=== PATIENT | male | born 1980 | race Caucasian/White ===

== ENCOUNTER 2017-09-16 14:23 | Inpatient (IN) | payer BC ==
[2017-09-16] MEDS ORDERED: LORazepam 1 MG TAB PO STA (15:41)
--- NOTE | 2017-09-16 15:49 | ED ---
General Adult HPI - General Chief complaint: Abdominal Pain Stated complaint: Back pain Time Seen by Provider: 09/16/17 15:17 Source: patient, RN notes reviewed Mode of arrival: ambulatory Limitations: no limitations - History of Present Illness Initial comments: 37-year-old male presents to the emergency department for a chief complaint of right flank pain 3 days. Patient describes the pain as a sharp pain both in his right flank and mid back. Patient states it does feel somewhat better when he lays down and rests and it is worse with movement. He states the pain has been intermittent over the past 3 days. Denies any blood in urine or stool. Patient denies any trauma or hurting his back. Patient does have a history of scoliosis but states this pain does not seem similar to him. Patient denies any spinal tenderness. Patient states he has not been to a doctor in 7 years and has not been on blood pressure medicines. Patient's blood pressure is 220s over 120s today in the emergency department. Patient denies any headache or changes in vision. Patient denies any chest pain or shortness of breath. - Related Data Allergies Allergy/AdvReac Type Severity Reaction Status Date / Time No Known Allergies Allergy Verified 09/16/17 15:20 Review of Systems ROS Statement: Those systems with pertinent positive or pertinent negative responses have been documented in the HPI. ROS Other: All systems not noted in ROS Statement are negative. Past Medical History Past Medical History: Hypertension Additional Past Medical History / Comment(s): scoliosis History of Any Multi-Drug Resistant Organisms: None Reported Past Surgical History: No Surgical Hx Reported Past Psychological History: No Psychological Hx Reported Smoking Status: Former smoker Past Alcohol Use History: Daily Past Drug Use History: None Reported General Exam Limitations: no limitations General appearance: alert, in no apparent distress Head exam: Present: atraumatic, normocephalic, normal inspection Respiratory exam: Present: normal lung sounds bilaterally. Absent: respiratory distress, wheezes, rales, rhonchi, stridor Cardiovascular Exam: Present: regular rate, normal rhythm, normal heart sounds. Absent: systolic murmur, diastolic murmur, rubs, gallop, clicks GI/Abdominal exam: Present: soft, tenderness (Tenderness to the right upper and lower quadrants.), normal bowel sounds. Absent: distended, guarding, rebound, rigid Extremities exam: Present: normal inspection, full ROM, normal capillary refill. Absent: tenderness, pedal edema, joint swelling, calf tenderness Back exam: Present: full ROM, CVA tenderness (R). Absent: muscle spasm, paraspinal tenderness, vertebral tenderness, rash noted Neurological exam: Present: alert, oriented X3, CN II-XII intact Psychiatric exam: Present: normal affect, normal mood Course Vital Signs 09/16/17 09/16/17 15:17 16:00 Temperature 97.5 F L Pulse Rate 75 Respiratory 18 Rate Blood Pressure 227/130 204/123 O2 Sat by Pulse 99 Oximetry Medical Decision Making - Medical Decision Making 37-year-old male presents to the emergency department for a chief complaint of right flank pain. Patient states this pain has been intermittent for the past 3 days. He also describes a pain in his mid back. He states it is shooting towards his right side. All vitals within normal limits except blood pressure. Temp 97.5 pulse 75 respirations 18 blood pressure 227/130. Patient was given a milligram of Ativan. He states his uncle will be driving him home. Patient denied pain medication at this time because although he was in pain earlier today he now feels much better. UA, CBC, CMP, lactic, and lipase were ordered. No acute abnormalities noted on CBC. However chemistry shows a creatinine of 3.1 and a BUN of 39. Urine shows a protein of 3+. CT abdomen and pelvis was ordered noncontrast which showed splenomegaly. No other abnormalities noted. Patient's blood pressure remained elevated. He was given 20 mg of lisinopril and 5 of Norvasc. Patient will be admitted under Dr. Bowser and Dr. Ladd will be consulted. - Lab Data Result diagrams: 09/16/17 15:40 09/16/17 15:40 Lab Results 09/16/17 09/16/17 09/16/17 Range/Units 15:40 15:40 15:40 WBC 5.1 (3.8-10.6) k/uL RBC 4.31 (4.30-5.90) m/uL Hgb 12.7 L (13.0-17.5) gm/dL Hct 39.3 (39.0-53.0) % MCV 91.3 (80.0-100.0) fL MCH 29.5 (25.0-35.0) pg MCHC 32.3 (31.0-37.0) g/dL RDW 13.7 (11.5-15.5) % Plt Count 163 (150-450) k/uL Neutrophils % 77 % Lymphocytes % 11 % Monocytes % 6 % Eosinophils % 4 % Basophils % 0 % Neutrophils # 4.0 (1.3-7.7) k/uL Lymphocytes # 0.6 L (1.0-4.8) k/uL Monocytes # 0.3 (0-1.0) k/uL Eosinophils # 0.2 (0-0.7) k/uL Basophils # 0.0 (0-0.2) k/uL Sodium 145 (137-145) mmol/L Potassium 4.1 (3.5-5.1) mmol/L Chloride 110 H (98-107) mmol/L Carbon Dioxide 24 (22-30) mmol/L Anion Gap 11 mmol/L BUN 39 H (9-20) mg/dL Creatinine 3.10 H (0.66-1.25) mg/dL Est GFR (CKD-EPI)AfAm 28 (>60 ml/min/1.73 sqM) Est GFR (CKD-EPI)NonAf 24 (>60 ml/min/1.73 sqM) Glucose 123 H (74-99) mg/dL Plasma Lactic Acid Hola 1.3 (0.7-2.0) mmol/L Calcium 9.2 (8.4-10.2) mg/dL Total Bilirubin 0.6 (0.2-1.3) mg/dL AST 30 (17-59) U/L ALT 37 (21-72) U/L Alkaline Phosphatase 72 (38-126) U/L Total Protein 6.3 (6.3-8.2) g/dL Albumin 3.3 L (3.5-5.0) g/dL Lipase 277 (23-300) U/L Urine Color Urine Appearance (Clear) Urine pH (5.0-8.0) Ur Specific Cameron (1.001-1.035) Urine Protein (Negative) Urine Glucose (UA) (Negative) Urine Ketones (Negative) Urine Blood (Negative) Urine Nitrite (Negative) Urine Bilirubin (Negative) Urine Urobilinogen (<2.0) mg/dL Ur Leukocyte Esterase (Negative) Urine RBC (0-5) /hpf Urine WBC (0-5) /hpf Hyaline Casts (0-2) /lpf Urine Mucus (None) /hpf 09/16/17 Range/Units 16:15 WBC (3.8-10.6) k/uL RBC (4.30-5.90) m/uL Hgb (13.0-17.5) gm/dL Hct (39.0-53.0) % MCV (80.0-100.0) fL MCH (25.0-35.0) pg MCHC (31.0-37.0) g/dL RDW (11.5-15.5) % Plt Count (150-450) k/uL Neutrophils % % Lymphocytes % % Monocytes % % Eosinophils % % Basophils % % Neutrophils # (1.3-7.7) k/uL Lymphocytes # (1.0-4.8) k/uL Monocytes # (0-1.0) k/uL Eosinophils # (0-0.7) k/uL Basophils # (0-0.2) k/uL Sodium (137-145) mmol/L Potassium (3.5-5.1) mmol/L Chloride (98-107) mmol/L Carbon Dioxide (22-30) mmol/L Anion Gap mmol/L BUN (9-20) mg/dL Creatinine (0.66-1.25) mg/dL Est GFR (CKD-EPI)AfAm (>60 ml/min/1.73 sqM) Est GFR (CKD-EPI)NonAf (>60 ml/min/1.73 sqM) Glucose (74-99) mg/dL Plasma Lactic Acid Hola (0.7-2.0) mmol/L Calcium (8.4-10.2) mg/dL Total Bilirubin (0.2-1.3) mg/dL AST (17-59) U/L ALT (21-72) U/L Alkaline Phosphatase (38-126) U/L Total Protein (6.3-8.2) g/dL Albumin (3.5-5.0) g/dL Lipase (23-300) U/L Urine Color Light Yellow Urine Appearance Clear (Clear) Urine pH 6.5 (5.0-8.0) Ur Specific Cameron 1.011 (1.001-1.035) Urine Protein 3+ H (Negative) Urine Glucose (UA) Negative (Negative) Urine Ketones Negative (Negative) Urine Blood Small H (Negative) Urine Nitrite Negative (Negative) Urine Bilirubin Negative (Negative) Urine Urobilinogen <2.0 (<2.0) mg/dL Ur Leukocyte Esterase Negative (Negative) Urine RBC 4 (0-5) /hpf Urine WBC 3 (0-5) /hpf Hyaline Casts 1 (0-2) /lpf Urine Mucus Rare H (None) /hpf Disposition Clinical Impression: Hypertension, Renal failure Disposition: ADMITTED IP TO THIS HOSP Condition: Good Referrals: None,Stated [Primary Care Provider] - 1-2 days
[2017-09-16 15:56] LABS: Basophils % (A) 0 %; Eosinophils # (A) 0.2 k/uL (0-0.7); Eosinophils % (A) 4 %; HCT 39.3 % (39.0-53.0); HGB 12.7 gm/dL (13.0-17.5); Lymphocytes # (A) 0.6 k/uL (1.0-4.8); Lymphocytes % (A) 11 %; MCH 29.5 pg (25.0-35.0); MCHC 32.3 g/dL (31.0-37.0); MCV 91.3 fL (80.0-100.0); Mean Platelet Volume 6.8; Monocytes # (A) 0.3 k/uL (0-1.0); Monocytes % (A) 6 %; Neutrophils % (A) 77 %; Platelet Count 163 k/uL (150-450); RBC 4.31 m/uL (4.30-5.90); RDW 13.7 % (11.5-15.5); WBC 5.1 k/uL (3.8-10.6)
[2017-09-16 16:05] LABS: Potassium 4.1 mmol/L (3.5-5.1)
[2017-09-16 16:06] LABS: Albumin 3.3 g/dL (3.5-5.0); Calcium 9.2 mg/dL (8.4-10.2); Total Bilirubin 0.6 mg/dL (0.2-1.3); Total Protein 6.3 g/dL (6.3-8.2)
--- NOTE | 2017-09-16 16:10 | CT ---
EXAMINATION TYPE: CT abdomen pelvis wo con DATE OF EXAM: 09/16/2017 COMPARISON: NONE HISTORY: Right side flank pain CT DLP: 1081 mGycm Examination of the solid and hollow viscera is limited given the lack of contrast. FINDINGS: LUNG BASES: No evidence for nodule. No evidence for infiltrate. LIVER/GB: The gallbladder is unremarkable. No space-occupying hepatic lesion. PANCREAS: No pancreatic mass identified. No inflammatory process seen. SPLEEN: Splenomegaly with craniocaudal dimension of 15.7 cm. No intrasplenic lesions seen. ADRENALS: No adrenal nodules identified. No evidence for thickening. KIDNEYS: No evidence for renal mass. No nephrolithiasis. No hydronephrosis. BOWEL: Appendix has a normal appearance. No evidence of bowel obstruction. No inflammatory process. Lymph nodes: No evidence for adenopathy greater than 1 cm. Abdominal aorta: Atheromatous changes seen. No evidence for aneurysm. Genital organs: No significant abnormality. Other: No significant abnormality. IMPRESSION: 1. Splenomegaly with craniocaudal dimension of 15.7 cm. 2. Gastric distention may reflect recently ingested meal/fluid.
[2017-09-16 16:26] LABS: Appearance,Urine Clear (Clear); Bilirubin,Urine Negative (Negative); Blood,Urine Small (Negative); Color,Urine Light Yellow; Glucose,Urine (UA) Negative (Negative); Hyaline Casts,Urine 1 /lpf (0-2); Ketones,Urine Negative (Negative); Leukocyte Esterase,Urine Negative (Negative); Mucus,Urine Rare /hpf; Nitrite,Urine Negative (Negative); PH, Urine 6.5 (5.0-8.0); Protein,Urine 3+ (Negative); RBC,Urine 4 /hpf (0-5); Specific Gravity,Urine 1.011 (1.001-1.035); Urobilinogen,Urine <2.0 mg/dL (<2.0); WBC,Urine 3 /hpf (0-5)
[2017-09-16] MEDS ORDERED: LABETALOL 5 MG/ML VIAL MDV IVP STA ×2 (17:24→19:22)
[2017-09-16] MEDS ORDERED: amLODIPine 5 MG TAB PO STA ×2 (17:25→20:03)
[2017-09-16] MEDS ORDERED: SODIUM CHLORIDE 0.9% 1,000 ML IV STA (17:40)
[2017-09-16] MEDS ORDERED: ACETAMINOPHEN TAB 325 MG TAB PO PRN (17:47)
[2017-09-16] MEDS ORDERED: NALOXONE 0.4 MG/ML 1 ML VIAL IV PRN (17:47)
[2017-09-16] MEDS ORDERED: LABETALOL 200 MG TAB PO STA (19:21)
[2017-09-16] MEDS: SODIUM CHLORIDE 0.9% 1,000 ML IV SCH (20:39)
[2017-09-16] MEDS: LABETALOL 5 MG/ML VIAL MDV IVP SCH ×2 (20:42→21:28)
[2017-09-16 23:19] VITALS: BMI 31.5
[2017-09-17] MEDS ORDERED: HYDROcodone/APAP 5-325MG 1 EACH TAB PO PRN (01:30)
[2017-09-17] MEDS ORDERED: LORazepam 2 MG/ML INJ IV PRN ×3 (01:31)
[2017-09-17] MEDS: SODIUM CHLORIDE 0.9% 1,000 ML IV SCH ×3 (05:00→20:20)
[2017-09-17] MEDS: LABETALOL 5 MG/ML VIAL MDV IVP SCH (05:15)
--- NOTE | 2017-09-17 09:12 | P.NPCON ---
History of Present Illness - Reason for Consult acute renal failure - History of Present Illness Reason for consultation: Acute kidney injury History of present illness: Patient is a 37-year-old male seen in renal consultation for acute kidney injury. Unclear as to what his baseline renal function is. Creatinine was 3.1 on admission. Patient presented to the hospital with right-sided flank pain going on for about 3 days. Patient denies any hematuria or dysuria. Denies any vomiting or diarrhea. Oral intake has been relatively fair. He does admit to taking ibuprofen and Aleve for the last 2-3 days for pain control. He does have history of hypertension but hasn't been taking any medications. He has not seen a physician for several years. His blood pressure was extremely elevated in the systolic 200s on admission for which she did receive labetalol as well as amlodipine. Blood pressure is better controlled today. CT of the abdomen and pelvis revealed no evidence of hydronephrosis. Urinalysis revealed 3+ proteinuria with 4 rbc's. Denies chest pain or shortness of breath. No history of diabetes. Denies any edema. Patient does state that his mother received a kidney transplant but is unsure of the etiology of her kidney failure. Vital signs are stable. General: The patient appeared well nourished and normally developed. HEENT: Head exam is unremarkable. Neck is without jugular venous distension. LUNGS: Lungs are clear to auscultation and percussion. Breath sounds decreased. HEART: Rate and Rhythm are regular. First and second heart sounds normal. No murmurs, rubs or gallops. ABDOMEN: Abdominal exam reveals normal bowel sounds. Non-tender and non- distended. No evidence of peritonitis. EXTREMITITES: No clubbing, cyanosis, or edema. Past Medical History Past Medical History: Hypertension Additional Past Medical History / Comment(s): scoliosis History of Any Multi-Drug Resistant Organisms: None Reported Past Surgical History: Tonsillectomy Past Anesthesia/Blood Transfusion Reactions: No Reported Reaction Past Psychological History: No Psychological Hx Reported Smoking Status: Never smoker Past Alcohol Use History: Daily Additional Past Alcohol Use History / Comment(s): pt states he drinks 12 beers daily Past Drug Use History: None Reported - Past Family History Mother Additional Family Medical History / Comment(s): liver and kidney transplant Father Additional Family Medical History / Comment(s): pt states father of heart attack in his 50's Medications and Allergies Home Medications Medication Instructions Recorded Confirmed Type No Known Home Medications [No 09/16/17 09/16/17 History Known Home Medications] Allergies Allergy/AdvReac Type Severity Reaction Status Date / Time cranberry Allergy Unknown Verified 09/16/17 19:04 pollen extracts Allergy Dyspnea Verified 09/16/17 19:04 Physical Exam Vitals: Vital Signs Temp Pulse Pulse Resp BP BP Pulse Ox 09/17/17 03:55 97.4 F L 58 L 18 147/96 98 09/17/17 03:54 58 L 09/17/17 01:29 146/86 09/17/17 00:00 97.6 F 61 16 174/103 98 09/16/17 22:45 98.3 F 61 18 175/111 98 09/16/17 22:08 60 181/108 96 09/16/17 21:53 60 182/110 96 09/16/17 21:44 61 18 181/112 98 09/16/17 21:29 202/123 09/16/17 21:13 200/117 09/16/17 20:36 194/111 09/16/17 19:50 200/115 09/16/17 19:19 219/134 09/16/17 18:45 209/138 09/16/17 18:40 97.6 F 61 16 175/110 98 09/16/17 18:08 67 18 224/140 98 09/16/17 16:00 204/123 09/16/17 15:17 97.5 F L 75 18 227/130 99 Intake and Output 09/16/17 09/17/17 09/17/17 22:59 06:59 14:59 Intake Total 240 Output Total 1325 Balance 240 -1325 Intake: Oral 240 Output: Urine 1325 Other: Voiding Method Urinal # Voids 1 Weight 96.8 kg 96.8 kg Results - Lab Results Most recent lab results Calcium 9.2 mg/dL (8.4-10.2) 09/16/17 15:40 09/16/17 15:40 09/16/17 15:40 Assessment and Plan Plan: Assessment: #1. Nonoliguric acute kidney injury secondary to ATN secondary to NSAIDs and hemodynamic instability. Creatinine 3.1 on admission. Labs from today are pending at this time. No evidence of hydronephrosis noted on CAT scan. #2. Proteinuria. Consideration for GN. Proteinuria can be nonspecific in the setting of acute kidney injury. #3. Benign hypertension. Better controlled now. Plan: Continue normal saline at 120 mL an hour.. Repeat urinalysis. Quantify proteinuria. Pending above workup, may need to proceed with serologic workup. Avoid nephrotoxic agents and hypotensive episodes. Encouraged oral intake. Add amlodipine 5 mg once daily. Add hydralazine 10 mg every 4 hours if needed for systolic blood pressure greater than 160. Thank you for the consultation. I will continue to follow the patient with you during his hospital stay.
[2017-09-17 09:53] LABS: Appearance,Urine Clear (Clear); Bilirubin,Urine Negative (Negative); Blood,Urine Negative (Negative); Color,Urine Light Yellow; Glucose,Urine (UA) Negative (Negative); Ketones,Urine Negative (Negative); Leukocyte Esterase,Urine Negative (Negative); Nitrite,Urine Negative (Negative); PH, Urine 6.5 (5.0-8.0); Protein,Urine 2+ (Negative); RBC,Urine <1 /hpf (0-5); Specific Gravity,Urine 1.007 (1.001-1.035); Urobilinogen,Urine <2.0 mg/dL (<2.0); WBC,Urine <1 /hpf (0-5)
[2017-09-17 10:12] LABS: Calcium 9.1 mg/dL (8.4-10.2); Potassium 4.6 mmol/L (3.5-5.1)
[2017-09-17] MEDS: THIAMINE 100 MG TAB PO SCH ×2 (12:38→22:11)
[2017-09-17] MEDS: MULTIVITAMINS, THERA 1 EACH TAB PO SCH (12:38)
[2017-09-17] MEDS: amLODIPine 5 MG TAB PO SCH (12:38)
--- NOTE | 2017-09-17 14:19 | US ---
EXAMINATION TYPE: US kidneys/renal and bladder DATE OF EXAM: 09/17/2017 COMPARISON: CT 09/16/2017 CLINICAL HISTORY: bobby. Pt states flank pain and recent abnormal renal function EXAM MEASUREMENTS: Right Kidney: 9.7 x 4.3 x 4.8 cm Left Kidney: 9.9 x 4.4 x 5.1 cm Right Kidney: Echogenic, loss of corticomedullary differentiation Left Kidney: Echogenic, loss of corticomedullary differentiation Bladder: Not fully distended, pt voided just prior to exam Bilateral Jets seen: No Incidental enlarged spleen There is no evidence for hydronephrosis at this point in time. No nephrolithiasis is seen. No fran s are identified. The urinary bladder is anechoic. Bilateral ureteral jets are seen. IMPRESSION: Splenomegaly. Findings compatible with medical renal disease.
--- NOTE | 2017-09-17 17:18 | P.HPIM ---
History of Present Illness 37-year-old male seen in renal consultation for acute kidney injury. Unclear as to what his baseline renal function is. Creatinine was 3.1 on admission. Patient presented to the hospital with right-sided flank pain going on for about 3 days. Patient denies any hematuria or dysuria. Denies any vomiting or diarrhea. Oral intake has been relatively fair. He does admit to taking ibuprofen and Aleve for the last 2-3 days for pain control. He does have history of hypertension but hasn't been taking any medications. He has not seen a physician for several years. His blood pressure was extremely elevated in the systolic 200s on admission for which she did receive labetalol as well as amlodipine. Blood pressure is better controlled today. CT of the abdomen and pelvis revealed no evidence of hydronephrosis. Urinalysis revealed 3+ proteinuria with 4 rbc's. Denies chest pain or shortness of breath. No history of diabetes. Denies any edema. Patient does state that his mother received a kidney transplant but is unsure of the etiology of her kidney failure , his back pain now completely resolved Review of Systems REVIEW OF SYSTEMS: CONSTITUTIONAL: No fever, no malaise, no fatigue. HEENT: No recent visual problems or hearing problems. Denied any sore throat. CARDIOVASCULAR: No chest pain, orthopnea, PND, no palpitations, no syncope. PULMONARY: No shortness of breath, no cough, no hemoptysis. GASTROINTESTINAL: No diarrhea, no nausea, no vomiting, no abdominal pain. Normoactive bowel sounds. NEUROLOGICAL: No headaches, no weakness, no numbness. HEMATOLOGICAL: Denies any bleeding or petechiae. GENITOURINARY: Denies any burning micturition, frequency, or urgency. MUSCULOSKELETAL/RHEUMATOLOGICAL: Back pain as mentioned above ENDOCRINE: Denies any polyuria or polydipsia. The rest of the 14-point review of systems is negative. Past Medical History Past Medical History: Hypertension Additional Past Medical History / Comment(s): scoliosis History of Any Multi-Drug Resistant Organisms: None Reported Past Surgical History: Tonsillectomy Past Anesthesia/Blood Transfusion Reactions: No Reported Reaction Past Psychological History: No Psychological Hx Reported Smoking Status: Never smoker Past Alcohol Use History: Daily Additional Past Alcohol Use History / Comment(s): pt states he drinks 12 beers daily Past Drug Use History: None Reported - Past Family History Mother Additional Family Medical History / Comment(s): liver and kidney transplant Father Additional Family Medical History / Comment(s): pt states father of heart attack in his 50's Medications and Allergies Home Medications Medication Instructions Recorded Confirmed Type No Known Home Medications [No 09/16/17 09/16/17 History Known Home Medications] Allergies Allergy/AdvReac Type Severity Reaction Status Date / Time cranberry Allergy Unknown Verified 09/16/17 19:04 pollen extracts Allergy Dyspnea Verified 09/16/17 19:04 Physical Exam Vitals: Vital Signs Temp Pulse Pulse Resp BP BP Pulse Ox 09/17/17 16:00 97.5 F L 65 18 179/118 99 09/17/17 12:00 97.2 F L 58 L 18 178/111 99 09/17/17 08:00 97.5 F L 58 L 18 162/100 99 09/17/17 03:55 97.4 F L 58 L 18 147/96 98 09/17/17 03:54 58 L 09/17/17 01:29 146/86 09/17/17 00:00 97.6 F 61 16 174/103 98 09/16/17 22:45 98.3 F 61 18 175/111 98 09/16/17 22:08 60 181/108 96 09/16/17 21:53 60 182/110 96 09/16/17 21:44 61 18 181/112 98 09/16/17 21:29 202/123 09/16/17 21:13 200/117 09/16/17 20:36 194/111 09/16/17 19:50 200/115 09/16/17 19:19 219/134 09/16/17 18:45 209/138 09/16/17 18:40 97.6 F 61 16 175/110 98 09/16/17 18:08 67 18 224/140 98 Intake and Output 09/17/17 09/17/17 09/17/17 06:59 14:59 22:59 Output Total 1325 1200 Balance -1325 -1200 Output: Urine 1325 1200 Other: Voiding Method Urinal # Voids 1 3 Weight 96.8 kg PHYSICAL EXAMINATION: GENERAL: The patient is alert and oriented x3, not in any acute distress. Well developed, well nourished. HEENT: Pupils are round and equally reacting to light. EOMI. No scleral icterus. No conjunctival pallor. Normocephalic, atraumatic. No pharyngeal erythema. No thyromegaly. CARDIOVASCULAR: S1 and S2 present. No murmurs, rubs, or gallops. PULMONARY: Chest is clear to auscultation, no wheezing or crackles. ABDOMEN: Soft, nontender, nondistended, normoactive bowel sounds. No palpable organomegaly. MUSCULOSKELETAL: No joint swelling or deformity. EXTREMITIES: No cyanosis, clubbing, or pedal edema. NEUROLOGICAL: Gross neurological examination did not reveal any focal deficits. SKIN: No rashes. Results CBC & Chem 7: 09/16/17 15:40 09/17/17 09:14 Labs: Abnormal Lab Results - Last 24 Hours (Table) 09/17/17 09/17/17 09/17/17 Range/Units 09:00 09:00 09:14 Chloride 111 H (98-107) mmol/L BUN 37 H (9-20) mg/dL Creatinine 2.92 H (0.66-1.25) mg/dL Glucose 187 H (74-99) mg/dL Urine Protein 2+ H (Negative) U Random Total Protein 268 H (<12) mg/dL Thrombosis Risk Factor Assmnt - Choose All That Apply Any of the Below Risk Factors Present?: Yes Each Factor Represents 1 point: Medical pt on bed rest Other Risk Factors: No Other congenital or acquired thrombophilia - If yes, enter type in comment: No Thrombosis Risk Factor Assessment Total Risk Factor Score: 1 Thrombosis Risk Factor Assessment Level: Low Risk Assessment and Plan Plan: -Back pain appears to be chronic low back pain will need physical therapy as an outpatient. -Acute renal failure: Probably related to nonoliguric acute tubular necrosis from nonsteroidal anti-inflammatories patient's creatinine improved with IV fluids IV fluids are being continued patient did have proteinuria. -Hypertension: Blood pressure is better controlled now low salt diet continue with amlodipine and hydralazine.
[2017-09-17] MEDS: hydrALAZINE HCL 20 MG/ML 1 ML VIAL IVP PRN ×2 (17:48→22:11)
[2017-09-17] MEDS ORDERED: LABETALOL 5 MG/ML VIAL MDV IVP PRN (18:50)
[2017-09-17 22:23] VITALS: RESP 16
[2017-09-18] MEDS: SODIUM CHLORIDE 0.9% 1,000 ML IV SCH (02:00)
[2017-09-18 07:09] LABS: Calcium 8.9 mg/dL (8.4-10.2); Potassium 4.4 mmol/L (3.5-5.1)
[2017-09-18] MEDS: amLODIPine 5 MG TAB PO SCH (08:04)
[2017-09-18 08:10] VITALS: BP 159/109; PULSE 72; TEMP 98.3
[2017-09-18] MEDS ORDERED: hydrALAZINE HCL 25 MG TAB PO SCH (09:45)
--- NOTE | 2017-09-18 09:53 | P.PN ---
Subjective Patient is seen in follow-up for acute kidney injury. Renal function has not really improved much and creatinine is 2.89 today. Unclear as to what his baseline renal function is. He is noted to have nephrotic range proteinuria. He has no history of diabetes. Admits to good urine output. Denies any chest pain or shortness of breath. Oral intake is good. He is eager to go home as he needs to be at work tomorrow. Vital signs are stable. General: The patient appeared well nourished and normally developed. HEENT: Head exam is unremarkable. Neck is without jugular venous distension. LUNGS: Lungs are clear to auscultation and percussion. Breath sounds decreased. HEART: Rate and Rhythm are regular. First and second heart sounds normal. No murmurs, rubs or gallops. ABDOMEN: Abdominal exam reveals normal bowel sounds. Non-tender and non- distended. No evidence of peritonitis. EXTREMITITES: No clubbing, cyanosis, or edema. Objective - Vital Signs Vital signs: Vital Signs Temp 98.3 F 09/18/17 08:00 Pulse 72 09/18/17 08:00 Resp 16 09/18/17 04:00 BP 159/109 09/18/17 08:00 Pulse Ox 99 09/18/17 08:00 Intake & Output 09/17/17 09/18/17 09/18/17 18:59 06:59 18:59 Output Total 1200 2450 Balance -1200 -2450 Weight 92.6 kg Output: Urine 1200 2450 Other: Voiding Method Urinal # Voids 3 - Labs CBC & Chem 7: 09/16/17 15:40 09/18/17 06:13 Labs: Abnormal Lab Results - Last 24 Hours (Table) 09/17/17 09/17/17 09/17/17 Range/Units 09:00 09:00 09:14 Chloride 111 H (98-107) mmol/L BUN 37 H (9-20) mg/dL Creatinine 2.92 H (0.66-1.25) mg/dL Glucose 187 H (74-99) mg/dL Urine Protein 2+ H (Negative) U Random Total Protein 268 H (<12) mg/dL 09/18/17 Range/Units 06:13 Chloride 114 H (98-107) mmol/L BUN 31 H (9-20) mg/dL Creatinine 2.89 H (0.66-1.25) mg/dL Glucose (74-99) mg/dL Urine Protein (Negative) U Random Total Protein (<12) mg/dL Assessment and Plan Plan: Assessment: #1. Nonoliguric acute kidney injury secondary to ATN secondary to NSAIDs and hemodynamic instability. Creatinine 3.1 on admission and 2.89 today. No significant improvement in renal function. No evidence of hydronephrosis noted on CAT scan. #2. Proteinuria, nephrotic range. Consideration for GN. #3. Benign hypertension. Blood pressures on the higher side. Plan: I will decrease rate of normal saline to 50 mL an hour. Avoid nephrotoxic agents and hypotensive episodes. Encouraged oral intake. Increase amlodipine to 10 mg daily. Add hydralazine 25 mg 3 times daily. Maintain hydralazine 10 mg every 4 hours if needed for systolic blood pressure greater than 160. Follow-up serologic workup. I advised the patient to stay to get a kidney biopsy. However he states he absolutely needs to be at work tomorrow. Renal biopsy will be scheduled prior to his discharge. He will need to follow-up as an outpatient in the next 1 week to discuss results and treatment options. He will benefit from CULLEN inhibition down the road. I will also add a low-dose statin.
[2017-09-18] MEDS ORDERED: ATORVASTATIN 20 MG TAB PO SCH (10:00)
[2017-09-18 11:44] LABS: DNA Double-Stranded NEGATIVE (NEGATIVE)
[2017-09-18] MEDS: THIAMINE 100 MG TAB PO SCH (12:19)
[2017-09-18] MEDS: MULTIVITAMINS, THERA 1 EACH TAB PO SCH (12:19)
--- NOTE | 2017-09-18 12:52 | P.DS ---
Providers Date of admission: 09/16/17 17:26 Attending physician: Elayne Bowser MD Consults: 09/16/17 17:47 Consult Physician Stat Consulting Provider: Maite Ladd Consult Reason/Comments: renal failure Do you want consulting provider notified?: Yes Primary care physician: Stated None Hospital Course: 37-year-old male seen in renal consultation for acute kidney injury. Unclear as to what his baseline renal function is. Creatinine was 3.1 on admission. Patient presented to the hospital with right-sided flank pain going on for about 3 days. Patient denies any hematuria or dysuria. Denies any vomiting or diarrhea. Oral intake has been relatively fair. He does admit to taking ibuprofen and Aleve for the last 2-3 days for pain control. He does have history of hypertension but hasn't been taking any medications. He has not seen a physician for several years. His blood pressure was extremely elevated in the systolic 200s on admission for which she did receive labetalol as well as amlodipine. Blood pressure is better controlled today. CT of the abdomen and pelvis revealed no evidence of hydronephrosis. Urinalysis revealed 3+ proteinuria with 4 rbc's. Denies chest pain or shortness of breath. No history of diabetes. Denies any edema. Patient does state that his mother received a kidney transplant but is unsure of the etiology of her kidney failure , his back pain now completely resolved. 09/18/2017 Patient is clinically doing well. Wanted to be discharged. Nephrology is recommending inpatient kidney biopsy but patient wanted to go home because of which we'll arrange for outpatient kidney biopsy. 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 Patient and family has a lot of questions which were clarified and counseling was provided patient will closely follow with nephrology in about a week. PHYSICAL EXAMINATION: GENERAL: The patient is alert and oriented x3, not in any acute distress. Well developed, well nourished. HEENT: Pupils are round and equally reacting to light. EOMI. No scleral icterus. No conjunctival pallor. Normocephalic, atraumatic. No pharyngeal erythema. No thyromegaly. CARDIOVASCULAR: S1 and S2 present. No murmurs, rubs, or gallops. PULMONARY: Chest is clear to auscultation, no wheezing or crackles. ABDOMEN: Soft, nontender, nondistended, normoactive bowel sounds. No palpable organomegaly. MUSCULOSKELETAL: No joint swelling or deformity. EXTREMITIES: No cyanosis, clubbing, or pedal edema. NEUROLOGICAL: Gross neurological examination did not reveal any focal deficits. SKIN: No rashes. -Back pain appears to be chronic low back pain will need physical therapy as an outpatient. -Acute renal failure: Probably related to nonoliguric acute tubular necrosis from nonsteroidal anti-inflammatories patient does have nephrotic range proteinuria and will need a kidney biopsy -Hypertension: Blood pressure is better controlled now low salt diet continue with amlodipine and hydralazine. Patient Condition at Discharge: Good Plan - Discharge Summary Discharge Rx Participant: No New Discharge Prescriptions: New amLODIPine [Norvasc] 5 mg PO BID #60 tab hydrALAZINE HCL [Apresoline] 25 mg PO TID #90 tab Discharge Medication List amLODIPine [Norvasc] 5 mg PO BID #60 tab 09/18/17 [Rx] hydrALAZINE HCL [Apresoline] 25 mg PO TID #90 tab 09/18/17 [Rx] Follow up Appointment(s)/Referral(s): None,Stated [Primary Care Provider] - 1-2 days Ming Padgett MD [STAFF PHYSICIAN] - 1 Week Anderson Avila DO [STAFF PHYSICIAN] - 1 Week Activity/Diet/Wound Care/Special Instructions: Low salt diet Discharge Disposition: HOME SELF-CARE
[2017-09-18 17:10] LABS: Hepatitis A Antibody IgM Non-Reactive (Non-Reactive); Hepatitis B Core IgM Non-Reactive (Non-Reactive)
[2017-09-18 19:40] LABS: Hemoglobin A1C 4.7 % (4.0-6.0)
[2017-09-18] MEDS ORDERED: amLODIPine 5 MG TAB PO SCH (21:00)
[2017-09-19 12:03] LABS: Complement C3 85.7 mg/dL (80.0-207.0)
[2017-09-19 14:48] LABS: C-ANCA <1:20 Titer (<1:20); P-ANCA <1:20 Titer (<1:20)
[2017-09-20 13:57] LABS: Albumin 3.24 g/dL (3.80-4.90); Gamma Globulin 0.93 g/dL (0.70-1.50); Protein, Total 5.6 g/dL (6.2-8.2)
== END 2017-09-18 14:26 | disposition home or self-care (01) | DRG 684 ==
LOC: EC 14:23 → 6SEL 17:26
PROVIDERS: ADMIT Internal Medicine; ATTEND Internal Medicine
DX: N17.0 Acute kidney failure with tubular necrosis (principal); M41.9 Scoliosis, unspecified; I10 Essential (primary) hypertension; T39.395A Adverse effect of other nonsteroidal anti-inflammatory drugs [NSAID], initial encounter; M54.9 Dorsalgia, unspecified; R16.1 Splenomegaly, not elsewhere classified; G89.29 Other chronic pain; M54.5 Low back pain; Z87.891 Personal history of nicotine dependence; Z91.018 Allergy to other foods; Z91.048 Other nonmedicinal substance allergy status; Z82.49 Family history of ischemic heart disease and other diseases of the circulatory system
CPT/HCPCS: 36415; 74176; 76770; 80048; 80053; 80074; 81001; 82570; 83036; 83605; 83690; 83883; 84156; 84165; 85025; 86038; 86160; 86162; 86225; 86255; 86334; 86335; 87205; 96361; 96374; 96376; 99285

== ENCOUNTER → 2017-09-26 | Outpatient (CLI) | payer BC ==
[2017-09-26 09:18] LABS: HCT 37.1 % (39.0-53.0); HGB 12.9 gm/dL (13.0-17.5); MCH 31.6 pg (25.0-35.0); MCHC 34.8 g/dL (31.0-37.0); Mean Platelet Volume 6.6; Platelet Count 232 k/uL (150-450); RBC 4.08 m/uL (4.30-5.90); RDW 12.9 % (11.5-15.5); WBC 5.7 k/uL (3.8-10.6)
[2017-09-26 09:25] LABS: INR 0.9 (<1.2); Partial Thromboplastin Time 23.4 sec (22.0-30.0); Prothrombin Time 9.3 sec (9.0-12.0)
[2017-09-26 09:33] LABS: Albumin 3.5 g/dL (3.5-5.0); Calcium 9.5 mg/dL (8.4-10.2); Total Bilirubin 0.2 mg/dL (0.2-1.3); Total Protein 6.4 g/dL (6.3-8.2)
[2017-09-26 09:40] LABS: Appearance,Urine Clear (Clear); Bilirubin,Urine Negative (Negative); Blood,Urine Negative (Negative); Color,Urine Light Yellow; Glucose,Urine (UA) Negative (Negative); Ketones,Urine Negative (Negative); Leukocyte Esterase,Urine Negative (Negative); Nitrite,Urine Negative (Negative); PH, Urine 5.5 (5.0-8.0); Protein,Urine 2+ (Negative); RBC,Urine <1 /hpf (0-5); Specific Gravity,Urine 1.009 (1.001-1.035); Squamous Epithelial Cell,Urine <1 /hpf (0-4); Urobilinogen,Urine <2.0 mg/dL (<2.0); WBC,Urine 1 /hpf (0-5)
== END | disposition home or self-care (01) ==
LOC: LABPAT 08:31
PROVIDERS: ATTEND Internal Medicine
DX: N28.9 Disorder of kidney and ureter, unspecified (principal); N17.9 Acute kidney failure, unspecified; R80.9 Proteinuria, unspecified
CPT/HCPCS: 36415; 80053; 81001; 81050; 84156; 85027; 85610; 85730; 86850; 86900; 86901

== ENCOUNTER → 2017-09-27 | Day surgery (SDC) | payer BC ==
[~2017-09-27] MED LIST: ACETAMINOPHEN TAB 325 MG TAB ONE; HYDROmorphone 2 MG TAB PO STA; METOPROLOL SUCCINATE (ER) 25 MG TAB.ER.24H PO STA
[2017-09-27 10:21] VITALS: TEMP 97.6
--- NOTE | 2017-09-27 11:19 | CT ---
EXAMINATION TYPE: CT biopsy renal LT DATE OF EXAM: 09/27/2017 COMPARISON: NONE HISTORY: Proteinuria CT DLP: 1714 mGycm The procedure was explained to the patient. The risks, complications, benefits, and alternatives wer e discussed and any questions were answered. Informed consent was obtained. Patient was placed pron e on the CT table and prepped and draped in the usual sterile fashion. Utilizing CT guidance, an 18 gauge core biopsy needle access into the left renal cortex was achieved and three 18 gauge core samples were obtained. The patient was stable throughout the procedure and r emained stable upon discharge. IMPRESSION: Successful 18 gauge core biopsy of the kidney function.
[2017-09-27 12:44] VITALS: RESP 16
[2017-09-27 16:00] VITALS: BP 146/98; PULSE 56
== END ==
LOC: RADPROMAIN 08:43
PROVIDERS: ATTEND Internal Medicine
DX: I12.9 Hypertensive chronic kidney disease with stage 1 through stage 4 chronic kidney disease, or unspecified chronic kidney disease (principal); N18.9 Chronic kidney disease, unspecified; N17.9 Acute kidney failure, unspecified; I10 Essential (primary) hypertension; E66.9 Obesity, unspecified; Z68.30 Body mass index [BMI] 30.0-30.9, adult
CPT/HCPCS: 77012

== ENCOUNTER → 2017-12-15 | Outpatient (CLI) | payer OTHER ==
--- NOTE | 2017-12-15 15:09 | XR ---
EXAMINATION TYPE: XR shoulder complete RT DATE OF EXAM: 12/15/2017 COMPARISON: NONE HISTORY: Pain TECHNIQUE: Shoulder examined in 3 views FINDINGS: The humeral head articulates with the glenoid. The acromio-clavicular junction is normal. No acute fractures or dislocations are evident. A follow up study can be performed 7-10 days from acute trauma for continued pain. IMPRESSION: 1. Normal Shoulder
== END | disposition home or self-care (01) ==
LOC: RADXRMAIN 14:33
PROVIDERS: ATTEND Emergency Medicine
DX: M25.511 Pain in right shoulder (principal)

== ENCOUNTER → 2018-01-23 | Outpatient (CLI) | payer OTHER ==
--- NOTE | 2018-01-23 22:55 | MR ---
EXAMINATION TYPE: MR shoulder RT wo con DATE OF EXAM: 01/23/2018 COMPARISON: Right shoulder x-ray December 15, 2017 HISTORY: Pain with limited range of motion right shoulder for 1 year per patient. TECHNIQUE: Multiplanar, multisequence imaging of the right shoulder is performed without contrast. FINDINGS: Signal with small areas of partial tear in the distal supraspinatus tendon Rotator Cuff: There is some increase signal with small areas of partial tear of the distal supraspina tus tendon and increased fluid and adjacent subdeltoid/subacromial bursa. Some increased signal also seen in the anterior fibers of the infraspinatus tendon. No full-thickness retracted tear is identifi ed. Subscapularis tendon is intact. Rotator cuff muscle bulk is preserved. Acromioclavicular Joint: Capsular hypertrophy is present. No significant spurring is seen. Inferior f at plane is maintained. Distal acromion morphology is unremarkable. Glenohumeral Joint: Small glenohumeral joint effusion is seen. Glenohumeral joint space narrowing is noted. Labrum: The labrum appears grossly intact given limitation of non-arthrogram study. Biceps Tendon: The long head of biceps is in normal location within bicipital groove. Bone marrow signal: Some subchondral cystic change anterior humeral head is noted. Other: No additional significant abnormality is appreciated. IMPRESSION: Tendinosis and partial tears of distal supraspinatus tendon and to lesser degree anterior fibers infraspinatus tendon, no full thickness rotator cuff or labral tear is identified.
== END | disposition home or self-care (01) ==
LOC: RADMRIMAIN 20:56
PROVIDERS: ATTEND Emergency Medicine
DX: M75.101 Unspecified rotator cuff tear or rupture of right shoulder, not specified as traumatic (principal); M67.813 Other specified disorders of tendon, right shoulder

== ENCOUNTER 2018-07-13 11:13 | Inpatient (IN) | payer BC ==
[2018-07-13] MEDS ORDERED: OXYMETAZOLINE 0.05% NASL SPRAY 1 SPRAY BOTTLE NASAL STA (11:37)
[2018-07-13] MEDS ORDERED: SODIUM CHLORIDE 0.9% 1,000 ML IV STA (11:37)
[2018-07-13] MEDS ORDERED: cloNIDine HCL 0.1 MG TAB PO STA (11:38)
--- NOTE | 2018-07-13 12:30 | XR ---
EXAMINATION TYPE: XR chest 2V DATE OF EXAM: 07/13/2018 COMPARISON: NONE HISTORY: Hypertension, chest pain and abnormal laboratory values TECHNIQUE: Frontal and lateral views of the chest are obtained. FINDINGS: There is no focal air space opacity, pleural effusion, or pneumothorax seen. The cardiac silhouette size is enlarged. The osseous structures are intact. IMPRESSION: Cardiomegaly, otherwise no acute cardiopulmonary process.
[2018-07-13 12:35] LABS: Basophils % (A) 0 %; Eosinophils # (A) 0.4 k/uL (0-0.7); Eosinophils % (A) 8 %; Lymphocytes # (A) 0.5 k/uL (1.0-4.8); Lymphocytes % (A) 9 %; MCH 30.6 pg (25.0-35.0); MCHC 33.6 g/dL (31.0-37.0); Mean Platelet Volume 6.9; Monocytes # (A) 0.2 k/uL (0-1.0); Monocytes % (A) 5 %; Neutrophils # (A) 3.8 k/uL (1.3-7.7); Neutrophils % (A) 76 %; Platelet Count 111 k/uL (150-450); RBC 2.01 m/uL (4.30-5.90); RDW 15.3 % (11.5-15.5)
[2018-07-13 12:38] LABS: HCT 18.3 % (39.0-53.0); HGB 6.1 gm/dL (13.0-17.5)
[2018-07-13 12:39] LABS: INR 0.9 (<1.2); Partial Thromboplastin Time 25.4 sec (22.0-30.0)
[2018-07-13 12:40] LABS: Albumin 3.5 g/dL (3.5-5.0); Magnesium 1.8 mg/dL (1.6-2.3); Potassium 5.1 mmol/L (3.5-5.1); Total Bilirubin 0.4 mg/dL (0.2-1.3); Total Protein 6.1 g/dL (6.3-8.2)
[2018-07-13] MEDS: SODIUM CHLORIDE 0.9% 1,000 ML IV SCH (12:51)
[2018-07-13 12:56] LABS: Calcium 5.6 mg/dL (8.4-10.2)
--- NOTE | 2018-07-13 13:10 | ED ---
General Adult HPI - General Source: patient, EMS, RN notes reviewed Mode of arrival: EMS Limitations: no limitations <Marcial Cohn - Last Filed: 07/13/18 13:04> <Abel Blancas - Last Filed: 07/13/18 13:36> - General Chief complaint: Recheck/Abnormal Lab/Rx Stated complaint: abn labs Time Seen by Provider: 07/13/18 11:32 - History of Present Illness Initial comments: 38-year-old male presents emergency department for abnormal labs. Patient states that he went to his PCP yesterday for hypertension was started on new medication but also had lab work drawn at that time. Patient was notified today that his renal function was severely elevated along with a low hemoglobin. Patient states she's had a bloody nose since last night but has no other complaints. Denies headache, dizziness, chest pain, shortness breath, weakness, fatigue. Patient does have a history of mild renal dysfunction secondary to NSAID use. Patient denies any anti-inflammatories at this time he only takes Tylenol. Patient denies any melena or hematochezia. (Marcial Cohn) - Related Data Home Medications Medication Instructions Recorded Confirmed Lisinopril [Zestril] 20 mg PO DAILY 07/13/18 07/13/18 Multivitamins, Thera [Multivitamin 1 tab PO DAILY 07/13/18 07/13/18 (formulary)] Allergies Allergy/AdvReac Type Severity Reaction Status Date / Time cranberry Allergy Anaphylaxis Verified 07/13/18 11:41 pollen extracts Allergy Dyspnea Verified 07/13/18 11:41 Review of Systems ROS Other: All systems not noted in ROS Statement are negative. <Marcial Cohn - Last Filed: 07/13/18 13:04> ROS Other: All systems not noted in ROS Statement are negative. <Abel Blancas - Last Filed: 07/13/18 13:36> ROS Statement: Those systems with pertinent positive or pertinent negative responses have been documented in the HPI. Past Medical History Past Medical History: Hypertension Additional Past Medical History / Comment(s): scoliosis History of Any Multi-Drug Resistant Organisms: None Reported Past Surgical History: Tonsillectomy Past Anesthesia/Blood Transfusion Reactions: No Reported Reaction Past Psychological History: No Psychological Hx Reported Smoking Status: Never smoker Past Alcohol Use History: Occasional Past Drug Use History: None Reported - Past Family History Mother Additional Family Medical History / Comment(s): liver and kidney transplant Father Additional Family Medical History / Comment(s): pt states father of heart attack in his 50's <Marcial Cohn - Last Filed: 07/13/18 13:04> General Exam Limitations: no limitations General appearance: alert, in no apparent distress Head exam: Present: atraumatic, normocephalic, normal inspection Eye exam: Present: normal appearance, PERRL, EOMI. Absent: scleral icterus, conjunctival injection, periorbital swelling ENT exam: Present: normal oropharynx, mucous membranes moist, TM's normal bilaterally, normal external ear exam. Absent: normal exam (Dry blood noted in the left nostril) Neck exam: Present: normal inspection. Absent: tenderness, meningismus, lymphadenopathy Respiratory exam: Present: normal lung sounds bilaterally. Absent: respiratory distress, wheezes, rales, rhonchi, stridor Cardiovascular Exam: Present: regular rate, normal rhythm, normal heart sounds. Absent: systolic murmur, diastolic murmur, rubs, gallop, clicks GI/Abdominal exam: Present: soft, normal bowel sounds. Absent: distended, tenderness, guarding, rebound, rigid Skin exam: Present: warm, dry, intact, normal color. Absent: rash <Marcial Cohn - Last Filed: 07/13/18 13:04> Vital Signs 07/13/18 07/13/18 07/13/18 11:17 12:00 12:49 Temperature 97.5 F L Pulse Rate 67 65 51 L Respiratory 16 18 18 Rate Blood Pressure 170/110 161/115 134/95 O2 Sat by Pulse 100 99 99 Oximetry EKG Findings - EKG Comments: EKG Findings:: EKG performed at 11:27 normal sinus rhythm with a prolonged QT rate of 64 OK 160 QRS 98 QT/QTC 502/517 <Marcial Cohn - Last Filed: 07/13/18 13:04> Medical Decision Making - Lab Data Result diagrams: 07/13/18 11:50 07/13/18 11:50 <Marcial Cohn - Last Filed: 07/13/18 13:04> - Lab Data Result diagrams: 07/13/18 11:50 07/13/18 11:50 <Abel Blancas - Last Filed: 07/13/18 13:36> - Medical Decision Making 38-year-old male present emergency from for abnormal labs. Patient is found to be in renal failure with a creatinine of 18.68. Patient does have an elevated BUN 1 L fluids were ordered with maintenance fluids at 75 after. Patient was mildly hypertensive and given clonidine blood pressure has improved. Patient also anemic 1 unit of blood was ordered. Patient be admitted with nephrology consult. (Marcial Cohn) 38-year-old male using acute on chronic renal failure, hypertension, anemia. Patient has significant lab abnormalities including hemoglobin 6.1, creatinine 19, elevated BUN of 1:15. Case is discussed with nephrology Dr. Avila, and vascular surgeon Dr. Carrillo. Patient will receive vascular access for urgent hemodialysis. He is placed on sodium bicarb infusion as well as given potassium replacement. He will be admitted for further treatment and evaluation. Case discussed with admitting physician. (Abel Blancas) - Lab Data Lab Results 07/13/18 07/13/18 07/13/18 Range/Units 11:50 11:50 11:50 WBC 5.0 (3.8-10.6) k/uL RBC 2.01 L (4.30-5.90) m/uL Hgb 6.1 L* (13.0-17.5) gm/dL Hct 18.3 L* (39.0-53.0) % MCV 91.0 (80.0-100.0) fL MCH 30.6 (25.0-35.0) pg MCHC 33.6 (31.0-37.0) g/dL RDW 15.3 (11.5-15.5) % Plt Count 111 L (150-450) k/uL Neutrophils % 76 % Lymphocytes % 9 % Monocytes % 5 % Eosinophils % 8 % Basophils % 0 % Neutrophils # 3.8 (1.3-7.7) k/uL Lymphocytes # 0.5 L (1.0-4.8) k/uL Monocytes # 0.2 (0-1.0) k/uL Eosinophils # 0.4 (0-0.7) k/uL Basophils # 0.0 (0-0.2) k/uL PT (9.0-12.0) sec INR (<1.2) APTT (22.0-30.0) sec Sodium 138 (137-145) mmol/L Potassium 5.1 (3.5-5.1) mmol/L Chloride 110 H (98-107) mmol/L Carbon Dioxide 12 L (22-30) mmol/L Anion Gap 16 mmol/L BUN 115 H* (9-20) mg/dL Creatinine 18.68 H* (0.66-1.25) mg/dL Est GFR (CKD-EPI)AfAm 3 (>60 ml/min/1.73 sqM) Est GFR (CKD-EPI)NonAf 3 (>60 ml/min/1.73 sqM) Glucose 91 (74-99) mg/dL Calcium 5.6 L* (8.4-10.2) mg/dL Phosphorus 10.0 H* (2.5-4.5) mg/dL Magnesium 1.8 (1.6-2.3) mg/dL Total Bilirubin 0.4 (0.2-1.3) mg/dL AST 13 L (17-59) U/L ALT 20 L (21-72) U/L Alkaline Phosphatase 79 (38-126) U/L Total Protein 6.1 L (6.3-8.2) g/dL Albumin 3.5 (3.5-5.0) g/dL Lipase 666 H (23-300) U/L Blood Type A Positive Blood Type Recheck No Antibody Screen NEGATIVE Crossmatch See Detail Spec Expiration Date 07/16/2018 - 234907/13/18 Range/Units 11:50 WBC (3.8-10.6) k/uL RBC (4.30-5.90) m/uL Hgb (13.0-17.5) gm/dL Hct (39.0-53.0) % MCV (80.0-100.0) fL MCH (25.0-35.0) pg MCHC (31.0-37.0) g/dL RDW (11.5-15.5) % Plt Count (150-450) k/uL Neutrophils % % Lymphocytes % % Monocytes % % Eosinophils % % Basophils % % Neutrophils # (1.3-7.7) k/uL Lymphocytes # (1.0-4.8) k/uL Monocytes # (0-1.0) k/uL Eosinophils # (0-0.7) k/uL Basophils # (0-0.2) k/uL PT 10.0 (9.0-12.0) sec INR 0.9 (<1.2) APTT 25.4 (22.0-30.0) sec Sodium (137-145) mmol/L Potassium (3.5-5.1) mmol/L Chloride (98-107) mmol/L Carbon Dioxide (22-30) mmol/L Anion Gap mmol/L BUN (9-20) mg/dL Creatinine (0.66-1.25) mg/dL Est GFR (CKD-EPI)AfAm (>60 ml/min/1.73 sqM) Est GFR (CKD-EPI)NonAf (>60 ml/min/1.73 sqM) Glucose (74-99) mg/dL Calcium (8.4-10.2) mg/dL Phosphorus (2.5-4.5) mg/dL Magnesium (1.6-2.3) mg/dL Total Bilirubin (0.2-1.3) mg/dL AST (17-59) U/L ALT (21-72) U/L Alkaline Phosphatase (38-126) U/L Total Protein (6.3-8.2) g/dL Albumin (3.5-5.0) g/dL Lipase (23-300) U/L Blood Type Blood Type Recheck Antibody Screen Crossmatch Spec Expiration Date Critical Care Time Critical Care Time: Yes Total Critical Care Time: 35 <Marcial Cohn - Last Filed: 07/13/18 13:04> <Abel Blancas - Last Filed: 07/13/18 13:36> Critical Care Time: Critical care time was used with total 35 minutes. Patient is found to be hypertensive with blood pressure of 170/110, clonidine was ordered which is improved the blood pressure. Patient's found to be in severe renal failure with a creatinine of 18.68 with an elevated BUN. Hydration was ordered including 1 L of normal saline, normal saline at 75 miles per hour. Nephrology was contacted and consult at for further evaluation for renal failure. Patient is also found to have a hemoglobin of 6.1 severe anemia, patient was given 1 unit of blood at this time. Patient will be admitted to telemetry for further evaluation including possible dialysis, evaluation of cause of anemia with repeat labs including CBC, CMP. Case was also discussed with admitting doctor, Dr. Rodriguez. (Marcial Cohn) Disposition <Marcial Cohn - Last Filed: 07/13/18 13:04> <Abel Blancas - Last Filed: 07/13/18 13:36> Clinical Impression: Anemia, Hypertension, Hyperphosphatemia, Renal failure Disposition: ADMITTED IP TO THIS HOSP Condition: Fair
[2018-07-13] MEDS ORDERED: CALCIUM GLUCONATE 2,000 MG in SODIUM CHLORIDE 0.9% 100 ML IVPB ONE (13:23)
[2018-07-13] MEDS ORDERED: HEPARIN SODIUM 1,000 UN/ML (10ML VL) ONE (14:37)
[2018-07-13] MEDS ORDERED: IV FLUID CONTINUATION 700 ML IV ONE (14:39)
[2018-07-13] MEDS ORDERED: LIDOCAINE 1% INJ 10MG/ML (20 ML MDV) ONE ×2 (14:40→15:04)
[2018-07-13] MEDS ORDERED: MIDAZOLAM 2 MG/2 ML VIAL IV ONE (14:55)
[2018-07-13] MEDS ORDERED: LIDOCAINE 1% INJ 10MG/ML (20 ML MDV) SQ ONE (14:56)
--- NOTE | 2018-07-13 16:17 | HP ---
HISTORY AND PHYSICAL This is a 38-year-old gentleman who came to the emergency room with history of abnormal labs. Patient has a creatinine of 18.69 and BUN of 115 with a hemoglobin of 6.1. Patient was seen by Nephrology, who recommended urgent dialysis catheter. Patient also has some history of nose bleeding yesterday which he stopped. Patient is getting blood transfusion right now. PAST HISTORY: History of hypertension, controlled with medication. SURGICAL HISTORY: Patient had a tonsillectomy. PERSONAL HISTORY: Never smoked. PHYSICAL EXAMINATION: NECK: Supple. Trachea central. CHEST: Clear to auscultation. ABDOMEN: Soft, nontender. Brachial, radial and femoral pulses are present. IMPRESSION: Acute renal failure. PLAN: Placement of dialysis catheter. Risks and complications, including bleeding, infection, thrombosis, have been discussed. MMODL / IJN: [id number] /
--- NOTE | 2018-07-13 16:29 | XR ---
EXAMINATION TYPE: XR chest 1V portable DATE OF EXAM: 07/13/2018 Comparison: 07/13/2018 Clinical History: 38-year-old male confirm dialysis catheter placement Findings: Right-sided double lumen hemodialysis catheter tips at the level of the lower SVC. Heart mildly enlar ged. Interstitial prominence. No consolidation or pleural effusion. Impression: Right-sided double lumen hemodialysis catheter tips at the lower SVC level. Cardiomegaly. No acute pr ocess seen.
--- NOTE | 2018-07-13 17:22 | OP ---
OPERATIVE REPORT PREOPERATIVE DIAGNOSIS: Acute on chronic renal failure. PROCEDURE: Ultrasound-guided 90 cm dialysis catheter placement through the right internal jugular. SEDATION TIME: 40 minutes. PROCEDURE DESCRIPTION: This patient was brought to the label coder. Right side of the neck and chest was prepped and draped in sterile manner. Lidocaine 1% plain was infiltrated in the neck and chest area. After that, ultrasound-guided micropuncture was introduced into the right internal jugular vein. Micropuncture guidewire was passed and 4-Tongan dilator advanced on top of the guidewire. After that we passed a regular guidewire, which was parked in the inferior vena cava. Then a tunnel was created. Through the tunnel we brought the dialysis catheter. Then dilator was advanced and sheath was advanced on top of the guidewire. Through the sheath we introduced the dialysis catheter. Tip of the catheter in superior vena cava and atrium flushed with heparin saline and hep- locked. Incision was closed with Vicryl and skin closed with nylon. Dressing applied. Patient tolerated the procedure well. MMODL / IJN: [id number] /
[2018-07-13] MEDS: DEXTROSE 5% IN WATER 1,000 ML with SODIUM BICARB (1 MEQ/ML) 150 ML IV SCH (17:28)
[2018-07-14] MEDS: SODIUM CHLORIDE 0.9% 1,000 ML IV SCH ×2 (04:36→17:21)
[2018-07-14] MEDS: DEXTROSE 5% IN WATER 1,000 ML with SODIUM BICARB (1 MEQ/ML) 150 ML IV SCH ×2 (04:37→17:20)
[2018-07-14 05:52] LABS: Hepatitis B Surface AB- Quant 3.5 mIU/mL
[2018-07-14] MEDS ORDERED: HYDROmorphone 0.5 MG/0.5 ML SYRINGE IVP STA (06:34)
[2018-07-14 06:54] LABS: Basophils % (A) 1 %; Eosinophils # (A) 0.3 k/uL (0-0.7); Eosinophils % (A) 7 %; HCT 20.7 % (39.0-53.0); HGB 7.1 gm/dL (13.0-17.5); Lymphocytes # (A) 0.4 k/uL (1.0-4.8); Lymphocytes % (A) 10 %; MCV 91.1 fL (80.0-100.0); Mean Platelet Volume 8.7; Monocytes # (A) 0.3 k/uL (0-1.0); Monocytes % (A) 7 %; Neutrophils # (A) 3.3 k/uL (1.3-7.7); Neutrophils % (A) 75 %; RBC 2.28 m/uL (4.30-5.90); RDW 15.3 % (11.5-15.5); WBC 4.5 k/uL (3.8-10.6)
[2018-07-14 07:05] LABS: Partial Thromboplastin Time 25.8 sec (22.0-30.0); Prothrombin Time 10.3 sec (9.0-12.0)
--- NOTE | 2018-07-14 07:09 | XR ---
EXAMINATION TYPE: XR chest 1V portable DATE OF EXAM: 07/14/2018 COMPARISON: 07/13/2018 HISTORY: Check dialysis catheter TECHNIQUE: Single frontal view of the chest is obtained. FINDINGS: There is a dual-lumen right central venous catheter with the tip in the superior vena cava . No significant change in position compared to yesterday. there is no heart failure. Lungs are clear of consolidation. No pneumothorax. IMPRESSION: No significant change compared to yesterday. Catheter appears in good position.
[2018-07-14 07:27] LABS: Platelet Count 96 k/uL (150-450)
[2018-07-14 07:36] LABS: Potassium 4.2 mmol/L (3.5-5.1)
[2018-07-14 07:51] LABS: Calcium 6.1 mg/dL (8.4-10.2)
--- NOTE | 2018-07-14 08:44 | IR ---
EXAMINATION TYPE: IR cvc insert central tunneled DATE OF EXAM: 07/13/2018 COMPARISON: NONE HISTORY: Fluoroscopy time. Fluoroscopy was provided to the referring clinician. 2 minutes of fluoroscopy provided.
[2018-07-14] MEDS ORDERED: CALCIUM GLUCONATE 2,000 MG in SODIUM CHLORIDE 0.9% 100 ML IVPB ONE (11:00)
--- NOTE | 2018-07-14 13:19 | P.HPIM ---
History of Present Illness H&P Date: 07/14/18 Chief Complaint: Fatigue This is a 38-year-old white male came in the office one day ago for recheck on his blood pressure. He not been taking his medications. He indicates he is been having fatigue for the past month with occasional nausea and vomiting. On routine laboratory studies she was found to be in acute renal failure. He denies any chest pains, pressures or shortness of breath. He had any nausea vomiting recently. He denies any hematemesis, hematochezia, melena, or significant nonsteroidal use. He denies any awvp-ehi-zgzimux supplement use. A similar admission back in August 2017. Splenomegaly and findings compatible with medical renal disease on ultrasound hours with significant findings. Nephrology had seen the patient and a kidney biopsy was planned. He had a significantly elevated free And free lambda on his workup in August. Review of Systems All systems: negative Past Medical History Past Medical History: Hypertension, Renal Disease (Acute on chronic renal failure admission August 2017) Additional Past Medical History / Comment(s): epistaxis, 09/16/17 History of Any Multi-Drug Resistant Organisms: None Reported Past Surgical History: Tonsillectomy Past Anesthesia/Blood Transfusion Reactions: No Reported Reaction Smoking Status: Never smoker - Past Family History Mother Additional Family Medical History / Comment(s): liver and kidney transplant Father Additional Family Medical History / Comment(s): pt states father of heart attack in his 50's Medications and Allergies Home Medications Medication Instructions Recorded Confirmed Type Lisinopril [Zestril] 20 mg PO DAILY 07/13/18 07/13/18 History Multivitamins, Thera [Multivitamin 1 tab PO DAILY 07/13/18 07/13/18 History (formulary)] Allergies Allergy/AdvReac Type Severity Reaction Status Date / Time cranberry Allergy Anaphylaxis Verified 07/13/18 11:41 pollen extracts Allergy Dyspnea Verified 07/13/18 11:41 Physical Exam Vitals: Vital Signs Temp Pulse Pulse Resp BP BP Pulse Ox 07/14/18 12:00 55 L 16 143/73 95 07/14/18 11:20 16 07/14/18 11:03 16 155/88 07/14/18 11:02 98.1 F 50 L 16 155/88 07/14/18 10:58 98.2 F 49 L 16 163/94 07/14/18 10:28 98.2 F 87 16 154/84 07/14/18 10:18 98.1 F 52 L 16 152/83 07/14/18 08:00 81 16 156/100 96 07/14/18 06:54 68 18 168/102 98 07/14/18 06:50 64 165/105 07/14/18 06:28 70 18 183/103 97 07/14/18 06:22 70 18 165/107 91 L 07/14/18 06:15 62 163/95 96 07/14/18 04:00 97.2 F L 57 L 18 143/81 97 07/14/18 00:00 56 L 18 149/88 100 07/13/18 20:00 97 F L 69 18 149/81 100 07/13/18 16:00 16 07/13/18 15:47 94.5 F L 57 L 16 150/94 07/13/18 14:34 97.9 F 49 L 18 123/90 99 07/13/18 14:04 97.6 F 49 L 18 134/99 100 07/13/18 13:54 97.5 F L 50 L 18 125/88 99 07/13/18 13:52 97.5 F L 50 L 18 125/88 99 Intake and Output 07/13/18 07/14/18 07/14/18 22:59 06:59 14:59 Intake Total 310 510 Balance 310 510 Intake: Oral 200 Blood Product 310 310 As-1 Unit 310 [id number] As-1 Unit 310 [id number] Other: # Voids 1 2 Weight 99.3 kg GENERAL: Well-appearing, well-nourished and in no acute distress. HEAD: Atraumatic, normocephalic. EYES: Pupils equal round and reactive to light, extraocular movements intact, sclera anicteric, conjunctiva are normal. ENT:nares patent, oropharynx clear without exudates. Moist mucous membranes. NECK: Normal range of motion, supple without lymphadenopathy or JVD, no thyromegaly Chest wall: There is a dialysis catheter in his right chest, dressing is clean dry and intact LUNGS: Breath sounds clear to auscultation bilaterally and equal. No wheezes rales or rhonchi. HEART: Regular rate and rhythm without murmurs, rubs or gallops.S1S2 Normal ABDOMEN: Soft, nontender, normoactive bowel sounds. No guarding, no rebound. No masses appreciated. EXTREMITIES: Normal range of motion, no pitting or edema. No clubbing or cyanosis. NEUROLOGICAL: Cranial nerves II through XII grossly intact. Normal speech, normal gait. PSYCH: Normal mood, normal affect. SKIN: Warm, Dry, normal turgor, no rashes or lesions noted. Results CBC & Chem 7: 07/14/18 06:21 07/14/18 06:21 Labs: Abnormal Lab Results - Last 24 Hours (Table) 07/13/18 07/14/18 07/14/18 Range/Units 11:50 06:21 06:21 RBC 2.28 L (4.30-5.90) m/uL Hgb 7.1 L (13.0-17.5) gm/dL Hct 20.7 L (39.0-53.0) % Plt Count 96 L (150-450) k/uL Lymphocytes # 0.4 L (1.0-4.8) k/uL BUN 80 H (9-20) mg/dL Creatinine 12.51 H* (0.66-1.25) mg/dL Calcium 6.1 L* (8.4-10.2) mg/dL Crossmatch See Detail Chest x-ray: report reviewed Thrombosis Risk Factor Assmnt - DVT/VTE Prophylaxis DVT/VTE Prophylaxis: Low risk, early ambulation encouraged - Choose All That Apply Any of the Below Risk Factors Present?: Yes Each Factor Represents 1 point: Obesity (BMI >25) Other Risk Factors: No Other congenital or acquired thrombophilia - If yes, enter type in comment: No Thrombosis Risk Factor Assessment Total Risk Factor Score: 1 Thrombosis Risk Factor Assessment Level: Low Risk Assessment and Plan (1) Acute renal failure on dialysis Current Visit: Yes Status: Acute Code(s): N17.9 - ACUTE KIDNEY FAILURE, UNSPECIFIED; Z99.2 - DEPENDENCE ON RENAL DIALYSIS SNOMED Code(s): 834018325294681 (2) Normocytic anemia Current Visit: Yes Status: Acute Code(s): D64.9 - ANEMIA, UNSPECIFIED SNOMED Code(s): 249836706 (3) Splenomegaly Current Visit: Yes Status: Acute Code(s): R16.1 - SPLENOMEGALY, NOT ELSEWHERE CLASSIFIED SNOMED Code(s): 99850095 (4) Light chain nephropathy Current Visit: Yes Status: Acute Code(s): N05.8 - UNSP NEPHRITIC SYNDROME WITH OTHER MORPHOLOGIC CHANGES SNOMED Code(s): 78541152 (5) Anemia Current Visit: Yes Status: Acute Code(s): D64.9 - ANEMIA, UNSPECIFIED SNOMED Code(s): 809702267 Plan: I will consult nephrology regarding the acute renal failure. Based on his elevated free lambda and free kappa with a 1:1 ratio, and his normocytic anemia I will consult hematology oncology as well Dr. Carrillo is artery been counseled in place dialysis catheter. Patient is also artery received 1 unit of packed red blood cells. Repeat labs in a.m., he'll be reevaluated in a.m. We'll await recommendations from the consultants.
--- NOTE | 2018-07-14 13:23 | US ---
EXAMINATION TYPE: US kidneys/renal and bladder DATE OF EXAM: 07/14/2018 COMPARISON: US and CT CLINICAL HISTORY: acute renal failure. Renal failure EXAM MEASUREMENTS: Right Kidney: 8.7 x 4.0 x 3.7 cm Left Kidney: 8.3 x 3.5 x 3.9 cm Right Kidney: Small in size, atrophic in appearance Left Kidney: Small in size, atrophic in appearance Bladder: Not fully distended Bilateral Jets seen: No IMPRESSION: Findings which could be compatible with renal atrophy, greater on the right. Exam is limited in visua lization.
--- NOTE | 2018-07-14 14:09 | P.NPCON ---
History of Present Illness - Reason for Consult acute renal failure, chronic renal failure - History of Present Illness Reason for consultation: Acute kidney injury on chronic kidney disease History of present illness: Patient is a 38-year-old male seen a new consultation for acute kidney injury on chronic kidney disease. Patient has chronic kidney disease stage IV with creatinine near 3 from August 2017. 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 Patient was given a trial of steroids but did not take them as he could not afford it. He also did not follow up in the office. Patient was seen by his primary care physician yesterday due to not feeling well overall. Patient felt like he had the flu. He was having intermittent episodes of nausea and vomiting and felt weak. Blood work revealed acute renal failure with creatinine of 18.6 and was advised to go to the hospital. He admits to good urine output. No hematuria or dysuria. He was urgently dialyzed yesterday and underwent second treatment of hemodialysis this morning. Overall feels well. Kidney ultrasound reveals small sized kidneys. He appears to have progressed to end-stage renal disease. No chest pain or shortness of breath. Denies use of NSAIDs. No history of diabetes. Vital signs are stable. General: The patient appeared well nourished and normally developed. HEENT: Head exam is unremarkable. Neck is without jugular venous distension. LUNGS: Lungs are clear to auscultation and percussion. Breath sounds decreased. HEART: Rate and Rhythm are regular. First and second heart sounds normal. No murmurs, rubs or gallops. ABDOMEN: Abdominal exam reveals normal bowel sounds. Non-tender and non- distended. No evidence of peritonitis. EXTREMITITES: No clubbing, cyanosis, or edema. Past Medical History Past Medical History: Hypertension, Renal Disease (Acute on chronic renal failure admission August 2017) Additional Past Medical History / Comment(s): epistaxis, 09/16/17 History of Any Multi-Drug Resistant Organisms: None Reported Past Surgical History: Tonsillectomy Past Anesthesia/Blood Transfusion Reactions: No Reported Reaction Smoking Status: Never smoker - Past Family History Mother Additional Family Medical History / Comment(s): liver and kidney transplant Father Additional Family Medical History / Comment(s): pt states father of heart attack in his 50's Medications and Allergies Home Medications Medication Instructions Recorded Confirmed Type Lisinopril [Zestril] 20 mg PO DAILY 07/13/18 07/13/18 History Multivitamins, Thera [Multivitamin 1 tab PO DAILY 07/13/18 07/13/18 History (formulary)] Allergies Allergy/AdvReac Type Severity Reaction Status Date / Time cranberry Allergy Anaphylaxis Verified 07/13/18 11:41 pollen extracts Allergy Dyspnea Verified 07/13/18 11:41 Physical Exam Vitals: Vital Signs Temp Pulse Pulse Resp BP BP Pulse Ox 07/14/18 12:00 55 L 16 143/73 95 07/14/18 11:20 16 07/14/18 11:03 16 155/88 07/14/18 11:02 98.1 F 50 L 16 155/88 07/14/18 10:58 98.2 F 49 L 16 163/94 07/14/18 10:28 98.2 F 87 16 154/84 07/14/18 10:18 98.1 F 52 L 16 152/83 07/14/18 08:00 81 16 156/100 96 07/14/18 06:54 68 18 168/102 98 07/14/18 06:50 64 165/105 07/14/18 06:28 70 18 183/103 97 07/14/18 06:22 70 18 165/107 91 L 07/14/18 06:15 62 163/95 96 07/14/18 04:00 97.2 F L 57 L 18 143/81 97 07/14/18 00:00 56 L 18 149/88 100 07/13/18 20:00 97 F L 69 18 149/81 100 07/13/18 16:00 16 07/13/18 15:47 94.5 F L 57 L 16 150/94 07/13/18 14:34 97.9 F 49 L 18 123/90 99 07/13/18 14:04 97.6 F 49 L 18 134/99 100 Intake and Output 07/13/18 07/14/18 07/14/18 22:59 06:59 14:59 Intake Total 310 510 Balance 310 510 Intake: Oral 200 Blood Product 310 310 Rc As-1 Unit 310 [id number] Rc As-1 Unit 310 [id number] Other: # Voids 1 2 Weight 99.3 kg Results - Lab Results Most recent lab results Calcium 6.1 mg/dL (8.4-10.2) L* 07/14/18 06:21 Phosphorus 10.0 mg/dL (2.5-4.5) H* 07/13/18 11:50 Magnesium 1.8 mg/dL (1.6-2.3) 07/13/18 11:50 07/14/18 06:21 07/14/18 06:21 Assessment and Plan Plan: Assessment: 1. Chronic kidney disease stage IV now likely progressed to end-stage renal disease. 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 Patient was seen in the office and was given a trial of steroids. However he did not take them as he could not afford the medication. He also did not follow-up in the clinic. Kidney ultrasound reveals small sized kidneys without evidence of hydronephrosis. Creatinine was 18.6 on admission. He was started on hemodialysis on July 13. 2. Hypocalcemia secondary to acute kidney injury. Status post IV calcium. 3. Hyperphosphatemia secondary to acute kidney injury. Expect further improvement with dialysis. 4. Hypertension with chronic kidney disease. 5. Metabolic acidosis secondary to acute kidney injury. Better. 6. Acute blood loss anemia status post 2 units of blood transfusion. Plan: Discontinue bicarbonate drip. Normal saline at 50 mL an hour for maintenance fluids. Third treatment of hemodialysis tomorrow. Add PhosLo with meals. Status post 2 g of IV calcium this morning. Check iron studies. Add Aranesp. betting agency manager to help facilitate outpatient hemodialysis set up. Thank you for the consultation. I will continue to follow the patient with you during his hospital stay.
[2018-07-14] MEDS ORDERED: DARBEPOETIN ALFA 40 MCG/0.4 ML SYRINGE SQ SCH (15:00)
[2018-07-14] MEDS: CALCIUM ACETATE 667 MG CAP PO SCH (16:23)
[2018-07-14 19:46] LABS: Iron Saturation 15.54 (15.00-50.00)
[2018-07-14] MEDS: amLODIPine 5 MG TAB PO SCH (21:20)
[2018-07-14 23:36] LABS: Basophils % (A) 0 %; Eosinophils # (A) 0.2 k/uL (0-0.7); Eosinophils % (A) 5 %; HCT 20.8 % (39.0-53.0); Lymphocytes # (A) 0.5 k/uL (1.0-4.8); Lymphocytes % (A) 13 %; MCH 29.9 pg (25.0-35.0); MCHC 32.7 g/dL (31.0-37.0); MCV 91.5 fL (80.0-100.0); Mean Platelet Volume 8.9; Monocytes # (A) 0.3 k/uL (0-1.0); Monocytes % (A) 7 %; Neutrophils % (A) 73 %; RBC 2.27 m/uL (4.30-5.90); WBC 4.2 k/uL (3.8-10.6)
[2018-07-14 23:43] LABS: Platelet Count 85 k/uL (150-450)
[2018-07-14 23:47] LABS: HGB 6.8 gm/dL (13.0-17.5)
[2018-07-15] MEDS ORDERED: FUROSEMIDE 10 MG/ML 2 ML VIAL IV PRN (00:51)
[2018-07-15] MEDS: CALCIUM ACETATE 667 MG CAP PO SCH ×3 (06:04→17:18)
[2018-07-15] MEDS: amLODIPine 5 MG TAB PO SCH (09:20)
[2018-07-15 10:39] LABS: Calcium 7.2 mg/dL (8.4-10.2); Magnesium 1.7 mg/dL (1.6-2.3); Phosphorus 3.1 mg/dL (2.5-4.5); Potassium 3.2 mmol/L (3.5-5.1)
[2018-07-15 10:41] LABS: Basophils % (A) 0 %; Eosinophils # (A) 0.2 k/uL (0-0.7); Eosinophils % (A) 7 %; HCT 25.8 % (39.0-53.0); HGB 8.7 gm/dL (13.0-17.5); Lymphocytes # (A) 0.4 k/uL (1.0-4.8); Lymphocytes % (A) 11 %; MCH 29.9 pg (25.0-35.0); MCHC 33.6 g/dL (31.0-37.0); MCV 88.9 fL (80.0-100.0); Mean Platelet Volume 7.7; Monocytes # (A) 0.2 k/uL (0-1.0); Monocytes % (A) 5 %; Neutrophils # (A) 2.8 k/uL (1.3-7.7); Neutrophils % (A) 77 %; Platelet Count 105 k/uL (150-450); RDW 14.7 % (11.5-15.5); WBC 3.6 k/uL (3.8-10.6)
--- NOTE | 2018-07-15 10:42 | P.PN ---
Subjective The patient is currently undergoing dialysis. He is a poor historian. Per nephrology's notes he was diagnosed with focal segmental glomerulosclerosis back in August on biopsy after's previous hospitalization. Apparently he never took the steroids has since progressed from stage IV renal failure due to end- stage renal failure. Currently he denies any chest pains, pressures, shortness of breath, nausea or vomiting. He still has some bleeding from his catheter insertion site in the right chest wall. Objective - Vital Signs Vital signs: Vital Signs Temp 98.1 F 07/15/18 08:00 Pulse 73 07/15/18 08:00 Resp 18 07/15/18 08:00 BP 181/101 07/15/18 08:00 Pulse Ox 97 07/15/18 08:00 Intake & Output 07/14/18 07/15/18 07/15/18 18:59 06:59 18:59 Intake Total 810 310 610 Output Total 500 Balance 810 -190 610 Weight 99.3 kg Intake: Oral 500 300 Blood Product 310 310 310 Rc As-1 Unit 0 310 [id number] Rc As-1 Unit 310 [id number] Rc As-1 Unit 310 [id number] Output: Urine 500 Other: Voiding Method Toilet Urinal # Voids 2 1 - Exam GENERAL: Well-appearing, well-nourished and in no acute distress. NECK: Normal range of motion, supple without lymphadenopathy or JVD, no thyromegaly Chest wall: There is a dialysis catheter in his right chest, dressing is clean dry and intact LUNGS: Breath sounds clear to auscultation bilaterally and equal. No wheezes rales or rhonchi. HEART: Regular rate and rhythm without murmurs, rubs or gallops.S1S2 Normal ABDOMEN: Soft, nontender, normoactive bowel sounds. No guarding, no rebound. No masses appreciated. EXTREMITIES: Normal range of motion, no pitting or edema. No clubbing or cyanosis. NEUROLOGICAL: Cranial nerves II through XII grossly intact. Normal speech, normal gait. PSYCH: Normal mood, normal affect. Seems unconcerned about kidney failure and not truly understanding the extent of his disease. SKIN: Warm, Dry, normal turgor, no rashes or lesions noted. - Labs CBC & Chem 7: 07/14/18 23:20 07/14/18 06:21 Labs: Abnormal Lab Results - Last 24 Hours (Table) 07/13/18 07/14/18 07/14/18 Range/Units 11:50 06:21 23:20 RBC 2.27 L (4.30-5.90) m/uL Hgb 6.8 L* (13.0-17.5) gm/dL Hct 20.8 L (39.0-53.0) % Plt Count 85 L (150-450) k/uL Lymphocytes # 0.5 L (1.0-4.8) k/uL Iron 39 L (65-175) ug/dL Ferritin 360.1 H (22.0-322.0) ng/mL Crossmatch See Detail Assessment and Plan (1) Acute renal failure on dialysis Current Visit: Yes Status: Acute Code(s): N17.9 - ACUTE KIDNEY FAILURE, UNSPECIFIED; Z99.2 - DEPENDENCE ON RENAL DIALYSIS SNOMED Code(s): 364726130251276 (2) Normocytic anemia Current Visit: Yes Status: Acute Code(s): D64.9 - ANEMIA, UNSPECIFIED SNOMED Code(s): 615852718 (3) Splenomegaly Current Visit: Yes Status: Acute Code(s): R16.1 - SPLENOMEGALY, NOT ELSEWHERE CLASSIFIED SNOMED Code(s): 23280958 (4) Light chain nephropathy Current Visit: Yes Status: Acute Code(s): N05.8 - UNSP NEPHRITIC SYNDROME WITH OTHER MORPHOLOGIC CHANGES SNOMED Code(s): 87873606 (5) Anemia Current Visit: Yes Status: Acute Code(s): D64.9 - ANEMIA, UNSPECIFIED SNOMED Code(s): 060631867 (6) Focal segmental glomerulosclerosis determined by biopsy Current Visit: Yes Status: Acute Code(s): N26.9 - RENAL SCLEROSIS, UNSPECIFIED SNOMED Code(s): 064022201 Plan: With his worsening anemia, he will receive another unit of packed red blood cells should it remain less than 7. Last Dr. Carrillo to reevaluate the ongoing leaking of his dialysis catheter in the right chest wall. I'll cancel the consult for oncology based on nephrology's notes. They're making plans for outpatient hemodialysis. Repeat labs in a.m., he'll be reevaluated in a.m. We'll await recommendations from the consultants.
[2018-07-15] MEDS ORDERED: DESMOPRESSIN ACETATE 27 MCG in SODIUM CHLORIDE 0.9% 50 ML IVPB ONE (11:45)
[2018-07-15] MEDS ORDERED: DESMOPRESSIN ACETATE 30 MCG in SODIUM CHLORIDE 0.9% 50 ML IVPB ONE (11:45)
[2018-07-15] MEDS: SODIUM CHLORIDE 0.9% 1,000 ML IV SCH ×2 (12:01→23:46)
[2018-07-15] MEDS: hydrALAZINE HCL 25 MG TAB PO SCH ×3 (12:37→22:12)
[2018-07-15] MEDS: LISINOPRIL 5 MG TAB PO SCH (17:18)
--- NOTE | 2018-07-15 18:15 | PN ---
PROGRESS NOTE Patient is currently seen on dialysis. He is tolerating his treatment well. He has been bleeding from his catheter site. On examination this morning blood pressure was 181/101, heart rate 73 per minute. Patient is afebrile. Examination of the Heart: S1, S2. Examination of the Lungs: Bilateral breath sounds are heard. Abdomen is soft, nontender. Examination lower extremities shows no evidence of edema. 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 LABS: Sodium 139, potassium 3.2, chloride 104, BUN 31, serum creatinine 5.4. ASSESSMENT: 1. End-stage renal disease, started on hemodialysis. 2. Bleeding at the site of the catheter. I will give a dose of DDAVP today. 3. Anemia secondary to anemia of chronic disease as well as possibly related to recent bleeding. 4. Hyperphosphatemia. 5. Hypertension, started on Norvasc. 6. Metabolic acidosis, currently off of sodium bicarb. PLAN: DC IV fluids. Add lisinopril and DDAVP IV x1. MMODL / IJN: [id number] /
[2018-07-16] MEDS: ACETAMINOPHEN TAB 325 MG TAB PO PRN ×2 (04:24→20:10)
[2018-07-16] MEDS: CALCIUM ACETATE 667 MG CAP PO SCH ×3 (06:19→16:34)
[2018-07-16 06:58] LABS: Basophils % (A) 0 %; Eosinophils # (A) 0.2 k/uL (0-0.7); Eosinophils % (A) 6 %; HCT 24.1 % (39.0-53.0); HGB 7.8 gm/dL (13.0-17.5); Lymphocytes # (A) 0.5 k/uL (1.0-4.8); Lymphocytes % (A) 11 %; MCH 29.6 pg (25.0-35.0); MCHC 32.6 g/dL (31.0-37.0); MCV 90.7 fL (80.0-100.0); Mean Platelet Volume 6.6; Monocytes # (A) 0.3 k/uL (0-1.0); Monocytes % (A) 8 %; Neutrophils # (A) 3.1 k/uL (1.3-7.7); Neutrophils % (A) 73 %; RBC 2.65 m/uL (4.30-5.90); RDW 15.1 % (11.5-15.5); WBC 4.3 k/uL (3.8-10.6)
[2018-07-16 06:59] LABS: Platelet Count 96 k/uL (150-450)
[2018-07-16 07:04] LABS: Calcium 6.9 mg/dL (8.4-10.2); Potassium 4.2 mmol/L (3.5-5.1)
[2018-07-16] MEDS: LISINOPRIL 5 MG TAB PO SCH (07:36)
[2018-07-16] MEDS: hydrALAZINE HCL 25 MG TAB PO SCH ×4 (07:36→22:44)
[2018-07-16] MEDS: amLODIPine 5 MG TAB PO SCH (07:37)
--- NOTE | 2018-07-16 11:47 | P.PN ---
Subjective From the admission note This is a 38-year-old white male came in the office one day ago for recheck on his blood pressure. He not been taking his medications. He indicates he is been having fatigue for the past month with occasional nausea and vomiting. On routine laboratory studies she was found to be in acute renal failure. He denies any chest pains, pressures or shortness of breath. He had any nausea vomiting recently. He denies any hematemesis, hematochezia, melena, or significant nonsteroidal use. He denies any ddza-jfg-hbbjerk supplement use. A similar admission back in August 2017. Splenomegaly and findings compatible with medical renal disease on ultrasound hours with significant findings. Nephrology had seen the patient and a kidney biopsy was planned. He had a significantly elevated free And free lambda on his workup in August. 07/15/2018 The patient is currently undergoing dialysis. He is a poor historian. Per nephrology's notes he was diagnosed with focal segmental glomerulosclerosis back in August on biopsy after's previous hospitalization. Apparently he never took the steroids has since progressed from stage IV renal failure due to end- stage renal failure. Currently he denies any chest pains, pressures, shortness of breath, nausea or vomiting. He still has some bleeding from his catheter insertion site in the right chest wall. 07/16/2018 The patient is asleep. He was easily arousable. I discussed his case with Dr. Ladd today. She feels she is a candidate for kidney transplant. He remains on hemodialysis. She feels he would be stable tomorrow. He and I discussed his case and he does seem very sad when pressed on the issue. I believe I have broken through his denial this time. He now informs me that his mom had a kidney and liver transplant in the past. He denies any chest pains, pressures, or shortness of breath today. He had a bowel movement today. He denies any nausea or vomiting. He is tolerating his diet. Objective - Vital Signs Vital signs: Vital Signs Temp 97.8 F 07/16/18 11:34 Pulse 76 07/16/18 11:34 Resp 18 07/16/18 11:34 BP 157/90 07/16/18 11:34 Pulse Ox 97 07/16/18 11:34 Intake & Output 07/15/18 07/16/18 07/16/18 18:59 06:59 18:59 Intake Total 730 200 240 Balance 730 200 240 Weight 90 kg 90.5 kg Intake: Oral 420 200 240 Blood Product 310 Rc As-1 Unit 310 [id number] Other: Voiding Method Toilet Urinal # Voids 1 - Exam GENERAL: Well-appearing, well-nourished and in no acute distress. NECK: Normal range of motion, supple without lymphadenopathy or JVD, no thyromegaly Chest wall: There is a dialysis catheter in his right chest, dressing is clean dry and intact LUNGS: Breath sounds clear to auscultation bilaterally and equal. No wheezes rales or rhonchi. HEART: Regular rate and rhythm without murmurs, rubs or gallops.S1S2 Normal ABDOMEN: Soft, nontender, normoactive bowel sounds. No guarding, no rebound. No masses appreciated. EXTREMITIES: Normal range of motion, no pitting or edema. No clubbing or cyanosis. NEUROLOGICAL: Cranial nerves II through XII grossly intact. Normal speech, normal gait. PSYCH: Saddened mood after discussing his case for a few minutes with him., normal affect. SKIN: Warm, Dry, normal turgor, no rashes or lesions noted. - Labs CBC & Chem 7: 07/16/18 05:48 07/16/18 05:48 Labs: Abnormal Lab Results - Last 24 Hours (Table) 07/16/18 07/16/18 Range/Units 05:48 05:48 RBC 2.65 L (4.30-5.90) m/uL Hgb 7.8 L (13.0-17.5) gm/dL Hct 24.1 L (39.0-53.0) % Plt Count 96 L (150-450) k/uL Lymphocytes # 0.5 L (1.0-4.8) k/uL BUN 39 H (9-20) mg/dL Creatinine 8.54 H* (0.66-1.25) mg/dL Calcium 6.9 L (8.4-10.2) mg/dL Assessment and Plan (1) Acute renal failure on dialysis Current Visit: Yes Status: Acute Code(s): N17.9 - ACUTE KIDNEY FAILURE, UNSPECIFIED; Z99.2 - DEPENDENCE ON RENAL DIALYSIS SNOMED Code(s): 575133569186630 (2) Normocytic anemia Current Visit: Yes Status: Acute Code(s): D64.9 - ANEMIA, UNSPECIFIED SNOMED Code(s): 381560804 (3) Splenomegaly Current Visit: Yes Status: Acute Code(s): R16.1 - SPLENOMEGALY, NOT ELSEWHERE CLASSIFIED SNOMED Code(s): 58585136 (4) Light chain nephropathy Current Visit: Yes Status: Acute Code(s): N05.8 - UNSP NEPHRITIC SYNDROME WITH OTHER MORPHOLOGIC CHANGES SNOMED Code(s): 28598004 (5) Anemia Current Visit: Yes Status: Acute Code(s): D64.9 - ANEMIA, UNSPECIFIED SNOMED Code(s): 633055092 (6) Focal segmental glomerulosclerosis determined by biopsy Current Visit: Yes Status: Acute Code(s): N26.9 - RENAL SCLEROSIS, UNSPECIFIED SNOMED Code(s): 378918361 Plan: We'll continue monitor his blood count. We'll repeat labs in am. We'll ask social work to see him for counseling in invading his social situation. He will need hemodialysis 3 times weekly. I discussed with him the need for compliance to be placed and remain on a kidney transplant list. He'll be reevaluated in the next 24 hours.
--- NOTE | 2018-07-16 17:57 | CT ---
EXAMINATION TYPE: CT brain wo con DATE OF EXAM: 07/16/2018 COMPARISON: None HISTORY: vision changes CT DLP: 1129.4 mGycm. Automated Exposure Control for Dose Reduction was Utilized. TECHNIQUE: CT scan of the head is performed without contrast. FINDINGS: Ventricles of normal size. There is no mass effect nor midline shift. There is no sign of i ntracranial hemorrhage. The calvarium is intact. There is mucosal thickening in the maxillary sinuses . There is no sign of orbital mass. IMPRESSION: Negative CT scan of the brain. Mild sinusitis.
--- NOTE | 2018-07-16 19:13 | PN ---
PROGRESS NOTE Patient is seen for followup for end-stage renal disease. He was dialyzed yesterday. Patient tolerated his treatment well. He had been having bleeding from his PermCath site. He is currently status post DDAVP and doing well. No significant complaints today. Awaiting placement for outpatient dialysis. PHYSICAL EXAMINATION: On examination today, blood pressure was 140/98, heart rate 71 per minute. Patient is afebrile. Examination shows patient is euvolemic with no evidence of edema in his lower extremities. 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 LABS: Sodium 140, potassium 4.2, hemoglobin 7.8 g/dL. ASSESSMENT: 1. End-stage renal disease secondary to FSGS, biopsy-proven, started on hemodialysis. Patient will be maintained on dialysis as outpatient. 2. Anemia, most likely anemia of chronic disease. No active bleeding noted. Maintained on Aranesp. 3. Hypertension, currently controlled. 4. Chronic kidney disease mineral bone disorder. Phosphorus is down to 3.1 from 10.0. The patient is maintained on PhosLo. We will monitor the phosphorus levels as outpatient. PLAN: Hemodialysis in a.m. Maintain off of IV fluids. Continue with SUJEY inhibitors. Monitor phosphorus as outpatient for possible need for decreasing the dose of PhosLo. MMODL / IJN: [id number] /
[2018-07-17] MEDS: CALCIUM ACETATE 667 MG CAP PO SCH ×3 (06:14→21:22)
[2018-07-17 06:40] LABS: Basophils % (A) 0 %; Eosinophils # (A) 0.4 k/uL (0-0.7); Eosinophils % (A) 7 %; HCT 26.1 % (39.0-53.0); HGB 8.6 gm/dL (13.0-17.5); Lymphocytes # (A) 0.5 k/uL (1.0-4.8); Lymphocytes % (A) 11 %; MCH 30.1 pg (25.0-35.0); MCHC 32.8 g/dL (31.0-37.0); MCV 91.6 fL (80.0-100.0); Mean Platelet Volume 8.5; Monocytes # (A) 0.3 k/uL (0-1.0); Monocytes % (A) 6 %; Neutrophils # (A) 3.4 k/uL (1.3-7.7); Neutrophils % (A) 73 %; RBC 2.85 m/uL (4.30-5.90); WBC 4.7 k/uL (3.8-10.6)
[2018-07-17 06:45] LABS: Platelet Count 99 k/uL (150-450)
[2018-07-17 06:48] LABS: Calcium 7.6 mg/dL (8.4-10.2); Potassium 4.1 mmol/L (3.5-5.1)
[2018-07-17] MEDS: LISINOPRIL 5 MG TAB PO SCH (10:16)
[2018-07-17] MEDS: hydrALAZINE HCL 25 MG TAB PO SCH ×4 (10:16→21:22)
[2018-07-17] MEDS: amLODIPine 5 MG TAB PO SCH ×2 (10:16→21:22)
--- NOTE | 2018-07-17 10:46 | P.PN ---
Subjective Patient is seen in follow-up for end-stage renal disease. He will now be maintain on hemodialysis on a Tuesday schedule. Currently sitting up in bed. Denies chest pain or shortness of breath. Hemodynamically stable. Vital signs are stable. General: The patient appeared well nourished and normally developed. HEENT: Head exam is unremarkable. Neck is without jugular venous distension. LUNGS: Lungs are clear to auscultation and percussion. Breath sounds decreased. HEART: Rate and Rhythm are regular. First and second heart sounds normal. No murmurs, rubs or gallops. ABDOMEN: Abdominal exam reveals normal bowel sounds. Non-tender and non- distended. No evidence of peritonitis. EXTREMITITES: No clubbing, cyanosis, or edema. Objective - Vital Signs Vital signs: Vital Signs Temp 98.0 F 07/17/18 07:45 Pulse 84 07/17/18 07:45 Resp 16 07/17/18 07:45 BP 192/114 07/17/18 07:45 Pulse Ox 100 07/17/18 07:45 Intake & Output 07/16/18 07/17/18 07/17/18 18:59 06:59 18:59 Intake Total 240 380 240 Balance 240 380 240 Weight 89.5 kg Intake: Oral 240 380 240 Other: Voiding Method Toilet - Labs CBC & Chem 7: 07/17/18 06:16 07/17/18 06:16 Labs: Abnormal Lab Results - Last 24 Hours (Table) 07/17/18 07/17/18 Range/Units 06:16 06:16 RBC 2.85 L (4.30-5.90) m/uL Hgb 8.6 L (13.0-17.5) gm/dL Hct 26.1 L (39.0-53.0) % Plt Count 99 L (150-450) k/uL Lymphocytes # 0.5 L (1.0-4.8) k/uL BUN 48 H (9-20) mg/dL Creatinine 10.52 H* (0.66-1.25) mg/dL Calcium 7.6 L (8.4-10.2) mg/dL Assessment and Plan Plan: Assessment: 1. Chronic kidney disease stage IV now progressed to end-stage renal disease. 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 Patient was seen in the office and was given a trial of steroids. However he did not take them as he could not afford the medication. He also did not follow-up in the clinic. Kidney ultrasound reveals small sized kidneys without evidence of hydronephrosis. Creatinine was 18.6 on admission. He was started on hemodialysis on July 13. He's been tolerating the treatments well. 2. Hypocalcemia secondary to acute kidney injury. Status post IV calcium. Better. 3. Hyperphosphatemia secondary to acute kidney injury. Improved. Maintained on PhosLo. 4. Hypertension with chronic kidney disease. Blood pressures high. 5. Metabolic acidosis secondary to acute kidney injury. Better. 6. Acute blood loss anemia status post 2 units of blood transfusion. Stable. Maintained on Aranesp. Iron deficiency noted. Plan: Hemodialysis today. Ferrlecit 125 mg IV daily for 3 days. First dose today. Increase amlodipine to 5 mg twice daily. Outpatient dialysis being set up. I also discussed peritoneal dialysis with him. Further information will be provided outpatient. Stable to be discharged home from nephrology standpoint after dialysis today.
[2018-07-17] MEDS: SODIUM FERRIC GLUCONAT-SUCROSE 125 MG in SODIUM CHLORIDE 0.9% 100 ML IVPB SCH (12:38)
[2018-07-17 13:44] LABS: Uric Acid 5.7 mg/dL (3.5-8.5)
--- NOTE | 2018-07-17 16:49 | P.PN ---
Subjective Progress Note Date: 07/17/18 Principal diagnosis: Known history of noncompliance, hypertension, end-stage renal disease, candidate for kidney transplant. Currently undergoing hemodialysis patient is stable complains of intermittent nausea tolerating diet Objective - Vital Signs Vital signs: Vital Signs Temp 97.5 F L 07/17/18 15:38 Pulse 86 07/17/18 15:38 Resp 16 07/17/18 15:38 BP 165/102 07/17/18 15:38 Pulse Ox 97 07/17/18 15:38 Intake & Output 07/16/18 07/17/18 07/17/18 18:59 06:59 18:59 Intake Total 240 380 580 Balance 240 380 580 Weight 89.5 kg Intake: Intake, IV Titration 100 Amount Sodium Ferric Gluconat- 100 Sucrose 125 mg In Sodium Chloride 0.9% 100 ml @ 100 mls/hr IVPB DAILY [facility] Rx#:[id number] Oral 240 380 480 Other: Voiding Method Toilet # Voids 1 - Exam General: [Patient awake, alert and oriented times 3. Patient in no acute distress.] HEENT: [PERRL. EOMI. No pharyngeal erythema or exudate.] Neck: [No adenopathy.] Cardiac: [Heart regular in rate and rhythm. No S3. No S4. No clicks, rubs. No murmur.] Lungs: [Clear to auscultation bilaterally.] Abdomen: [No mass. No organomegaly. Bowel sounds presnt and normoactive in all 4 quadrants.] Extremes: [No edema no cyanosis no claudication normal pulses] : [] Musculoskeletal: [No joint erythema, edema or tenderness.] Skin: [No rash.] Neurologic: [No lateralizing deficits. CN II - XII grossly intact.] Lymphatic: [No adenopathy.] - Labs CBC & Chem 7: 07/17/18 06:16 07/17/18 06:16 Labs: Abnormal Lab Results - Last 24 Hours (Table) 07/17/18 07/17/18 07/17/18 Range/Units 06:16 06:16 06:16 RBC 2.85 L (4.30-5.90) m/uL Hgb 8.6 L (13.0-17.5) gm/dL Hct 26.1 L (39.0-53.0) % Plt Count 99 L (150-450) k/uL Lymphocytes # 0.5 L (1.0-4.8) k/uL BUN 48 H (9-20) mg/dL Creatinine 10.52 H* (0.66-1.25) mg/dL Calcium 7.6 L (8.4-10.2) mg/dL Lactate Dehydrogenase 952 H (313-618) U/L Assessment and Plan (1) Acute renal failure on dialysis Current Visit: Yes Status: Acute Code(s): N17.9 - ACUTE KIDNEY FAILURE, UNSPECIFIED; Z99.2 - DEPENDENCE ON RENAL DIALYSIS SNOMED Code(s): 000778738230453 (2) Anemia Current Visit: Yes Status: Acute Code(s): D64.9 - ANEMIA, UNSPECIFIED SNOMED Code(s): 050645922 (3) 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
[2018-07-17] MEDS ORDERED: ONDANSETRON 4 MG/2 ML VIAL IVP PRN (17:02)
[2018-07-17 18:54] LABS: Folate, Serum 8.2 ng/mL
--- NOTE | 2018-07-17 22:16 | P.CONS ---
History of Present Illness - Reason for Consult Consult date: 07/17/18 Thrombocytopenia Requesting physician: Ming Padgett - Chief Complaint renal failure - History of Present Illness Mr. Marr is a 38-year-old male with known chronic kidney disease Stage 4. He has had a biopsy in the past which revealed Glomerulosclerosis with fibrosis and tubular atrophy. He was apparently not compliant with treatment of steroids and was not adherent to follow-up with nephrology. He had been feeling weak and tired more recently and was seen in office by his PCP. His Labs returned from visit and creatinine 18.6, therefore advised to be further evaluated in emergency. He was then admitted and started on hemodiaylsis urgently. His platlet count has been fluctuating since admission and therefore hematology has been consulted to further evaluate. He complained of some nausea and lethary, no emesis. He complains of feet and leg pain. Review of Systems A 14 point review of systems assessed and completed and all negative except HPI Past Medical History Past Medical History: Hypertension, Renal Disease (Acute on chronic renal failure admission August 2017) Additional Past Medical History / Comment(s): epistaxis, 09/16/17 History of Any Multi-Drug Resistant Organisms: None Reported Past Surgical History: Tonsillectomy Past Anesthesia/Blood Transfusion Reactions: No Reported Reaction Smoking Status: Never smoker - Past Family History Mother Additional Family Medical History / Comment(s): liver and kidney transplant Father Additional Family Medical History / Comment(s): pt states father of heart attack in his 50's Medications and Allergies Home Medications Medication Instructions Recorded Confirmed Type Lisinopril [Zestril] 20 mg PO DAILY 07/13/18 07/13/18 History Multivitamins, Thera [Multivitamin 1 tab PO DAILY 07/13/18 07/13/18 History (formulary)] Allergies Allergy/AdvReac Type Severity Reaction Status Date / Time cranberry Allergy Anaphylaxis Verified 07/13/18 11:41 pollen extracts Allergy Dyspnea Verified 07/13/18 11:41 Physical Exam Vitals: Vital Signs Temp Pulse Resp BP Pulse Ox 07/17/18 11:35 97.8 F 71 16 173/112 98 07/17/18 07:45 98.0 F 84 16 192/114 100 07/17/18 04:00 97.6 F 75 16 143/80 96 07/16/18 23:58 81 18 186/109 97 07/16/18 20:00 97.4 F L 87 18 160/106 94 L 07/16/18 17:57 160/107 07/16/18 16:00 97.8 F 82 18 177/102 97 Intake and Output 07/16/18 07/17/18 07/17/18 22:59 06:59 14:59 Intake Total 380 340 Balance 380 340 Intake: Intake, IV Titration 100 Amount Sodium Ferric Gluconat- 100 Sucrose 125 mg In Sodium Chloride 0.9% 100 ml @ 100 mls/hr IVPB DAILY [facility] Rx#:[id number] Oral 380 240 Other: Voiding Method Toilet Toilet # Voids 1 Weight 89.5 kg Gen: ALert and oriented x3, NAD Neck Supple, no cervical, supraclavicular, or axillary adenopathy O/P: Poor dentition, no sores or lesions noted Lungs diminished bilateral bases, no increased effort noted Heart RRR: S1s2 Abdomen s,nd, nt Extremities, no rash or edema Results CBC & Chem 7: 07/17/18 06:16 07/17/18 06:16 Labs: Abnormal Lab Results - Last 24 Hours (Table) 07/17/18 07/17/18 Range/Units 06:16 06:16 RBC 2.85 L (4.30-5.90) m/uL Hgb 8.6 L (13.0-17.5) gm/dL Hct 26.1 L (39.0-53.0) % Plt Count 99 L (150-450) k/uL Lymphocytes # 0.5 L (1.0-4.8) k/uL BUN 48 H (9-20) mg/dL Creatinine 10.52 H* (0.66-1.25) mg/dL Calcium 7.6 L (8.4-10.2) mg/dL Assessment and Plan Plan: Assessment and Recommendations: 1. Acute renal Failure on Chronic Kidney Disease - Requiring Urgent Hemodiaylsis - History of renal biopsy Glomerulosclerosis with interstitial fibrosis and tubular adenopathy - He apparently did not follow-up as recommended nor did he stay adherent with steroid regimen prescribed - Nephrology following 2. Thrombocytopenia: Most likely related to acute on chronic inflammation and enlarged spleen (15.7cm in August 2017) - His Platelet level is in a safe range as it is greater than 50K, it does not appear to be trending downward as seen in picture of Heparin induced thrombocytopenia. With his history of hospitalization and receiving HD we will test for this differential - In the picture of thrombocytopenia, anemia and Severe acute jump in renal failure must also confirm there is not a picture of TTP. - Will ask for schistocyte review in am with CBC, Check Hapto, Retic, LDH, Heparin antibodies (although less likely) 3. Normocytic Anemia - His baseline is usually 12 - On admission 6.1 - If less than 7 agree with transfusion during hemodialysis - prior assessment for monoclonal proteins were not identified. Await further work-up and continue to monitor daily CBC Thank you for allowing us to participate in care of this patient
[2018-07-18 06:38] LABS: Reticulocyte % 1.9 % (0.5-2.0)
[2018-07-18 06:40] LABS: HCT 28.2 % (39.0-53.0); HGB 9.3 gm/dL (13.0-17.5); MCH 30.3 pg (25.0-35.0); MCHC 33.1 g/dL (31.0-37.0); MCV 91.5 fL (80.0-100.0); Mean Platelet Volume 6.8; Platelet Count 115 k/uL (150-450); RBC 3.08 m/uL (4.30-5.90); RDW 14.7 % (11.5-15.5); WBC 4.8 k/uL (3.8-10.6)
[2018-07-18 07:05] LABS: Eosinophils # (M) 0.19 k/uL (0-0.7); Lymphocytes # (M) 0.53 k/uL (1.0-4.8); Monocytes # (M) 0.19 k/uL (0-1.0); Neutrophils # (M) 3.89 k/uL (1.3-7.7); Neutrophils % (M) 81 %; Nucleated Red Blood Cells 0 /100 WBC (0-0); Total Cells Counted 100
[2018-07-18] MEDS: CALCIUM ACETATE 667 MG CAP PO SCH ×3 (08:29→17:46)
[2018-07-18] MEDS: amLODIPine 5 MG TAB PO SCH ×2 (08:30→19:02)
[2018-07-18] MEDS: hydrALAZINE HCL 25 MG TAB PO SCH ×4 (08:31→19:02)
[2018-07-18] MEDS: LISINOPRIL 5 MG TAB PO SCH (08:31)
[2018-07-18] MEDS: SODIUM FERRIC GLUCONAT-SUCROSE 125 MG in SODIUM CHLORIDE 0.9% 100 ML IVPB SCH (08:32)
[2018-07-18] MEDS ORDERED: METOPROLOL SUCCINATE (ER) 25 MG TAB.ER.24H PO SCH (09:00)
[2018-07-18 11:45] VITALS: RESP 16
--- NOTE | 2018-07-18 12:26 | P.PN ---
Subjective Patient is seen in follow-up for end-stage renal disease. He will now be maintain on hemodialysis on a Tuesday schedule. Currently sitting up in bed. Denies chest pain or shortness of breath. Hemodynamically stable. Vital signs are stable. General: The patient appeared well nourished and normally developed. HEENT: Head exam is unremarkable. Neck is without jugular venous distension. LUNGS: Lungs are clear to auscultation and percussion. Breath sounds decreased. HEART: Rate and Rhythm are regular. First and second heart sounds normal. No murmurs, rubs or gallops. ABDOMEN: Abdominal exam reveals normal bowel sounds. Non-tender and non- distended. No evidence of peritonitis. EXTREMITITES: No clubbing, cyanosis, or edema. Objective - Vital Signs Vital signs: Vital Signs Temp 98.2 F 07/18/18 11:52 Pulse 80 07/18/18 11:52 Resp 16 07/18/18 11:52 BP 147/87 07/18/18 11:52 Pulse Ox 97 07/18/18 11:52 Intake & Output 07/17/18 07/18/18 07/18/18 18:59 06:59 18:59 Intake Total 580 200 700 Balance 580 200 700 Weight 88.8 kg Intake: Intake, IV Titration 100 Amount Sodium Ferric Gluconat- 100 Sucrose 125 mg In Sodium Chloride 0.9% 100 ml @ 100 mls/hr IVPB DAILY [facility] Rx#:[id number] Oral 480 200 700 Other: Voiding Method Toilet Toilet # Voids 1 0 - Labs CBC & Chem 7: 07/18/18 05:45 07/17/18 06:16 Labs: Abnormal Lab Results - Last 24 Hours (Table) 07/17/18 07/18/18 Range/Units 06:16 05:45 RBC 3.08 L (4.30-5.90) m/uL Hgb 9.3 L (13.0-17.5) gm/dL Hct 28.2 L (39.0-53.0) % Plt Count 115 L (150-450) k/uL Lymphocytes # (Manual) 0.53 L (1.0-4.8) k/uL Lactate Dehydrogenase 952 H (313-618) U/L Assessment and Plan Plan: Assessment: 1. Chronic kidney disease stage IV now progressed to end-stage renal disease. 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 Patient was seen in the office and was given a trial of steroids. However he did not take them as he could not afford the medication. He also did not follow-up in the clinic. Kidney ultrasound reveals small sized kidneys without evidence of hydronephrosis. Creatinine was 18.6 on admission. He was started on hemodialysis on July 13. He's been tolerating the treatments well. 2. Hypocalcemia secondary to acute kidney injury. Status post IV calcium. Better. 3. Hyperphosphatemia secondary to acute kidney injury. Improved. Maintained on PhosLo. 4. Hypertension with chronic kidney disease. Better. 5. Metabolic acidosis secondary to acute kidney injury. Better. 6. Acute blood loss anemia status post 2 units of blood transfusion. Better. Maintained on Aranesp. Iron deficiency noted. Plan: Hemodialysis tomorrow. Ferrlecit 125 mg IV daily for 3 days. Second dose today. Maintain current antihypertensives. Outpatient dialysis has been set up. I also discussed peritoneal dialysis with him. Further information will be provided outpatient. Stable to be discharged home from nephrology standpoint.
[2018-07-18 12:51] LABS: Calcium 8.2 mg/dL (8.4-10.2); Potassium 4.1 mmol/L (3.5-5.1)
[2018-07-18 13:41] VITALS: BMI 28.9
[2018-07-18 15:56] VITALS: BP 127/80; PULSE 76; TEMP 98
--- NOTE | 2018-07-18 18:40 | P.DS ---
Providers Date of admission: 07/13/18 13:25 Expected date of discharge: 07/18/18 Attending physician: Reji Rodriguez Consults: 07/13/18 12:43 Consult Physician Stat Consulting Provider: Anderson Avila Consult Reason/Comments: renal failure Do you want consulting provider notified?: Yes 07/13/18 13:19 Consult Physician Stat Consulting Provider: Sagar Carrillo Consult Reason/Comments: Dialysis catheter Do you want consulting provider notified?: Yes 07/16/18 11:26 Consult Physician Routine Consulting Provider: Jag River Consult Reason/Comments: platelet concern Do you want consulting provider notified?: Yes 07/16/18 18:10 Consult Physician Routine Consulting Provider: Shai Copeland Consult Reason/Comments: Vision changes Do you want consulting provider notified?: Yes Primary care physician: Reji Rodriguez - Discharge Diagnosis(es) (1) Acute renal failure on dialysis End-stage renal disease General: [Patient awake, alert and oriented times 3. Patient in no acute distress.] HEENT: [PERRL. EOMI. No pharyngeal erythema or exudate.] Neck: [No adenopathy.] Cardiac: [Heart regular in rate and rhythm. No S3. No S4. No clicks, rubs. No murmur.] Lungs: [Clear to auscultation bilaterally.] Abdomen: [No mass. No organomegaly. Bowel sounds presnt and normoactive in all 4 quadrants.] Extremes: [No edema no cyanosis no claudication normal pulses] : [] Musculoskeletal: [No joint erythema, edema or tenderness.] Skin: [No rash.] Neurologic: [No lateralizing deficits. 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 Current Visit: Yes Status: Acute (4) Hypertension Current Visit: Yes Status: Acute Patient Condition at Discharge: Fair Plan - Discharge Summary Discharge Rx Participant: No New Discharge Prescriptions: New amLODIPine [Norvasc] 5 mg PO DAILY #30 tab hydrALAZINE HCL [Apresoline] 25 mg PO TID #90 tab Metoprolol Succinate (ER) [Toprol XL] 25 mg PO DAILY #30 tab No Action Lisinopril [Zestril] 20 mg PO DAILY Multivitamins, Thera [Multivitamin (formulary)] 1 tab PO DAILY Discharge Medication List Lisinopril [Zestril] 20 mg PO DAILY 07/13/18 [History] Multivitamins, Thera [Multivitamin (formulary)] 1 tab PO DAILY 07/13/18 [History ] Metoprolol Succinate (ER) [Toprol XL] 25 mg PO DAILY #30 tab 07/18/18 [Rx] amLODIPine [Norvasc] 5 mg PO DAILY #30 tab 07/18/18 [Rx] hydrALAZINE HCL [Apresoline] 25 mg PO TID #90 tab 07/18/18 [Rx] Follow up Appointment(s)/Referral(s): Reji Rodriguez Jr, DO [Primary Care Provider] - 07/25/18 8:45 am Anderson Avila DO [STAFF PHYSICIAN] - 1 Week (Follow up with Dr. 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
== END 2018-07-18 19:19 | disposition home health service (06) | DRG 683 ==
LOC: EC 11:13 → 3SCARD 13:25
PROVIDERS: ADMIT Family Medicine; ATTEND Family Medicine
PROC: 30233N1 Transfusion of Nonautologous Red Blood Cells into Peripheral Vein, Percutaneous Approach (ICD-10-PCS; principal; 2018-07-13 14:45)
PROC: 02HV33Z Insertion of Infusion Device into Superior Vena Cava, Percutaneous Approach (ICD-10-PCS; 2018-07-13 14:45)
PROC: 5A1D70Z Performance of Urinary Filtration, Intermittent, Less than 6 Hours Per Day (ICD-10-PCS; 2018-07-13 14:45)
DX: N17.9 Acute kidney failure, unspecified (principal); I12.0 Hypertensive chronic kidney disease with stage 5 chronic kidney disease or end stage renal disease; D62 Acute posthemorrhagic anemia; E87.2 Acidosis; T82.838A Hemorrhage due to vascular prosthetic devices, implants and grafts, initial encounter; N18.6 End stage renal disease; E83.39 Other disorders of phosphorus metabolism; D63.8 Anemia in other chronic diseases classified elsewhere; D69.6 Thrombocytopenia, unspecified; N26.9 Renal sclerosis, unspecified; R16.1 Splenomegaly, not elsewhere classified; T38.0X6A Underdosing of glucocorticoids and synthetic analogues, initial encounter; E83.9 Disorder of mineral metabolism, unspecified; E83.51 Hypocalcemia; Y92.230 Patient room in hospital as the place of occurrence of the external cause; Z79.899 Other long term (current) drug therapy; Z91.138 Patient's unintentional underdosing of medication regimen for other reason; Z82.49 Family history of ischemic heart disease and other diseases of the circulatory system; Y71.2 Prosthetic and other implants, materials and accessory cardiovascular devices associated with adverse incidents
CPT/HCPCS: 36415; 36558; 70450; 71045; 71046; 76770; 76937; 77001; 80048; 80053; 82607; 82728; 82746; 83010; 83540; 83550; 83615; 83690; 83735; 83921; 84100; 84550; 85025; 85045; 85610; 85730; 86022; 86704; 86706; 86850; 86900; 86901; 86920; 87340; 90935; 93005; 96360; 96365; 99291

== ENCOUNTER 2019-05-10 12:51 | Emergency (ER) | payer BC ==
[2019-05-10 12:59] VITALS: TEMP 98
--- NOTE | 2019-05-10 13:33 | XR ---
EXAMINATION TYPE: XR chest 2V DATE OF EXAM: 05/10/2019 COMPARISON: 07/14/2018 HISTORY: Chest pain TECHNIQUE: Frontal and lateral views of the chest are obtained. FINDINGS: There is no focal air space opacity. No evidence for pneumothorax. No pleural effusion. The cardiac silhouette size is within normal limits. The osseous structures are grossly intact. IMPRESSION: 1. No acute cardiopulmonary process.
[2019-05-10 13:48] LABS: Basophils % (A) 1 %; Eosinophils # (A) 0.2 k/uL (0-0.7); Eosinophils % (A) 3 %; HGB 10.6 gm/dL (13.0-17.5); Lymphocytes # (A) 0.9 k/uL (1.0-4.8); Lymphocytes % (A) 16 %; MCH 33.1 pg (25.0-35.0); MCHC 34.2 g/dL (31.0-37.0); MCV 96.8 fL (80.0-100.0); Mean Platelet Volume 6.3; Monocytes # (A) 0.4 k/uL (0-1.0); Monocytes % (A) 7 %; Neutrophils # (A) 3.9 k/uL (1.3-7.7); Neutrophils % (A) 71 %; Platelet Count 202 k/uL (150-450); RDW 14.9 % (11.5-15.5); WBC 5.5 k/uL (3.8-10.6)
[2019-05-10 13:58] LABS: Albumin 4.8 g/dL (3.5-5.0); Calcium 9.7 mg/dL (8.4-10.2); Magnesium 2.2 mg/dL (1.6-2.3); Potassium 4.9 mmol/L (3.5-5.1); Total Bilirubin 0.5 mg/dL (0.2-1.3); Total Protein 8.1 g/dL (6.3-8.2)
[2019-05-10 13:59] LABS: INR 0.9 (<1.2); Partial Thromboplastin Time 25.2 sec (22.0-30.0); Prothrombin Time 9.7 sec (9.0-12.0)
[2019-05-10 14:16] VITALS: RESP 18
--- NOTE | 2019-05-10 14:24 | ED ---
Chest Pain HPI - General Chief Complaint: Chest Pain Stated Complaint: Chest pain Time Seen by Provider: 05/10/19 13:01 Source: patient, EMS Mode of arrival: EMS Limitations: no limitations - History of Present Illness Initial Comments: Patient is a 39-year-old male with chronic kidney failure who is currently undergoing dialysis presenting to emergency Department with a chief complaint of chest pain. Patient reports he was undergoing dialysis for about 2 hours when he noticed an infiltration of the dialysis site and developed the sudden onset of left-sided chest pain. Patient reports the pain was more spasmic in nature without any radiation to the left arm or jaw.. Patient reports no shortness of breath or dyspnea on exertion. Patient reports the pain is not reproducible and does not seem to be exacerbated with specific movements. Patient denies lightheadedness, dizziness, blurry vision, headaches, nausea or episode of diaphoresis. Patient does report hypertension but denies smoking or hypercholesterolemia. Patient reports family history of cardiovascular disease.. - Related Data Home Medications Medication Instructions Recorded Confirmed Multivitamins, Thera [Multivitamin 1 tab PO DAILY 07/13/18 05/10/19 (formulary)] Calcium Acetate [Phoslo] 2,004 mg PO TID-W/MEALS 05/10/19 05/10/19 Furosemide [Lasix] 80 mg PO DAILY 05/10/19 05/10/19 Lisinopril [Zestril] 10 mg PO DAILY 05/10/19 05/10/19 Nicotine 14Mg/24Hr Patch [Habitrol 1 patch TRANSDERM DAILY 05/10/19 05/10/19 14Mg/24Hr Patch] Allergies Allergy/AdvReac Type Severity Reaction Status Date / Time cranberry Allergy Anaphylaxis Verified 05/10/19 13:53 pollen extracts Allergy Dyspnea Verified 05/10/19 13:53 Review of Systems ROS Statement: Those systems with pertinent positive or pertinent negative responses have been documented in the HPI. ROS Other: All systems not noted in ROS Statement are negative. EKG Findings - EKG Comments: EKG Findings:: Normal sinus rhythm, left axis deviation. No acute ST changes. Ventricular rate 70, NC interval 160, QRS duration 94, QT/QTc 436/470 Past Medical History Past Medical History: Hypertension, Renal Disease Additional Past Medical History / Comment(s): epistaxis, 09/16/17, dialysis History of Any Multi-Drug Resistant Organisms: None Reported Past Surgical History: Tonsillectomy Additional Past Surgical History / Comment(s): fistula to left upper arm. Past Anesthesia/Blood Transfusion Reactions: No Reported Reaction Past Psychological History: No Psychological Hx Reported Smoking Status: Never smoker Past Alcohol Use History: None Reported Past Drug Use History: None Reported - Past Family History Mother Additional Family Medical History / Comment(s): liver and kidney transplant Father Additional Family Medical History / Comment(s): pt states father of heart attack in his 50's General Exam Limitations: no limitations General appearance: alert, in no apparent distress, obese Head exam: Present: atraumatic, normocephalic, normal inspection Eye exam: Present: normal appearance Pupils: Present: normal accommodation ENT exam: Present: normal exam, normal oropharynx, mucous membranes moist Neck exam: Present: normal inspection, full ROM Respiratory exam: Present: normal lung sounds bilaterally. Absent: respiratory distress, wheezes, rales Cardiovascular Exam: Present: regular rate, normal rhythm, normal heart sounds. Absent: systolic murmur GI/Abdominal exam: Present: soft. 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 Patient is presenting with atypical chest pain with no myocardial infarction features. Patient has no shortness of breath, diaphoresis, nausea or vomiting or radiation of chest pain. Initial troponins are negative. EKG showing normal sinus rhythm with left axis deviation. No ST changes. Chest x-ray is unremarkable. Patient has elevated creatinine however patient is currently undergoing dialysis and was not able to fully finish his dialysis treatment today. This appears to be his baseline according to his previous lab work. Patient has a heart score of 2. Patient will be discharged and advised to follow-up with a gas operation manager. Strict return parameters were thoroughly discussed patient was understanding and agreeable. Case discussed with physician. - Wells Criteria Clinical Symptoms of DVT: (0) No No Alternative Diagnosis: (0) No Immobilization of Surgery in Previous 4 Weeks: (0) No Previous DVT/PE: (0) No Hemoptysis: (0) No Malignancy: (0) No Disposition Clinical Impression: Atypical chest pain Disposition: HOME SELF-CARE Condition: Stable Instructions (If sedation given, give patient instructions): Chest Pain (ED) Additional Instructions: Please follow with the gas operation manager. Please return to emergency department if symptoms worsen. Is patient prescribed a controlled substance at d/c from ED?: No Referrals: Reji Rodriguez Jr, DO [Primary Care Provider] - 1-2 days Time of Disposition: 14:55
[2019-05-10 14:57] VITALS: BP 134/92; PULSE 66
== END 2019-05-10 15:07 | disposition home or self-care (01) ==
LOC: EC 12:51
DX: R07.89 Other chest pain (principal); R94.31 Abnormal electrocardiogram [ECG] [EKG]; I12.9 Hypertensive chronic kidney disease with stage 1 through stage 4 chronic kidney disease, or unspecified chronic kidney disease; N18.9 Chronic kidney disease, unspecified; Z91.018 Allergy to other foods; Z91.048 Other nonmedicinal substance allergy status; Z79.899 Other long term (current) drug therapy; Z99.2 Dependence on renal dialysis; Z82.49 Family history of ischemic heart disease and other diseases of the circulatory system; Z84.1 Family history of disorders of kidney and ureter; Z83.79 Family history of other diseases of the digestive system
CPT/HCPCS: 36415; 71046; 80053; 83735; 84484; 85025; 85610; 85730; 93005; 99285

== ENCOUNTER 2021-07-07 09:03 | Day surgery (SDC) | payer MEDICARE, OTHER ==
[2021-07-02 16:27] VITALS: BMI 29.5
[~2021-07-07 09:03] MED LIST changes: -ACETAMINOPHEN TAB 325 MG TAB ONE; -HYDROmorphone 2 MG TAB PO STA; +LACTATED RINGERS 1,000 ML IV SCH; +LIDOCAINE 1% (10MG/ML) FOR IV START INTRADERMA PRN; -METOPROLOL SUCCINATE (ER) 25 MG TAB.ER.24H PO STA
[2021-07-07 09:43] VITALS: RESP 16; TEMP 99.1
[2021-07-07] MEDS ORDERED: SODIUM CHLORIDE 0.9% 1,000 ML IV ONE (09:53)
[2021-07-07] MEDS ORDERED: PROPOFOL 10 MG/ML 20 ML VIAL IV ONE (10:25)
[2021-07-07] MEDS ORDERED: LIDOCAINE 1% INJ 10MG/ML (20 ML MDV) ONE (10:25)
--- NOTE | 2021-07-07 11:04 | P.PCN ---
Date of Procedure: 07/07/21 Procedure(s) Performed: Brief history: Patient is a 41-year-old pleasant white male scheduled for an elective upper endoscopy as well as colonoscopy as a part of evaluation of iron deficiency anemia. His history of end-stage renal disease on hemodialysis. Last hemoglobin was 7.2 g/dL. Procedure performed: Esophagogastroduodenoscopy with biopsy Colonoscopy Preoperative diagnosis: Iron deficiency Anesthesia: MAC Procedure: After informed consent was obtained from the patient was brought into the end oscopy unit and IV sedation was administered by anesthesia under continuous monitoring. Initially upper endoscopy was done. The Olympus GF 160 video endoscope was inserted inserted into the mouth and esophagus intubated without any difficulty and was gradually advanced into the stomach and duodenum and carefully examined. The bulb and some duodenitis and second part of the duodenum appeared normal. Biopsies were done from the duodenum to rule out celiac disease The scope was then withdrawn into the stomach adequately insufflated with air and upon careful examination the antrum had mild gastritis and biopsies were done from this area. The body, cardia and fundus appeared normal. The scope was then withdrawn into the esophagus. The GE junction was located at 40 cm to the incisors. It appeared regular with no erythema erosions or ulcerations. Rest of the esophagus appeared normal. Patient tolerated the procedure well. At this time the patient continued to remain sedation. Initial digital rectal examination was normal. Olympus CF 160 video colonoscope was then inserted into the rectum and gradually advanced to the cecum without any difficulty. Careful examination was performed as the scope was gradually being withdrawn. The prep was excellent. The cecum, appeared normal. Ascending colon there was a 1 cm polyp removed by snare polypectomy. Rest of the ascending colon, transverse colon, descending colon, appeared normal. In the distal sigmoid colon there was a 1 cm polyp that was removed by snare polypectomy. In the rectosigmoid colon at 50 cm from the anal verge there was a 4 cm flat polyp identified with the broad-based that was removed by piecemeal snare polypectomy followed by complete polypectomy. Polyp this 4 endoclips were placed to prevent post-polypectomy bleed. Retroflexion was performed in the rectum and no lesions were noted. Patient tolerated the procedure well. Impression: 1. Upper endoscopy revealed minimal antral gastritis and mild duodenitis. 2. Colonoscopy revealed: a) 1 cm ascending colon polyp serous posterior polypectomy b) 1 cmcentimeter distal sigmoid: Polyp serous posterior polypectomy c) 4 cm polyp with the broad-based in the rectosigmoid colon at 50 cm from the anal verge status post piecemeal snare polypectomy and complete polypectomy was accomplished. Followed by Endo Clip placement as described above Recommendations. Findings of this examination were discussed the patient as well as his family. He was advised to follow with the biopsy results.his been seen in office in a week from now and based the biopsy results results will plan a repeat colonoscopy in one year.
[2021-07-07 11:37] VITALS: BP 149/83; PULSE 67
== END 2021-07-07 13:17 | disposition home or self-care (01) ==
LOC: ORWHC2ENDO 09:03
PROVIDERS: ATTEND Internal Medicine Gastroenterology
DX: D12.2 Benign neoplasm of ascending colon (principal); D12.5 Benign neoplasm of sigmoid colon; D12.7 Benign neoplasm of rectosigmoid junction; K29.50 Unspecified chronic gastritis without bleeding; D50.9 Iron deficiency anemia, unspecified; I12.0 Hypertensive chronic kidney disease with stage 5 chronic kidney disease or end stage renal disease; N18.6 End stage renal disease; Z99.2 Dependence on renal dialysis; J45.909 Unspecified asthma, uncomplicated; Z87.19 Personal history of other diseases of the digestive system; Z79.899 Other long term (current) drug therapy; Z91.018 Allergy to other foods; Z91.09 Other allergy status, other than to drugs and biological substances
CPT/HCPCS: 88305; 45385; 43239; J2001; J2704; 45382

== ENCOUNTER 2021-07-21 13:45 | Inpatient (IN) | payer MEDICARE ==
[2021-07-21] MEDS ORDERED: NITROGLYCERIN OINT 1 INCH/GM PACKET TOPICAL STA (14:50)
[2021-07-21] MEDS ORDERED: FUROSEMIDE 10 MG/ML 4 ML VIAL IV STA (14:50)
--- NOTE | 2021-07-21 15:03 | ED ---
General Adult HPI - General Chief complaint: Shortness of Breath Stated complaint: weakness/BRY Time Seen by Provider: 07/21/21 14:00 Source: patient, EMS, RN notes reviewed, old records reviewed Mode of arrival: EMS Limitations: no limitations - History of Present Illness Initial comments: This a 41-year-old male who presents emergency department from his primary medical care doctor's office. He has a past medical history significant for renal failure and dialysis. Patient states she confided dialysis tomorrow. Patient states he comes in today because he is becoming more more short of breath over the last 2 months. Patient states she's also become more more fatigued and his primary medical care doctor did not think it was safe for him to go home or drive so he sent into the emergency department. Patient denies any recent fever chills or cough per patient states he is up-to-date on his COVID vaccine and has had the posterior. Patient denies any chest pain patient denies any abdominal pain patient denies any nausea vomiting or diarrhea. Patient states he still does make some urine. Patient has not noticed any increased swelling to the legs. Patient denies any calf tenderness. - Related Data Home Medications Medication Instructions Recorded Confirmed Furosemide [Lasix] 80 mg PO DAILY 05/10/19 07/07/21 Metoprolol Tartrate 25 mg PO DAILY 07/02/21 07/02/21 Multivit-Min/Folic/Vit K/Lycop 1 each PO DAILY 07/02/21 07/02/21 [Men's Multivitamin Tablet] [place]-3 Fatty Acids/Fish Oil [Fish 1 each PO DAILY 07/02/21 07/07/21 Oil 1,000 mg Softgel] amLODIPine [Norvasc] 5 mg PO DAILY 07/02/21 07/02/21 Allergies Allergy/AdvReac Type Severity Reaction Status Date / Time cranberry Allergy Anaphylaxis Verified 07/21/21 14:05 pollen extracts Allergy Dyspnea, Verified 07/21/21 14:05 Sneezing Review of Systems ROS Statement: Those systems with pertinent positive or pertinent negative responses have been documented in the HPI. ROS Other: All systems not noted in ROS Statement are negative. Past Medical History Past Medical History: Asthma, Hypertension, Renal Disease Additional Past Medical History / Comment(s): states hx asthma triggered by environmental allergies- no current rx., epistaxis 09/16/17, Hemo-dialysis Tue-Tue-Tue, fistura left arm, states he recevied blood transfusion last week at [facility]., states blood in stool., states he is illiterate-he was able to read letters and his prep instructions. History of Any Multi-Drug Resistant Organisms: None Reported Past Surgical History: Tonsillectomy Additional Past Surgical History / Comment(s): fistula to left upper arm. Past Anesthesia/Blood Transfusion Reactions: No Reported Reaction Additional Past Anesthesia/Blood Transfusion Reaction / Comment(s): sorethroat afterwards. BLOOD TRANSFUSION LAST WEEK AT [facility]. Past Psychological History: No Psychological Hx Reported Smoking Status: Never smoker Past Alcohol Use History: Occasional Past Drug Use History: None Reported - Past Family History Mother Additional Family Medical History / Comment(s): liver and kidney transplant Father Additional Family Medical History / Comment(s): pt states father of heart attack in his 50's General Exam - General Exam Comments Initial Comments: GENERAL: Patient is well-developed and well-nourished. Patient is nontoxic and well- hydrated and is in mild distress. ENT: Neck is soft and supple. No significant lymphadenopathy is noted. Oropharynx is clear. Moist mucous membranes. Neck has full range of motion without eliciting any pain. EYES: The sclera were anicteric and conjunctiva were pink and moist. Extraocular movements were intact and pupils were equal round and reactive to light. Eyelids were unremarkable. PULMONARY: Patient is crackles bilateral bases and it is more prominent on the right than the left. CARDIOVASCULAR: There is a regular rate and rhythm without any murmurs gallops or rubs. ABDOMEN: Soft and nontender with normal bowel sounds. SKIN: Skin is clear with no lesions or rashes and otherwise unremarkable. NEUROLOGIC: Patient is alert and oriented x3. Cranial nerves II through XII are grossly intact. Motor and sensory are also intact. Normal speech, volume and content. Symmetrical smile. MUSCULOSKELETAL: Normal extremities with adequate strength and full range of motion. No lower extremity swelling or edema. No calf tenderness. LYMPHATICS: No significant lymphadenopathy is noted PSYCHIATRIC: Normal psychiatric evaluation. Limitations: no limitations Course Vital Signs 07/21/21 14:01 Temperature 97.6 F Pulse Rate 80 Respiratory 20 Rate Blood Pressure 153/90 O2 Sat by Pulse 96 Oximetry Medical Decision Making - Medical Decision Making EKG shows normal sinus rhythm at 83 bpm OH interval 250 QRS is 96 Q-T intervals 428 QTC is 502 per patient's EKG shows no ST segment elevation or depression. - Lab Data Result diagrams: 07/21/21 15:07 07/21/21 15:07 Lab Results 07/21/21 07/21/21 07/21/21 Range/Units 15:07 15:07 15:07 WBC 5.6 (3.8-10.6) k/uL RBC 2.50 L (4.30-5.90) m/uL Hgb 7.6 L (13.0-17.5) gm/dL Hct 24.3 L (39.0-53.0) % MCV 97.2 (80.0-100.0) fL MCH 30.3 (25.0-35.0) pg MCHC 31.2 (31.0-37.0) g/dL RDW 16.6 H (11.5-15.5) % Plt Count 158 (150-450) k/uL MPV 7.7 Neutrophils % 75 % Lymphocytes % 7 % Monocytes % 5 % Eosinophils % 11 % Basophils % 1 % Neutrophils # 4.2 (1.3-7.7) k/uL Lymphocytes # 0.4 L (1.0-4.8) k/uL Monocytes # 0.3 (0-1.0) k/uL Eosinophils # 0.6 (0-0.7) k/uL Basophils # 0.0 (0-0.2) k/uL Hypochromasia Marked Anisocytosis Slight Macrocytosis Slight PT 10.6 (9.0-12.0) sec INR 1.0 (<1.2) APTT 24.5 (22.0-30.0) sec D-Dimer 0.60 H (<0.60) mg/L FEU Sodium 134 L (137-145) mmol/L Potassium 4.9 (3.5-5.1) mmol/L Chloride 96 L (98-107) mmol/L Carbon Dioxide 28 (22-30) mmol/L Anion Gap 10 mmol/L BUN 41 H (9-20) mg/dL Creatinine 8.21 H* (0.66-1.25) mg/dL Est GFR (CKD-EPI)AfAm 8 (>60 ml/min/1.73 sqM) Est GFR (CKD-EPI)NonAf 7 (>60 ml/min/1.73 sqM) Glucose 88 (74-99) mg/dL Plasma Lactic Acid Hola (0.7-2.0) mmol/L Calcium 9.4 (8.4-10.2) mg/dL Magnesium 2.5 H (1.6-2.3) mg/dL Total Bilirubin 1.6 H (0.2-1.3) mg/dL AST 27 (17-59) U/L ALT 20 (4-49) U/L Alkaline Phosphatase 89 (38-126) U/L Troponin I (0.000-0.034) ng/mL NT-Pro-B Natriuret Pep pg/mL Total Protein 6.4 (6.3-8.2) g/dL Albumin 3.8 (3.5-5.0) g/dL Coronavirus (PCR) (Not Detectd) Blood Type Blood Type Recheck Bld Type Recheck Status Antibody Screen Spec Expiration Date 07/21/21 07/21/21 07/21/21 Range/Units 15:07 15:07 15:07 WBC (3.8-10.6) k/uL RBC (4.30-5.90) m/uL Hgb (13.0-17.5) gm/dL Hct (39.0-53.0) % MCV (80.0-100.0) fL MCH (25.0-35.0) pg MCHC (31.0-37.0) g/dL RDW (11.5-15.5) % Plt Count (150-450) k/uL MPV Neutrophils % % Lymphocytes % % Monocytes % % Eosinophils % % Basophils % % Neutrophils # (1.3-7.7) k/uL Lymphocytes # (1.0-4.8) k/uL Monocytes # (0-1.0) k/uL Eosinophils # (0-0.7) k/uL Basophils # (0-0.2) k/uL Hypochromasia Anisocytosis Macrocytosis PT (9.0-12.0) sec INR (<1.2) APTT (22.0-30.0) sec D-Dimer (<0.60) mg/L FEU Sodium (137-145) mmol/L Potassium (3.5-5.1) mmol/L Chloride (98-107) mmol/L Carbon Dioxide (22-30) mmol/L Anion Gap mmol/L BUN (9-20) mg/dL Creatinine (0.66-1.25) mg/dL Est GFR (CKD-EPI)AfAm (>60 ml/min/1.73 sqM) Est GFR (CKD-EPI)NonAf (>60 ml/min/1.73 sqM) Glucose (74-99) mg/dL Plasma Lactic Acid Hola 1.2 (0.7-2.0) mmol/L Calcium (8.4-10.2) mg/dL Magnesium (1.6-2.3) mg/dL Total Bilirubin (0.2-1.3) mg/dL AST (17-59) U/L ALT (4-49) U/L Alkaline Phosphatase (38-126) U/L Troponin I 0.053 H* (0.000-0.034) ng/mL NT-Pro-B Natriuret Pep 66832 pg/mL Total Protein (6.3-8.2) g/dL Albumin (3.5-5.0) g/dL Coronavirus (PCR) (Not Detectd) Blood Type Blood Type Recheck Bld Type Recheck Status Antibody Screen Spec Expiration Date 07/21/21 07/21/21 Range/Units 15:08 16:19 WBC (3.8-10.6) k/uL RBC (4.30-5.90) m/uL Hgb (13.0-17.5) gm/dL Hct (39.0-53.0) % MCV (80.0-100.0) fL MCH (25.0-35.0) pg MCHC (31.0-37.0) g/dL RDW (11.5-15.5) % Plt Count (150-450) k/uL MPV Neutrophils % % Lymphocytes % % Monocytes % % Eosinophils % % Basophils % % Neutrophils # (1.3-7.7) k/uL Lymphocytes # (1.0-4.8) k/uL Monocytes # (0-1.0) k/uL Eosinophils # (0-0.7) k/uL Basophils # (0-0.2) k/uL Hypochromasia Anisocytosis Macrocytosis PT (9.0-12.0) sec INR (<1.2) APTT (22.0-30.0) sec D-Dimer (<0.60) mg/L FEU Sodium (137-145) mmol/L Potassium (3.5-5.1) mmol/L Chloride (98-107) mmol/L Carbon Dioxide (22-30) mmol/L Anion Gap mmol/L BUN (9-20) mg/dL Creatinine (0.66-1.25) mg/dL Est GFR (CKD-EPI)AfAm (>60 ml/min/1.73 sqM) Est GFR (CKD-EPI)NonAf (>60 ml/min/1.73 sqM) Glucose (74-99) mg/dL Plasma Lactic Acid Hola (0.7-2.0) mmol/L Calcium (8.4-10.2) mg/dL Magnesium (1.6-2.3) mg/dL Total Bilirubin (0.2-1.3) mg/dL AST (17-59) U/L ALT (4-49) U/L Alkaline Phosphatase (38-126) U/L Troponin I (0.000-0.034) ng/mL NT-Pro-B Natriuret Pep pg/mL Total Protein (6.3-8.2) g/dL Albumin (3.5-5.0) g/dL Coronavirus (PCR) Not Detected (Not Detectd) Blood Type A Positive Blood Type Recheck A Pos Bld Type Recheck Status No Antibody Screen NEGATIVE Spec Expiration Date 07/24/20212318 Disposition Clinical Impression: Acute pulmonary edema, Anemia Disposition: ADMITTED IP TO THIS HOSP Referrals: Reji Rodriguez Jr, [Primary Care Provider] - 1-2 days Time of Disposition: 17:18
[2021-07-21 15:26] LABS: Albumin 3.8 g/dL (3.5-5.0); Anisocytosis Slight; Basophils % (A) 1 %; Calcium 9.4 mg/dL (8.4-10.2); Eosinophils # (A) 0.6 k/uL (0-0.7); Eosinophils % (A) 11 %; HCT 24.3 % (39.0-53.0); HGB 7.6 gm/dL (13.0-17.5); Hypochromasia Marked; Lymphocytes # (A) 0.4 k/uL (1.0-4.8); Lymphocytes % (A) 7 %; MCH 30.3 pg (25.0-35.0); MCHC 31.2 g/dL (31.0-37.0); MCV 97.2 fL (80.0-100.0); Macrocytosis Slight; Magnesium 2.5 mg/dL (1.6-2.3); Mean Platelet Volume 7.7; Monocytes # (A) 0.3 k/uL (0-1.0); Monocytes % (A) 5 %; Neutrophils # (A) 4.2 k/uL (1.3-7.7); Neutrophils % (A) 75 %; Platelet Count 158 k/uL (150-450); Potassium 4.9 mmol/L (3.5-5.1); RDW 16.6 % (11.5-15.5); Total Bilirubin 1.6 mg/dL (0.2-1.3); Total Protein 6.4 g/dL (6.3-8.2); WBC 5.6 k/uL (3.8-10.6)
[2021-07-21 15:35] LABS: Partial Thromboplastin Time 24.5 sec (22.0-30.0); Prothrombin Time 10.6 sec (9.0-12.0)
--- NOTE | 2021-07-21 15:37 | XR ---
EXAMINATION TYPE: XR chest 2V DATE OF EXAM: 07/21/2021 COMPARISON: 05/10/19 HISTORY: difficulty breathing TECHNIQUE: Frontal and lateral views of the chest are obtained. FINDINGS: Patchy perihilar and basilar infiltrates are suspicious for pneumonia. Correlate clinically. No evidence for pneumothorax. No pleural effusion. The cardiac silhouette size is within normal limits. The osseous structures are grossly intact. IMPRESSION: 1. Patchy perihilar and basilar infiltrates are suspicious for pneumonia. Correlate clinically.
[2021-07-21] MEDS ORDERED: cefTRIAXone IN SWFI 1,000 MG/10 ML SYRINGE IVP STA (16:23)
[2021-07-21] MEDS ORDERED: ACETAMINOPHEN TAB 325 MG TAB PO PRN (20:31)
[2021-07-21] MEDS ORDERED: ACETAMINOPHEN TAB 325 MG TAB PO STA (20:32)
[2021-07-21 23:12] LABS: Anisocytosis Slight; Basophils % (A) 1 %; Eosinophils # (A) 0.5 k/uL (0-0.7); Eosinophils % (A) 11 %; HCT 20.4 % (39.0-53.0); Hypochromasia Moderate; Lymphocytes # (A) 0.4 k/uL (1.0-4.8); Lymphocytes % (A) 7 %; MCH 30.3 pg (25.0-35.0); MCHC 31.6 g/dL (31.0-37.0); Mean Platelet Volume 8.2; Monocytes # (A) 0.2 k/uL (0-1.0); Monocytes % (A) 3 %; Neutrophils % (A) 78 %; Platelet Count 128 k/uL (150-450); RBC 2.13 m/uL (4.30-5.90); RDW 16.4 % (11.5-15.5); WBC 5.1 k/uL (3.8-10.6)
[2021-07-21 23:24] LABS: HGB 6.5 gm/dL (13.0-17.5)
[2021-07-22] MEDS: FUROSEMIDE 10 MG/ML 4 ML VIAL IV SCH ×4 (00:35→23:59)
[2021-07-22 08:09] LABS: Anisocytosis Slight; Basophils % (A) 1 %; Eosinophils # (A) 0.4 k/uL (0-0.7); Eosinophils % (A) 11 %; HCT 22.6 % (39.0-53.0); HGB 7.2 gm/dL (13.0-17.5); Hypochromasia Moderate; Lymphocytes # (A) 0.3 k/uL (1.0-4.8); Lymphocytes % (A) 8 %; MCHC 31.7 g/dL (31.0-37.0); MCV 94.7 fL (80.0-100.0); Macrocytosis Slight; Mean Platelet Volume 6.9; Monocytes # (A) 0.1 k/uL (0-1.0); Monocytes % (A) 3 %; Neutrophils # (A) 3.1 k/uL (1.3-7.7); Neutrophils % (A) 76 %; Platelet Count 128 k/uL (150-450); RBC 2.39 m/uL (4.30-5.90); RDW 17.9 % (11.5-15.5); WBC 4.2 k/uL (3.8-10.6)
[2021-07-22] MEDS: hydrALAZINE HCL 50 MG TAB PO SCH ×2 (08:46→21:26)
[2021-07-22] MEDS: lisinopriL 20 MG TAB PO SCH (08:46)
[2021-07-22] MEDS: amLODIPine 5 MG TAB PO SCH (08:46)
[2021-07-22] MEDS: METOPROLOL SUCCINATE (ER) 25 MG TAB.ER.24H PO SCH ×2 (08:46→21:26)
[2021-07-22] MEDS ORDERED: FUROSEMIDE 80 MG TAB PO SCH (09:00)
--- NOTE | 2021-07-22 10:52 | P.CRDCN ---
History of Present Illness Consult date: 07/22/21 History of present illness: HISTORY OF PRESENT ILLNESS: This is a 41-year-old male with a past medical history significant for end-stage renal disease on hemodialysis, hypertension, nicotine dependence (chews tobacco), and frequent alcohol use. 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 We have been asked to see the patient in consultation for CHF. Patient examined at the bedside. Patient presented to the hospital with a chief complaint of shortness of breath and a cough. Patient states these symptoms have been present for about 2-3 months. He is on hemodialysis Tuesday and Tuesday and reports compliance with his dialysis. He also reports compliance with his medications. The patient has a history of anemia. However he was found to be more anemic this admission with a hemoglobin of 6.5. He received 1 unit of RBCs. The patient reports having some black stools since he had his colonoscopy. It is noted the patient underwent EGD and colonoscopy on 07/07/[address] Morgan with removal of polyps. The patient currently denies chest pain or pressure. He reports mild shortness of breath. Patient's blood pressure is elevated this morning. However he has not received his home medications at this time. EKG reveals sinus mechanism with nonspecific ST-T wave changes Chest xray patchy perihilar and basilar infiltrates are suspicious for pneumonia. Correlate clinically. Laboratory data: WBC 4.2. Hemoglobin 7.2. Platelet count 128. Sodium 134. Potassium 4.9. BUN 41. Creatinine 8.21. Troponin 0.053. ProBNP 77,200. Current home cardiac medications include metoprolol succinate 25 mg twice a day, lisinopril 20 mg daily, hydralazine 50 g twice a day, Lasix 80 mg daily, Norvasc 5 mg daily REVIEW OF SYSTEMS: At the time of my exam: CONSTITUTIONAL: Denies fever or chills. HEENT: Denies blurred vision, vision changes, or eye pain. Denies hemoptysis CARDIOVASCULAR: Denies chest pain. Denies orthopnea. Denies PND. Denies palp itations RESPIRATORY: + shortness of breath. GASTROINTESTINAL: Denies abdominal pain. Denies nausea or vomiting. HEMATOLOGIC: Denies bleeding disorders. GENITOURINARY: Denies any blood in urine. SKIN: Denies pruitis. Denies rash. PHYSICAL EXAM: VITAL SIGNS: Reviewed. GENERAL: Well-developed in no acute distress. HEENT: Head is normocephalic. Pupils are equal, round. Sclerae anicteric. Mucous membranes of the mouth are moist. Neck supple. No JVD or thyromegaly LUNGS: Respirations even and unlabored. Lungs diminished with bibasilar rales HEART: Regular rate and rhythm. S1 and S2 heard. ABDOMEN: Soft. Nondistended. Nontender. EXTREMITIES: Normal range of motion. No clubbing or cyanosis. Peripheral pulses intact. Minimal lower extremity edema NEUROLOGIC: Awake and alert. Oriented x 3. ASSESSMENT: Shortness of breath x 3 months Hypertension End stage renal dialysis, on hemodialysis Fluid overload/acute on chronic CHF secondary to ESRD Abnormal troponin, secondary to ESRD, not suggestive of ACS Acute on chronic anemia Nicotine dependence Frequent alcohol use PLAN: Obtain 2D echo to assess cardiac structure and function Resume home cardiac medications. Monitor blood pressure. Nephrology consulted. Will defer diuretics to nephrology Further recommendations pending patient course Nurse practitioner note has been reviewed by physician. Signing provider agrees with the documented findings, assessment, and plan of care. Past Medical History Past Medical History: Asthma, Hypertension, Renal Disease Additional Past Medical History / Comment(s): states hx asthma triggered by environmental allergies- no current rx., epistaxis 09/16/17, Hemo-dialysis Tue-Tue-Tue, fistura left arm, states he recevied blood transfusion last week at [facility]., states blood in stool., states he is illiterate-he was able to read letters and his prep instructions. History of Any Multi-Drug Resistant Organisms: None Reported Past Surgical History: Tonsillectomy Additional Past Surgical History / Comment(s): fistula to left upper arm. Past Anesthesia/Blood Transfusion Reactions: No Reported Reaction Additional Past Anesthesia/Blood Transfusion Reaction / Comment(s): sorethroat afterwards. BLOOD TRANSFUSION LAST WEEK AT [facility]. Past Psychological History: No Psychological Hx Reported Additional Psychological History / Comment(s): Pt resides alone. He works at [employer]. He does not drive, his family takes him to [employer]. Smoking Status: Never smoker Past Alcohol Use History: Occasional Additional Past Alcohol Use History / Comment(s): chews tobacco. states he drinks 18 beers/week. Past Drug Use History: None Reported - Past Family History Mother Additional Family Medical History / Comment(s): liver and kidney transplant Father Additional Family Medical History / Comment(s): pt states father of heart attack in his 50's Medications and Allergies Home Medications Medication Instructions Recorded Confirmed Type Furosemide [Lasix] 80 mg PO DAILY 05/10/19 07/21/21 History [place]-3 Fatty Acids/Fish Oil [Fish 1 cap PO DAILY 07/02/21 07/21/21 History Oil 1,000 mg Softgel] amLODIPine [Norvasc] 5 mg PO DAILY 07/02/21 07/21/21 History Calcium Acetate 2,668 mg PO TID-W/MEALS 07/21/21 07/21/21 History Magnebind 300 2 capsule PO TID-W/MEALS 07/21/21 07/21/21 History Metoprolol Succinate [Toprol XL] 25 mg PO BID 07/21/21 07/21/21 History Moisés-Marsha 1 tab PO DAILY 07/21/21 07/21/21 History hydrALAZINE HCL 50 mg PO BID 07/21/21 07/21/21 History lisinopriL [Prinivil] 20 mg PO DAILY 07/21/21 07/21/21 History Allergies Allergy/AdvReac Type Severity Reaction Status Date / Time cranberry Allergy Anaphylaxis Verified 07/21/21 14:05 pollen extracts Allergy Dyspnea, Verified 07/21/21 14:05 Sneezing Physical Exam Vitals: Vital Signs Temp Pulse Pulse Resp BP BP Pulse Ox 07/22/21 04:33 98.7 F 76 76 24 163/83 163/83 96 07/22/21 01:38 98.4 F 83 22 164/83 93 L 07/22/21 01:08 98.8 F 87 20 152/84 93 L 07/22/21 00:58 98.8 F 86 22 169/89 90 L 07/21/21 23:30 98.2 F 82 23 157/80 96 07/21/21 21:40 97 07/21/21 21:35 99.7 F H 86 22 168/84 89 L 07/21/21 14:01 97.6 F 80 20 153/90 96 Intake and Output 07/21/21 07/22/21 07/22/21 22:59 06:59 14:59 Intake Total 310 Balance 310 Intake: Blood Product 310 Rc As-1 Unit 310 [id number] Other: Voiding Method Toilet Toilet # Bowel Movements 1 Weight 92.533 kg Results 07/22/21 07:13 07/21/21 15:07 Cardiac Enzymes 07/21/21 07/21/21 Range/Units 15:07 15:07 AST 27 (17-59) U/L Troponin I 0.053 H* (0.000-0.034) ng/mL Coagulation 07/21/21 Range/Units 15:07 PT 10.6 (9.0-12.0) sec APTT 24.5 (22.0-30.0) sec CBC 07/21/21 07/21/21 07/22/21 Range/Units 15:07 23:02 07:13 WBC 5.6 5.1 4.2 (3.8-10.6) k/uL RBC 2.50 L 2.13 L 2.39 L (4.30-5.90) m/uL Hgb 7.6 L 6.5 L* 7.2 L (13.0-17.5) gm/dL Hct 24.3 L 20.4 L 22.6 L (39.0-53.0) % Plt Count 158 128 L 128 L (150-450) k/uL Comprehensive Metabolic Panel 07/21/21 Range/Units 15:07 Sodium 134 L (137-145) mmol/L Potassium 4.9 (3.5-5.1) mmol/L Chloride 96 L (98-107) mmol/L Carbon Dioxide 28 (22-30) mmol/L BUN 41 H (9-20) mg/dL Creatinine 8.21 H* (0.66-1.25) mg/dL Glucose 88 (74-99) mg/dL Calcium 9.4 (8.4-10.2) mg/dL AST 27 (17-59) U/L ALT 20 (4-49) U/L Alkaline Phosphatase 89 (38-126) U/L Total Protein 6.4 (6.3-8.2) g/dL Albumin 3.8 (3.5-5.0) g/dL Current Medications Generic Name Dose Route Start Last Admin Trade Name Freq PRN Reason Stop Dose Admin Acetaminophen 650 mg 07/21/21 20:31 Acetaminophen Tab 325 Mg Tab PO Q6HR PRN Fever and/ or Pain Amlodipine Besylate 5 mg 07/22/21 09:00 07/22/21 08:46 Amlodipine 5 Mg Tab PO 5 mg DAILY PETER Administration Furosemide 40 mg 07/22/21 00:00 07/22/21 08:45 Furosemide 10 Mg/Ml 4 Ml Vial IV 40 mg Q8HR PETER Administration Hydralazine HCl 50 mg 07/22/21 09:00 07/22/21 08:46 Hydralazine Hcl 50 Mg Tab PO 50 mg BID PETER Administration Lisinopril 20 mg 07/22/21 09:00 07/22/21 08:46 Lisinopril 20 Mg Tab PO 20 mg DAILY PETER Administration Metoprolol Succinate 25 mg 07/22/21 09:00 07/22/21 08:46 Metoprolol Succinate (Er) 25 Mg Tab.Er.24h PO 25 mg BID PETER Administration Intake and Output 07/21/21 07/22/21 07/22/21 22:59 06:59 14:59 Intake Total 310 Balance 310 Intake: Blood Product 310 Rc As-1 Unit 310 [id number] Other: Voiding Method Toilet Toilet # Bowel Movements 1 Weight 92.533 kg 07/22/21 07:13 07/21/21 15:07
[2021-07-22 11:07] LABS: Calcium 9.1 mg/dL (8.4-10.2); Potassium 5.2 mmol/L (3.5-5.1)
[2021-07-22 11:15] VITALS: BMI 30.1
[2021-07-22] MEDS ORDERED: PEG 3350-NA SULF,BICARB,CL/KCL 4,000 ML BOTTLE PO ONE (11:27)
--- NOTE | 2021-07-22 11:49 | P.NPCON ---
History of Present Illness - Reason for Consult end stage renal disease - History of Present Illness Patient is a 41-year-old male with end-stage renal disease on hemodialysis on a Tuesday schedule. He is admitted to the hospital with complaints of shortness of breath, increased weakness. Patient has a history of GI bleed with recent colonoscopy on 07/07/2021 which showed minimal antral gastritis and duodenitis on the EGD and colonic polyp the pathology came back as dysplastic polyp. Patient had a hemoglobin of 6.5 g/dL on 07/21/2021. He stated he had dark colored stools. Patient has been transfused packed RBCs. No active bleeding noted at this time. He is also volume overloaded with significant edema in the lower extremities. Patient has been short of breath. No history of fever cough nausea vomiting or diarrhea. Review of Systems As per HPI Past Medical History Past Medical History: Asthma, Hypertension, Renal Disease Additional Past Medical History / Comment(s): states hx asthma triggered by environmental allergies- no current rx., epistaxis 09/16/17, Hemo-dialysis , fistura left arm, states he recevied blood transfusion last week at [facility]., states blood in stool., states he is illiterate-he was able to read letters and his prep instructions. History of Any Multi-Drug Resistant Organisms: None Reported Past Surgical History: Tonsillectomy Additional Past Surgical History / Comment(s): fistula to left upper arm. Past Anesthesia/Blood Transfusion Reactions: No Reported Reaction Additional Past Anesthesia/Blood Transfusion Reaction / Comment(s): sorethroat afterwards. BLOOD TRANSFUSION LAST WEEK AT [facility]. Past Psychological History: No Psychological Hx Reported Additional Psychological History / Comment(s): Pt resides alone. He works at [employer]. He does not drive, his family takes him to [employer]. Smoking Status: Never smoker Past Alcohol Use History: Occasional Additional Past Alcohol Use History / Comment(s): chews tobacco. states he drinks 18 beers/week. Past Drug Use History: None Reported - Past Family History Mother Additional Family Medical History / Comment(s): liver and kidney transplant Father Additional Family Medical History / Comment(s): pt states father of heart attack in his 50's Medications and Allergies Home Medications Medication Instructions Recorded Confirmed Type Furosemide [Lasix] 80 mg PO DAILY 05/10/19 07/21/21 History [place]-3 Fatty Acids/Fish Oil [Fish 1 cap PO DAILY 07/02/21 07/21/21 History Oil 1,000 mg Softgel] amLODIPine [Norvasc] 5 mg PO DAILY 07/02/21 07/21/21 History Calcium Acetate 2,668 mg PO TID-W/MEALS 07/21/21 07/21/21 History Magnebind 300 2 capsule PO TID-W/MEALS 07/21/21 07/21/21 History Metoprolol Succinate [Toprol XL] 25 mg PO BID 07/21/21 07/21/21 History [place]-Marsha 1 tab PO DAILY 07/21/21 07/21/21 History hydrALAZINE HCL 50 mg PO BID 07/21/21 07/21/21 History lisinopriL [Prinivil] 20 mg PO DAILY 07/21/21 07/21/21 History Allergies Allergy/AdvReac Type Severity Reaction Status Date / Time cranberry Allergy Anaphylaxis Verified 07/21/21 14:05 pollen extracts Allergy Dyspnea, Verified 07/21/21 14:05 Sneezing Physical Exam Vitals: Vital Signs Temp Pulse Pulse Resp BP BP Pulse Ox 07/22/21 08:10 98.2 F 91 20 174/86 93 L 07/22/21 04:33 98.7 F 76 76 24 163/83 163/83 96 07/22/21 01:38 98.4 F 83 22 164/83 93 L 07/22/21 01:08 98.8 F 87 20 152/84 93 L 07/22/21 00:58 98.8 F 86 22 169/89 90 L 07/21/21 23:30 98.2 F 82 23 157/80 96 07/21/21 21:40 97 07/21/21 21:35 99.7 F H 86 22 168/84 89 L 07/21/21 14:01 97.6 F 80 20 153/90 96 Intake and Output 07/21/21 07/22/21 07/22/21 22:59 06:59 14:59 Intake Total 310 Balance 310 Intake: Blood Product 310 Rc As-1 Unit 310 [id number] Other: Voiding Method Toilet Toilet Toilet # Bowel Movements 1 Weight 92.533 kg 92.533 kg Patient is awake comfortable while he short of breath. Not in any acute distress. Examination of the heart S1 and S2 Examination lungs bilateral breath sounds are heard decreased breath sounds at the bases with basilar crackles Abdomen is soft nontender obese Examination lower extremities shows edema 2+ bilaterally HEATING AND COOLING SYSTEMS ENGINEER exam is grossly intact Results - Lab Results Most recent lab results Calcium 9.1 mg/dL (8.4-10.2) 07/22/21 07:13 Magnesium 2.5 mg/dL (1.6-2.3) H 07/21/21 15:07 07/22/21 07:13 07/22/21 07:13 Assessment and Plan Assessment: 1. End-stage renal disease on hemodialysis on a Tuesday vent is a Tuesday schedule via left arm AV fistula 2. Volume overload, patient will be dialyzed today and then again in a.m. increase UF to 3-4 L as tolerated. 3. Anemia due to acute blood loss from GI bleed, status post packed RBCs transfusion. History of colonoscopy performed on 07/07/2021 which showed a dysplastic polyp. EGD at that time showed mild duodenitis and mild gastritis. Patient is currently being followed by surgery. 4. CK D mineral bone disorder 5. Hypertension partly volume sensitive. Expect improvement with dialysis and ultrafiltration. Plan: 1. Hemodialysis today and repeat again in a.m. 2. Maintain patient on Aranesp 3. Follow-up with surgery regarding further plans. 4. Repeat CBC in a.m.
[2021-07-22] MEDS ORDERED: NON FORMULARY DRUG (Omega-3 Fatty Acids/Fish Oil [Fish Oil 1,000 Mg Softgel] 1 EACH Capsul PO SCH (12:00)
[2021-07-22] MEDS: CALCIUM CARB-MAG CARB-FOLIC 1 EACH TAB PO SCH ×2 (12:28→16:37)
[2021-07-22] MEDS: CALCIUM ACETATE 667 MG TAB PO SCH ×2 (12:28→16:36)
--- NOTE | 2021-07-22 12:39 | ECHOF ---
Referral Reason:LV function, abnormal trops MEASUREMENTS -------- HEIGHT: 175.3 cm WEIGHT: 92.5 kg BP: 163/63 RVIDd: 4.0 cm (< 3.3) IVSd: 1.8 cm (0.6 - 1.1) LVIDd: 5.6 cm (3.9 - 5.3) LVPWd: 1.6 cm (0.6 - 1.1) IVSs: 2.2 cm LVIDs: 4.3 cm LVPWs: 2.4 cm LA Diam: 5.1 cm (2.7 - 3.8) LAESV Index (A-L): 54.97 ml/m Ao Diam: 4.1 cm (2.0 - 3.7) AV Cusp: 3.1 cm (1.5 - 2.6) MV EXCURSION: 18.742 mm (> 18.000) MV EF SLOPE: 109 mm/s (70 - 150) EPSS: 0.8 cm MV E Janak: 1.40 m/s MV DecT: 170 ms MV A Janak: 0.78 m/s MV E/A Ratio: 1.79 RAP: 15.00 mmHg RVSP: 62.46 mmHg FINDINGS -------- Sinus rhythm. This was a technically good study. The left ventricular size is normal. There is severe concentric left ventricular hypertrophy. Ove rall left ventricular systolic function is normal with, an EF between 55 - 60 %. The right ventricle is moderately enlarged. LA is severely dilated >40 ml/m2 The right atrium is normal in size. Interatrial and interventricular septum intact. The aortic valve is trileaflet, and appears structurally normal. No aortic stenosis or regurgitation. The mitral valve is normal. Moderate tricuspid regurgitation present. There is severe pulmonary hypertension. The right ventr icular systolic pressure, as measured by Doppler, is 62.46mmHg. Moderate pulmonic regurgitation. The aortic root is dilated measuring 4.1cm. The inferior vena cava is dilated with no significant inspiratory collapse which is consistent estima osvaldo right atrial pressure of >15 mmHg. There is no pericardial effusion. CONCLUSIONS -------- 1. The left ventricular size is normal. 2. There is severe concentric left ventricular hypertrophy. 3. Overall left ventricular systolic function is normal with, an EF between 55 - 60 %. 4. The right ventricle is moderately enlarged. 5. LA is severely dilated >40 ml/m2 6. Moderate tricuspid regurgitation present. 7. There is severe pulmonary hypertension. 8. The right ventricular systolic pressure, as measured by Doppler, is 62.46mmHg. 9. Moderate pulmonic regurgitation. 10. The aortic root is dilated measuring 4.1cm. 11. The inferior vena cava is dilated with no significant inspiratory collapse which is consistent es timated right atrial pressure of >15 mmHg. 12. There is no pericardial effusion. CAR MECHANIC HELPER: Angelina Sweet RDCS
[2021-07-22] MEDS ORDERED: THIAMINE 100 MG/ML 2 ML VIAL IM STA (13:10)
[2021-07-22] MEDS ORDERED: LORazepam 2 MG/ML INJ IV PRN ×3 (13:10)
--- NOTE | 2021-07-22 13:10 | P.GSCN ---
History of Present Illness Consult date: 07/22/21 History of present illness: CHIEF COMPLAINT: Shortness of breath HISTORY OF PRESENT ILLNESS: This is a 41-year-old male who initially presented to the hospital with complaints of shortness of breath, fatigue and dizziness. Patient also reports that he has been having black stools since after his colonoscopy and EGD earlier in June. Initially that EGD and colonoscopy was completed due to him having bright red blood and at that time the endoscopies had shown gastritis diverticulosis and colon polyps. The pathology report from the colon polyps and did show tubulovillous adenoma and high-grade dysplasia and squamous metaplasia from the rectosigmoid polyp. Patient's hemoglobin was 7.6 on admission and dropped to 6.5. He did receive a unit of blood. He also has fluid overload and is receiving hemodialysis today and tomorrow. And has been on IV Lasix. He does have a history of end-stage renal disease. Patient does report mid abdominal pain intermittently. He did have one episode of emesis that was black in color as well as the black stools. Patient reports that he does get IV iron with hemodialysis. Patient is currently tolerating a regular diet. Patient denies being on any blood thinners. Denies any NSAID use. PAST MEDICAL HISTORY: Asthma, Hypertension, ESRD PAST SURGICAL HISTORY: Tonsillectomy no prior abdominal surgeries MEDICATIONS: See list. ALLERGIES: See list. SOCIAL HISTORY: No illicit drug use. REVIEW OF SYSTEMS: CONSTITUTIONAL: Denies fever or chills. HEENT: Denies blurred vision, vision changes, or eye pain. Denies hemoptysis CARDIOVASCULAR: Denies chest pain or pressure. RESPIRATORY: No shortness of breath. GASTROINTESTINAL: See HPI for pertinent findings HEMATOLOGIC: Denies bleeding disorders. GENITOURINARY: Denies any blood in urine or increased urinary frequency. SKIN: Denies pruitis. Denies rash. PHYSICAL EXAM: VITAL SIGNS: Reviewed GENERAL: Well-developed in no acute distress. HEENT: No sclera icterus. Extraocular movements grossly intact. Moist buccal mucosa. Head is atraumatic, normocephalic. No nasal drainage. ABDOMEN: Soft. Nondistended. Nontender NEUROLOGIC: Alert and oriented. Cranial nerves II through XII grossly intact. LABORATORY DATA: WBC 4.2 hemoglobin 6.5 up to 7.2 platelets 128 sodium 135 potassium 5.2 BUN 56 creatinine 10.15 elevated BNP Troponin 0.053 IMAGING: ECHO EF OF 55-60% MODERATE PULMONARY REGURGITATION, MODERATE TRICUSPID REGURGITATION AND SEVERE PULMONARY HYPERTENSION Chest x-ray patchy. Mari and basilar infiltrates or suspicious for pneumonia ASSESSMENT: 1. Acute GI bleed 2. Acute blood loss anemia secondary GI bleed 3. Chronic anemia 4. Acute on chronic CHF exacerbation 5. End-stage renal disease on hemodialysis PLAN: -EGD and colonoscopy scheduled for tomorrow 07/23/[address] Parrish -Clear liquid diet today -Nothing by mouth after midnight -Start GoLYTELY prep Thank you for this consultation Physician Risk Management Manager note has been reviewed by physician. Signing provider agrees with the documented findings, assessment, and plan of care. Past Medical History Past Medical History: Asthma, Hypertension, Renal Disease Additional Past Medical History / Comment(s): states hx asthma triggered by environmental allergies- no current rx., epistaxis 09/16/17, Hemo-dialysis Tue-Tue-Tue, fistura left arm, states he recevied blood transfusion last week at [facility]., states blood in stool., states he is illiterate-he was able to read letters and his prep instructions. History of Any Multi-Drug Resistant Organisms: None Reported Past Surgical History: Tonsillectomy Additional Past Surgical History / Comment(s): fistula to left upper arm. Past Anesthesia/Blood Transfusion Reactions: No Reported Reaction Additional Past Anesthesia/Blood Transfusion Reaction / Comm: sorethroat afterwards. BLOOD TRANSFUSION LAST WEEK AT [facility]. Past Psychological History: No Psychological Hx Reported Additional Psychological History / Comment(s): Pt resides alone. He works at [employer]. He does not drive, his family takes him to [employer]. Smoking Status: Never smoker Past Alcohol Use History: Occasional Additional Past Alcohol Use History / Comment(s): chews tobacco. states he drinks 18 beers/week. Past Drug Use History: None Reported - Past Family History Mother Additional Family Medical History / Comment(s): liver and kidney transplant Father Additional Family Medical History / Comment(s): pt states father of heart attack in his 50's Medications and Allergies Home Medications Medication Instructions Recorded Confirmed Type Furosemide [Lasix] 80 mg PO DAILY 05/10/19 07/21/21 History [place]-3 Fatty Acids/Fish Oil [Fish 1 cap PO DAILY 07/02/21 07/21/21 History Oil 1,000 mg Softgel] amLODIPine [Norvasc] 5 mg PO DAILY 07/02/21 07/21/21 History Calcium Acetate 2,668 mg PO TID-W/MEALS 07/21/21 07/21/21 History Magnebind 300 2 capsule PO TID-W/MEALS 07/21/21 07/21/21 History Metoprolol Succinate [Toprol XL] 25 mg PO BID 07/21/21 07/21/21 History [place]-Marsha 1 tab PO DAILY 07/21/21 07/21/21 History hydrALAZINE HCL 50 mg PO BID 07/21/21 07/21/21 History lisinopriL [Prinivil] 20 mg PO DAILY 07/21/21 07/21/21 History Allergies Allergy/AdvReac Type Severity Reaction Status Date / Time cranberry Allergy Anaphylaxis Verified 07/21/21 14:05 pollen extracts Allergy Dyspnea, Verified 07/21/21 14:05 Sneezing Surgical - Exam Vital Signs Temp Pulse Resp BP Pulse Ox 97.6 F 80 20 153/90 96 07/21/21 14:01 07/21/21 14:01 07/21/21 14:01 07/21/21 14:01 07/21/21 14:01 Results - Labs 07/22/21 07:13 07/22/21 07:13 Abnormal Lab Results - Last 24 Hours (Table) 07/21/21 07/21/21 07/21/21 Range/Units 15:07 15:07 15:07 RBC 2.50 L (4.30-5.90) m/uL Hgb 7.6 L (13.0-17.5) gm/dL Hct 24.3 L (39.0-53.0) % RDW 16.6 H (11.5-15.5) % Plt Count (150-450) k/uL Lymphocytes # 0.4 L (1.0-4.8) k/uL D-Dimer 0.60 H (<0.60) mg/L FEU Sodium 134 L (137-145) mmol/L Potassium (3.5-5.1) mmol/L Chloride 96 L (98-107) mmol/L BUN 41 H (9-20) mg/dL Creatinine 8.21 H* (0.66-1.25) mg/dL Magnesium 2.5 H (1.6-2.3) mg/dL Total Bilirubin 1.6 H (0.2-1.3) mg/dL Troponin I (0.000-0.034) ng/mL Crossmatch 07/21/21 07/21/21 07/21/21 Range/Units 15:07 16:19 23:02 RBC 2.13 L (4.30-5.90) m/uL Hgb 6.5 L* (13.0-17.5) gm/dL Hct 20.4 L (39.0-53.0) % RDW 16.4 H (11.5-15.5) % Plt Count 128 L (150-450) k/uL Lymphocytes # 0.4 L (1.0-4.8) k/uL D-Dimer (<0.60) mg/L FEU Sodium (137-145) mmol/L Potassium (3.5-5.1) mmol/L Chloride (98-107) mmol/L BUN (9-20) mg/dL Creatinine (0.66-1.25) mg/dL Magnesium (1.6-2.3) mg/dL Total Bilirubin (0.2-1.3) mg/dL Troponin I 0.053 H* (0.000-0.034) ng/mL Crossmatch See Detail 07/22/21 07/22/21 Range/Units 07:13 07:13 RBC 2.39 L (4.30-5.90) m/uL Hgb 7.2 L (13.0-17.5) gm/dL Hct 22.6 L (39.0-53.0) % RDW 17.9 H (11.5-15.5) % Plt Count 128 L (150-450) k/uL Lymphocytes # 0.3 L (1.0-4.8) k/uL D-Dimer (<0.60) mg/L FEU Sodium 135 L (137-145) mmol/L Potassium 5.2 H (3.5-5.1) mmol/L Chloride 96 L (98-107) mmol/L BUN 56 H (9-20) mg/dL Creatinine 10.15 H* (0.66-1.25) mg/dL Magnesium (1.6-2.3) mg/dL Total Bilirubin (0.2-1.3) mg/dL Troponin I (0.000-0.034) ng/mL Crossmatch Diabetes panel 07/21/21 07/22/21 Range/Units 15:07 07:13 Sodium 134 L 135 L (137-145) mmol/L Potassium 4.9 5.2 H (3.5-5.1) mmol/L Chloride 96 L 96 L (98-107) mmol/L Carbon Dioxide 28 29 (22-30) mmol/L BUN 41 H 56 H (9-20) mg/dL Creatinine 8.21 H* 10.15 H* (0.66-1.25) mg/dL Glucose 88 87 (74-99) mg/dL Calcium 9.4 9.1 (8.4-10.2) mg/dL AST 27 (17-59) U/L ALT 20 (4-49) U/L Alkaline Phosphatase 89 (38-126) U/L Total Protein 6.4 (6.3-8.2) g/dL Albumin 3.8 (3.5-5.0) g/dL Calcium panel 07/21/21 07/22/21 Range/Units 15:07 07:13 Calcium 9.4 9.1 (8.4-10.2) mg/dL Albumin 3.8 (3.5-5.0) g/dL Pituitary panel 07/21/21 07/22/21 Range/Units 15:07 07:13 Sodium 134 L 135 L (137-145) mmol/L Potassium 4.9 5.2 H (3.5-5.1) mmol/L Chloride 96 L 96 L (98-107) mmol/L Carbon Dioxide 28 29 (22-30) mmol/L BUN 41 H 56 H (9-20) mg/dL Creatinine 8.21 H* 10.15 H* (0.66-1.25) mg/dL Glucose 88 87 (74-99) mg/dL Calcium 9.4 9.1 (8.4-10.2) mg/dL Adrenal panel 07/21/21 07/22/21 Range/Units 15:07 07:13 Sodium 134 L 135 L (137-145) mmol/L Potassium 4.9 5.2 H (3.5-5.1) mmol/L Chloride 96 L 96 L (98-107) mmol/L Carbon Dioxide 28 29 (22-30) mmol/L BUN 41 H 56 H (9-20) mg/dL Creatinine 8.21 H* 10.15 H* (0.66-1.25) mg/dL Glucose 88 87 (74-99) mg/dL Calcium 9.4 9.1 (8.4-10.2) mg/dL Total Bilirubin 1.6 H (0.2-1.3) mg/dL AST 27 (17-59) U/L ALT 20 (4-49) U/L Alkaline Phosphatase 89 (38-126) U/L Total Protein 6.4 (6.3-8.2) g/dL Albumin 3.8 (3.5-5.0) g/dL
[2021-07-22 15:53] LABS: Alcohol <10 mg/dL; Magnesium 2.4 mg/dL (1.6-2.3)
--- NOTE | 2021-07-22 16:27 | P.HPIM ---
History of Present Illness H&P Date: 07/22/21 Chief Complaint: Shortness of breath This is a 41-year-old gentleman with past medical history of end-stage renal disease on hemodialysis, anemia, asthma, hypertension, alcohol abuse, chews tobacco,recent colonoscopy 07/07/2021 reporting minimal antral gastritis and duodenitis, dysplastic polyp. Received 1 unit of packed RBCs last week. Reports compliance with his medications and hemodialysis .On admission hemoglobin 7.6, decreased to 6.5, received 1 unit of packed RBCs with current hemoglobin at 7.2, platelets 128. Scheduled for hemodialysis both today and tomorrow for fluid overload and currently on Lasix IV push. Reporting black stools and black emesis, in a patient who receives IV iron with hemodialysis. Denies any chest pain, palpitations or shortness of breath. EKG when sinus rhythm and nonspecific ST-T wave changes. Troponin 0.053, proBNP 77,200 Chest x-ray reporting patchy perihilar and basilar infiltrates. Elevated MMA, 0.56. Review of Systems ROS Statement: Those systems with pertinent positive or pertinent negative responses have been documented in the HPI. ROS Other: All systems not noted in ROS Statement are negative. Past Medical History Past Medical History: Asthma, Hypertension, Renal Disease Additional Past Medical History / Comment(s): states hx asthma triggered by environmental allergies- no current rx., epistaxis 09/16/17, Hemo-dialysis Tue-Tue-Tue, fistura left arm, states he recevied blood transfusion last week at [facility] states blood in stool., states he is illiterate-he was able to read shannon ers and his prep instructions. History of Any Multi-Drug Resistant Organisms: None Reported Past Surgical History: Tonsillectomy Additional Past Surgical History / Comment(s): fistula to left upper arm. Past Anesthesia/Blood Transfusion Reactions: No Reported Reaction Additional Past Anesthesia/Blood Transfusion Reaction / Comment(s): sorethroat afterwards. BLOOD TRANSFUSION LAST WEEK AT [facility]. Past Psychological History: No Psychological Hx Reported Additional Psychological History / Comment(s): Pt resides alone. He works at [employer]. He does not drive, his family takes him to [place]. Smoking Status: Never smoker Past Alcohol Use History: Occasional Additional Past Alcohol Use History / Comment(s): chews tobacco. states he drinks 18 beers/week. Past Drug Use History: None Reported - Past Family History Mother Additional Family Medical History / Comment(s): liver and kidney transplant Father Additional Family Medical History / Comment(s): pt states father of heart attack in his 50's Medications and Allergies Home Medications Medication Instructions Recorded Confirmed Type Furosemide [Lasix] 80 mg PO DAILY 05/10/19 07/21/21 History [place]-3 Fatty Acids/Fish Oil [Fish 1 cap PO DAILY 07/02/21 07/21/21 History Oil 1,000 mg Softgel] amLODIPine [Norvasc] 5 mg PO DAILY 07/02/21 07/21/21 History Calcium Acetate 2,668 mg PO TID-W/MEALS 07/21/21 07/21/21 History Magnebind 300 2 capsule PO TID-W/MEALS 07/21/21 07/21/21 History Metoprolol Succinate [Toprol XL] 25 mg PO BID 07/21/21 07/21/21 History [place]-Marsha 1 tab PO DAILY 07/21/21 07/21/21 History hydrALAZINE HCL 50 mg PO BID 07/21/21 07/21/21 History lisinopriL [Prinivil] 20 mg PO DAILY 07/21/21 07/21/21 History Allergies Allergy/AdvReac Type Severity Reaction Status Date / Time cranberry Allergy Anaphylaxis Verified 07/21/21 14:05 pollen extracts Allergy Dyspnea, Verified 07/21/21 14:05 Sneezing Physical Exam Vitals: Vital Signs Temp Pulse Pulse Resp BP BP Pulse Ox 07/22/21 04:33 98.7 F 76 76 24 163/83 163/83 96 07/22/21 01:38 98.4 F 83 22 164/83 93 L 07/22/21 01:08 98.8 F 87 20 152/84 93 L 07/22/21 00:58 98.8 F 86 22 169/89 90 L 07/21/21 23:30 98.2 F 82 23 157/80 96 07/21/21 21:40 97 07/21/21 21:35 99.7 F H 86 22 168/84 89 L 07/21/21 14:01 97.6 F 80 20 153/90 96 Intake and Output 07/21/21 07/22/21 07/22/21 22:59 06:59 14:59 Intake Total 310 Balance 310 Intake: Blood Product 310 Rc As-1 Unit 310 [id number] Other: Voiding Method Toilet Toilet # Bowel Movements 1 Weight 92.533 kg GENERAL: Well-appearing, well-nourished and in no acute distress. HEAD: Atraumatic, normocephalic. EYES: Pupils equal round and reactive to light, extraocular movements intact, sclera anicteric, conjunctiva are normal. ENT:nares patent, oropharynx clear without exudates. Moist mucous membranes. NECK: Normal range of motion, supple without lymphadenopathy or JVD, no thyromegaly LUNGS: Equal air entry with fine bibasilar crackles, no wheezing. HEART: Regular rate and rhythm without murmurs, rubs or gallops.S1S2 Normal ABDOMEN: Soft, nontender, normoactive bowel sounds. No guarding, no rebound. No masses appreciated. EXTREMITIES: Normal range of motion, positive edema. No clubbing or cyanosis. NEUROLOGICAL: Cranial nerves II through XII grossly intact. Normal speech, normal gait. PSYCH: Normal mood, normal affect. SKIN: Warm, Dry, normal turgor, no rashes noted. Results CBC & Chem 7: 07/22/21 07:13 07/22/21 07:13 Labs: Abnormal Lab Results - Last 24 Hours (Table) 07/21/21 07/21/21 07/21/21 Range/Units 15:07 15:07 15:07 RBC 2.50 L (4.30-5.90) m/uL Hgb 7.6 L (13.0-17.5) gm/dL Hct 24.3 L (39.0-53.0) % RDW 16.6 H (11.5-15.5) % Plt Count (150-450) k/uL Lymphocytes # 0.4 L (1.0-4.8) k/uL D-Dimer 0.60 H (<0.60) mg/L FEU Sodium 134 L (137-145) mmol/L Chloride 96 L (98-107) mmol/L BUN 41 H (9-20) mg/dL Creatinine 8.21 H* (0.66-1.25) mg/dL Magnesium 2.5 H (1.6-2.3) mg/dL Total Bilirubin 1.6 H (0.2-1.3) mg/dL Troponin I (0.000-0.034) ng/mL Crossmatch 07/21/21 07/21/21 07/21/21 Range/Units 15:07 16:19 23:02 RBC 2.13 L (4.30-5.90) m/uL Hgb 6.5 L* (13.0-17.5) gm/dL Hct 20.4 L (39.0-53.0) % RDW 16.4 H (11.5-15.5) % Plt Count 128 L (150-450) k/uL Lymphocytes # 0.4 L (1.0-4.8) k/uL D-Dimer (<0.60) mg/L FEU Sodium (137-145) mmol/L Chloride (98-107) mmol/L BUN (9-20) mg/dL Creatinine (0.66-1.25) mg/dL Magnesium (1.6-2.3) mg/dL Total Bilirubin (0.2-1.3) mg/dL Troponin I 0.053 H* (0.000-0.034) ng/mL Crossmatch See Detail 07/22/21 Range/Units 07:13 RBC 2.39 L (4.30-5.90) m/uL Hgb 7.2 L (13.0-17.5) gm/dL Hct 22.6 L (39.0-53.0) % RDW 17.9 H (11.5-15.5) % Plt Count 128 L (150-450) k/uL Lymphocytes # 0.3 L (1.0-4.8) k/uL D-Dimer (<0.60) mg/L FEU Sodium (137-145) mmol/L Chloride (98-107) mmol/L BUN (9-20) mg/dL Creatinine (0.66-1.25) mg/dL Magnesium (1.6-2.3) mg/dL Total Bilirubin (0.2-1.3) mg/dL Troponin I (0.000-0.034) ng/mL Crossmatch Thrombosis Risk Factor Assmnt - Choose All That Apply Any of the Below Risk Factors Present?: Yes Each Factor Represents 1 point: Age 41-60 years Thrombosis Risk Factor Assessment Total Risk Factor Score: 1 Thrombosis Risk Factor Assessment Level: Low Risk Assessment and Plan Assessment: Acute fluid overload, acute on chronic CHF, echo pending End-stage renal disease on hemodialysis Acute blood loss, secondary to GI bleed, status post transfusions of PRBCs Recent colonoscopy 07/07/2021 reporting minimal antral gastritis and duodenitis, dysplastic polyp Chronic Anemia History of 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 Evaluated by multiple consults. Echo pending. Hemodialysis today and tomorrow. Scheduled for both EGD and colonoscopy tomorrow. CIWA protocol, nicotine patch ordered. Nicotine cessation reinforced. Close monitoring of HGB, labs ordered for a.m. The impression and plan of care has been dictated as directed. : I performed a history and examination of this patient, discussed the same with the dictator. I agree with the dictator's note ,documented as a scribe. Any additional findings or plans will be noted.
[2021-07-22] MEDS: NICOTINE 21MG/24HR PATCH TRANSDERM SCH (16:36)
[2021-07-22] MEDS: THIAMINE 100 MG TAB PO SCH (16:36)
[2021-07-22] MEDS: FOLIC ACID-VIT B COMPLEX-VIT C 1 CAP PO SCH (16:37)
[2021-07-22 18:53] LABS: Hepatitis B Surface Antigen Nonreactive (Nonreactive)
[2021-07-22 19:20] LABS: Hepatitis B Surface AB- Quant 24.3 mIU/mL; Hepatitis B Surface Antibody Reactive (Nonreactive)
[2021-07-23] MEDS: CALCIUM ACETATE 667 MG TAB PO SCH ×3 (06:28→17:45)
[2021-07-23] MEDS: CALCIUM CARB-MAG CARB-FOLIC 1 EACH TAB PO SCH ×3 (06:28→18:22)
[2021-07-23] MEDS: THIAMINE 100 MG TAB PO SCH ×2 (06:29→17:45)
[2021-07-23 08:51] LABS: Calcium 9.3 mg/dL (8.4-10.2); Potassium 4.9 mmol/L (3.5-5.1)
[2021-07-23 08:58] LABS: Anisocytosis Slight; HGB 7.2 gm/dL (13.0-17.5); Hypochromasia Moderate; MCHC 31.3 g/dL (31.0-37.0); MCV 95.7 fL (80.0-100.0); Macrocytosis Slight; Mean Platelet Volume 7.2; Platelet Count 117 k/uL (150-450); RDW 17.3 % (11.5-15.5); WBC 3.8 k/uL (3.8-10.6)
[2021-07-23] MEDS: NICOTINE 21MG/24HR PATCH TRANSDERM SCH (09:29)
[2021-07-23] MEDS: METOPROLOL SUCCINATE (ER) 25 MG TAB.ER.24H PO SCH ×2 (09:30→20:39)
[2021-07-23] MEDS: amLODIPine 5 MG TAB PO SCH (09:30)
[2021-07-23] MEDS: hydrALAZINE HCL 50 MG TAB PO SCH ×2 (09:30→20:40)
[2021-07-23] MEDS: lisinopriL 20 MG TAB PO SCH (09:30)
[2021-07-23] MEDS ORDERED: LIDOCAINE 1% INJ 10MG/ML (20 ML MDV) ONE (10:21)
[2021-07-23] MEDS ORDERED: PROPOFOL 10 MG/ML 20 ML VIAL IV ONE (10:21)
[2021-07-23] MEDS ORDERED: SODIUM CHLORIDE 0.9% 500 ML 500 ML IV ONE (10:24)
--- NOTE | 2021-07-23 10:55 | P.OP ---
Date of Procedure: 07/23/21 Preoperative Diagnosis: Anemia Postoperative Diagnosis: Hemorrhagic antral gastritis Sliding hiatal hernia Procedure(s) Performed: EGD Colonoscopy Anesthesia: MAC Surgeon: Arthur Parrish Pathology: other (Antral) Condition: stable Disposition: PACU Description of Procedure: The patient's placed on the endoscopy table in the lateral position. He received IV sedation. The gastroscope placed oropharynx passed in the esophagus and stomach. Scope was placed through the pylorus. First portion duodenum appeared minimally inflamed. Then brought back the antrum was evidence of hemorrhagic gastritis. This area is biopsied. Scope was unretroflexed and remainder stomach appeared normal. The GE junction was at 40 cm. The distal esophagus appeared normal. The proximal esophagus appeared normal. Scope withdrawn for patient. Next digital rectal exam was performed. The exam was normal. The flexible colonoscope was then placed into the patient's anus and passed throughout the entire colon. Ileocecal valve was visualized. Cecum, ascending and transverse colon appeared normal. The descending and sigmoid colon appeared normal. The rectum appeared normal. There is no evidence of blood in the colon. There is no evidence of active GI bleed. His presumed patient may have anemia constant by his gastritis.
--- NOTE | 2021-07-23 11:47 | P.PN ---
Subjective Principal diagnosis: Patient is seen for follow-up for end-stage renal disease. He was admitted with weakness and severe anemia with hemoglobin at 6.5 g/dL. Patient has been transfused. Patient was volume overloaded and received a treatment yesterday with ultrafiltration off about 1-1/2 L. He is going down for EGD and colonoscop y today. Patient is scheduled for extra treatment today for volume overload. Objective - Vital Signs Vital signs: Vital Signs Temp 98.2 F 07/23/21 07:55 Pulse 62 07/23/21 11:20 Resp 16 07/23/21 11:20 BP 146/86 07/23/21 11:20 Pulse Ox 100 07/23/21 11:20 Intake & Output 07/22/21 07/23/21 07/23/21 18:59 06:59 18:59 Intake Total 280 100 Output Total 1668 Balance -1388 100 Weight 92.533 kg 89.4 kg Intake: IV 100 Oral 280 Output: Hemodialysis 1668 Other: Voiding Method Toilet Toilet Toilet # Voids 0 - Exam On examination today patient is comfortable awake not in any acute distress. He is alert and oriented 3. Examination of the heart S1 and S2 Examination lungs bilateral breath sounds are heard Abdomen is soft nontender Examination of lower extremities shows edema 2+ bilaterally LEAD SUSTAINABILITY SPECIALIST exam grossly intact. - Labs CBC & Chem 7: 07/23/21 08:24 07/23/21 08:24 Labs: Abnormal Lab Results - Last 24 Hours (Table) 07/22/21 07/22/21 07/23/21 Range/Units 07:13 15:16 08:24 RBC 2.40 L (4.30-5.90) m/uL Hgb 7.2 L (13.0-17.5) gm/dL Hct 23.0 L (39.0-53.0) % RDW 17.3 H (11.5-15.5) % Plt Count 117 L (150-450) k/uL BUN (9-20) mg/dL Creatinine (0.66-1.25) mg/dL Magnesium 2.4 H (1.6-2.3) mg/dL Hep Bs Antibody Reactive A (Nonreactive) 07/23/21 Range/Units 08:24 RBC (4.30-5.90) m/uL Hgb (13.0-17.5) gm/dL Hct (39.0-53.0) % RDW (11.5-15.5) % Plt Count (150-450) k/uL BUN 45 H (9-20) mg/dL Creatinine 9.55 H* (0.66-1.25) mg/dL Magnesium (1.6-2.3) mg/dL Hep Bs Antibody (Nonreactive) Assessment and Plan Assessment: 1. End-stage renal disease on hemodialysis on a Tuesday vent is a Tuesday schedule via left arm AV fistula 2. Volume overload, patient will be dialyzed today and then again in a.m. increase UF to 2-3LL as tolerated. 3. Anemia due to acute blood loss from GI bleed, status post packed RBCs transfusion. History of colonoscopy performed on 07/07/2021 which showed a dysplastic polyp. EGD at that time showed mild duodenitis and mild gastritis. Patient is currently being followed by surgery. Scheduled for repeat colonoscopy today 4. CK D mineral bone disorder 5. Hypertension partly volume sensitive. Expect improvement with dialysis and ultrafiltration. Plan: 1. Hemodialysis today and repeat again in a.m. 2. Maintain patient on Aranesp 3. Continue phosphate binders 4. Repeat CBC in a.m.
--- NOTE | 2021-07-23 12:09 | P.PN ---
Subjective Progress Note Date: 07/23/21 Principal diagnosis: Shortness of breath The patient is a 41-year-old gentleman with end stage renal disease on dialysis as well as hypertension as well as multiple comorbid conditions was admitted to the hospital with a progressive dyspnea and he was found to be anemic and also he was found to be in fluid overload. He was started on Lasix. Nephrology service is on the case. The patient was seen this morning. He stated that he is feeling better but the shortness of breath is not back to baseline. He was found to be anemic and currently is in process of having an upper and lower endoscopy. His hemoglobin this morning is above 7. He continues to be on Lasix IV at this point. He underwent an echo which revealed normal left and check her systolic function without significant valvular abnormalities. He is going to have dialysis today and tomorrow as well. Objective - Vital Signs Vital signs: Vital Signs Temp 98.2 F 07/23/21 07:55 Pulse 62 07/23/21 11:20 Resp 16 07/23/21 11:20 BP 146/86 07/23/21 11:20 Pulse Ox 100 07/23/21 11:20 Intake & Output 07/22/21 07/23/21 07/23/21 18:59 06:59 18:59 Intake Total 280 100 Output Total 1668 Balance -1388 100 Weight 92.533 kg 89.4 kg Intake: IV 100 Oral 280 Output: Hemodialysis 1668 Other: Voiding Method Toilet Toilet Toilet # Voids 0 - Constitutional General appearance: Present: no acute distress - Respiratory Respiratory: bilateral: diminished - Cardiovascular Rhythm: regular Heart sounds: normal: S1, S2 Abnormal Heart Sounds: Present: systolic murmur - Labs CBC & Chem 7: 07/23/21 08:24 07/23/21 08:24 Labs: Abnormal Lab Results - Last 24 Hours (Table) 07/22/21 07/22/21 07/23/21 Range/Units 07:13 15:16 08:24 RBC 2.40 L (4.30-5.90) m/uL Hgb 7.2 L (13.0-17.5) gm/dL Hct 23.0 L (39.0-53.0) % RDW 17.3 H (11.5-15.5) % Plt Count 117 L (150-450) k/uL BUN (9-20) mg/dL Creatinine (0.66-1.25) mg/dL Magnesium 2.4 H (1.6-2.3) mg/dL Hep Bs Antibody Reactive A (Nonreactive) 07/23/21 Range/Units 08:24 RBC (4.30-5.90) m/uL Hgb (13.0-17.5) gm/dL Hct (39.0-53.0) % RDW (11.5-15.5) % Plt Count (150-450) k/uL BUN 45 H (9-20) mg/dL Creatinine 9.55 H* (0.66-1.25) mg/dL Magnesium (1.6-2.3) mg/dL Hep Bs Antibody (Nonreactive) Assessment and Plan Assessment: Assessment #1 shortness of breath likely to be multifocal to area and related to anemia as well as heart failure with preserved ejection fraction #2 into stage renal disease currently the patient is on dialysis #3 hypertension #4 possible blood loss anemia #6 multiple comorbid conditions Plan #1 the echo revealed normal left ventricular systolic function without significant valvular abnormalities #2 the patient is going to undergo dialysis today and tomorrow as well #3 continue monitor the hemoglobin #4 EGD and colonoscopy later on today #5 follow-up with the pain
[2021-07-23] MEDS ORDERED: PANTOPRAZOLE 40 MG/10 ML VIAL ONE (12:56)
[2021-07-23] MEDS: MULTIVITAMINS, THERA 1 EACH TAB PO SCH (12:58)
[2021-07-23] MEDS: FOLIC ACID-VIT B COMPLEX-VIT C 1 CAP PO SCH (12:58)
[2021-07-23] MEDS: FUROSEMIDE 10 MG/ML 4 ML VIAL IV SCH ×3 (12:59→23:41)
[2021-07-23] MEDS: PANTOPRAZOLE 40 MG/10 ML VIAL IVP SCH (12:59)
--- NOTE | 2021-07-23 13:59 | P.DS ---
Providers Date of admission: 07/21/21 17:20 Expected date of discharge: 07/23/21 Attending physician: Ming Padgett Consults: 07/21/21 17:20 Consult Physician Routine Consulting Provider: [facility] Consult Reason/Comments: Pulmonary edema Do you want consulting provider notified?: Yes Consult Physician Routine Consulting Provider: Maite Ladd Consult Reason/Comments: Kidney failure Do you want consulting provider notified?: Yes 07/22/21 00:20 Consult Physician Routine Consulting Provider: Arthur Parrish Consult Reason/Comments: low hemoglobin, black stools Do you want consulting provider notified?: Yes, Notify in am Primary care physician: [facility] Course: Final Diagnoses: Acute fluid overload, acute on chronic CHF, diastolic dysfunction, EF 55-60% Severely dilated LA Moderate tricuspid regurgitation Severe pulmonary hypertension Moderate pulmonic regurgitation Aortic root dilated 4.1 cm, further follow-up/monitoring outpatient. 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 Received 1 unit of packed RBCs last week. Reports compliance with his medications and hemodialysis .On admission hemoglobin 7.6, decreased to 6.5, received 1 unit of packed RBCs with current hemoglobin at 7.2, platelets 128. Scheduled for hemodialysis both today and tomorrow for fluid overload and currently on Lasix IV push. Reporting black stools and black emesis, in a patient who receives IV iron with hemodialysis. Denies any chest pain, palpitations or shortness of breath. EKG when sinus rhythm and nonspecific ST-T wave changes. Troponin 0.053, proBNP 77,200 Chest x-ray reporting patchy perihilar and basilar infiltrates. Elevated MMA, 0.56. Evaluated by multiple consults. Received hemodialysis yesterday and scheduled for today. Scheduled for EGD and colonoscopy with general surgery. Patient will be discharged home later today, in a stable condition with guarded prognosis, pending endoscopy results, final clearance, DC recommendations per nephrology, cardiology and general surgery. The impression and plan of care has been dictated as directed. : I performed a history and examination of this patient, discussed the same with the dictator. I agree with the dictator's note ,documented as a scribe. Any additional findings or plans will be noted. Patient Condition at Discharge: Stable Plan - Discharge Summary Discharge Rx Participant: No New Discharge Prescriptions: New Pantoprazole [Protonix] 40 mg PO DAILY #30 tab Multivitamins, Thera [Multivitamin (formulary)] 1 each PO DAILY tab Nicotine 21Mg/24Hr Patch [Habitrol] 1 patch TRANSDERM DAILY patch Thiamine [Vitamin B-1] 100 mg PO DAILY tab Continue Furosemide [Lasix] 80 mg PO DAILY hydrALAZINE HCL 50 mg PO BID Calcium Acetate 2,668 mg PO TID-W/MEALS amLODIPine [Norvasc] 5 mg PO DAILY [place]-3 Fatty Acids/Fish Oil [Fish Oil 1,000 mg Softgel] 1 cap PO DAILY Metoprolol Succinate [Toprol XL] 25 mg PO BID Magnebind 300 2 capsule PO TID-W/MEALS lisinopriL [Prinivil] 20 mg PO DAILY Amelia-Marsha 1 tab PO DAILY Discharge Medication List Furosemide [Lasix] 80 mg PO DAILY 05/10/19 [History] [place]-3 Fatty Acids/Fish Oil [Fish Oil 1,000 mg Softgel] 1 cap PO DAILY 07/02/21 [History] amLODIPine [Norvasc] 5 mg PO DAILY 07/02/21 [History] Calcium Acetate 2,668 mg PO TID-W/MEALS 07/21/21 [History] Magnebind 300 2 capsule PO TID-W/MEALS 07/21/21 [History] Metoprolol Succinate [Toprol XL] 25 mg PO BID 07/21/21 [History] Amelia-Marsha 1 tab PO DAILY 07/21/21 [History] hydrALAZINE HCL 50 mg PO BID 07/21/21 [History] lisinopriL [Prinivil] 20 mg PO DAILY 07/21/21 [History] Multivitamins, Thera [Multivitamin (formulary)] 1 each PO DAILY tab 07/23/21 [Rx] Nicotine 21Mg/24Hr Patch [Habitrol] 1 patch TRANSDERM DAILY patch 07/23/21 [Rx] Pantoprazole [Protonix] 40 mg PO DAILY #30 tab 07/23/21 [Rx] Thiamine [Vitamin B-1] 100 mg PO DAILY tab 07/23/21 [Rx] Follow up Appointment(s)/Referral(s): Maite Ladd MD [STAFF PHYSICIAN] - 1 Week Reji Rodriguez Jr, DO [Primary Care Provider] - 3 Days Ambulatory/Diagnostic Orders: Complete Blood Count w/diff [LAB.AMB] Time Frame: 3 Days, Location: None Selected
[2021-07-23] MEDS ORDERED: DILTIAZEM DRIP BOLUS FROM BAG 1 MG SOLN IV ONE (17:43)
[2021-07-23] MEDS: DILTIAZEM 125 MG in SODIUM CHLORIDE 0.9% 100 ML IV SCH (18:22)
[2021-07-24] MEDS: THIAMINE 100 MG TAB PO SCH (06:52)
[2021-07-24] MEDS: CALCIUM ACETATE 667 MG TAB PO SCH ×2 (06:52→12:12)
[2021-07-24] MEDS: CALCIUM CARB-MAG CARB-FOLIC 1 EACH TAB PO SCH ×2 (06:53→12:12)
[2021-07-24] MEDS: DILTIAZEM 125 MG in SODIUM CHLORIDE 0.9% 100 ML IV SCH (06:53)
[2021-07-24] MEDS: NICOTINE 21MG/24HR PATCH TRANSDERM SCH (08:42)
[2021-07-24] MEDS: PANTOPRAZOLE 40 MG/10 ML VIAL IVP SCH (08:43)
[2021-07-24] MEDS: FOLIC ACID-VIT B COMPLEX-VIT C 1 CAP PO SCH (08:43)
[2021-07-24] MEDS: FUROSEMIDE 10 MG/ML 4 ML VIAL IV SCH (08:43)
[2021-07-24] MEDS: METOPROLOL SUCCINATE (ER) 25 MG TAB.ER.24H PO SCH (08:49)
[2021-07-24] MEDS: amLODIPine 5 MG TAB PO SCH (08:49)
[2021-07-24] MEDS: lisinopriL 20 MG TAB PO SCH (08:49)
[2021-07-24] MEDS: MULTIVITAMINS, THERA 1 EACH TAB PO SCH (08:49)
[2021-07-24] MEDS: hydrALAZINE HCL 50 MG TAB PO SCH (08:49)
[2021-07-24] MEDS ORDERED: METOPROLOL SUCCINATE (ER) 25 MG TAB.ER.24H PO STA (09:10)
[2021-07-24 09:24] LABS: Anisocytosis Slight; HCT 24.2 % (39.0-53.0); HGB 7.5 gm/dL (13.0-17.5); Hypochromasia Marked; MCH 30.5 pg (25.0-35.0); MCHC 31.1 g/dL (31.0-37.0); MCV 98.3 fL (80.0-100.0); Macrocytosis Slight; Mean Platelet Volume 7.2; Platelet Count 154 k/uL (150-450); RBC 2.46 m/uL (4.30-5.90); RDW 16.5 % (11.5-15.5); WBC 5.2 k/uL (3.8-10.6)
[2021-07-24] MEDS ORDERED: APIXABAN 2.5 MG TABLET PO SCH (10:45)
[2021-07-24 12:18] VITALS: RESP 18
--- NOTE | 2021-07-24 12:55 | P.PN ---
Subjective Progress Note Date: 07/24/21 HISTORY OF PRESENT ILLNESS: This is a 41-year-old male with a past medical history significant for end-stage renal disease on hemodialysis, hypertension, nicotine dependence (chews t obacco), and frequent alcohol use. Patient states he used to follow with a women's studies lecturer but has not seen anyone in a few years. We have been asked to see the patient in consultation for CHF. Patient examined at the bedside. Patient presented to the hospital with a chief complaint of shortness of breath and a cough. Patient states these symptoms have been present for about 2-3 months. He is on hemodialysis Tuesday and Tuesday and reports compliance with his dialysis. He also reports compliance with his medications. The patient has a history of anemia. However he was found to be more anemic this admission with a hemoglobin of 6.5. He received 1 unit of RBCs. The patient reports having some black stools since he had his colonoscopy. It is noted the patient underwent EGD and colonoscopy on 07/07/[address] Morgan with removal of polyps. The patient currently denies chest pain or pressure. He reports mild shortness of breath. Patient's blood pressure is elevated this morning. However he has not received his home medications at this time. EKG reveals sinus mechanism with nonspecific ST-T wave changes Chest xray patchy perihilar and basilar infiltrates are suspicious for pneumonia. Correlate clinically. Laboratory data: WBC 4.2. Hemoglobin 7.2. Platelet count 128. Sodium 134. Potassium 4.9. BUN 41. Creatinine 8.21. Troponin 0.053. ProBNP 77,200. Current home cardiac medications include metoprolol succinate 25 mg twice a day, lisinopril 20 mg daily, hydralazine 50 g twice a day, Lasix 80 mg daily, Norvasc 5 mg daily 07/24/2021 Patient examined this morning at the bedside. Patient is status post EGD and colonoscopy revealing gastritis and sliding hiatal hernia. No evidence of active GI bleeding. Patient's hemoglobin remains stable today at 7.5. Patient denies having any bloody or dark stools. Patient went into a flutter with RVR yesterday. He was placed on a Cardizem drip. This morning he is currently in sinus mechanism. Patient denies any previous history of atrial fibrillation or atrial flutter. Patient states his breathing has improved. He received hemodialysis yesterday and is scheduled to have hemodialysis again today. Echocardiogram completed revealing ejection fraction 55-60%, moderate tricuspid regurgitation, severe pulmonary hypertension. PHYSICAL EXAM: VITAL SIGNS: Reviewed. GENERAL: Well-developed in no acute distress. HEENT: Head is normocephalic. Pupils are equal, round. Sclerae anicteric. Mucous membranes of the mouth are moist. Neck supple. No JVD or thyromegaly LUNGS: Respirations even and unlabored. Lungs diminished HEART: Regular rate and rhythm. S1 and S2 heard. ABDOMEN: Soft. Nondistended. Nontender. EXTREMITIES: Normal range of motion. No clubbing or cyanosis. Peripheral pulses intact. Minimal lower extremity edema NEUROLOGIC: Awake and alert. Oriented x 3. ASSESSMENT: Shortness of breath x 3 months Hypertension End stage renal dialysis, on hemodialysis Fluid overload/acute on chronic CHF secondary to ESRD Abnormal troponin, secondary to ESRD, not suggestive of ACS Acute on chronic anemia Nicotine dependence Frequent alcohol use New-onset paroxysmal typical atrial flutter with RVR PLAN: Discontinue IV Cardizem Increase metoprolol to 50 mg twice a day Continue telemetry monitoring Begin Eliquis 2.5 mg twice a day. Case management consulted for insurance coverage. Continue to monitor hemoglobin with initiation of anticoagulation Nephrology on consult. Will defer diuretics to nephrology Further recommendations pending patient course Nurse practitioner note has been reviewed by physician. Signing provider agrees with the documented findings, assessment, and plan of care. Objective - Vital Signs Vital signs: Vital Signs Temp 98 F 07/24/21 12:00 Pulse 72 07/24/21 12:00 Resp 18 07/24/21 12:00 BP 157/87 07/24/21 12:00 Pulse Ox 95 07/24/21 12:00 Intake & Output 07/23/21 07/24/21 07/24/21 18:59 06:59 18:59 Intake Total 1440 125 Output Total 3500 Balance -2059 125 Weight 84.7 kg Intake: IV 100 Intake, IV Titration 125 Amount Diltiazem 125 mg In 125 Sodium Chloride 0.9% 100 ml @ 10 MG/HR 10 mls/hr IV .[id number] [facility] Rx#: [id number] Oral 840 Hemodialysis 500 Output: Hemodialysis 3500 Other: Voiding Method Toilet Toilet - Labs CBC & Chem 7: 07/24/21 09:03 07/23/21 08:24 Labs: Abnormal Lab Results - Last 24 Hours (Table) 07/24/21 Range/Units 09:03 RBC 2.46 L (4.30-5.90) m/uL Hgb 7.5 L (13.0-17.5) gm/dL Hct 24.2 L (39.0-53.0) % RDW 16.5 H (11.5-15.5) %
--- NOTE | 2021-07-24 14:02 | P.PN ---
Subjective Progress Note Date: 07/24/21 CHIEF COMPLAINT: Anemia HISTORY OF PRESENT ILLNESS: Patient status post EGD and colonoscopy which demonstrated hemorrhagic antral gastritis and sliding hiatal hernia. Colonoscopy was normal. There was no evidence of active GI bleed. His presumed patient's anemia was caused by his gastritis. Patient reports that his stools are dark brown. Denies any black stools. Denies any nausea or vomiting. He does report some epigastric abdominal pain. Hemoglobin today is up from 7.2- 7.5. He did have new atrial fibrillation with rapid ventricular response. Cardiology has started him on Eliquis. Possible discharge later today PHYSICAL EXAM: VITAL SIGNS: Reviewed. GENERAL: Well-developed in no acute distress. HEENT: No sclera icterus. Extraocular movements grossly intact. Moist buccal mucosa. Head is atraumatic, normocephalic. ABDOMEN: Soft. Nondistended. Mild epigastric tenderness NEUROLOGIC: Alert and oriented. Cranial nerves II through XII grossly intact. ASSESSMENT: 1. Acute GI bleed status post EGD that demonstrated hemorrhagic antral gastritis and sliding hiatal hernia. Status post colonoscopy which was normal 2. Acute blood loss anemia secondary GI bleed 3. Chronic anemia 4. Acute on chronic CHF exacerbation 5. End-stage renal disease on hemodialysis PLAN: -Patient can be discharge from surgical standpoint -Per Dr. Francois silverman to start Eliquis -Continue PPI -Continue renal diet -Continue supportive care -Continue to monitor for any signs or symptoms of bleeding Physician Creative Services Specialist note has been reviewed by physician. Signing provider agrees with the documented findings, assessment, and plan of care. Objective - Vital Signs Vital signs: Vital Signs Temp 97.8 F 07/24/21 08:31 Pulse 73 07/24/21 08:31 Resp 17 07/24/21 08:31 BP 147/80 07/24/21 08:31 Pulse Ox 93 L 07/24/21 08:31 Intake & Output 07/23/21 07/24/21 07/24/21 18:59 06:59 18:59 Intake Total 1440 125 Output Total 3500 Balance -2059 125 Weight 84.7 kg Intake: IV 100 Intake, IV Titration 125 Amount Diltiazem 125 mg In 125 Sodium Chloride 0.9% 100 ml @ 10 MG/HR 10 mls/hr IV .[id number] [facility] Rx#: [id number] Oral 840 Hemodialysis 500 Output: Hemodialysis 3500 Other: Voiding Method Toilet Toilet - Labs CBC & Chem 7: 07/24/21 09:03 07/23/21 08:24 Labs: Abnormal Lab Results - Last 24 Hours (Table) 07/24/21 Range/Units 09:03 RBC 2.46 L (4.30-5.90) m/uL Hgb 7.5 L (13.0-17.5) gm/dL Hct 24.2 L (39.0-53.0) % RDW 16.5 H (11.5-15.5) %
[2021-07-24 14:44] VITALS: BP 138/76; PULSE 75; TEMP 97.4
--- NOTE | 2021-07-24 18:08 | P.PN ---
Subjective Principal diagnosis: Patient is seen for follow-up for end-stage renal disease. He was admitted with weakness and severe anemia with hemoglobin at 6.5 g/dL. Patient has been transfused. Patient was volume overloaded and has received extra treatment for volume overload 4.6 L of ultrafiltration so far and scheduled for hemodialysis again today Objective - Vital Signs Vital signs: Vital Signs Temp 97.4 F L 07/24/21 14:36 Pulse 75 07/24/21 14:36 Resp 18 07/24/21 14:36 BP 138/76 07/24/21 14:36 Pulse Ox 95 07/24/21 12:00 Intake & Output 07/23/21 07/24/21 07/24/21 18:59 06:59 18:59 Intake Total 1440 125 180 Output Total 3500 2000 Balance -2059 125 -1820 Weight 84.7 kg Intake: IV 100 Intake, IV Titration 125 Amount Diltiazem 125 mg In 125 Sodium Chloride 0.9% 100 ml @ 10 MG/HR 10 mls/hr IV .[id number] [facility] Rx#: [id number] Oral 840 180 Hemodialysis 500 Output: Hemodialysis 3500 2000 Other: Voiding Method Toilet Toilet - Exam On examination today patient is comfortable awake not in any acute distress. He is alert and oriented 3. Examination of the heart S1 and S2 Examination lungs bilateral breath sounds are heard Abdomen is soft nontender Examination of lower extremities shows edema 1+ bilaterally DRAWING IN HAND exam grossly intact. - Labs CBC & Chem 7: 07/24/21 09:03 07/23/21 08:24 Labs: Abnormal Lab Results - Last 24 Hours (Table) 07/24/21 Range/Units 09:03 RBC 2.46 L (4.30-5.90) m/uL Hgb 7.5 L (13.0-17.5) gm/dL Hct 24.2 L (39.0-53.0) % RDW 16.5 H (11.5-15.5) % Assessment and Plan Assessment: 1. End-stage renal disease on hemodialysis on a Tuesday vent is a Tuesday schedule via left arm AV fistula 2. Volume overload, improved with extra dialysis/ultrafiltration 3. Anemia due to acute blood loss from GI bleed, status post packed RBCs transfusion. History of colonoscopy performed on 07/07/2021 which showed a dysplastic polyp. EGD at that time showed mild duodenitis and mild gastritis. Patient is currently being followed by surgery. Scheduled for repeat colonoscopy 4. CK D mineral bone disorder 5. Hypertension partly volume sensitive. Expect improvement with dialysis and ultrafiltration. Plan: 1. Hemodialysis today 2. Maintain patient on Aranesp 3. Continue phosphate binders
[2021-07-24] MEDS ORDERED: METOPROLOL SUCCINATE (ER) 50 MG TAB.ER.24H PO SCH (21:00)
== END 2021-07-24 15:30 | disposition home or self-care (01) | DRG 291 ==
LOC: EC 13:45 → 3SCARD 17:20
PROVIDERS: ADMIT Family Medicine; ATTEND Family Medicine
PROC: 30233N1 Transfusion of Nonautologous Red Blood Cells into Peripheral Vein, Percutaneous Approach (ICD-10-PCS; 2021-07-22)
PROC: 0DJD8ZZ Inspection of Lower Intestinal Tract, Via Natural or Artificial Opening Endoscopic (ICD-10-PCS; principal; 2021-07-23 10:25)
PROC: 0DB78ZX Excision of Stomach, Pylorus, Via Natural or Artificial Opening Endoscopic, Diagnostic (ICD-10-PCS; principal; 2021-07-23 10:25)
PROC: 5A1D70Z Performance of Urinary Filtration, Intermittent, Less than 6 Hours Per Day (ICD-10-PCS; 2021-07-24)
DX: I13.2 Hypertensive heart and chronic kidney disease with heart failure and with stage 5 chronic kidney disease, or end stage renal disease (principal); I50.33 Acute on chronic diastolic (congestive) heart failure; K29.71 Gastritis, unspecified, with bleeding; N18.6 End stage renal disease; D62 Acute posthemorrhagic anemia; I48.3 Typical atrial flutter; I48.92 Unspecified atrial flutter; K63.5 Polyp of colon; F10.10 Alcohol abuse, uncomplicated; I07.1 Rheumatic tricuspid insufficiency; I48.91 Unspecified atrial fibrillation; J45.909 Unspecified asthma, uncomplicated; R77.8 Other specified abnormalities of plasma proteins; J45.20 Mild intermittent asthma, uncomplicated; K29.80 Duodenitis without bleeding; I27.20 Pulmonary hypertension, unspecified; E83.9 Disorder of mineral metabolism, unspecified; D63.1 Anemia in chronic kidney disease; Z99.2 Dependence on renal dialysis; I34.0 Nonrheumatic mitral (valve) insufficiency; K44.9 Diaphragmatic hernia without obstruction or gangrene; K57.10 Diverticulosis of small intestine without perforation or abscess without bleeding; Z79.899 Other long term (current) drug therapy; Z82.49 Family history of ischemic heart disease and other diseases of the circulatory system; Z91.19 Patient's noncompliance with other medical treatment and regimen; F17.220 Nicotine dependence, chewing tobacco, uncomplicated; Z84.1 Family history of disorders of kidney and ureter; Z83.79 Family history of other diseases of the digestive system; Z90.89 Acquired absence of other organs; Z60.2 Problems related to living alone
CPT/HCPCS: 36415; 43239; 71046; 80048; 80053; 80320; 83605; 83735; 83880; 84484; 85025; 85027; 85379; 85610; 85730; 86706; 86850; 86900; 86901; 86920; 87340; 87635; 88305; 90935; 93005; 93306; 94760; 96374; 96375; 99285

== ENCOUNTER 2022-04-12 13:04 | Inpatient (IN) | payer MEDICARE ==
[2022-04-12] MEDS ORDERED: ONDANSETRON 4 MG/2 ML VIAL IVP STA (13:20)
[2022-04-12] MEDS ORDERED: HYDROmorphone 1 MG/ML 1 ML SYRINGE IVP STA ×2 (13:20→14:55)
--- NOTE | 2022-04-12 13:23 | ED ---
General Adult HPI - General Stated complaint: Kidney pain,near-syncope Time Seen by Provider: 04/12/22 13:14 Source: patient, EMS, RN notes reviewed Mode of arrival: EMS Limitations: no limitations - History of Present Illness Initial comments: Patient is a pleasant 42-year-old male presenting to the emergency Department with right flank pain. Onset of symptoms was sudden around 20 or 30 minutes ago. Discomfort has been waxing and waning, at times severe. Discomfort remain s. Patient did have nausea however that is resolved. Patient felt near syncopal when discomfort was worse. No history of similar symptoms previously. Patient only occasionally makes urine. - Related Data Home Medications Medication Instructions Recorded Confirmed Furosemide [Lasix] 80 mg PO BID 05/10/19 04/12/22 [place]-3 Fatty Acids/Fish Oil [Fish 1 cap PO DAILY 07/02/21 04/12/22 Oil 1,000 mg Softgel] amLODIPine [Norvasc] 5 mg PO DAILY 07/02/21 04/12/22 Calcium Acetate 2,001 mg PO TID-W/MEALS 07/21/21 04/12/22 Magnebind 300 2 tab PO TID-W/MEALS 07/21/21 04/12/22 Lidocaine-Prilocaine Cream [Emla 1 applic TOPICAL DAILY PRN 04/12/22 04/12/22 Cream 2.5%/2.5%] Metoprolol Succinate (ER) [Toprol 25 mg PO BID 04/12/22 04/12/22 Xl] Omeprazole 20 mg PO AC-BRKFST 04/12/22 04/12/22 Camila-Marsha 0.8mg 1 cap PO DAILY 04/12/22 04/12/22 hydrALAZINE HCL [Apresoline] 100 mg PO BID 04/12/22 04/12/22 methocarbamoL [Robaxin-750] 750 mg PO Q8H PRN 04/12/22 04/12/22 Allergies Allergy/AdvReac Type Severity Reaction Status Date / Time cranberry Allergy Anaphylaxis Verified 04/12/22 13:22 pollen extracts Allergy Dyspnea, Verified 04/12/22 13:22 Sneezing Review of Systems ROS Statement: Those systems with pertinent positive or pertinent negative responses have been documented in the HPI. ROS Other: All systems not noted in ROS Statement are negative. Constitutional: Denies: fever Eyes: Denies: eye pain ENT: Denies: ear pain Respiratory: Denies: cough Cardiovascular: Denies: chest pain Endocrine: Denies: fatigue Gastrointestinal: Reports: as per HPI, nausea Genitourinary: Reports: as per HPI Musculoskeletal: Reports: as per HPI Skin: Denies: rash Neurological: Denies: weakness Past Medical History Past Medical History: Asthma, Hypertension, Renal Disease Additional Past Medical History / Comment(s): states hx asthma triggered by environmental allergies- no current rx., epistaxis 09/16/17, Hemo-dialysis Tue-Tue-Tue, fistura left arm, states he recevied blood transfusion last week at [facility]., states blood in stool., states he is illiterate-he was able to read letters and his prep instructions. History of Any Multi-Drug Resistant Organisms: None Reported Past Surgical History: Tonsillectomy Additional Past Surgical History / Comment(s): fistula to left upper arm. Past Anesthesia/Blood Transfusion Reactions: No Reported Reaction Additional Past Anesthesia/Blood Transfusion Reaction / Comment(s): sorethroat afterwards. BLOOD TRANSFUSION LAST WEEK AT [facility]. Past Psychological History: No Psychological Hx Reported Smoking Status: Never smoker Past Alcohol Use History: Occasional Past Drug Use History: None Reported - Past Family History Mother Additional Family Medical History / Comment(s): liver and kidney transplant Father Additional Family Medical History / Comment(s): pt states father of heart attack in his 50's General Exam Limitations: no limitations General appearance: alert, in no apparent distress Head exam: Present: normocephalic Eye exam: Present: normal appearance Neck exam: Present: normal inspection Respiratory exam: Present: normal lung sounds bilaterally. Absent: chest wall tenderness Cardiovascular Exam: Present: regular rate, normal rhythm Expanded Peripheral pulses: 2+: Posterior Tibialis (R), Posterior Tibialis (L) GI/Abdominal exam: Present: soft, tenderness (Mild tenderness right flank). Absent: distended Extremities exam: Present: normal inspection Back exam: Present: CVA tenderness (R) Neurological exam: Present: alert Psychiatric exam: Present: normal affect, normal mood Skin exam: Present: normal color Course Vital Signs 04/12/22 13:13 Temperature 97.6 F Pulse Rate 70 Respiratory 20 Rate Blood Pressure 159/96 O2 Sat by Pulse 99 Oximetry EKG Findings - EKG Comments: EKG Findings:: Sinus rhythm 67. For screening AV block MA 205. QRS 108. QT 501. QTC 517. Normal axis. LVH criteria. No acute ST change. Medical Decision Making - Medical Decision Making Patient reevaluated and still uncomfortable. Repeat pain medication provided. Case discussed with Dr. Blanc, who did review the films. He would like patient admitted with computed tomography scan with IV contrast. Nephrology will be placed on consult. Dr. Gutierrez has been paged for admission. - Lab Data Result diagrams: 04/12/22 13:29 04/12/22 13:29 Lab Results 04/12/22 04/12/22 04/12/22 Range/Units 13:29 13:29 13:29 WBC 5.8 (3.8-10.6) k/uL RBC 4.44 (4.30-5.90) m/uL Hgb 12.7 L (13.0-17.5) gm/dL Hct 37.1 L (39.0-53.0) % MCV 83.4 (80.0-100.0) fL MCH 28.6 (25.0-35.0) pg MCHC 34.2 (31.0-37.0) g/dL RDW 16.1 H (11.5-15.5) % Plt Count 146 L (150-450) k/uL MPV 7.9 Neutrophils % 87 % Lymphocytes % 5 % Monocytes % 6 % Eosinophils % 1 % Basophils % 0 % Neutrophils # 5.0 (1.3-7.7) k/uL Lymphocytes # 0.3 L (1.0-4.8) k/uL Monocytes # 0.3 (0-1.0) k/uL Eosinophils # 0.1 (0-0.7) k/uL Basophils # 0.0 (0-0.2) k/uL Anisocytosis Slight PT 10.0 (9.0-12.0) sec INR 0.9 (<1.2) APTT 24.2 (22.0-30.0) sec Sodium 137 (137-145) mmol/L Potassium 4.0 (3.5-5.1) mmol/L Chloride 94 L (98-107) mmol/L Carbon Dioxide 28 (22-30) mmol/L Anion Gap 15 mmol/L BUN 41 H (9-20) mg/dL Creatinine 7.21 H* (0.66-1.25) mg/dL Est GFR (CKD-EPI)AfAm 10 (>60 ml/min/1.73 sqM) Est GFR (CKD-EPI)NonAf 8 (>60 ml/min/1.73 sqM) Glucose 128 H (74-99) mg/dL Calcium 9.6 (8.4-10.2) mg/dL Total Bilirubin 0.7 (0.2-1.3) mg/dL AST 22 (17-59) U/L ALT 27 (4-49) U/L Alkaline Phosphatase 140 H (38-126) U/L Total Protein 7.7 (6.3-8.2) g/dL Albumin 4.7 (3.5-5.0) g/dL Amylase 156 H (30-110) U/L Lipase 540 H (23-300) U/L - Radiology Data Radiology results: report reviewed (Computed tomography scan shows right perinep hric hematoma) Disposition Clinical Impression: Perinephric hematoma Disposition: ADMITTED IP TO THIS HOSP Is patient prescribed a controlled substance at d/c from ED?: No Referrals: Reji Rodriguez Jr, [Primary Care Provider] - 1-2 days Time of Disposition: 15:41
[2022-04-12 13:41] LABS: Anisocytosis Slight; Basophils % (A) 0 %; Eosinophils # (A) 0.1 k/uL (0-0.7); Eosinophils % (A) 1 %; HCT 37.1 % (39.0-53.0); HGB 12.7 gm/dL (13.0-17.5); Lymphocytes # (A) 0.3 k/uL (1.0-4.8); Lymphocytes % (A) 5 %; MCH 28.6 pg (25.0-35.0); MCHC 34.2 g/dL (31.0-37.0); MCV 83.4 fL (80.0-100.0); Mean Platelet Volume 7.9; Monocytes # (A) 0.3 k/uL (0-1.0); Monocytes % (A) 6 %; Neutrophils % (A) 87 %; Platelet Count 146 k/uL (150-450); RBC 4.44 m/uL (4.30-5.90); RDW 16.1 % (11.5-15.5); WBC 5.8 k/uL (3.8-10.6)
[2022-04-12 13:50] LABS: INR 0.9 (<1.2); Partial Thromboplastin Time 24.2 sec (22.0-30.0)
[2022-04-12 13:59] LABS: Albumin 4.7 g/dL (3.5-5.0); Calcium 9.6 mg/dL (8.4-10.2); Total Bilirubin 0.7 mg/dL (0.2-1.3); Total Protein 7.7 g/dL (6.3-8.2)
--- NOTE | 2022-04-12 15:04 | CT ---
EXAMINATION TYPE: CT abdomen pelvis wo con CT DLP: 604 mGycm, Automated exposure control for dose reduction was used. DATE OF EXAM: 04/12/2022 2:44 PM COMPARISON: CT abdomen pelvis most recent from 09/16/2017 . CLINICAL INDICATION:Male, 42 years old with history of abdominal pain right flank; TECHNIQUE: Standard CT of the abdomen and pelvis without IV or oral contrast. Lack of IV or oral co ntrast limits evaluation of solid and hollow organ viscera. Coronal and sagittal reformats were perfo rmed. FINDINGS: LOWER CHEST: Posterior dependent subsegmental atelectasis is noted. . Coronary artery calcifications. Mild cardiomegaly. ABDOMEN LIVER: Unremarkable noncontrast appearance. GALLBLADDER AND BILE DUCTS: Unremarkable. PANCREAS: Unremarkable noncontrast appearance. SPLEEN: Mildly enlarged measuring 14.7 cm in cranial caudal dimension. ADRENAL GLANDS: Unremarkable noncontrast appearance.. KIDNEYS AND URETERS: No hydronephrosis. Atrophic left kidney. No renal calculi within either kidney. There is enlargement and heterogenous hyperattenuating appearance of the right kidney with surroundin g perinephric fat stranding/fluid consistent with hematoma. Fluid tracks along the right retroperiton eum. Evaluation is limited due to lack of IV contrast. No calculi along both ureters. PELVIS BLADDER: Under distended, limited evaluation. REPRODUCTIVE: Not enlarged prostate gland. Calcification of the bilateral vas deferens commonly seen with diabetes. ABDOMEN & PELVIS STOMACH AND BOWEL: Stomach and duodenum are unremarkable. No focal wall thickening. Scattered colonic diverticulosis without evidence for acute diverticulitis. The appendix is within normal limits. No e vidence of bowel obstruction. PERITONEUM: No evidence of pneumoperitoneum or free fluid. VASCULATURE: Moderate atherosclerotic calcifications are present throughout the abdominal aorta and i ts branches. No evidence of aortic aneurysm. MUSCULOSKELETAL: No acute osseous abnormalities. Diffuse increase scarring appearance of the osseous structures likely related to renal osteodystrophy. Multilevel degenerative changes of the visualized spine. LYMPH NODES: No gross evidence for lymphadenopathy. SOFT TISSUE/ABDOMINAL WALL: Small umbilical hernia containing a cystic lesion measuring up to 1.8 cm likely representing a sebaceous cyst. IMPRESSION: 1. Enlarged heterogenous increased attenuation of the right kidney with surrounding perinephric fluid favored to represent subcapsular and perinephric hematoma. This may be related to underlying mass or hemorrhagic cyst rupture. Cannot assess for active extravasation due to lack of IV contrast. 2. Atrophy of the left kidney with renal osteodystrophy. Findings called to and discussed with Dr. Christos Guevara at 2:53 PM on 04/12/2022.
[2022-04-12] MEDS ORDERED: HYDROmorphone 1 MG/ML 1 ML SYRINGE IVP PRN (15:41)
[2022-04-12] MEDS ORDERED: NALOXONE 0.4 MG/ML 1 ML VIAL IV PRN (15:41)
[2022-04-12] MEDS ORDERED: ONDANSETRON 4 MG/2 ML VIAL IVP PRN (15:41)
--- NOTE | 2022-04-12 15:59 | XR ---
EXAMINATION TYPE: XR KUB DATE OF EXAM: 04/12/2022 COMPARISON: CT abdomen pelvis 04/12/2022 HISTORY: Abdominal pain TECHNIQUE: AP supine view of the abdomen was obtained with 2 radiographs. FINDINGS: Small bowel demonstrates no evidence for dilatation or air fluid levels. Gas and fecal material is seen in non-distended colon. No convincing evidence for pneumoperitoneum within limitations of a supine exam. Few pelvic phleboliths identified. Calcifications within left upper quadrant correspond to splenic ar gabriela calcifications. The lung bases are clear. The osseous structures are intact. IMPRESSION: Overall nonobstructive bowel gas pattern.
--- NOTE | 2022-04-12 16:32 | CT ---
EXAMINATION TYPE: CT abdomen pelvis w con DATE OF EXAM: 04/12/2022 COMPARISON: CT earlier today and older study 2819. HISTORY: right kidney CT DLP: 1722 mGycm, Automated Exposure Control for Dose Reduction was Utilized. CONTRAST: CT scan of the abdomen and pelvis is performed without oral and with IV Contrast, patient injected wi th 80 mL of Isovue 300. FINDINGS: LUNG BASES: Redemonstration of coronary artery calcification and/or stents. Heart size stable and upp er limits of normal. LIVER/GB: No significant abnormality is appreciated. PANCREAS: No significant abnormality is seen. SPLEEN: Stable splenomegaly at 15.5 cm long axis coronal image 68. ADRENALS: No significant abnormality is seen. KIDNEYS: Persistent diminished size and cortical thinning to the left kidney. This is new from 2018 C T. This is unchanged from CT earlier today. Poor intra-arterial contrast suggests poor bolus or delayed imaging after injection. Suspect signific ant stenosis possible complete occlusion origin of the right renal artery axial image 32 series 201 c orresponding to coronal images 58 and 59. There is poor right-sided cortical medullary uptake. There is cortical thinning and volume loss involving the medial aspect of the right kidney. There is poor d efinition of renal cortex with heterogeneous hyperdense material along the periphery and surrounding moderate ill-defined fluid and fat stranding redemonstrated extending throughout the right-sided retr operitoneum with more focal fluid posterior to the liver and surrounding second portion of duodenum r edemonstrated. BOWEL: Diverticula in the left and sigmoid colon. No CT evidence for acute diverticulitis. Suboptimal evaluation without enteric contrast. No suspicious small or large bowel dilatation. PROSTATE/SEMINAL VESICLES: No gross abnormality seen. LYMPH NODES: No greater than 1cm abdominal or pelvic lymph nodes are appreciated. OSSEOUS STRUCTURES: Slight scoliotic curvature redemonstrated. OTHER: Mild to moderate calcified plaque of the aorta extends into branch vessels. Small sized umbili toña hernia containing focal fluid or thin-walled 1.5 cm cyst axial image 47 redemonstrated. IMPRESSION: Poor IV contrast bolus or delayed imaging after injection. Delayed or absent cortical med ullary uptake. No excretion seen. Right kidney size more prominent from prior study with hyperdense m aterial suggesting retroperitoneal hematoma. There is suspected significant stenosis or occlusion at origin of the right renal artery. Cannot exclude underlying mass or neoplasm. Progress study advised.
[2022-04-12] MEDS: SODIUM CHLORIDE 0.9% 1,000 ML IV SCH (17:04)
[2022-04-12 21:27] LABS: Glucose,Whole Blood 100 mg/dL (70-110)
[2022-04-12] MEDS: hydrALAZINE HCL 50 MG TAB PO SCH (21:41)
[2022-04-12] MEDS: METOPROLOL SUCCINATE (ER) 25 MG TAB.ER.24H PO SCH (21:41)
[2022-04-13] MEDS: HYDROmorphone 0.5 MG/0.5 ML SYRINGE IVP PRN ×2 (01:29→07:01)
[2022-04-13 05:03] LABS: Anisocytosis Slight; Basophils % (A) 0 %; Eosinophils % (A) 0 %; HCT 34.1 % (39.0-53.0); HGB 11.3 gm/dL (13.0-17.5); Hypochromasia Slight; Lymphocytes # (A) 0.5 k/uL (1.0-4.8); Lymphocytes % (A) 8 %; MCH 28.7 pg (25.0-35.0); MCV 86.9 fL (80.0-100.0); Mean Platelet Volume 7.6; Monocytes # (A) 0.5 k/uL (0-1.0); Monocytes % (A) 8 %; Neutrophils # (A) 5.4 k/uL (1.3-7.7); Neutrophils % (A) 82 %; Platelet Count 150 k/uL (150-450); RBC 3.92 m/uL (4.30-5.90); WBC 6.6 k/uL (3.8-10.6)
[2022-04-13 05:25] LABS: Albumin 4.3 g/dL (3.5-5.0); Calcium 8.9 mg/dL (8.4-10.2); Potassium 4.8 mmol/L (3.5-5.1); Total Bilirubin 0.7 mg/dL (0.2-1.3); Total Protein 6.8 g/dL (6.3-8.2)
[2022-04-13] MEDS: amLODIPine 5 MG TAB PO SCH (08:15)
[2022-04-13] MEDS: hydrALAZINE HCL 50 MG TAB PO SCH ×2 (08:15→21:23)
[2022-04-13] MEDS: METOPROLOL SUCCINATE (ER) 25 MG TAB.ER.24H PO SCH ×2 (08:15→21:23)
[2022-04-13 08:56] LABS: Appearance,Urine Cloudy (Clear); Bilirubin,Urine Negative (Negative); Blood,Urine Large (Negative); Color,Urine Yellow; Glucose,Urine (UA) 2+ (Negative); Ketones,Urine Negative (Negative); Leukocyte Esterase,Urine Trace (Negative); Nitrite,Urine Negative (Negative); PH, Urine 8.5 (5.0-8.0); Protein,Urine 3+ (Negative); RBC,Urine >182 /hpf (0-5); Specific Gravity,Urine 1.011 (1.001-1.035); Squamous Epithelial Cell,Urine <1 /hpf (0-4); Urobilinogen,Urine <2.0 mg/dL (<2.0); WBC,Urine 24 /hpf (0-5)
[2022-04-13] MEDS ORDERED: PANTOPRAZOLE 40 MG/10 ML VIAL IV SCH (09:00)
--- NOTE | 2022-04-13 11:05 | P.NPCON ---
History of Present Illness - Reason for Consult end stage renal disease - History of Present Illness Patient is a 42-year-old male with end-stage renal disease maintained on a Tuesday schedule. Patient is admitted to the hospital with complaints of right-sided back pain and some abdominal pain as well. Patient states that he did notice blood in his urine. No history of fever, trauma. Patient admits to nausea. He does have some urine output although it is quite minimal. Computed tomography scan in the ER showed increased attenuation in the right kidney suggestive of right renal hematoma which was associated with perinephric fluid. High suspicion for subcapsular hematoma. No underlying history of polycystic kidneys. Patient is known to have an atrophic left kidney. Computed tomography scan with IV contrast was also done yesterday which showed similar findings. Past Medical History Past Medical History: Asthma, Hypertension, Renal Disease Additional Past Medical History / Comment(s): states hx asthma triggered by environmental allergies- no current rx., epistaxis 09/16/17, Hemo-dialysis Tue-Tue-Tue, fistura left arm, states he recevied blood transfusion last week at [facility]., states blood in stool., states he is illiterate-he was able to read letters and his prep instructions. History of Any Multi-Drug Resistant Organisms: None Reported Past Surgical History: Tonsillectomy Additional Past Surgical History / Comment(s): fistula to left upper arm. Past Anesthesia/Blood Transfusion Reactions: No Reported Reaction Additional Past Anesthesia/Blood Transfusion Reaction / Comment(s): sorethroat afterwards. BLOOD TRANSFUSION A FEW WEEKS AGO AT [facility]. Past Psychological History: No Psychological Hx Reported Additional Psychological History / Comment(s): Pt resides alone. He works at [employer]. He does not drive, his family takes him to [place]. Smoking Status: Never smoker Past Alcohol Use History: Occasional Additional Past Alcohol Use History / Comment(s): chews tobacco. states he used to drink 18 beers/week but has recently quit in December 2021. Past Drug Use History: None Reported - Past Family History Mother Additional Family Medical History / Comment(s): liver and kidney transplant Father Additional Family Medical History / Comment(s): pt states father of heart attack in his 50's Medications and Allergies Home Medications Medication Instructions Recorded Confirmed Type Furosemide [Lasix] 80 mg PO BID 05/10/19 04/12/22 History [place]-3 Fatty Acids/Fish Oil [Fish 1 cap PO DAILY 07/02/21 04/12/22 History Oil 1,000 mg Softgel] amLODIPine [Norvasc] 5 mg PO DAILY 07/02/21 04/12/22 History Calcium Acetate 2,001 mg PO TID-W/MEALS 07/21/21 04/12/22 History Magnebind 300 2 tab PO TID-W/MEALS 07/21/21 04/12/22 History Lidocaine-Prilocaine Cream [Emla 1 applic TOPICAL DAILY PRN 04/12/22 04/12/22 History Cream 2.5%/2.5%] Metoprolol Succinate (ER) [Toprol 25 mg PO BID 04/12/22 04/12/22 History Xl] Omeprazole 20 mg PO AC-BRKFST 04/12/22 04/12/22 History Camila-Marsha 0.8mg 1 cap PO DAILY 04/12/22 04/12/22 History hydrALAZINE HCL [Apresoline] 100 mg PO BID 04/12/22 04/12/22 History methocarbamoL [Robaxin-750] 750 mg PO Q8H PRN 04/12/22 04/12/22 History Allergies Allergy/AdvReac Type Severity Reaction Status Date / Time cranberry Allergy Anaphylaxis Verified 04/12/22 13:22 pollen extracts Allergy Dyspnea, Verified 04/12/22 13:22 Sneezing Physical Exam Vitals: Vital Signs Temp Pulse Pulse Resp BP BP Pulse Ox 04/13/22 08:00 98.4 F 64 70 17 147/88 138/80 94 L 04/13/22 06:00 62 21 151/92 94 L 04/13/22 04:00 97.9 F 73 21 153/85 94 L 04/13/22 00:32 94 L 04/13/22 00:00 98.9 F 61 20 145/88 96 04/12/22 22:00 99.0 F 70 12 153/85 93 L 04/12/22 19:58 99.0 F 68 12 157/87 94 L 04/12/22 18:50 70 18 158/85 96 04/12/22 17:03 66 18 175/82 98 04/12/22 13:13 97.6 F 70 20 159/96 99 Intake and Output 04/12/22 04/13/22 04/13/22 22:59 06:59 14:59 Intake Total 75 600 Output Total 0 Balance 75 600 Intake: IV 75 600 Sodium Chloride 0.9% 1, 75 600 000 ml @ 75 mls/hr IV . [id number] [facility] Rx#:[id number] Output: Urine 0 Other: Weight 84.2 kg 84.7 kg Patient is awake, comfortable, not in any acute distress Alert oriented 3 Examination of the heart S1 and S2 Examination lungs bilateral breath sounds are heard Abdomen is soft Right CVA tenderness noted with mild tenderness noted in the right upper abdomen [employer] exam is grossly intact Examination of the lower extremities shows no evidence of edema Results - Lab Results Most recent lab results Calcium 8.9 mg/dL (8.4-10.2) 04/13/22 04:29 04/13/22 04:29 04/13/22 04:29 Assessment and Plan Assessment: 1. End-stage renal disease on hemodialysis on a Tuesday schedule. Patient will be dialyzed again today as he had IV contrast and he did come off early for his treatment as outpatient. 2. Right renal hematoma, subcapsular with no significant drop in hemoglobin 3. CK D mineral bone disorder 4. Hypertension with CK D stage 5 Plan: DC IV fluids Hemodialysis today Continue to monitor hemoglobin Resume PhosLo and magnebind as phosphate binders. Thank you for the consultation. We'll continue to follow the patient with you during his hospitalization
[2022-04-13] MEDS: SODIUM CHLORIDE 0.9% 1,000 ML IV SCH (11:45)
--- NOTE | 2022-04-13 12:02 | P.GSCN ---
History of Present Illness Consult date: 04/13/22 Reason for Consult: Perinephric hematoma Requesting physician: Christos Guevara History of present illness: The patient is a 42 yo male with a pmh significant for hypertension and end- stage renal disease maintained on a -- hemodialysis schedule. Patient is admitted to the hospital on 04/12/22 with complaints of right-sided flank pain that radiates to his back. He denies any headache, fever, chest pain, shortness of breath, or trauma. He did report some nausea and hematuria. At baseline, he does have some urine output although it is quite minimal. Abdominal/pelvis CT scan showed increased attenuation in the right kidney suggestive of right renal hematoma which was associated with perinephric fluid. High suspicion for subcapsular hematoma. There is also suspected significant stenosis or occlusion at origin of the right renal artery. Underlying mass cannot be excluded. this morning on evaluation continues to have flank pain, unchanged. Denies any flank trauma, and is currently not on any anticoagulation. Hemoglobin has been stable since admission. Review of Systems - Constitutional Denies fever - EENT Ears, nose, mouth and throat: Denies headache - Cardiovascular Denies chest pain - Respiratory Denies dyspnea - Gastrointestinal Reports nausea - Genitourinary Reports flank pain, Reports hematuria, Denies dysuria - Neurological Denies headaches, Denies syncope Past Medical History Past Medical History: Asthma, Hypertension, Renal Disease Additional Past Medical History / Comment(s): states hx asthma triggered by environmental allergies- no current rx., epistaxis 09/16/17, Hemo-dialysis Tue-Tue-Tue, fistura left arm, states he recevied blood transfusion last week at [facility] states blood in stool., states he is illiterate-he was able to read letters and his prep instructions. History of Any Multi-Drug Resistant Organisms: None Reported Past Surgical History: Tonsillectomy Additional Past Surgical History / Comment(s): fistula to left upper arm. Past Anesthesia/Blood Transfusion Reactions: No Reported Reaction Additional Past Anesthesia/Blood Transfusion Reaction / Comm: sorethroat afterwards. BLOOD TRANSFUSION A FEW WEEKS AGO AT [facility]. Past Psychological History: No Psychological Hx Reported Additional Psychological History / Comment(s): Pt resides alone. He works at [employer]. He does not drive, his family takes him to [employer] [facility] [employer]. Smoking Status: Never smoker Past Alcohol Use History: Occasional Additional Past Alcohol Use History / Comment(s): chews tobacco. states he used to drink 18 beers/week but has recently quit in December 2021. Past Drug Use History: None Reported - Past Family History Mother Additional Family Medical History / Comment(s): liver and kidney transplant Father Additional Family Medical History / Comment(s): pt states father of heart attack in his 50's Medications and Allergies Home Medications Medication Instructions Recorded Confirmed Type Furosemide [Lasix] 80 mg PO BID 05/10/19 04/12/22 History [place]-3 Fatty Acids/Fish Oil [Fish 1 cap PO DAILY 07/02/21 04/12/22 History Oil 1,000 mg Softgel] amLODIPine [Norvasc] 5 mg PO DAILY 07/02/21 04/12/22 History Calcium Acetate 2,001 mg PO TID-W/MEALS 07/21/21 04/12/22 History Magnebind 300 2 tab PO TID-W/MEALS 07/21/21 04/12/22 History Lidocaine-Prilocaine Cream [Emla 1 applic TOPICAL DAILY PRN 04/12/22 04/12/22 History Cream 2.5%/2.5%] Metoprolol Succinate (ER) [Toprol 25 mg PO BID 04/12/22 04/12/22 History Xl] Omeprazole 20 mg PO AC-BRKFST 04/12/22 04/12/22 History Camila-Marsha 0.8mg 1 cap PO DAILY 04/12/22 04/12/22 History hydrALAZINE HCL [Apresoline] 100 mg PO BID 04/12/22 04/12/22 History methocarbamoL [Robaxin-750] 750 mg PO Q8H PRN 04/12/22 04/12/22 History Allergies Allergy/AdvReac Type Severity Reaction Status Date / Time cranberry Allergy Anaphylaxis Verified 04/12/22 13:22 pollen extracts Allergy Dyspnea, Verified 04/12/22 13:22 Sneezing Surgical - Exam Vital Signs Temp Pulse Resp BP Pulse Ox 97.6 F 70 20 159/96 99 04/12/22 13:13 04/12/22 13:13 04/12/22 13:13 04/12/22 13:13 04/12/22 13:13 - General well developed, well nourished, no distress, moderate pain - Respiratory normal expansion, normal respiratory effort - Abdomen Soft, Right flank tenderness upon palpitation Abdomen: soft, no distended - Psychiatric oriented to time, oriented to person, oriented to place Results - Labs 04/13/22 16:02 04/13/22 04:29 Abnormal Lab Results - Last 24 Hours (Table) 04/12/22 04/12/22 04/12/22 Range/Units 08:36 13:29 13:29 RBC (4.30-5.90) m/uL Hgb 12.7 L (13.0-17.5) gm/dL Hct 37.1 L (39.0-53.0) % RDW 16.1 H (11.5-15.5) % Plt Count 146 L (150-450) k/uL Lymphocytes # 0.3 L (1.0-4.8) k/uL Sodium (137-145) mmol/L Chloride 94 L (98-107) mmol/L BUN 41 H (9-20) mg/dL Creatinine 7.21 H* (0.66-1.25) mg/dL Glucose 128 H (74-99) mg/dL Alkaline Phosphatase 140 H (38-126) U/L Amylase 156 H (30-110) U/L Lipase 540 H (23-300) U/L Urine pH 8.5 H (5.0-8.0) Urine Protein 3+ H (Negative) Urine Glucose (UA) 2+ H (Negative) Urine Blood Large H (Negative) Ur Leukocyte Esterase Trace H (Negative) Urine RBC >182 H (0-5) /hpf Urine WBC 24 H (0-5) /hpf 04/13/22 04/13/22 Range/Units 04:29 04:29 RBC 3.92 L (4.30-5.90) m/uL Hgb 11.3 L (13.0-17.5) gm/dL Hct 34.1 L (39.0-53.0) % RDW 16.0 H (11.5-15.5) % Plt Count (150-450) k/uL Lymphocytes # 0.5 L (1.0-4.8) k/uL Sodium 136 L (137-145) mmol/L Chloride 93 L (98-107) mmol/L BUN 50 H (9-20) mg/dL Creatinine 9.62 H* (0.66-1.25) mg/dL Glucose (74-99) mg/dL Alkaline Phosphatase (38-126) U/L Amylase (30-110) U/L Lipase (23-300) U/L Urine pH (5.0-8.0) Urine Protein (Negative) Urine Glucose (UA) (Negative) Urine Blood (Negative) Ur Leukocyte Esterase (Negative) Urine RBC (0-5) /hpf Urine WBC (0-5) /hpf Diabetes panel 04/12/22 04/13/22 Range/Units 13:29 04:29 Sodium 137 136 L (137-145) mmol/L Potassium 4.0 4.8 (3.5-5.1) mmol/L Chloride 94 L 93 L (98-107) mmol/L Carbon Dioxide 28 28 (22-30) mmol/L BUN 41 H 50 H (9-20) mg/dL Creatinine 7.21 H* 9.62 H* (0.66-1.25) mg/dL Glucose 128 H 93 (74-99) mg/dL Calcium 9.6 8.9 (8.4-10.2) mg/dL AST 22 18 (17-59) U/L ALT 27 24 (4-49) U/L Alkaline Phosphatase 140 H 122 (38-126) U/L Total Protein 7.7 6.8 (6.3-8.2) g/dL Albumin 4.7 4.3 (3.5-5.0) g/dL Calcium panel 04/12/22 04/13/22 Range/Units 13:29 04:29 Calcium 9.6 8.9 (8.4-10.2) mg/dL Albumin 4.7 4.3 (3.5-5.0) g/dL Pituitary panel 04/12/22 04/13/22 Range/Units 13:29 04:29 Sodium 137 136 L (137-145) mmol/L Potassium 4.0 4.8 (3.5-5.1) mmol/L Chloride 94 L 93 L (98-107) mmol/L Carbon Dioxide 28 28 (22-30) mmol/L BUN 41 H 50 H (9-20) mg/dL Creatinine 7.21 H* 9.62 H* (0.66-1.25) mg/dL Glucose 128 H 93 (74-99) mg/dL Calcium 9.6 8.9 (8.4-10.2) mg/dL Adrenal panel 04/12/22 04/13/22 Range/Units 13:29 04:29 Sodium 137 136 L (137-145) mmol/L Potassium 4.0 4.8 (3.5-5.1) mmol/L Chloride 94 L 93 L (98-107) mmol/L Carbon Dioxide 28 28 (22-30) mmol/L BUN 41 H 50 H (9-20) mg/dL Creatinine 7.21 H* 9.62 H* (0.66-1.25) mg/dL Glucose 128 H 93 (74-99) mg/dL Calcium 9.6 8.9 (8.4-10.2) mg/dL Total Bilirubin 0.7 0.7 (0.2-1.3) mg/dL AST 22 18 (17-59) U/L ALT 27 24 (4-49) U/L Alkaline Phosphatase 140 H 122 (38-126) U/L Total Protein 7.7 6.8 (6.3-8.2) g/dL Albumin 4.7 4.3 (3.5-5.0) g/dL - Imaging CT scan - abdomen: report reviewed, image reviewed (right perinephric hematoma, versus renal infarct, limited study given in the limited contrast within the arterial phase.) CT scan - pelvis: report reviewed, image reviewed Assessment and Plan (1) Perinephric hematoma Current Visit: Yes Status: Acute Code(s): S37.019A - MINOR CONTUSION OF UNSPECIFIED KIDNEY, INITIAL ENCOUNTER SNOMED Code(s): 063822482 Plan: 42-year-old male admitted to the hospital with a right perinephric hematoma, versus a renal infarct. Hemoglobin was stable since admission. Continues to have flank pain. Reviewed the images personally and I discussed with the patient is difficult to assess, but the findings are concerning for a perinephric hematoma. No etiology for spontaneous renal hematoma. Discussed with him malignancy needs to be ruled out, but this is difficult given the acute phase of the hematoma. But discussed also the potential that this could be a renal infarct. Discussed with him at this point I recommend repeat imaging in 6-8 weeks to rule out malignancy as the cause of the potential perinephric hematoma. -Monitor Hgb every 12 hours. -Continue current pain regimen. Follow up as outpatient with a repeat CT in 6-8 weeks to evaluate for renal mass. Impression and plan of care have been directed as dictated by the signing physician. Samra Ferrari nurse practitioner acting as scribe for signing physician. I personally performed and participated in the history, physical, the decision making, I agree with the assessment and plan of PHYSICIAN PRACTICE COORDINATOR Thank you for this consultation Samra Ferrari [facility] Palliative Care/Urology [facility] [id number] Email: [email or web address] I personally performed and participated in the history, physical, the decision making, I agree with the assessment and plan of PHYSICIAN PRACTICE COORDINATOR Time with Patient: Greater than 30
--- NOTE | 2022-04-13 13:06 | P.HPIM ---
History of Present Illness H&P Date: 04/13/22 Chief Complaint: Right flank pain, perinephric hematoma This is a 42-year-old gentleman with past medical history of end-stage renal disease on hemodialysis, anemia, asthma, hypertension, alcohol abuse, nicotine dependence-chews tobacco,recent colonoscopy 07/07/2021 reporting minimal antral gastritis and duodenitis, dysplastic polyp, presented to the ER with right flank and abdominal pain, nothing by nausea which has subsided and hematuria-patient has minimal urine output; symptoms started yesterday post hemodialysis. Denies fall, trauma .denies fevers KUB reporting overall nonobstructive bowel gas pattern. 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 CT of abdomen and pelvis with contrast reporting poor intra-arterial contrast, poor right-sided cortical medullary uptake, no excretion seen, right kidney size more prominent from prior study with hyperdense material suggesting retroperitoneal hematoma, suspected significant stenosis or occlusion at origin of the right renal artery, cannot exclude underlying mass or neoplasm. Reports pain is a 10/10 without pain management, currently controlled. Review of Systems ROS Statement: Those systems with pertinent positive or pertinent negative responses have been documented in the HPI. ROS Other: All systems not noted in ROS Statement are negative. Past Medical History Past Medical History: Asthma, Hypertension, Renal Disease Additional Past Medical History / Comment(s): states hx asthma triggered by environmental allergies- no current rx., epistaxis 09/16/17, Hemo-dialysis Tue-Tue-Tue, fistura left arm, states he recevied blood transfusion last week at [facility]., states blood in stool., states he is illiterate-he was able to read letters and his prep instructions. History of Any Multi-Drug Resistant Organisms: None Reported Past Surgical History: Tonsillectomy Additional Past Surgical History / Comment(s): fistula to left upper arm. Past Anesthesia/Blood Transfusion Reactions: No Reported Reaction Additional Past Anesthesia/Blood Transfusion Reaction / Comment(s): sorethroat afterwards. BLOOD TRANSFUSION A FEW WEEKS AGO AT [facility]. Past Psychological History: No Psychological Hx Reported Additional Psychological History / Comment(s): Pt resides alone. He works at [employer]. He does not drive, his family takes him to [employer]. Smoking Status: Never smoker Past Alcohol Use History: Occasional Additional Past Alcohol Use History / Comment(s): chews tobacco. states he used to drink 18 beers/week but has recently quit in December 2021. Past Drug Use History: None Reported - Past Family History Mother Additional Family Medical History / Comment(s): liver and kidney transplant Father Additional Family Medical History / Comment(s): pt states father of heart attack in his 50's Medications and Allergies Home Medications Medication Instructions Recorded Confirmed Type Furosemide [Lasix] 80 mg PO BID 05/10/19 04/12/22 History [place]-3 Fatty Acids/Fish Oil [Fish 1 cap PO DAILY 07/02/21 04/12/22 History Oil 1,000 mg Softgel] amLODIPine [Norvasc] 5 mg PO DAILY 07/02/21 04/12/22 History Calcium Acetate 2,001 mg PO TID-W/MEALS 07/21/21 04/12/22 History Magnebind 300 2 tab PO TID-W/MEALS 07/21/21 04/12/22 History Lidocaine-Prilocaine Cream [Emla 1 applic TOPICAL DAILY PRN 04/12/22 04/12/22 History Cream 2.5%/2.5%] Metoprolol Succinate (ER) [Toprol 25 mg PO BID 04/12/22 04/12/22 History Xl] Omeprazole 20 mg PO AC-BRKFST 04/12/22 04/12/22 History Camila-Marsha 0.8mg 1 cap PO DAILY 04/12/22 04/12/22 History hydrALAZINE HCL [Apresoline] 100 mg PO BID 04/12/22 04/12/22 History methocarbamoL [Robaxin-750] 750 mg PO Q8H PRN 04/12/22 04/12/22 History Allergies Allergy/AdvReac Type Severity Reaction Status Date / Time cranberry Allergy Anaphylaxis Verified 04/12/22 13:22 pollen extracts Allergy Dyspnea, Verified 04/12/22 13:22 Sneezing Physical Exam Vitals: Vital Signs Temp Pulse Pulse Resp BP BP Pulse Ox 04/13/22 08:00 98.4 F 64 70 17 147/88 138/80 94 L 04/13/22 06:00 62 21 151/92 94 L 04/13/22 04:00 97.9 F 73 21 153/85 94 L 04/13/22 00:32 94 L 04/13/22 00:00 98.9 F 61 20 145/88 96 04/12/22 22:00 99.0 F 70 12 153/85 93 L 04/12/22 19:58 99.0 F 68 12 157/87 94 L 04/12/22 18:50 70 18 158/85 96 04/12/22 17:03 66 18 175/82 98 04/12/22 13:13 97.6 F 70 20 159/96 99 Intake and Output 04/12/22 04/13/22 04/13/22 22:59 06:59 14:59 Intake Total 75 600 Output Total 0 Balance 75 600 Intake: IV 75 600 Sodium Chloride 0.9% 1, 75 600 000 ml @ 75 mls/hr IV . [id number] [facility] Rx#:[id number] Output: Urine 0 Other: Weight 84.2 kg 84.7 kg GENERAL: Well-appearing, well-nourished and in no acute distress. HEAD: Atraumatic, normocephalic. EYES: Pupils equal round and reactive to light, extraocular movements intact, sclera anicteric, conjunctiva are normal. ENT:nares patent, oropharynx clear without exudates. Moist mucous membranes. NECK: Normal range of motion, supple without lymphadenopathy or JVD, no thyromegaly LUNGS: Equal air entry with fine bibasilar crackles, no wheezing. HEART: Regular rate and rhythm without murmurs, rubs or gallops.S1S2 Normal ABDOMEN: Soft, right upper quadrant and right flank tenderness, normoactive bowel sounds. No guarding, no rebound. No masses appreciated. EXTREMITIES: Normal range of motion, positive edema. No clubbing or cyanosis. NEUROLOGICAL: Cranial nerves II through XII grossly intact. Normal speech, normal gait. PSYCH: Normal mood, normal affect. SKIN: Warm, Dry, normal turgor, no rashes noted. Results CBC & Chem 7: 04/13/22 04:29 04/13/22 04:29 Labs: Abnormal Lab Results - Last 24 Hours (Table) 04/12/22 04/12/22 04/12/22 Range/Units 08:36 13:29 13:29 RBC (4.30-5.90) m/uL Hgb 12.7 L (13.0-17.5) gm/dL Hct 37.1 L (39.0-53.0) % RDW 16.1 H (11.5-15.5) % Plt Count 146 L (150-450) k/uL Lymphocytes # 0.3 L (1.0-4.8) k/uL Sodium (137-145) mmol/L Chloride 94 L (98-107) mmol/L BUN 41 H (9-20) mg/dL Creatinine 7.21 H* (0.66-1.25) mg/dL Glucose 128 H (74-99) mg/dL Alkaline Phosphatase 140 H (38-126) U/L Amylase 156 H (30-110) U/L Lipase 540 H (23-300) U/L Urine pH 8.5 H (5.0-8.0) Urine Protein 3+ H (Negative) Urine Glucose (UA) 2+ H (Negative) Urine Blood Large H (Negative) Ur Leukocyte Esterase Trace H (Negative) Urine RBC >182 H (0-5) /hpf Urine WBC 24 H (0-5) /hpf 04/13/22 04/13/22 Range/Units 04:29 04:29 RBC 3.92 L (4.30-5.90) m/uL Hgb 11.3 L (13.0-17.5) gm/dL Hct 34.1 L (39.0-53.0) % RDW 16.0 H (11.5-15.5) % Plt Count (150-450) k/uL Lymphocytes # 0.5 L (1.0-4.8) k/uL Sodium 136 L (137-145) mmol/L Chloride 93 L (98-107) mmol/L BUN 50 H (9-20) mg/dL Creatinine 9.62 H* (0.66-1.25) mg/dL Glucose (74-99) mg/dL Alkaline Phosphatase (38-126) U/L Amylase (30-110) U/L Lipase (23-300) U/L Urine pH (5.0-8.0) Urine Protein (Negative) Urine Glucose (UA) (Negative) Urine Blood (Negative) Ur Leukocyte Esterase (Negative) Urine RBC (0-5) /hpf Urine WBC (0-5) /hpf Thrombosis Risk Factor Assmnt - Choose All That Apply Each Factor Represents 1 point: Age 41-60 years Thrombosis Risk Factor Assessment Total Risk Factor Score: 1 Thrombosis Risk Factor Assessment Level: Low Risk Assessment and Plan Assessment: Right flank pain, CT reporting perinephric hematoma, hemoglobin stable. Hypertension Chronic CHF, diastolic dysfunction, EF 55-60% Severely dilated LA Moderate tricuspid regurgitation Severe pulmonary hypertension Moderate pulmonic regurgitation Aortic root dilated 4.1 cm, further follow-up/monitoring outpatient. 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 Close monitoring of hemoglobin. Pain management-further recommendations from urology pending(repeat CT in 6-8 weeks). Hemodialysis again today as per nephrology. Patient can be downgraded to [facility] with remote telemetry. The impression and plan of care has been dictated as directed. : I performed a history and examination of this patient, discussed the same with the dictator. I agree with the dictator's note ,documented as a scribe. Any additional findings or plans will be noted.
[2022-04-13] MEDS: CALCIUM ACETATE 667 MG TAB PO SCH ×2 (14:18→17:51)
[2022-04-13 16:12] LABS: Anisocytosis Slight; Basophils % (A) 0 %; Eosinophils # (A) 0.1 k/uL (0-0.7); Eosinophils % (A) 1 %; HCT 37.9 % (39.0-53.0); HGB 12.3 gm/dL (13.0-17.5); Hypochromasia Slight; Lymphocytes # (A) 0.4 k/uL (1.0-4.8); Lymphocytes % (A) 6 %; MCH 28.1 pg (25.0-35.0); MCHC 32.4 g/dL (31.0-37.0); MCV 86.8 fL (80.0-100.0); Mean Platelet Volume 7.3; Monocytes # (A) 0.5 k/uL (0-1.0); Monocytes % (A) 7 %; Neutrophils # (A) 6.1 k/uL (1.3-7.7); Neutrophils % (A) 85 %; Platelet Count 158 k/uL (150-450); RBC 4.37 m/uL (4.30-5.90); WBC 7.2 k/uL (3.8-10.6)
[2022-04-13] MEDS: CALCIUM CARB-MAG CARB-FOLIC 1 EACH TAB PO SCH ×2 (16:42→21:24)
[2022-04-14 04:02] LABS: Anisocytosis Slight; Basophils % (A) 0 %; Eosinophils # (A) 0.1 k/uL (0-0.7); Eosinophils % (A) 2 %; HCT 36.8 % (39.0-53.0); HGB 11.9 gm/dL (13.0-17.5); Hypochromasia Slight; Lymphocytes # (A) 0.6 k/uL (1.0-4.8); Lymphocytes % (A) 8 %; MCHC 32.4 g/dL (31.0-37.0); MCV 86.2 fL (80.0-100.0); Mean Platelet Volume 7.8; Monocytes # (A) 0.5 k/uL (0-1.0); Monocytes % (A) 7 %; Neutrophils # (A) 6.5 k/uL (1.3-7.7); Neutrophils % (A) 81 %; Platelet Count 157 k/uL (150-450); RBC 4.27 m/uL (4.30-5.90); RDW 16.2 % (11.5-15.5); WBC 8.1 k/uL (3.8-10.6)
[2022-04-14] MEDS: CALCIUM ACETATE 667 MG TAB PO SCH (07:05)
--- NOTE | 2022-04-14 10:17 | P.PN ---
Subjective Progress Note Date: 04/14/22 Follow up on the patient who was admitted to the hospital with a right perinephric hematoma, versus a renal infarct. Hemoglobin today is 11.9 and has been stable since admission. He continues to have right flank pain, but states it has improved. Denies any nausea or vomiting, tolerating diet. The patient is oliguric secondary to stage V renal disease, nephrology following, last hemodialysis yesterday. Unable to assess for hematuria, as he has not voided since yesterday. Objective - Vital Signs Vital signs: Vital Signs Temp 98.8 F 04/14/22 04:00 Pulse 61 04/14/22 04:00 Resp 18 04/14/22 04:00 BP 120/67 04/14/22 04:00 Pulse Ox 97 04/13/22 14:00 FiO2 Intake & Output 04/13/22 04/14/22 04/14/22 18:59 06:59 18:59 Intake Total 300 118 Output Total 3300 Balance -3000 118 Weight 81.2 kg Intake: Oral 118 Hemodialysis 300 Output: Urine 0 Hemodialysis 3300 - Exam - General well developed, well nourished, no distress, mild to moderate pain - Respiratory normal expansion, normal respiratory effort - Abdomen Soft, Right flank tenderness upon palpitation - Psychiatric oriented to time, oriented to person, oriented to place - Labs CBC & Chem 7: 04/14/22 03:51 04/13/22 04:29 Labs: Abnormal Lab Results - Last 24 Hours (Table) 04/13/22 04/13/22 04/14/22 Range/Units 04:29 16:02 03:51 RBC 4.27 L (4.30-5.90) m/uL Hgb 12.3 L 11.9 L (13.0-17.5) gm/dL Hct 37.9 L 36.8 L (39.0-53.0) % RDW 16.0 H 16.2 H (11.5-15.5) % Lymphocytes # 0.4 L 0.6 L (1.0-4.8) k/uL Magnesium 2.4 H (1.6-2.3) mg/dL Microbiology - Last 24 Hours (Table) 04/12/22 08:36 Urine Culture - Preliminary Urine,Clean Catch Assessment and Plan (1) Perinephric hematoma Status: Acute Code(s): S37.019A - MINOR CONTUSION OF UNSPECIFIED KIDNEY, INITIAL ENCOUNTER SNOMED Code(s): 878434246 Plan: Continue current pain regimen. Monitor Hgb every 12 hours. Follow up as outpatient with a repeat CT in 6-8 weeks to evaluate for renal mass. Impression and plan of care have been directed as dictated by the signing physician. Samra Ferrari nurse practitioner acting as scribe for signing physician. Thank you for this consultation Samra Ferrari [facility] Palliative Care/Urology [facility] [id number] Email: [email or web address] I personally performed and participated in the history, physical, the decision making, I agree with the assessment and plan of PARCEL CARRIER Time with Patient: Less than 30
--- NOTE | 2022-04-14 10:17 | P.PN ---
Subjective Progress Note Date: 04/14/22 Follow up on the patient who was admitted to the hospital with a right perinephric hematoma, versus a renal infarct. Hemoglobin today is 11.9 and has been stable since admission. He continues to have right flank pain, but states it has improved. Denies any nausea or vomiting, tolerating diet. The patient is oliguric secondary to stage V renal disease, nephrology following, last hemodialysis yesterday. Unable to assess for hematuria, as he has not voided since yesterday. Objective - Vital Signs Vital signs: Vital Signs Temp 98.8 F 04/14/22 04:00 Pulse 61 04/14/22 04:00 Resp 18 04/14/22 04:00 BP 120/67 04/14/22 04:00 Pulse Ox 97 04/13/22 14:00 FiO2 Intake & Output 04/13/22 04/14/22 04/14/22 18:59 06:59 18:59 Intake Total 300 118 Output Total 3300 Balance -3000 118 Weight 81.2 kg Intake: Oral 118 Hemodialysis 300 Output: Urine 0 Hemodialysis 3300 - Exam - General well developed, well nourished, no distress, mild to moderate pain - Respiratory normal expansion, normal respiratory effort - Abdomen Soft, Right flank tenderness upon palpitation - Psychiatric oriented to time, oriented to person, oriented to place - Labs CBC & Chem 7: 04/14/22 03:51 04/13/22 04:29 Labs: Abnormal Lab Results - Last 24 Hours (Table) 04/13/22 04/13/22 04/14/22 Range/Units 04:29 16:02 03:51 RBC 4.27 L (4.30-5.90) m/uL Hgb 12.3 L 11.9 L (13.0-17.5) gm/dL Hct 37.9 L 36.8 L (39.0-53.0) % RDW 16.0 H 16.2 H (11.5-15.5) % Lymphocytes # 0.4 L 0.6 L (1.0-4.8) k/uL Magnesium 2.4 H (1.6-2.3) mg/dL Microbiology - Last 24 Hours (Table) 04/12/22 08:36 Urine Culture - Preliminary Urine,Clean Catch Assessment and Plan (1) Perinephric hematoma Status: Acute Code(s): S37.019A - MINOR CONTUSION OF UNSPECIFIED KIDNEY, INITIAL ENCOUNTER SNOMED Code(s): 714129296 Plan: Continue current pain regimen. Monitor Hgb every 12 hours. Follow up as outpatient with a repeat CT in 6-8 weeks to evaluate for renal mass. Impression and plan of care have been directed as dictated by the signing physician. Samra Ferrari nurse practitioner acting as scribe for signing physician. Thank you for this consultation Samra Ferrari [facility] Palliative Care/Urology [facility] [id number] Email: [email or web address] I personally performed and participated in the history, physical, the decision making, I agree with the assessment and plan of SCREW MACHINE HAND Time with Patient: Less than 30
--- NOTE | 2022-04-14 11:40 | P.PN ---
Subjective Patient is seen for follow-up for end-stage renal disease. He is maintained on a Tuesday schedule. Patient was admitted with abdominal and flank pain. He was noted to have right renal hematoma, subcapsular. Currently patient states his pain has improved. He has been evaluated by urology and there are plans to repeat imaging studies in 6-8 weeks. Hemoglobin has not dropped. Patient is currently seen on hemodialysis. He is tolerating his treatment well. Objective - Vital Signs Vital signs: Vital Signs Temp 98.3 F 04/14/22 08:00 Pulse 74 04/14/22 08:00 Resp 17 04/14/22 08:00 BP 123/64 04/14/22 08:00 Pulse Ox 94 L 04/14/22 08:00 FiO2 Intake & Output 04/13/22 04/14/22 04/14/22 18:59 06:59 18:59 Intake Total 300 118 Output Total 3300 Balance -3000 118 Weight 81.2 kg Intake: Oral 118 Hemodialysis 300 Output: Urine 0 Hemodialysis 3300 - Exam Patient is awake, comfortable, not in any acute distress Examination of the heart S1 and S2 Examination of the lungs bilateral breath sounds are heard Abdomen is soft nontender Examination of the lower extremities shows no evidence of edema DIRECTOR SOFTWARE DEVELOPMENT exam grossly intact - Labs CBC & Chem 7: 04/14/22 03:51 04/13/22 04:29 Labs: Abnormal Lab Results - Last 24 Hours (Table) 04/13/22 04/14/22 Range/Units 16:02 03:51 RBC 4.27 L (4.30-5.90) m/uL Hgb 12.3 L 11.9 L (13.0-17.5) gm/dL Hct 37.9 L 36.8 L (39.0-53.0) % RDW 16.0 H 16.2 H (11.5-15.5) % Lymphocytes # 0.4 L 0.6 L (1.0-4.8) k/uL Microbiology - Last 24 Hours (Table) 04/12/22 08:36 Urine Culture - Preliminary Urine,Clean Catch Assessment and Plan Assessment: 1. End-stage renal disease on hemodialysis on a Tuesday schedule. Patient will be dialyzed again today as he had IV contrast and he did come off early for his treatment as outpatient. 2. Right renal hematoma, subcapsular with no significant drop in hemoglobin. Evaluated by urology and plans for repeat imaging in about 6-8 weeks 3. CK D mineral bone disorder 4. Hypertension with CK D stage 5 Plan: DC IV fluids Hemodialysis today Okay to discharge patient from nephrology standpoint post dialysis. He will follow-up with urology as outpatient.
[2022-04-14 14:09] VITALS: BP 136/74; PULSE 68; RESP 16; TEMP 97.4
--- NOTE | 2022-04-14 14:09 | P.DS ---
Providers Date of admission: 04/12/22 15:42 Expected date of discharge: 04/14/22 Attending physician: Reji Rodriguez Consults: 04/12/22 15:41 Consult Physician Routine Consulting Provider: Maite Ladd Consult Reason/Comments: Dialysis, effort hematoma Do you want consulting provider notified?: Yes Consult Physician Urgent Consulting Provider: Quinn Roblero Consult Reason/Comments: Perinephric hematoma Do you want consulting provider notified?: Already Contacted Primary care physician: Reji Rodriguez - Discharge Diagnosis(es) (1) Perinephric hematoma Current Visit: Yes Status: Acute (2) Anemia in chronic kidney disease (CKD) Current Visit: Yes Status: Acute (3) ESRD (end stage renal disease) on dialysis Current Visit: Yes Status: Acute Hospital Course: This is a 42-year-old gentleman with past medical history of end-stage renal disease on hemodialysis, anemia, asthma, hypertension, alcohol abuse, nicotine dependence-chews tobacco,recent colonoscopy 07/07/2021 reporting minimal antral gastritis and duodenitis, dysplastic polyp, presented to the ER with right flank and abdominal pain, nothing by nausea which has subsided and hematuria-patient has minimal urine output; symptoms started yesterday post hemodialysis. Denies fall, trauma .denies fevers KUB reporting overall nonobstructive bowel gas pattern. 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 CT of abdomen and pelvis with contrast reporting poor intra-arterial contrast, poor right-sided cortical medullary uptake, no excretion seen, right kidney size more prominent from prior study with hyperdense material suggesting retroperitoneal hematoma, suspected significant stenosis or occlusion at origin of the right renal artery, cannot exclude underlying mass or neoplasm. Reports pain is a 10/10 without pain management, currently controlled. April 14, 2022: patient is remains stable. Pain is now controlled. Blood count is remain controlled. He's had dialysis twice. Urology wants to follow up a repeat CT in six weeks to further evaluate the perinephric hematoma. He is medically stable will not be discharged Plan - Discharge Summary Discharge Rx Participant: No New Discharge Prescriptions: New oxyCODONE HCL [OxyIR] 5 mg PO Q6HR PRN tab PRN Reason: Pain Calcium Acetate [PhosLo] 2,001 mg PO TID-W/MEALS tab Continue Furosemide [Lasix] 80 mg PO BID Calcium Acetate 2,001 mg PO TID-W/MEALS Omeprazole 20 mg PO AC-BRKFST methocarbamoL [Robaxin-750] 750 mg PO Q8H PRN PRN Reason: Muscle Spasm Metoprolol Succinate (ER) [Toprol XL] 25 mg PO BID hydrALAZINE HCL [Apresoline] 100 mg PO BID Camila-Marsha 0.8mg 1 cap PO DAILY Lidocaine-Prilocaine Cream [Emla Cream 2.5%/2.5%] 1 applic TOPICAL DAILY PRN PRN Reason: AVF access amLODIPine [Norvasc] 5 mg PO DAILY [place]-3 Fatty Acids/Fish Oil [Fish Oil 1,000 mg Softgel] 1 cap PO DAILY Magnebind 300 2 tab PO TID-W/MEALS Discharge Medication List Furosemide [Lasix] 80 mg PO BID 05/10/19 [History] [place]-3 Fatty Acids/Fish Oil [Fish Oil 1,000 mg Softgel] 1 cap PO DAILY 07/02/21 [History] amLODIPine [Norvasc] 5 mg PO DAILY 07/02/21 [History] Calcium Acetate 2,001 mg PO TID-W/MEALS 07/21/21 [History] Magnebind 300 2 tab PO TID-W/MEALS 07/21/21 [History] Lidocaine-Prilocaine Cream [Emla Cream 2.5%/2.5%] 1 applic TOPICAL DAILY PRN 04/12/22 [History] Metoprolol Succinate (ER) [Toprol XL] 25 mg PO BID 04/12/22 [History] Omeprazole 20 mg PO AC-BRKFST 04/12/22 [History] Camila-Marsha 0.8mg 1 cap PO DAILY 04/12/22 [History] hydrALAZINE HCL [Apresoline] 100 mg PO BID 04/12/22 [History] methocarbamoL [Robaxin-750] 750 mg PO Q8H PRN 04/12/22 [History] Calcium Acetate [PhosLo] 2,001 mg PO TID-W/MEALS tab 04/14/22 [Rx] oxyCODONE HCL [OxyIR] 5 mg PO Q6HR PRN tab 04/14/22 [Rx] Follow up Appointment(s)/Referral(s): Reji Rodriguez Jr, DO [Primary Care Provider] - 1-2 days Quinn Roblero MD [STAFF PHYSICIAN] - 6 Weeks Patient Instructions/Handouts: Hematoma (ED) Discharge Disposition: HOME SELF-CARE Plan of Treatment: Dr. Roblero's office to set up follow up CT in 6-8 weeks and then office appointment afterward.
[2022-04-14] MEDS: amLODIPine 5 MG TAB PO SCH (15:00)
[2022-04-14] MEDS: hydrALAZINE HCL 50 MG TAB PO SCH (15:01)
[2022-04-14] MEDS: CALCIUM CARB-MAG CARB-FOLIC 1 EACH TAB PO SCH (15:01)
[2022-04-14] MEDS: METOPROLOL SUCCINATE (ER) 25 MG TAB.ER.24H PO SCH (15:01)
--- NOTE | 2022-04-14 17:10 | P.PN ---
Subjective Patient is seen for follow-up for end-stage renal disease. He is maintained on a Tuesday schedule. Patient was admitted with abdominal and flank pain. He was noted to have right renal hematoma, subcapsular. Currently patient states his pain has improved. He has been evaluated by urology and there are plans to repeat imaging studies in 6-8 weeks. Hemoglobin has not dropped. Patient is currently seen on hemodialysis. He is tolerating his treatment well. Objective - Vital Signs Vital signs: Vital Signs Temp 97.4 F L 04/14/22 14:08 Pulse 68 04/14/22 14:08 Resp 16 04/14/22 14:08 BP 136/74 04/14/22 14:08 Pulse Ox 95 04/14/22 11:47 FiO2 Intake & Output 04/13/22 04/14/22 04/14/22 18:59 06:59 18:59 Intake Total 300 518 Output Total 3300 2400 Balance -3000 -1882 Weight 81.2 kg Intake: Oral 118 Hemodialysis 300 400 Output: Urine 0 Hemodialysis 3300 2400 - Exam Patient is awake, comfortable, not in any acute distress Examination of the heart S1 and S2 Examination of the lungs bilateral breath sounds are heard Abdomen is soft nontender Examination of the lower extremities shows no evidence of edema SENIOR RADIATION THERAPIST exam grossly intact - Labs CBC & Chem 7: 04/14/22 03:51 04/13/22 04:29 Labs: Abnormal Lab Results - Last 24 Hours (Table) 04/14/22 Range/Units 03:51 RBC 4.27 L (4.30-5.90) m/uL Hgb 11.9 L (13.0-17.5) gm/dL Hct 36.8 L (39.0-53.0) % RDW 16.2 H (11.5-15.5) % Lymphocytes # 0.6 L (1.0-4.8) k/uL Microbiology - Last 24 Hours (Table) 04/12/22 08:36 Urine Culture - Final Urine,Clean Catch Assessment and Plan Assessment: 1. End-stage renal disease on hemodialysis on a Tuesday schedule. Patient will be dialyzed again today as he had IV contrast and he did come off early for his treatment as outpatient. 2. Right renal hematoma, subcapsular with no significant drop in hemoglobin. Evaluated by urology and plans for repeat imaging in about 6-8 weeks 3. CK D mineral bone disorder 4. Hypertension with CK D stage 5 Plan: Patient can be discharged from nephrology standpoint after dialysis. Follow-up with urology as outpatient.
[2022-04-15] MEDS ORDERED: PANTOPRAZOLE 40 MG TABLET PO SCH (07:30)
== END 2022-04-14 14:34 | disposition home or self-care (01) | DRG 698 ==
LOC: EC 13:04 → 3SCARD 15:42 → 2SICU 19:04 → 3SCARD 04-13 17:59
PROVIDERS: ADMIT Family Medicine; ATTEND Family Medicine
PROC: 5A1D70Z Performance of Urinary Filtration, Intermittent, Less than 6 Hours Per Day (ICD-10-PCS; principal; 2022-04-13)
DX: S37.011A Minor contusion of right kidney, initial encounter (principal); J96.01 Acute respiratory failure with hypoxia; N18.6 End stage renal disease; I13.2 Hypertensive heart and chronic kidney disease with heart failure and with stage 5 chronic kidney disease, or end stage renal disease; I50.32 Chronic diastolic (congestive) heart failure; F17.210 Nicotine dependence, cigarettes, uncomplicated; J45.909 Unspecified asthma, uncomplicated; M89.9 Disorder of bone, unspecified; I37.1 Nonrheumatic pulmonary valve insufficiency; I27.20 Pulmonary hypertension, unspecified; D64.9 Anemia, unspecified; F10.10 Alcohol abuse, uncomplicated; R31.9 Hematuria, unspecified; R10.9 Unspecified abdominal pain; I07.1 Rheumatic tricuspid insufficiency; Z99.2 Dependence on renal dialysis; D63.1 Anemia in chronic kidney disease; Z91.199 Patient's noncompliance with other medical treatment and regimen due to unspecified reason; Z79.899 Other long term (current) drug therapy; J30.2 Other seasonal allergic rhinitis; Z91.018 Allergy to other foods; Z87.19 Personal history of other diseases of the digestive system; X58.XXXA Exposure to other specified factors, initial encounter
CPT/HCPCS: 36415; 74018; 74176; 74177; 80053; 81001; 82150; 83690; 83735; 85025; 85610; 85730; 87086; 90935; 93005; 96361; 96374; 96375; 96376; 99285

== ENCOUNTER → 2022-05-27 | Outpatient (CLI) | payer MEDICARE ==
--- NOTE | 2022-05-27 14:15 | CT ---
EXAMINATION TYPE: CT abdomen wo/w con DATE OF EXAM: 05/27/2022 COMPARISON: 04/12/2022 HISTORY: f/u rt renal mass CT DLP: 1402 mGycm CONTRAST: CT scan of the abdomen is performed with Oral Contrast and without and with IV Contrast, patient inje cted with 70cc mL of Isovue 300. FINDINGS: LUNG BASES-: No visible nodule. No infiltrate. LIVER/GB: No calcified gallstones. No space occupying hepatic lesion. Biliary tree is of normal ca liber. PANCREAS: No inflammation. No distinct mass. SPLEEN: No splenic enlargement. No lesion seen. ADRENALS: No nodule. No thickening. KIDNEYS/BLADDER: There are renal atrophic changes noted bilaterally. Subcapsular mass right kidney is again noted however appears less hyperdense on today's study and also smaller in size and currently measures 5.4 x 4.0 cm with previous estimate of 6.3 x 3.3 cm. Hounsfield unit measurement on precontr ast evaluation is approximately 45 without significant enhancement following contrast administration. This likely reflects subcapsular hematoma. Hemorrhagic neoplasm not excluded. There is also less rig ht perinephric stranding relative to the prior study. BOWEL: Visualized bowel loops are within normal limits. LYMPH NODES: No greater than 1cm abdominal or pelvic lymph nodes are appreciated. AORTA: No significant abnormality. OSSEOUS STRUCTURES: Sclerosis of the osseous structures compatible with renal disease. OTHER: No significant additional abnormality is seen. IMPRESSION: 1. Subcapsular mass right kidney is again noted however appears less hyperdense on today's study and also smaller in size and currently measures 5.4 x 4.0 cm with previous estimate of 6.3 x 3.3 cm. Houn sfield unit measurement on precontrast evaluation is approximately 45 without significant enhancement following contrast administration. This likely reflects subcapsular hematoma. Hemorrhagic neoplasm n ot excluded. 2. Advanced atrophy of both kidneys.
== END | disposition home or self-care (01) ==
LOC: RADCTMAIN 12:20
PROVIDERS: ATTEND Urology
DX: D41.01 Neoplasm of uncertain behavior of right kidney (principal); N28.89 Other specified disorders of kidney and ureter; N26.1 Atrophy of kidney (terminal)
CPT/HCPCS: 82565; 84520; 74170; 36415; Q9967

== ENCOUNTER → 2022-09-28 | Outpatient (CLI) | payer MEDICARE ==
[2022-09-28 19:42] LABS: Basophils # (A) 0.02 X 10*3/uL (0.00-0.10); Basophils % (A) 0.3 %; Eosinophils # (A) 0.09 X 10*3/uL (0.04-0.35); Eosinophils % (A) 1.3 %; HCT 34.2 % (39.6-50.0); HGB 10.7 g/dL (13.0-17.0); Immature Grans, Automated 0.9 %; Lymphocytes # (A) 0.76 X 10*3/uL (0.90-5.00); MCH 30.9 pg (27.0-32.0); MCHC 31.3 g/dL (32.0-37.0); MCV 98.8 fL (80.0-97.0); Monocytes # (A) 0.54 X 10*3/uL (0.20-1.00); Monocytes % (A) 7.8 %; NRBC Per 100 WBC 0 /100 WBCS (0.0-0.0); Neutrophils # (A) 5.43 X 10*3/uL (1.80-7.70); Neutrophils % (A) 78.7 %; Platelet Count 219 X 10*3/uL (140-440); RBC 3.46 X 10*6/uL (4.40-5.60); RDW 17.7 % (11.5-14.5)
[2022-09-28 20:02] LABS: GGT 23 U/L (0-73); LDH 176 U/L (120-246)
[2022-09-28 20:12] LABS: ALT 16 U/L (10-49); AST 13 U/L (14-35); African American GFR (CKD) 6.4 (60.0-200.0); Albumin 4.6 g/dL (3.8-4.9); Albumin/Globulin Ratio 1.56 (1.60-3.17); Alkaline Phosphatase 133 U/L (41-126); BUN/Creat Ratio 4.56 Ratio (12.00-20.00); Bilirubin, Conjugated <0.20 mg/dL (0.20-0.40); Blood Urea Nitrogen 46.5 mg/dL (9.0-27.0); Calcium 8.7 mg/dL (8.7-10.3); Carbon Dioxide 25.6 mmol/L (20.0-27.5); Chloride 97 mmol/L (96-109); Globulin 2.9 g/dL (1.6-3.3); Glucose 104 mg/dL (70-110); Non-African American GFR(CKD) 5.5 (60.0-200.0); Potassium 4.1 mmol/L (3.5-5.5); Sodium 142 mmol/L (135-145); Total Protein 7.5 g/dL (6.2-8.2)
[2022-09-28 20:18] LABS: Hepatitis C IgG Antibody Nonreactive (Nonreactive)
[2022-09-28 21:22] LABS: EBV-EA (IgG) 1.3 AI; EBV-EBNA(IgG) <0.2 AI; EBV-VCA (IgG) >8.0 AI; EBV-VCA (IgM) <0.2 AI
[2022-09-29 00:48] LABS: HIV AB P24 REACTIVE (Non-Reactive); HIV P24 AG REACTIVE (Non-Reactive)
[2022-09-29 08:47] LABS: C-Peptide 9.94 ng/mL (0.81-3.85)
== END | disposition home or self-care (01) ==
LOC: LABWHC1 12:38
PROVIDERS: ATTEND Surgery
DX: Z13.228 Encounter for screening for other metabolic disorders (principal); Z01.83 Encounter for blood typing; Z12.5 Encounter for screening for malignant neoplasm of prostate; Z11.4 Encounter for screening for human immunodeficiency virus [HIV]; Z11.3 Encounter for screening for infections with a predominantly sexual mode of transmission; E11.65 Type 2 diabetes mellitus with hyperglycemia; E11.22 Type 2 diabetes mellitus with diabetic chronic kidney disease; N18.4 Chronic kidney disease, stage 4 (severe); B19.20 Unspecified viral hepatitis C without hepatic coma; B25.9 Cytomegaloviral disease, unspecified; B27.90 Infectious mononucleosis, unspecified without complication; D53.9 Nutritional anemia, unspecified; Z76.82 Awaiting organ transplant status
CPT/HCPCS: 36415; 80053; 82248; 82977; 83036; 83615; 84153; 84681; 85025; 86480; 86644; 86663; 86664; 86665; 86777; 86780; 86803; 86900; 86901; 87389; 87390; 87522

== ENCOUNTER → 2023-01-04 | Outpatient (CLI) | payer MEDICARE ==
[2023-01-05 11:46] LABS: HIV-1 RNA Not detected (Not detected); HIV-1 RNA, Quant <20 Copies/mL (<20); LOG HIV Copies/mL <1.30 (<1.30)
[2023-01-05 13:25] LABS: T4/T8 Ratio (CD4:CD8) 3.2 (1.0-3.7)
== END | disposition home or self-care (01) ==
LOC: LABWHC1 13:31
PROVIDERS: ATTEND Internal Medicine Infectious Disease
DX: B20 Human immunodeficiency virus [HIV] disease (principal)
CPT/HCPCS: 36415; 86360; 87390; 87536

== ENCOUNTER 2023-05-17 10:16 | Emergency (ER) | payer MEDICARE ==
[2023-05-17] MEDS ORDERED: DILTIAZEM DRIP BOLUS FROM BAG 1 MG SOLN IV ONE ×2 (11:13→13:55)
[2023-05-17 11:15] LABS: Basophils % (A) 0 %; Eosinophils % (A) 2 %; HCT 28.1 % (39.0-53.0); HGB 9.5 gm/dL (13.0-17.5); Lymphocytes # (A) 0.3 k/uL (1.0-4.8); Lymphocytes % (A) 9 %; MCH 31.9 pg (25.0-35.0); MCHC 33.8 g/dL (31.0-37.0); MCV 94.6 fL (80.0-100.0); Mean Platelet Volume 8.7; Monocytes # (A) 0.1 k/uL (0-1.0); Monocytes % (A) 4 %; Neutrophils # (A) 2.5 k/uL (1.3-7.7); Neutrophils % (A) 85 %; Platelet Count 111 k/uL (150-450); RBC 2.97 m/uL (4.30-5.90)
[2023-05-17] MEDS ORDERED: DILTIAZEM 125 MG in SODIUM CHLORIDE 0.9% 100 ML IV SCH (11:15)
--- NOTE | 2023-05-17 11:29 | XR ---
EXAMINATION TYPE: XR chest 2V DATE OF EXAM: 05/17/2023 11:19 AM CLINICAL INDICATION:Male, 43 years old with history of dysrhythmia; [facility] COMPARISON: Chest radiographs from 07/21/2021 TECHNIQUE: XR chest 2V Frontal and lateral views of the chest. FINDINGS: Lungs/Pleura: There is no evidence of pleural effusion, focal consolidation, or pneumothorax. Pulmonary vascularity: Pulmonary vascular congestion. Heart/mediastinum: Cardiomediastinal silhouette is enlarged and stable. Musculoskeletal: No acute osseous pathology. Other findings: None IMPRESSION: Similar diffuse hazy opacities throughout the lungs correlate with serum BNP for congestive heart radha lure.
[2023-05-17 12:27] LABS: ALT 18 U/L (4-49); AST 17 U/L (17-59); African American GFR (CKD) 8 (>60 ml/min/1.73 sqM); Albumin 3.9 g/dL (3.5-5.0); Alkaline Phosphatase 61 U/L (38-126); Anion Gap 13 mmol/L; Blood Urea Nitrogen 46 mg/dL (9-20); Carbon Dioxide 26 mmol/L (22-30); Chloride 96 mmol/L (98-107); Glucose 92 mg/dL (74-99); Magnesium 1.7 mg/dL (1.6-2.3); Non-African American GFR(CKD) 7 (>60 ml/min/1.73 sqM); Potassium 3.6 mmol/L (3.5-5.1); Sodium 135 mmol/L (137-145); Total Bilirubin 0.7 mg/dL (0.2-1.3); Total Protein 6.8 g/dL (6.3-8.2)
--- NOTE | 2023-05-17 12:29 | ED ---
Arrhythmia/Palpitations HPI - General Chief Complaint: Arrhythmia/Palpitations Stated Complaint: afib Time Seen by Provider: 05/17/23 10:43 Source: patient, EMS, RN notes reviewed Mode of arrival: EMS Limitations: no limitations - History of Present Illness Initial Comments: This a 43-year-old male presents emergency Department with chief complaint of pa lpitations, chest pain, A. fib. Patient states that he was doing dialysis he completed 3 of his 4 hours started developing chest pain, states he fell against chest was beating very hard. Patient states he believes he has a history of A. fib. Patient was found to be in A. fib RVR. Patient was sent from dialysis to emergency from via EMS. Patient does complain of mild dizziness mild shortness of breath. - Related Data Home Medications Medication Instructions Recorded Confirmed Furosemide [Lasix] 80 mg PO BID 05/10/19 04/12/22 [place]-3 Fatty Acids/Fish Oil [Fish 1 cap PO DAILY 07/02/21 04/12/22 Oil 1,000 mg Softgel] amLODIPine [Norvasc] 5 mg PO DAILY 07/02/21 04/12/22 Calcium Acetate 2,001 mg PO TID-W/MEALS 07/21/21 04/12/22 Magnebind 300 2 tab PO TID-W/MEALS 07/21/21 04/12/22 Lidocaine-Prilocaine Cream [Emla 1 applic TOPICAL DAILY PRN 04/12/22 04/12/22 Cream 2.5%/2.5%] Metoprolol Succinate (ER) [Toprol 25 mg PO BID 04/12/22 04/12/22 XL] Omeprazole 20 mg PO AC-BRKFST 04/12/22 04/12/22 Camila-Marsha 0.8mg 1 cap PO DAILY 04/12/22 04/12/22 hydrALAZINE HCL [Apresoline] 100 mg PO BID 04/12/22 04/12/22 methocarbamoL [Robaxin-750] 750 mg PO Q8H PRN 04/12/22 04/12/22 Previous Rx's Medication Instructions Recorded Calcium Acetate [PhosLo] 2,001 mg PO TID-W/MEALS tab 04/14/22 oxyCODONE HCL [OxyIR] 5 mg PO Q6HR PRN tab 04/14/22 Allergies Allergy/AdvReac Type Severity Reaction Status Date / Time cranberry Allergy Anaphylaxis Verified 05/17/23 10:26 pollen extracts Allergy Dyspnea, Verified 05/17/23 10:26 Sneezing Review of Systems ROS Statement: Those systems with pertinent positive or pertinent negative responses have been documented in the HPI. ROS Other: All systems not noted in ROS Statement are negative. Past Medical History Past Medical History: Asthma, Hypertension, Renal Disease Additional Past Medical History / Comment(s): states hx asthma triggered by environmental allergies- no current rx., epistaxis 09/16/17, Hemo-dialysis Tue-, fistura left arm, states he recevied blood transfusion last week at [facility]., states blood in stool., states he is illiterate-he was able to read shannon ers and his prep instructions. History of Any Multi-Drug Resistant Organisms: None Reported Past Surgical History: Tonsillectomy Additional Past Surgical History / Comment(s): fistula to left upper arm. Past Anesthesia/Blood Transfusion Reactions: No Reported Reaction Additional Past Anesthesia/Blood Transfusion Reaction / Comment(s): sorethroat afterwards. BLOOD TRANSFUSION A FEW WEEKS AGO AT [facility]. Past Psychological History: No Psychological Hx Reported Smoking Status: Never smoker Past Alcohol Use History: Occasional Past Drug Use History: None Reported - Past Family History Mother Additional Family Medical History / Comment(s): liver and kidney transplant Father Additional Family Medical History / Comment(s): pt states father of heart attack in his 50's General Exam Limitations: no limitations General appearance: alert, in no apparent distress Head exam: Present: atraumatic, normocephalic, normal inspection Eye exam: Present: normal appearance, PERRL, EOMI. Absent: scleral icterus, conjunctival injection, periorbital swelling ENT exam: Present: normal exam, normal oropharynx, mucous membranes moist Neck exam: Present: normal inspection. Absent: tenderness, meningismus, lymphadenopathy Respiratory exam: Present: normal lung sounds bilaterally. Absent: respiratory distress, wheezes, rales, rhonchi, stridor Cardiovascular Exam: Present: tachycardia, irregular rhythm, normal heart sounds. Absent: regular rate, normal rhythm, systolic murmur, diastolic murmur, rubs, gallop, clicks GI/Abdominal exam: Present: soft, normal bowel sounds. Absent: distended, tenderness, guarding, rebound, rigid Course Vital Signs 05/17/23 05/17/23 05/17/23 10:23 11:25 14:11 Temperature 98 F Pulse Rate 116 H 106 H 101 H Respiratory 18 18 Rate Blood Pressure 156/86 144/93 135/100 O2 Sat by Pulse 98 96 93 L Oximetry 05/17/23 05/17/23 15:24 16:07 Temperature 98.4 F Pulse Rate 61 61 Respiratory 18 16 Rate Blood Pressure 135/88 135/92 O2 Sat by Pulse 93 L 94 L Oximetry EKG Findings - EKG Comments: EKG Findings:: EKG performed at 10:19 A. fib with RVR rate of 113 QRS 101 QT/QTC 347/414. EKG sinus rhythm rate of 62 NC 192 QRS 109 [id number] - EKG Results: EKG: interpreted by JOSE ELIAS Medical Decision Making - Medical Decision Making Was pt. sent in by a medical professional or institution (, PA, NASCAR DRIVER, urgent care, hospital, or long term...) When possible be specific @ -No Did you speak to anyone other than the patient for history (EMS, parent, family, police, friend...)? What history was obtained from this source @ -No Did you review nursing and triage notes (agree or disagree)? Why? @ -I reviewed and agree with nursing and triage notes Were old charts reviewed (outside hosp., previous admission, EMS record, old EKG, old radiological studies, urgent care reports/EKG's, long term records)? Report findings @ -No old charts were reviewed Differential Diagnosis (chest pain, altered mental status, abdominal pain women, abdominal pain men, vaginal bleeding, weakness, fever, dyspnea, syncope, headac he, dizziness, GI bleed, back pain, seizure, CVA, palpatations, mental health, musculoskeletal)? @ -Differential Palpitations Ventricular arrhythmias, atrial arrhythmias, myocardial infarction, anemia, thyrotoxicosis, electrolyte imbalance, hypokalemia, pulmonary embolism, pulmo nary disease, drugs, alcohol, anxiety, stress.... This is not meant to be an all-inclusive list.ble EKG interpreted by me (3pts min.). @ -As above X-rays interpreted by me (1pt min.). @ -Chest x-ray shows no acute process CT interpreted by me (1pt min.). @ -None done U/S interpreted by me (1pt. min.). @ -None done What testing was considered but not performed or refused? (CT, X-rays, U/S, labs)? Why? @ -None What meds were considered but not given or refused? Why? @ -None Did you discuss the management of the patient with other professionals (daron grajeda i.e. , PA, NASCAR DRIVER, lab, RT, psych nurse, licensed social worker, learning strategist, teacher, maritime officer, onsite case manager)? Give summary @ -Case discussed with Dr. Padgett who reviewed his case and chart at office. Patient has a history of A. fib they noted that is not on anticoagulants b ecause risk versus benefits were weight and felt that he is a high risk for bleeding patient has no chest pain patient converted normal sinus rhythm and felt that he is stable for discharge a she has minimally elevated troponin though he is a renal failure patient and does not have chest pain Was smoking cessation discussed for >3mins.? @ -No Was critical care preformed (if so, how long)? @ -No Were there social determinants of health that impacted care today? How? (Homelessness, low income, unemployed, alcoholism, drug addiction, transportation, low edu. Level, literacy, decrease access to med. care, [facility], rehab)? @ -No Was there de-escalation of care discussed even if they declined (Discuss DNR or withdrawal of care, Hospice)? DNR status @ -No What co-morbidities impacted this encounter? (DM, HTN, Smoking, COPD, CAD, Cancer, CVA, ARF, Chemo, Hep., AIDS, mental health diagnosis, sleep apnea, morbid obesity)? @ -ESRD Was patient admitted / discharged? Hospital course, mention meds given and route, prescriptions, significant lab abnormalities, going to OR and other pertinent info. @ -hospital course Undiagnosed new problem with uncertain prognosis? @ -No Drug Therapy requiring intensive monitoring for toxicity (Heparin, Nitro, Insulin, Cardizem)? @ -No Were any procedures done? @ -No Diagnosis/symptom? @ -A. fib RVR Acute, or Chronic, or Acute on Chronic? @ -Acute Uncomplicated (without systemic symptoms) or Complicated (systemic symptoms)? @ -, Complicated Side effects of treatment? @ -No Exacerbation, Progression, or Severe Exacerbation? @ -No Poses a threat to life or bodily function? How? (Chest pain, [place], [place], pneumonia, PE, COPD, DKA, ARF, appy, cholecystitis, CVA, Diverticulitis, Homicidal, Suicidal, threat to staff... and all critical care pts) @ -No - Lab Data Result diagrams: 05/17/23 10:54 05/17/23 11:47 Lab Results 05/17/23 05/17/23 05/17/23 Range/Units 10:54 11:47 11:47 WBC 3.0 L (3.8-10.6) k/uL RBC 2.97 L (4.30-5.90) m/uL Hgb 9.5 L (13.0-17.5) gm/dL Hct 28.1 L (39.0-53.0) % MCV 94.6 (80.0-100.0) fL MCH 31.9 (25.0-35.0) pg MCHC 33.8 (31.0-37.0) g/dL RDW 15.0 (11.5-15.5) % Plt Count 111 L (150-450) k/uL MPV 8.7 Neutrophils % 85 % Lymphocytes % 9 % Monocytes % 4 % Eosinophils % 2 % Basophils % 0 % Neutrophils # 2.5 (1.3-7.7) k/uL Lymphocytes # 0.3 L (1.0-4.8) k/uL Monocytes # 0.1 (0-1.0) k/uL Eosinophils # 0.0 (0-0.7) k/uL Basophils # 0.0 (0-0.2) k/uL PT (10.0-12.5) sec INR (<1.2) APTT (22.0-30.0) sec Sodium 135 L (137-145) mmol/L Potassium 3.6 (3.5-5.1) mmol/L Chloride 96 L (98-107) mmol/L Carbon Dioxide 26 (22-30) mmol/L Anion Gap 13 mmol/L BUN 46 H (9-20) mg/dL Creatinine 8.61 H* (0.66-1.25) mg/dL Est GFR (CKD-EPI)AfAm 8 (>60 ml/min/1.73 sqM) Est GFR (CKD-EPI)NonAf 7 (>60 ml/min/1.73 sqM) Glucose 92 (74-99) mg/dL Calcium 9.0 (8.4-10.2) mg/dL Magnesium 1.7 (1.6-2.3) mg/dL Total Bilirubin 0.7 (0.2-1.3) mg/dL AST 17 (17-59) U/L ALT 18 (4-49) U/L Alkaline Phosphatase 61 (38-126) U/L Troponin I 0.060 H* (0.000-0.034) ng/mL Total Protein 6.8 (6.3-8.2) g/dL Albumin 3.9 (3.5-5.0) g/dL 05/17/23 Range/Units 11:47 WBC (3.8-10.6) k/uL RBC (4.30-5.90) m/uL Hgb (13.0-17.5) gm/dL Hct (39.0-53.0) % MCV (80.0-100.0) fL MCH (25.0-35.0) pg MCHC (31.0-37.0) g/dL RDW (11.5-15.5) % Plt Count (150-450) k/uL MPV Neutrophils % % Lymphocytes % % Monocytes % % Eosinophils % % Basophils % % Neutrophils # (1.3-7.7) k/uL Lymphocytes # (1.0-4.8) k/uL Monocytes # (0-1.0) k/uL Eosinophils # (0-0.7) k/uL Basophils # (0-0.2) k/uL PT 10.1 (10.0-12.5) sec INR 0.9 (<1.2) APTT 25.4 (22.0-30.0) sec Sodium (137-145) mmol/L Potassium (3.5-5.1) mmol/L Chloride (98-107) mmol/L Carbon Dioxide (22-30) mmol/L Anion Gap mmol/L BUN (9-20) mg/dL Creatinine (0.66-1.25) mg/dL Est GFR (CKD-EPI)AfAm (>60 ml/min/1.73 sqM) Est GFR (CKD-EPI)NonAf (>60 ml/min/1.73 sqM) Glucose (74-99) mg/dL Calcium (8.4-10.2) mg/dL Magnesium (1.6-2.3) mg/dL Total Bilirubin (0.2-1.3) mg/dL AST (17-59) U/L ALT (4-49) U/L Alkaline Phosphatase (38-126) U/L Troponin I (0.000-0.034) ng/mL Total Protein (6.3-8.2) g/dL Albumin (3.5-5.0) g/dL Disposition Clinical Impression: Atrial fibrillation Disposition: HOME SELF-CARE Condition: Stable Instructions (If sedation given, give patient instructions): A-fib (Atrial Fibrillation) (ED) Additional Instructions: Please return to the Er for any worsening symptoms or any other concerns Is patient prescribed a controlled substance at d/c from ED?: No Referrals: Reji Rodriguez Jr, [Primary Care Provider] - 1-2 days Time of Disposition: 15:46
[2023-05-17 13:06] LABS: INR 0.9 (<1.2); Partial Thromboplastin Time 25.4 sec (22.0-30.0); Prothrombin Time 10.1 sec (10.0-12.5)
[2023-05-17 15:41] VITALS: PULSE 61
[2023-05-17 16:09] VITALS: BP 135/92; RESP 16; TEMP 98.4
== END 2023-05-17 16:10 | disposition home or self-care (01) ==
LOC: EC 10:16
DX: I48.91 Unspecified atrial fibrillation (principal); I25.2 Old myocardial infarction; J45.909 Unspecified asthma, uncomplicated; I12.0 Hypertensive chronic kidney disease with stage 5 chronic kidney disease or end stage renal disease; N18.6 End stage renal disease; Z99.2 Dependence on renal dialysis; Z79.899 Other long term (current) drug therapy; Z91.018 Allergy to other foods; Z88.8 Allergy status to other drugs, medicaments and biological substances
CPT/HCPCS: 36415; 71046; 80053; 83735; 84484; 85025; 85610; 85730; 93005; 96365; 96366; 99285

== ENCOUNTER 2023-05-20 09:00 | Observation (INO) | payer MEDICARE ==
--- NOTE | 2023-05-20 09:31 | ED ---
General Adult HPI - General Chief complaint: Arrhythmia/Palpitations Stated complaint: Afib Time Seen by Provider: 05/20/23 09:05 Source: patient, EMS Mode of arrival: EMS Limitations: no limitations - History of Present Illness Initial comments: Dictation was produced using [employer] dictation software. please excuse any grammatical, word or spelling errors. Chief Complaint: 43-year-old male presents to [facility] palpitations History of Present Illness: Patient is a 43-year-old male he was at dialysis today. 2 hours into his dialysis he started to complain of palpitations. States he felt totally fine this morning. Dialysis staff stopped his dialysis and EMS was called patient was sent to the emergency department. En route to the ER according to prehospital staff patient was in A. fib. He was seen here in emergency department early this week for paroxysmal A. fib. He self converted was discharge. Patient is on beta blockers. Takes 50 mg of metoprolol daily. Patient states that his pain ER his symptoms have improved. The ROS documented in this emergency department record has been reviewed and confirmed by me. Those systems with pertinent positive or negative responses have been documented in the HPI. All other systems are other negative and/or noncontributory. - Related Data Home Medications Medication Instructions Recorded Confirmed Furosemide [Lasix] 80 mg PO BID 05/10/19 04/12/22 [place]-3 Fatty Acids/Fish Oil [Fish 1 cap PO DAILY 07/02/21 04/12/22 Oil 1,000 mg Softgel] amLODIPine [Norvasc] 5 mg PO DAILY 07/02/21 04/12/22 Calcium Acetate 2,001 mg PO TID-W/MEALS 07/21/21 04/12/22 Magnebind 300 2 tab PO TID-W/MEALS 07/21/21 04/12/22 Lidocaine-Prilocaine Cream [Emla 1 applic TOPICAL DAILY PRN 04/12/22 04/12/22 Cream 2.5%/2.5%] Metoprolol Succinate (ER) [Toprol 25 mg PO BID 04/12/22 04/12/22 XL] Omeprazole 20 mg PO AC-BRKFST 04/12/22 04/12/22 Camila-Marsha 0.8mg 1 cap PO DAILY 04/12/22 04/12/22 hydrALAZINE HCL [Apresoline] 100 mg PO BID 04/12/22 04/12/22 methocarbamoL [Robaxin-750] 750 mg PO Q8H PRN 04/12/22 04/12/22 Previous Rx's Medication Instructions Recorded Calcium Acetate [PhosLo] 2,001 mg PO TID-W/MEALS tab 04/14/22 oxyCODONE HCL [OxyIR] 5 mg PO Q6HR PRN tab 04/14/22 Allergies Allergy/AdvReac Type Severity Reaction Status Date / Time cranberry Allergy Anaphylaxis Verified 05/20/23 09:09 pollen extracts Allergy Dyspnea, Verified 05/20/23 09:09 Sneezing Review of Systems ROS Statement: Those systems with pertinent positive or pertinent negative responses have been documented in the HPI. ROS Other: All systems not noted in ROS Statement are negative. Past Medical History Past Medical History: Asthma, Hypertension, Renal Disease Additional Past Medical History / Comment(s): states hx asthma triggered by environmental allergies- no current rx., epistaxis 09/16/17, Hemo-dialysis Tue-Tue-Tue, fistura left arm, states he recevied blood transfusion last week at [facility]., states blood in stool., states he is illiterate-he was able to read letters and his prep instructions. History of Any Multi-Drug Resistant Organisms: None Reported Past Surgical History: Tonsillectomy Additional Past Surgical History / Comment(s): fistula to left upper arm. Past Anesthesia/Blood Transfusion Reactions: No Reported Reaction Additional Past Anesthesia/Blood Transfusion Reaction / Comment(s): sorethroat afterwards. BLOOD TRANSFUSION A FEW WEEKS AGO AT [facility]. Past Psychological History: No Psychological Hx Reported Smoking Status: Never smoker Past Alcohol Use History: Occasional Past Drug Use History: None Reported - Past Family History Mother Additional Family Medical History / Comment(s): liver and kidney transplant Father Additional Family Medical History / Comment(s): pt states father of heart attack in his 50's General Exam - General Exam Comments Initial Comments: PHYSICAL EXAM: General Impression: Alert and oriented x3, not in acute distress HEENT: Normocephalic atraumatic, extra-ocular movements intact, pupils equal and reactive to light bilaterally, mucous membranes moist. Cardiovascular: Heart regular rate and rhythm Chest: Able to complete full sentences, no retractions, no tachypnea Abdomen: abdomen soft, non-tender, non-distended, no organomegaly Musculoskeletal: Pulses present and equal in all extremities, no peripheral edema Motor: no focal deficits noted Neurological: CN II-XII grossly intact, no focal motor or sensory deficits noted Skin: Intact with no visualized rashes Psych: Normal affect and mood Limitations: no limitations Course Vital Signs 05/20/23 05/20/23 09:04 10:00 Temperature 97.2 F L Pulse Rate 87 79 Respiratory 16 20 Rate Blood Pressure 140/91 141/91 O2 Sat by Pulse 99 99 Oximetry Medical Decision Making - Medical Decision Making Was pt. sent in by a medical professional or institution (, PA, ASSEMBLY DEPARTMENT SUPERVISOR, urgent care, hospital, or shelter...) When possible be specific @ -No Did you speak to anyone other than the patient for history (EMS, parent, family, police, friend...)? What history was obtained from this source @ -No Did you review nursing and triage notes (agree or disagree)? Why? @ -I reviewed and agree with nursing and triage notes Were old charts reviewed (outside hosp., previous admission, EMS record, old EKG, old radiological studies, urgent care reports/EKG's, shelter records)? Report findings @ -No old charts were reviewed Differential Diagnosis (chest pain, altered mental status, abdominal pain women, abdominal pain men, vaginal bleeding, musculoskeletal, weakness, fever, dyspnea, syncope, headache, dizziness, GI bleed, back pain, seizure, CVA, palpatations, mental health)? @ - Differential Palpitations: Ventricular arrhythmias, atrial arrhythmias, myocardial infarction, anemia, thyrotoxicosis, electrolyte imbalance, hypokalemia, pulmonary embolism, pulmon satish disease, drugs, alcohol, anxiety, stress.... This is not meant to be an all-inclusive list. EKG interpreted by me (3pts min.). @ -See above X-rays interpreted by me (1pt min.). @ -Chest x-ray shows venous congestion CT interpreted by me (1pt min.). @ -None done U/S interpreted by me (1pt. min.). @ -None done What testing was considered but not performed or refused? (CT, X-rays, U/S, labs)? Why? @ -None What meds were considered but not given or refused? Why? @ -None Did you discuss the management of the patient with other professionals (maria l de i.e. , PA, ASSEMBLY DEPARTMENT SUPERVISOR, lab, RT, psych nurse, social media designer, manager advanced, teacher, retail loss prevention officer, telehealth case manager)? Give summary @ -Discussed with hospitalist for admission Was smoking cessation discussed for >3mins.? @ -No Was critical care preformed (if so, how long)? @ -No Were there social determinants of health that impacted care today? How? (Homelessness, low income, unemployed, alcoholism, drug addiction, transportation, low edu. Level, literacy, decrease access to med. care, [place] [facility], rehab)? @ -No Was there de-escalation of care discussed even if they declined (Discuss DNR or withdrawal of care, Hospice)? DNR status @ -No What co-morbidities impacted this encounter? (DM, HTN, Smoking, COPD, CAD, Cance r, CVA, ARF, Chemo, Hep., AIDS, mental health diagnosis, sleep apnea, morbid obesity)? @ -ESRD Was patient admitted / discharged? Hospital course, mention meds given and route, prescriptions, significant lab abnormalities, going to OR and other pertinent info. @ -43 Year-old male who presents to emergency department for palpitations. Some clear whether patient has history of A. fib or not. Patient did not have complete dialysis today. Vital signs upon arrival are within acceptable limits. Prehospital EKG did show irregular rhythm however due to artifact unable to determine if it's A. fib. Laboratory evaluation obtained. Labs are within acceptable limits. Does have a elevated troponin 0.068 however this is around his baseline. secured entrance monitor was reviewed and did not show any episodes of A. fib. Disposition options were discussed. This is his second visit here in the last week. There is concern that patient had inadequate dialysis today and may not last Tuesday for HD. Agreeable with admission for nephro and cardiology consultation. Undiagnosed new problem with uncertain prognosis? @ -No Drug Therapy requiring intensive monitoring for toxicity (Heparin, Nitro, Insulin, Cardizem)? @ -No Were any procedures done? @ -No Diagnosis/symptom? Acute, or Chronic, or Acute on Chronic? Uncomplicated (without systemic symptoms) or Complicated (systemic symptoms)? @ -Palpitations, no obvious source Side effects of treatment? @ -No Exacerbation, Progression, or Severe Exacerbation? @ -No Poses a threat to life or bodily function? How? (Chest pain, [place], GA, pneumonia, PE, COPD, DKA, ARF, appy, cholecystitis, CVA, Diverticulitis, Homicidal, Suicidal, threat to staff... and all critical care pts) @ -yes - Lab Data Result diagrams: 05/20/23 09:31 05/20/23 09:31 Lab Results 05/20/23 05/20/23 05/20/23 Range/Units 09:31 09:31 09:31 WBC 3.9 (3.8-10.6) k/uL RBC 3.01 L (4.30-5.90) m/uL Hgb 9.9 L (13.0-17.5) gm/dL Hct 28.8 L (39.0-53.0) % MCV 95.6 (80.0-100.0) fL MCH 32.9 (25.0-35.0) pg MCHC 34.4 (31.0-37.0) g/dL RDW 15.4 (11.5-15.5) % Plt Count 138 L (150-450) k/uL MPV 8.1 Neutrophils % 83 % Lymphocytes % 9 % Monocytes % 4 % Eosinophils % 2 % Basophils % 0 % Neutrophils # 3.2 (1.3-7.7) k/uL Lymphocytes # 0.3 L (1.0-4.8) k/uL Monocytes # 0.2 (0-1.0) k/uL Eosinophils # 0.1 (0-0.7) k/uL Basophils # 0.0 (0-0.2) k/uL Sodium 137 (137-145) mmol/L Potassium 3.8 (3.5-5.1) mmol/L Chloride 96 L (98-107) mmol/L Carbon Dioxide 25 (22-30) mmol/L Anion Gap 16 mmol/L BUN 52 H (9-20) mg/dL Creatinine 10.15 H* (0.66-1.25) mg/dL Est GFR (CKD-EPI)AfAm 6 (>60 ml/min/1.73 sqM) Est GFR (CKD-EPI)NonAf 5 (>60 ml/min/1.73 sqM) Glucose 82 (74-99) mg/dL Calcium 9.5 (8.4-10.2) mg/dL Magnesium 1.8 (1.6-2.3) mg/dL Total Bilirubin 0.7 (0.2-1.3) mg/dL AST 21 (17-59) U/L ALT 21 (4-49) U/L Alkaline Phosphatase 72 (38-126) U/L Troponin I 0.068 H* (0.000-0.034) ng/mL Total Protein 7.2 (6.3-8.2) g/dL Albumin 4.3 (3.5-5.0) g/dL Disposition Clinical Impression: Palpitations Disposition: ADMITTED IP TO THIS HOSP Condition: Fair Referrals: Reji Rodriguez Jr, [Primary Care Provider] - 1-2 days Decision Time: 11:04
[2023-05-20] MEDS ORDERED: ACETAMINOPHEN TAB 500 MG TAB PO STA (09:48)
[2023-05-20 09:54] LABS: Basophils % (A) 0 %; Eosinophils # (A) 0.1 k/uL (0-0.7); Eosinophils % (A) 2 %; HCT 28.8 % (39.0-53.0); HGB 9.9 gm/dL (13.0-17.5); Lymphocytes # (A) 0.3 k/uL (1.0-4.8); Lymphocytes % (A) 9 %; MCH 32.9 pg (25.0-35.0); MCHC 34.4 g/dL (31.0-37.0); MCV 95.6 fL (80.0-100.0); Mean Platelet Volume 8.1; Monocytes # (A) 0.2 k/uL (0-1.0); Monocytes % (A) 4 %; Neutrophils # (A) 3.2 k/uL (1.3-7.7); Neutrophils % (A) 83 %; Platelet Count 138 k/uL (150-450); RBC 3.01 m/uL (4.30-5.90); RDW 15.4 % (11.5-15.5); WBC 3.9 k/uL (3.8-10.6)
--- NOTE | 2023-05-20 10:06 | XR ---
EXAMINATION TYPE: XR chest 1V portable DATE OF EXAM: 05/20/2023 COMPARISON: 05/17/2023 HISTORY: Chest pain TECHNIQUE: Single frontal view of the chest is obtained. FINDINGS: There is no focal air space opacity, pleural effusion, or pneumothorax seen. Cardiomegaly with pulmo nary venous congestion. No evidence for overt failure at this time. The cardiac silhouette size is within normal limits. The osseous structures are intact. IMPRESSION: 1. Cardiomegaly with pulmonary venous congestion. No evidence for overt failure at this time.
[2023-05-20 10:21] LABS: ALT 21 U/L (4-49); AST 21 U/L (17-59); African American GFR (CKD) 6 (>60 ml/min/1.73 sqM); Albumin 4.3 g/dL (3.5-5.0); Alkaline Phosphatase 72 U/L (38-126); Anion Gap 16 mmol/L; Blood Urea Nitrogen 52 mg/dL (9-20); Calcium 9.5 mg/dL (8.4-10.2); Carbon Dioxide 25 mmol/L (22-30); Chloride 96 mmol/L (98-107); Glucose 82 mg/dL (74-99); Magnesium 1.8 mg/dL (1.6-2.3); Non-African American GFR(CKD) 5 (>60 ml/min/1.73 sqM); Potassium 3.8 mmol/L (3.5-5.1); Sodium 137 mmol/L (137-145); Total Bilirubin 0.7 mg/dL (0.2-1.3); Total Protein 7.2 g/dL (6.3-8.2)
[2023-05-20] MEDS ORDERED: NALOXONE 0.4 MG/ML 1 ML VIAL IV PRN (10:59)
[2023-05-20] MEDS: SODIUM CHLORIDE 0.9% 1,000 ML IV SCH (11:16)
--- NOTE | 2023-05-20 13:28 | P.NPCON ---
History of Present Illness - Reason for Consult Consult date: 05/20/23 end stage renal disease - Chief Complaint Palpitations - History of Present Illness ESRD on hemodialysis, MWF schedule, for the last 4 years. Last dialysis was Tuesday. When he was in dialysis today how Pham into treatment, developed palpitations. Denies history of atrial fibrillation. While in the EMS he was in A. fib with RVR, resolved to sinus rhythm now. No nausea vomiting diarrhea no chest pains or shortness of breath. Review of Systems Constitutional: Reports as per HPI Past Medical History Past Medical History: Asthma, Hypertension, Renal Disease Additional Past Medical History / Comment(s): states hx asthma triggered by environmental allergies- no current rx., epistaxis 09/16/17, Hemo-dialysis Tue-Tue-Tue, fistura left arm, states he recevied blood transfusion last week at [facility] states blood in stool., states he is illiterate-he was able to read letters and his prep instructions. History of Any Multi-Drug Resistant Organisms: None Reported Past Surgical History: Tonsillectomy Additional Past Surgical History / Comment(s): fistula to left upper arm. Past Anesthesia/Blood Transfusion Reactions: No Reported Reaction Additional Past Anesthesia/Blood Transfusion Reaction / Comment(s): sorethroat afterwards. BLOOD TRANSFUSION A FEW WEEKS AGO AT [facility]. Past Psychological History: No Psychological Hx Reported Smoking Status: Never smoker Past Alcohol Use History: Occasional Past Drug Use History: None Reported - Past Family History Mother Additional Family Medical History / Comment(s): liver and kidney transplant Father Additional Family Medical History / Comment(s): pt states father of heart attack in his 50's Medications and Allergies Home Medications Medication Instructions Recorded Confirmed Type Furosemide [Lasix] 80 mg PO BID 05/10/19 05/20/23 History amLODIPine [Norvasc] 5 mg PO BID 07/02/21 05/20/23 History Magnebind 300 2 tab PO TID-W/MEALS 07/21/21 05/20/23 History Lidocaine-Prilocaine Cream [Emla 1 applic TOPICAL DIRECTED PRN 04/12/22 05/20/23 History Cream 2.5%/2.5%] Metoprolol Succinate (ER) [Toprol 50 mg PO HS 04/12/22 05/20/23 History XL] Omeprazole 20 mg PO DAILY 04/12/22 05/20/23 History Camila-Marsha 0.8mg 1 cap PO DAILY 04/12/22 05/20/23 History Calcium Acetate 667mg Caps 2,001 mg PO TID-W/MEALS 05/20/23 05/20/23 History Calcium Acetate 667mg Caps 667 - 1,334 mg PO DIRECTED PRN 05/20/23 05/20/23 History Fish Oil/Dha/Epa [Fish Oil 1,200 1 cap PO DAILY 05/20/23 05/20/23 History mg Fish Oil] Allergies Allergy/AdvReac Type Severity Reaction Status Date / Time cranberry Allergy Anaphylaxis Verified 05/20/23 12:19 pollen extracts Allergy Dyspnea, Verified 05/20/23 12:19 Sneezing, Itching Physical Exam Vitals: Vital Signs Temp Pulse Resp BP Pulse Ox 05/20/23 10:00 79 20 141/91 99 05/20/23 09:04 97.2 F L 87 16 140/91 99 Intake and Output 05/19/23 05/20/23 05/20/23 22:59 06:59 14:59 Other: Weight 90.718 kg No acute distress S1-S2 heard Lungs clear No edema Results - Lab Results Most recent lab results Calcium 9.5 mg/dL (8.4-10.2) 05/20/23 09:31 Magnesium 1.8 mg/dL (1.6-2.3) 05/20/23 09:31 05/20/23 09:31 05/20/23 09:31 Assessment and Plan Assessment: #1 palpitations with underlying atrial fibrillation. #2 ESRD on hemodialysis, MWF schedule. #3 hypertension with ESRD #4 anemia with ESRD #5 metabolic bone disease. Plan: #1 hemodialysis today as per outpatient schedule. #2 ESRD medications #3 appreciate cardiology input
--- NOTE | 2023-05-20 14:11 | P.HPIM ---
History of Present Illness H&P Date: 05/20/23 Chief Complaint: Palpitations This is a 43-year-old white male well known to the practice. He has end-stage renal disease and is on hemodialysis Tuesday, Tuesday. He reports palpitations while at dialysis on Tuesday. He again experienced them today. Dialysis was stopped early. EMS showed a fib with RVR. He has since reverted back to a normal sinus rhythm. He is now resting comfortably in the intensive care unit. He has no chest pains, pressures, shortness of breath, nausea or vomiting. He has a history of atrial tribulation as well. Review of Systems All systems: negative Past Medical History Past Medical History: Atrial Fibrillation, Asthma, Hypertension, Renal Disease (End stage on hemodialysis) Additional Past Medical History / Comment(s): states hx asthma triggered by environmental allergies- no current rx., epistaxis 09/16/17, Hemo-dialysis Tue- d-Tue, fistura left arm, states he recevied blood transfusion last week at [facility]., states blood in stool., states he is illiterate-he was able to read letters and his prep instructions. History of Any Multi-Drug Resistant Organisms: None Reported Past Surgical History: Tonsillectomy Additional Past Surgical History / Comment(s): fistula to left upper arm. Past Anesthesia/Blood Transfusion Reactions: No Reported Reaction Additional Past Anesthesia/Blood Transfusion Reaction / Comment(s): sorethroat afterwards. BLOOD TRANSFUSION A FEW WEEKS AGO AT [facility]. Past Psychological History: No Psychological Hx Reported Smoking Status: Never smoker Past Alcohol Use History: Occasional Past Drug Use History: None Reported - Past Family History Mother Additional Family Medical History / Comment(s): liver and kidney transplant Father Additional Family Medical History / Comment(s): pt states father of heart attack in his 50's Medications and Allergies Home Medications Medication Instructions Recorded Confirmed Type Furosemide [Lasix] 80 mg PO BID 05/10/19 05/20/23 History amLODIPine [Norvasc] 5 mg PO BID 07/02/21 05/20/23 History Magnebind 300 2 tab PO TID-W/MEALS 07/21/21 05/20/23 History Lidocaine-Prilocaine Cream [Emla 1 applic TOPICAL DIRECTED PRN 04/12/22 05/20/23 History Cream 2.5%/2.5%] Metoprolol Succinate (ER) [Toprol 50 mg PO HS 04/12/22 05/20/23 History XL] Omeprazole 20 mg PO DAILY 04/12/22 05/20/23 History Camila-Marsha 0.8mg 1 cap PO DAILY 04/12/22 05/20/23 History Calcium Acetate 667mg Caps 2,001 mg PO TID-W/MEALS 05/20/23 05/20/23 History Calcium Acetate 667mg Caps 667 - 1,334 mg PO DIRECTED PRN 05/20/23 05/20/23 History Fish Oil/Dha/Epa [Fish Oil 1,200 1 cap PO DAILY 05/20/23 05/20/23 History mg Fish Oil] Allergies Allergy/AdvReac Type Severity Reaction Status Date / Time cranberry Allergy Anaphylaxis Verified 05/20/23 12:19 pollen extracts Allergy Dyspnea, Verified 05/20/23 12:19 Sneezing, Itching Physical Exam Vitals: Vital Signs Temp Pulse Resp BP Pulse Ox 05/20/23 10:00 79 20 141/91 99 05/20/23 09:04 97.2 F L 87 16 140/91 99 Intake and Output 05/19/23 05/20/23 05/20/23 22:59 06:59 14:59 Other: Weight 90.718 kg GENERAL: Well-appearing, well-nourished and in no acute distress. HEAD: Atraumatic, normocephalic. EYES: Pupils equal round and reactive to light, extraocular movements intact, sclera anicteric, conjunctiva are normal. ENT:nares patent, oropharynx clear without exudates. Moist mucous membranes. NECK: Normal range of motion, supple without lymphadenopathy or JVD, no thyromegaly LUNGS: Equal air entry with fine bibasilar crackles, no wheezing. HEART: Regular rate and rhythm without murmurs, rubs or gallops.S1S2 Normal ABDOMEN: Soft, right upper quadrant and right flank tenderness, normoactive bowel sounds. No guarding, no rebound. No masses appreciated. EXTREMITIES: Normal range of motion, positive edema. No clubbing or cyanosis. NEUROLOGICAL: Cranial nerves II through XII grossly intact. Normal speech, normal gait. PSYCH: Normal mood, normal affect. SKIN: Warm, Dry, normal turgor, no rashes noted. Results CBC & Chem 7: 05/20/23 09:31 05/20/23 09:31 Labs: Abnormal Lab Results - Last 24 Hours (Table) 05/20/23 05/20/23 05/20/23 Range/Units 09:31 09:31 09:31 RBC 3.01 L (4.30-5.90) m/uL Hgb 9.9 L (13.0-17.5) gm/dL Hct 28.8 L (39.0-53.0) % Plt Count 138 L (150-450) k/uL Lymphocytes # 0.3 L (1.0-4.8) k/uL Chloride 96 L (98-107) mmol/L BUN 52 H (9-20) mg/dL Creatinine 10.15 H* (0.66-1.25) mg/dL Troponin I 0.068 H* (0.000-0.034) ng/mL Thrombosis Risk Factor Assmnt - DVT/VTE Prophylaxis DVT/VTE Prophylaxis: Contraindicated - See note (bleeding and anemia hx) Assessment and Plan (1) Palpitations Current Visit: Yes Status: Acute Code(s): R00.2 - PALPITATIONS SNOMED Code(s): 51516219 (2) Anemia in chronic kidney disease (CKD) Current Visit: No Status: Acute Code(s): N18.9 - CHRONIC KIDNEY DISEASE, UNSPECIFIED; D63.1 - ANEMIA IN CHRONIC KIDNEY DISEASE SNOMED Code(s): 330570084 (3) Atrial fibrillation Current Visit: No Status: Acute Code(s): I48.91 - UNSPECIFIED ATRIAL FIBRILLATION SNOMED Code(s): 67858983 (4) ESRD (end stage renal disease) on dialysis Current Visit: No Status: Acute Code(s): N18.6 - END STAGE RENAL DISEASE; Z99.2 - DEPENDENCE ON RENAL DIALYSIS SNOMED Code(s): 008153767 (5) Hypertension Current Visit: No Status: Acute Code(s): I10 - ESSENTIAL (PRIMARY) HYPERTENSION SNOMED Code(s): 00305930 Plan: We will consult nephrology and ask them to finish his dialysis treatment. We will consult cardiology for further evaluation regarding this episode of atrial fibrillation episodes. He'll be reevaluated in the next 24 hours. We will repeat labs in a.m.
[2023-05-20] MEDS ORDERED: LIDOCAINE-PRILOCAINE 2.5-2.5% CREAM 5 GM TUBE TOPICAL PRN (17:02)
[2023-05-20] MEDS ORDERED: MAGNEBIND PO SCH (17:30)
[2023-05-20] MEDS: NICOTINE 14MG/24HR PATCH TRANSDERM SCH (18:31)
[2023-05-20] MEDS: CALCIUM ACETATE 667 MG TAB PO SCH (18:31)
[2023-05-20] MEDS: FUROSEMIDE 80 MG TAB PO SCH (20:07)
[2023-05-20] MEDS: amLODIPine 5 MG TAB PO SCH (20:07)
[2023-05-20] MEDS ORDERED: METOPROLOL SUCCINATE (ER) 50 MG TAB.ER.24H PO SCH (21:00)
[2023-05-21] MEDS: PANTOPRAZOLE 40 MG TABLET PO SCH (06:21)
[2023-05-21] MEDS: amLODIPine 5 MG TAB PO SCH ×2 (09:00→17:56)
[2023-05-21] MEDS: FOLIC ACID-VIT B COMPLEX-VIT C 1 CAP PO SCH (09:00)
[2023-05-21] MEDS: CALCIUM ACETATE 667 MG TAB PO SCH ×3 (09:00→17:58)
[2023-05-21] MEDS: FUROSEMIDE 80 MG TAB PO SCH ×2 (09:01→21:21)
[2023-05-21] MEDS: NICOTINE 14MG/24HR PATCH TRANSDERM SCH (09:01)
[2023-05-21 09:35] LABS: Basophils # (A) 0.03 X 10*3/uL (0.00-0.10); Basophils % (A) 0.6 %; Eosinophils # (A) 0.12 X 10*3/uL (0.04-0.35); Eosinophils % (A) 2.4 %; HCT 26.1 % (39.6-50.0); HGB 8.6 g/dL (13.0-17.0); Lymphocytes # (A) 0.57 X 10*3/uL (0.90-5.00); Lymphocytes % (A) 11.6 %; Mean Platelet Volume 9.3 FL (9.5-12.2); Monocytes # (A) 0.43 X 10*3/uL (0.20-1.00); Monocytes % (A) 8.8 %; NRBC Per 100 WBC 0 X 10*3/uL (0.00-0.01); Neutrophils # (A) 3.75 X 10*3/uL (1.80-7.70); Neutrophils % (A) 76.4 %; Platelet Count 135 X 10*3/uL (140-440); RBC 2.69 X 10*6/uL (4.40-5.60); RDW 14.6 % (11.5-14.5); WBC 4.91 X 10*3/uL (4.50-10.00)
[2023-05-21 10:14] LABS: BUN/Creat Ratio 5.53 Ratio (12.00-20.00); Blood Urea Nitrogen 71.4 mg/dL (9.0-27.0); Calcium 9.7 mg/dL (8.7-10.3); Chloride 96 mmol/L (96-109); Glucose 89 mg/dL (70-110); Potassium 5.1 mmol/L (3.5-5.5); Sodium 138 mmol/L (135-145)
[2023-05-21] MEDS ORDERED: MUPIROCIN 2% OINT 22 GM TUBE TOPICAL PRN (12:08)
--- NOTE | 2023-05-21 12:10 | P.PN ---
Subjective New is reevaluated after having palpitations which appear to be A. fib with RVR at dialysis. He was in dialysis when he had the palpitations stopped and EMS was called and transported here. In the rig was thought to be A. fib with RVR, however the emergency room doctor indicated this quality was so poor is very difficult to interpret. It is resolved at his arrival. He is been asymptomatic overnight. No telemetry issues. He is on hemodialysis Tuesday. He is scheduled for dialysis this afternoon. He denies any complaints other than occasional nosebleed, which bothered him last night. He denies any chest pains pressures read nausea or vomiting this time otherwise feels well. Allergies has seen him. Cardiology consult is pending. Objective - Vital Signs Vital signs: Vital Signs Temp 97.9 F 05/21/23 07:00 Pulse 58 L 05/21/23 07:00 Resp 16 05/21/23 07:00 BP 141/75 05/21/23 07:00 Pulse Ox 97 05/21/23 07:00 FiO2 Intake & Output 05/20/23 05/21/23 05/21/23 18:59 06:59 18:59 Weight 90.718 kg Other: Voiding Method Toilet # Voids 1 - Exam GENERAL: Well-appearing, well-nourished and in no acute distress. HEAD: Atraumatic, normocephalic. NECK: Normal range of motion, supple without lymphadenopathy or JVD, no thyromegaly LUNGS: Equal air entry with fine bibasilar crackles, no wheezing. HEART: Regular rate and rhythm without murmurs, rubs or gallops.S1S2 Normal ABDOMEN: Soft, right upper quadrant and right flank tenderness, normoactive bowel sounds. No guarding, no rebound. No masses appreciated. EXTREMITIES: Normal range of motion, positive edema. No clubbing or cyanosis. NEUROLOGICAL: Cranial nerves II through XII grossly intact. Normal speech, normal gait. PSYCH: Normal mood, normal affect. SKIN: Warm, Dry, normal turgor, no rashes noted. - Labs CBC & Chem 7: 05/21/23 04:14 05/21/23 04:14 Labs: Abnormal Lab Results - Last 24 Hours (Table) 05/21/23 05/21/23 Range/Units 04:14 04:14 RBC 2.69 L (4.40-5.60) X 10*6/uL Hgb 8.6 L (13.0-17.0) g/dL Hct 26.1 L (39.6-50.0) % RDW 14.6 H (11.5-14.5) % Plt Count 135 L (140-440) X 10*3/uL MPV 9.3 L (9.5-12.2) FL Lymphocytes # 0.57 L (0.90-5.00) X 10*3/uL Anion Gap 17.00 H (4.00-12.00) mmol/L BUN 71.4 H (9.0-27.0) mg/dL Creatinine 12.9 A* (0.6-1.5) mg/dL Est GFR (CKD-EPI) 4 L (>=60) BUN/Creatinine Ratio 5.53 L (12.00-20.00) Ratio Assessment and Plan (1) Palpitations Current Visit: Yes Status: Acute Code(s): R00.2 - PALPITATIONS SNOMED Code(s): 20679624 (2) Anemia in chronic kidney disease (CKD) Current Visit: No Status: Acute Code(s): N18.9 - CHRONIC KIDNEY DISEASE, UNSPECIFIED; D63.1 - ANEMIA IN CHRONIC KIDNEY DISEASE SNOMED Code(s): 385937158 (3) Atrial fibrillation Current Visit: No Status: Acute Code(s): I48.91 - UNSPECIFIED ATRIAL FIBRILLATION SNOMED Code(s): 02510380 (4) ESRD (end stage renal disease) on dialysis Current Visit: No Status: Acute Code(s): N18.6 - END STAGE RENAL DISEASE; Z99.2 - DEPENDENCE ON RENAL DIALYSIS SNOMED Code(s): 882403529 (5) Hypertension Current Visit: No Status: Acute Code(s): I10 - ESSENTIAL (PRIMARY) HYPERTENSION SNOMED Code(s): 92635599 Plan: Dialysis should be in the next several hours. Weight on cardiology consult. Expect discharge this afternoon if he is cleared by cardiology. Otherwise he will be reevaluated in the next 24 hours. If discharge we'll have him follow-up in the office in the next several days.
--- NOTE | 2023-05-21 14:00 | P.CRDCN ---
History of Present Illness Consult date: 05/21/23 Chief complaint: Palpitations/heart racing History of present illness: The patient is a pleasant 43-year-old gentleman with renal failure currently he is on dialysis as well as hypertension was brought to the hospital from dialysis center because of palpitations/heart racing. The patient has been experiencing these episodes for long time but yesterday was quite more prominent. He initially presented to the emergency department he was discharged in stable medical condition but he presented again because of recurrent symptoms. No associated dizziness or lightheaded is no presyncope or syncope. He does have chest discomfort appears to be extremely atypical/noncardiac. He underwent a workup in the hospital including an EKG showing sinus mechanism only. The chest x-ray did not show any acute abnormalities beside pulmonary vascular congestion. The troponin came in to be slightly abnormal. The examination is remarkable for regular rhythm with a systolic murmur appeared to be flow murmur and clear breathing sounds bilaterally. The patient was seen by our service in 2021 where he was seen for heart failure. He underwent an echo at that point and that showed preserved LV systolic function was moderate pulmonary regurgitation Assessment Palpitations/heart racing Renal failure currently on dialysis Hypertension Plan Rule out cardiac arrhythmia mainly atrial fibrillation. Event monitor as an outpatient is recommended The patient potentially can be discharged home from a perivascular standpoint of view Past Medical History Past Medical History: Atrial Fibrillation, Asthma, Hypertension, Renal Disease Additional Past Medical History / Comment(s): states hx asthma triggered by environmental allergies- no current rx., epistaxis 09/16/17, Hemo-dialysis Tue -Tue-Tue, fistura left arm, states he recevied blood transfusion last week at [facility]., states blood in stool., states he is illiterate-he was able to read letters and his prep instructions. History of Any Multi-Drug Resistant Organisms: None Reported Past Surgical History: Tonsillectomy Additional Past Surgical History / Comment(s): fistula to left upper arm. Past Anesthesia/Blood Transfusion Reactions: No Reported Reaction Additional Past Anesthesia/Blood Transfusion Reaction / Comment(s): sorethroat afterwards. BLOOD TRANSFUSION A FEW WEEKS AGO AT [facility]. Past Psychological History: No Psychological Hx Reported Additional Psychological History / Comment(s): Pt resides alone. He works at [employer]. He does not drive, his family takes him to [facility]. Smoking Status: Never smoker Past Alcohol Use History: Occasional Additional Past Alcohol Use History / Comment(s): chews tobacco. states he used to drink 18 beers/week but has recently quit in December 2021. Past Drug Use History: None Reported - Past Family History Mother Additional Family Medical History / Comment(s): liver and kidney transplant Father Additional Family Medical History / Comment(s): pt states father of heart attack in his 50's Medications and Allergies Home Medications Medication Instructions Recorded Confirmed Type Furosemide [Lasix] 80 mg PO BID 05/10/19 05/20/23 History amLODIPine [Norvasc] 5 mg PO BID 07/02/21 05/20/23 History Magnebind 300 2 tab PO TID-W/MEALS 07/21/21 05/20/23 History Lidocaine-Prilocaine Cream [Emla 1 applic TOPICAL DIRECTED PRN 04/12/22 05/20/23 History Cream 2.5%/2.5%] Metoprolol Succinate (ER) [Toprol 50 mg PO HS 04/12/22 05/20/23 History XL] Omeprazole 20 mg PO DAILY 04/12/22 05/20/23 History Camila-Marsha 0.8mg 1 cap PO DAILY 04/12/22 05/20/23 History Calcium Acetate 667mg Caps 2,001 mg PO TID-W/MEALS 05/20/23 05/20/23 History Calcium Acetate 667mg Caps 667 - 1,334 mg PO DIRECTED PRN 05/20/23 05/20/23 History Fish Oil/Dha/Epa [Fish Oil 1,200 1 cap PO DAILY 05/20/23 05/20/23 History mg Fish Oil] Allergies Allergy/AdvReac Type Severity Reaction Status Date / Time cranberry Allergy Anaphylaxis Verified 05/20/23 12:19 pollen extracts Allergy Dyspnea, Verified 05/20/23 12:19 Sneezing, Itching Physical Exam Vitals: Vital Signs Temp Pulse Pulse Resp BP BP Pulse Ox 05/21/23 07:00 97.9 F 58 L 16 141/75 97 05/21/23 02:31 98.5 F 64 15 164/86 99 05/21/23 01:18 65 16 05/20/23 20:07 65 16 05/20/23 20:05 98.2 F 65 16 155/87 97 05/20/23 16:05 97.2 F L 60 16 146/80 95 05/20/23 15:00 60 18 128/68 97 05/20/23 14:00 60 20 132/70 97 Intake and Output 05/20/23 05/21/23 05/21/23 22:59 06:59 14:59 Other: Voiding Method Toilet Toilet # Voids 1 1 Weight 90.718 kg Results 05/21/23 04:14 05/21/23 04:14 CBC 05/21/23 Range/Units 04:14 WBC 4.91 (4.50-10.00) X 10*3/uL RBC 2.69 L (4.40-5.60) X 10*6/uL Hgb 8.6 L (13.0-17.0) g/dL Hct 26.1 L (39.6-50.0) % Plt Count 135 L (140-440) X 10*3/uL Comprehensive Metabolic Panel 05/21/23 Range/Units 04:14 Sodium 138 (135-145) mmol/L Potassium 5.1 (3.5-5.5) mmol/L Chloride 96 (96-109) mmol/L Carbon Dioxide 25.0 (21.6-31.8) mmol/L BUN 71.4 H (9.0-27.0) mg/dL Creatinine 12.9 A* (0.6-1.5) mg/dL Glucose 89 (70-110) mg/dL Calcium 9.7 (8.7-10.3) mg/dL Current Medications Generic Name Dose Route Start Last Admin Trade Name Rileyq PRN Reason Stop Dose Admin Amlodipine Besylate 5 mg 05/20/23 21:00 05/21/23 09:00 Amlodipine 5 Mg Tab PO 5 mg BID PETER Administration Calcium Acetate 2,001 mg 05/20/23 17:30 05/21/23 13:41 Calcium Acetate 667 Mg Tab PO Not Given TID-W/MEALS PETER Furosemide 80 mg 05/20/23 21:00 05/21/23 09:01 Furosemide 80 Mg Tab PO 80 mg BID PETER Administration Sodium Chloride 1,000 mls @ 20 mls/hr 05/20/23 11:00 05/20/23 11:16 Saline 0.9% IV 20 mls/hr .Q24H PETER Administration Lidocaine/Prilocaine 1 applic 05/20/23 17:02 Lidocaine-Prilocaine 2.5-2.5% Cream 5 Gm Tube TOPICAL DIRECTED PRN AVF access Protocol Metoprolol Succinate 50 mg 05/20/23 21:00 05/20/23 20:07 Metoprolol Succinate (Er) 50 Mg Tab.Er.24h PO 50 mg HS PETER Administration Multivit/Ca Carb/B Cmplx/FA/Prenat 1 each 05/21/23 09:00 05/21/23 09:00 Folic Acid-Vit B Complex-Vit C 1 Cap PO 1 each DAILY PETER Administration Mupirocin 1 applic 05/21/23 12:08 Mupirocin 2% Oint 22 Gm Tube TOPICAL TID PRN nose bleed Protocol Naloxone HCl 0.2 mg 05/20/23 10:59 Naloxone 0.4 Mg/Ml 1 Ml Vial IV Q2M PRN Opioid Reversal Nicotine 1 patch 05/20/23 18:30 05/21/23 09:01 Nicotine 14mg/24hr Patch TRANSDERM 1 patch DAILY PETER Administration Pantoprazole Sodium 40 mg 05/21/23 07:30 05/21/23 06:21 Pantoprazole 40 Mg Tablet PO 40 mg [id number] PETER Administration Intake and Output 05/20/23 05/21/23 05/21/23 22:59 06:59 14:59 Other: Voiding Method Toilet Toilet # Voids 1 1 Weight 90.718 kg 05/21/23 04:14 05/21/23 04:14
--- NOTE | 2023-05-21 14:27 | P.PN ---
Subjective Progress Note Date: 05/21/23 Follow-up for ESRD. Objective - Vital Signs Vital signs: Vital Signs Temp 97.9 F 05/21/23 07:00 Pulse 58 L 05/21/23 07:00 Resp 16 05/21/23 07:00 BP 141/75 05/21/23 07:00 Pulse Ox 97 05/21/23 07:00 FiO2 Intake & Output 05/20/23 05/21/23 05/21/23 18:59 06:59 18:59 Weight 90.718 kg Other: Voiding Method Toilet # Voids 1 - Exam No acute distress S1-S2 heard Lungs clear No edema - Labs CBC & Chem 7: 05/21/23 04:14 05/21/23 04:14 Labs: Abnormal Lab Results - Last 24 Hours (Table) 05/21/23 05/21/23 Range/Units 04:14 04:14 RBC 2.69 L (4.40-5.60) X 10*6/uL Hgb 8.6 L (13.0-17.0) g/dL Hct 26.1 L (39.6-50.0) % RDW 14.6 H (11.5-14.5) % Plt Count 135 L (140-440) X 10*3/uL MPV 9.3 L (9.5-12.2) FL Lymphocytes # 0.57 L (0.90-5.00) X 10*3/uL Anion Gap 17.00 H (4.00-12.00) mmol/L BUN 71.4 H (9.0-27.0) mg/dL Creatinine 12.9 A* (0.6-1.5) mg/dL Est GFR (CKD-EPI) 4 L (>=60) BUN/Creatinine Ratio 5.53 L (12.00-20.00) Ratio Assessment and Plan Assessment: #1 palpitations with underlying atrial fibrillation. #2 ESRD on hemodialysis, MWF schedule. #3 hypertension with ESRD #4 anemia with ESRD #5 metabolic bone disease. Plan: #1 hemodialysis today, next treatment on Tuesday #2 ESRD medications #3 appreciate cardiology input #4 stable from nephrology for discharge after dialysis
--- NOTE | 2023-05-21 16:11 | P.DS ---
Providers Date of admission: 05/20/23 10:59 Expected date of discharge: 05/21/23 Attending physician: Ming Padgett Consults: 05/20/23 10:59 Consult Physician Routine Consulting Provider: Corie Mendez Consult Reason/Comments: HD Do you want consulting provider notified?: Yes Consult Physician Routine Consulting Provider: Tang Jorgensen Consult Reason/Comments: palpitations Do you want consulting provider notified?: Yes Primary care physician: Reji Rodriguez - Preet Diagnosis(es) (1) Palpitations Current Visit: Yes Status: Acute (2) Anemia in chronic kidney disease (CKD) Current Visit: No Status: Acute (3) Atrial fibrillation Current Visit: No Status: Acute (4) ESRD (end stage renal disease) on dialysis Current Visit: No Status: Acute (5) Hypertension Current Visit: No Status: Acute Hospital Course: New is reevaluated after having palpitations which appear to be A. fib with RVR at dialysis. He was in dialysis when he had the palpitations stopped and EMS was called and transported here. In the rig was thought to be A. fib with RVR, however the emergency room doctor indicated this quality was so poor is very difficult to interpret. It is resolved at his arrival. He is been asymptomatic overnight. No telemetry issues. He is on hemodialysis Tuesday. He is scheduled for dialysis this afternoon. He denies any complaints other than occasional nosebleed, which bothered him last night. He denies any chest pains pressures read nausea or vomiting this time otherwise feels well. Allergies has seen him. Cardiology consult is pending. addendum. He underwent dialysis and was cleared by nephrology and cardiology. He will f/u with cardiology for event monitor, nephrology for ongoing dialysis and PCP for ongoing care. Patient Condition at Discharge: Fair Plan - Discharge Summary Discharge Rx Participant: Yes New Discharge Prescriptions: New Nicotine 14Mg/24Hr Patch [Habitrol] 1 patch TRANSDERM DAILY patch Continue Furosemide [Lasix] 80 mg PO BID Omeprazole 20 mg PO DAILY Metoprolol Succinate (ER) [Toprol XL] 50 mg PO HS Camila-Marsha 0.8mg 1 cap PO DAILY Lidocaine-Prilocaine Cream [Emla Cream 2.5%/2.5%] 1 applic TOPICAL DIRECTED PRN PRN Reason: AVF access Calcium Acetate 667mg Caps 2,001 mg PO TID-W/MEALS Fish Oil/Dha/Epa [Fish Oil 1,200 mg Fish Oil] 1 cap PO DAILY amLODIPine [Norvasc] 5 mg PO BID Magnebind 300 2 tab PO TID-W/MEALS Calcium Acetate 667mg Caps 667 - 1,334 mg PO DIRECTED PRN PRN Reason: snacks Discharge Medication List Furosemide [Lasix] 80 mg PO BID 05/10/19 [History] amLODIPine [Norvasc] 5 mg PO BID 07/02/21 [History] Magnebind 300 2 tab PO TID-W/MEALS 07/21/21 [History] Lidocaine-Prilocaine Cream [Emla Cream 2.5%/2.5%] 1 applic TOPICAL DIRECTED PRN 04/12/22 [History] Metoprolol Succinate (ER) [Toprol XL] 50 mg PO HS 04/12/22 [History] Omeprazole 20 mg PO DAILY 04/12/22 [History] Camila-Marsha 0.8mg 1 cap PO DAILY 04/12/22 [History] Calcium Acetate 667mg Caps 2,001 mg PO TID-W/MEALS 05/20/23 [History] Calcium Acetate 667mg Caps 667 - 1,334 mg PO DIRECTED PRN 05/20/23 [History] Fish Oil/Dha/Epa [Fish Oil 1,200 mg Fish Oil] 1 cap PO DAILY 05/20/23 [History] Nicotine 14Mg/24Hr Patch [Habitrol] 1 patch TRANSDERM DAILY patch 05/21/23 [Rx] Follow up Appointment(s)/Referral(s): Tang Jorgensen MD [STAFF PHYSICIAN] - 1 Week [facility] [NON-STAFF] - 1-2 Days (tuesday for dialysis) Reji Rodriguez Jr, DO [Primary Care Provider] - 1-2 days Discharge Disposition: HOME SELF-CARE
[2023-05-21] MEDS: SODIUM CHLORIDE 0.9% 1,000 ML IV SCH (18:32)
[2023-05-21] MEDS ORDERED: METOPROLOL SUCCINATE (ER) 25 MG TAB.ER.24H PO SCH (21:00)
[2023-05-22] MEDS ORDERED: diphenhydrAMINE 25 MG CAP PO PRN (03:38)
[2023-05-22] MEDS: PANTOPRAZOLE 40 MG TABLET PO SCH (06:31)
[2023-05-22 08:34] VITALS: BP 153/83; RESP 18; TEMP 98
[2023-05-22] MEDS: FUROSEMIDE 80 MG TAB PO SCH (08:35)
[2023-05-22] MEDS: CALCIUM ACETATE 667 MG TAB PO SCH (08:35)
[2023-05-22] MEDS: FOLIC ACID-VIT B COMPLEX-VIT C 1 CAP PO SCH (08:35)
[2023-05-22] MEDS: amLODIPine 5 MG TAB PO SCH (08:35)
[2023-05-22] MEDS: NICOTINE 14MG/24HR PATCH TRANSDERM SCH (08:36)
[2023-05-22] MEDS: SODIUM CHLORIDE 0.9% 1,000 ML IV SCH (11:21)
[2023-05-22 11:22] VITALS: PULSE 63
--- NOTE | 2023-05-22 12:45 | P.PN ---
Subjective Progress Note Date: 05/22/23 Principal diagnosis: HTN The patient is a pleasant 43-year-old gentleman with renal failure currently he is on dialysis as well as hypertension was brought to the hospital from dialysis center because of palpitations/heart racing. The patient has been experiencing these episodes for long time but yesterday was quite more prominent. He initially presented to the emergency department he was discharged in stable medical condition but he presented again because of recurrent symptoms. No associated dizziness or lightheaded is no presyncope or syncope. He does have chest discomfort appears to be extremely atypical/noncardiac. He underwent a workup in the hospital including an EKG showing sinus mechanism only. The chest x-ray did not show any acute abnormalities beside pulmonary vascular congestion. The troponin came in to be slightly abnormal. The examination is remarkable for regular rhythm with a systolic murmur appeared to be flow murmur and clear breathing sounds bilaterally. The patient was seen by our service in 2021 where he was seen for heart failure. He underwent an echo at that point and that showed preserved LV systolic function was moderate pulmonary regurgitation 05/22/2023 The patient was seen and evaluated this morning. He went into atrial fibrillation with RVR for a brief period of time and converted to normal sinus mechanism. I did increase the dose of beta lizzeth. He is feeling better. No more palpitations. No chest pain or chest discomfort or shortness of breath. He doesn't need to be on anticoagulation giving score being only one with hypertension. The examination is remarkable for regular rhythm with soft systolic/flow murmur and clear breathing sounds bilaterally and no edema in the lower extremities Assessment Palpitations/heart racing Paroxysmal atrial fibrillation Renal failure currently on dialysis Hypertension Plan Continue the current medical regimen The patient can be discharged Objective - Vital Signs Vital signs: Vital Signs Temp 98 F 05/22/23 07:00 Pulse 63 05/22/23 07:46 Resp 18 05/22/23 07:00 BP 153/83 05/22/23 07:00 Pulse Ox 96 05/22/23 07:00 FiO2 Intake & Output 05/21/23 05/22/23 05/22/23 18:59 06:59 18:59 Intake Total 400 500 Output Total 2200 Balance -1800 500 Intake: Oral 500 Hemodialysis 400 Output: Hemodialysis 2200 Other: Voiding Method Toilet # Voids 2 1 # Bowel Movements 0 0 - Labs CBC & Chem 7: 05/21/23 04:14 05/21/23 04:14
== END 2023-05-22 13:33 | disposition home or self-care (01) ==
LOC: EC 09:00 → 6NMEDSUR 10:59
PROVIDERS: ADMIT Family Medicine; ATTEND Family Medicine
DX: I48.0 Paroxysmal atrial fibrillation (principal); I13.2 Hypertensive heart and chronic kidney disease with heart failure and with stage 5 chronic kidney disease, or end stage renal disease; N18.6 End stage renal disease; I50.9 Heart failure, unspecified; Z99.2 Dependence on renal dialysis; D63.1 Anemia in chronic kidney disease; M89.8X9 Other specified disorders of bone, unspecified site; E11.22 Type 2 diabetes mellitus with diabetic chronic kidney disease; J45.909 Unspecified asthma, uncomplicated; K92.1 Melena; R04.0 Epistaxis; Z55.0 Illiteracy and low-level literacy; Z79.899 Other long term (current) drug therapy; Z91.018 Allergy to other foods; Z91.048 Other nonmedicinal substance allergy status; Z98.890 Other specified postprocedural states; Z82.49 Family history of ischemic heart disease and other diseases of the circulatory system; Z84.1 Family history of disorders of kidney and ureter; Z83.79 Family history of other diseases of the digestive system
CPT/HCPCS: 99285; 36415; 93005; 80053; 80048; 83735; 84484; 85025 ×2; 71045; G0257; G0378 ×3; S4990 ×3; 90935

== ENCOUNTER → 2023-06-23 | Outpatient (CLI) | payer MEDICARE ==
--- NOTE | 2023-06-24 11:38 | CA ---
Transthoracic Echo Report Name: [place] Age: 43 Gender: M : 1980 Exam Date: 06/23/2023 12:09 Exam Location: [place] Echo Ht (in): 68 Wt (lb): 202 Ordering Physician: Eric Maya MD ([id number]) Attending/Referring Phys: Hatchery Manager Socorro Hollingsworth RDCS Procedure CPT: Indications: I48.0 PAROXYSMAL ATRIAL FIBRILLATION Cardiac Hx: Technical Quality: Fair Contrast 1: Total Dose (mL): Contrast 2: Total Dose (mL): MEASUREMENTS (Male / Female) Normal Values 2D ECHO LV Diastolic Diameter PLAX 4.9 cm 4.2 - 5.9 / 3.9 - 5.3 cm LV Systolic Diameter PLAX 2.7 cm IVS Diastolic Thickness 2.3 cm 0.6 - 1.0 / 0.6 - 0.9 cm LVPW Diastolic Thickness 2.0 cm 0.6 - 1.0 / 0.6 - 0.9 cm LV Relative Wall Thickness 0.9 RV Internal Dim ED PLAX 4.3 cm LA Volume 108.6 cm??? 18 - 58 / 22 - 52 cm??? LA Volume Index 51.1 cm???/m??? 16 - 28 cm???/m??? M-MODE Aortic Root Diameter MM 4.7 cm LA Systolic Diameter MM 5.3 cm LA Ao Ratio MM 1.1 AV Cusp Separation MM 2.7 cm DOPPLER AV Peak Velocity 130.4 cm/s AV Peak Gradient 6.8 mmHg AV Mean Velocity 89.6 cm/s AV Mean Gradient 3.6 mmHg AV Velocity Time Integral 24.9 cm LVOT Peak Velocity 104.6 cm/s LVOT Peak Gradient 4.4 mmHg LVOT Velocity Time Integral 25.1 cm MV Area PHT 2.9 cm??? Mitral E Point Velocity 52.2 cm/s Mitral A Point Velocity 70.8 cm/s Mitral E to A Ratio 0.7 MV Deceleration Time 265.2 ms MV E' Velocity 3.5 cm/s Mitral E to MV E' Ratio 15.0 TR Peak Velocity 228.3 cm/s TR Peak Gradient 20.9 mmHg Right Ventricular Systolic Press 25.5 mmHg FINDINGS Left Ventricle Severely increased left ventricular wall thickness. Left ventricular cavity size normal. Normal left ventricular systolic function with no obvious regional wall motion abnormalities. Left ventricular ejection fraction is estimated at 55 %. Right Ventricle Moderate right ventricular dilatation. Right ventricular systolic pressure within normal limits. Right Atrium Normal right atrial size. Left Atrium Severely increased left atrial volume. Mildly increased left atrial area. Mitral Valve Structurally normal mitral valve. Mild mitral annular calcification. Mild mitral regurgitation. Aortic Valve Trileaflet aortic valve. No aortic valve stenosis or regurgitation. Tricuspid Valve Structurally normal tricuspid valve. Mild tricuspid regurgitation. Pulmonic Valve Structurally normal pulmonic valve. Mild pulmonic regurgitation. Pericardium No pericardial effusion. Aorta Mildly dilated proximal ascending aorta (tube). Mildly dilated aortic annulus. Mild aortic dilatation at the level of the sinuses of valsalva (root). CONCLUSIONS Severe increased left ventricular wall thickness Left ventricular ejection fraction 55% RVSP 25 Moderately dilated left atrium Mild mitral regurgitation Previewed by: Dr. Ronny Gomez DO (Electronically Signed) Final Date: 24 June 2023 11:37
== END | disposition home or self-care (01) ==
LOC: RADECHMAIN 12:05
PROVIDERS: ATTEND Internal Medicine Interventional Cardiology
DX: Z01.810 Encounter for preprocedural cardiovascular examination (principal); I51.7 Cardiomegaly; I48.0 Paroxysmal atrial fibrillation; I34.0 Nonrheumatic mitral (valve) insufficiency; R94.39 Abnormal result of other cardiovascular function study
CPT/HCPCS: 93306

== ENCOUNTER 2023-07-13 11:23 | Day surgery (SDC) | payer MEDICARE ==
[2023-07-12 09:53] VITALS: BMI 29.5
[~2023-07-13 11:23] MED LIST changes: +ALPRAZolam 0.25 MG TAB PO PRN; +ALPRAZolam 0.5 MG TAB PO PRN; +ASPIRIN 325 MG TAB PO ONE; +HEPARIN SODIUM,PORCINE (1 ML) 2,500 UNIT in SODIUM CHLORIDE 0.9% 250 ML IRRIGATION PRN; +HEPARIN SODIUM,PORCINE 10,000 UNIT in SODIUM CHLORIDE 0.9% 1,000 ML IRRIGATION PRN; -LACTATED RINGERS 1,000 ML IV SCH; -LIDOCAINE 1% (10MG/ML) FOR IV START INTRADERMA PRN; +NITROGLYCERIN SL TABS 0.4 MG TAB SUBLINGUAL PRN; +SODIUM CHLORIDE 0.9% 1,000 ML in EMPTY BAG 1 BAG IV SCH
[2023-07-13] MEDS ORDERED: SODIUM CHLORIDE 0.9% 1,000 ML IV ONE (11:27)
[2023-07-13 11:47] VITALS: RESP 16; TEMP 97
[2023-07-13 11:52] LABS: Basophils % (A) 1 %; Eosinophils # (A) 0.1 k/uL (0-0.7); Eosinophils % (A) 3 %; HCT 43.4 % (39.0-53.0); Lymphocytes # (A) 0.8 k/uL (1.0-4.8); Lymphocytes % (A) 17 %; MCH 31.1 pg (25.0-35.0); MCHC 32.7 g/dL (31.0-37.0); MCV 95.1 fL (80.0-100.0); Monocytes # (A) 0.3 k/uL (0-1.0); Monocytes % (A) 7 %; Neutrophils # (A) 3.1 k/uL (1.3-7.7); Neutrophils % (A) 70 %; Platelet Count 201 k/uL (150-450); RBC 4.56 m/uL (4.30-5.90); WBC 4.4 k/uL (3.8-10.6)
[2023-07-13 12:01] LABS: HGB 14.2 gm/dL (13.0-17.5)
[2023-07-13] MEDS ORDERED: LIDOCAINE 1% INJ 10MG/ML (20 ML MDV) ONE (12:11)
[2023-07-13] MEDS ORDERED: HEPARIN SODIUM 1,000 UN/ML (10ML VL) ONE (12:11)
[2023-07-13] MEDS ORDERED: VERAPAMIL 2.5 MG/ML 2 ML AMP ONE (12:11)
[2023-07-13] MEDS ORDERED: fentaNYL (PF) 50 MCG/ML 2 ML AMP ONE (12:12)
[2023-07-13 12:24] LABS: African American GFR (CKD) 13 (>60 ml/min/1.73 sqM); Anion Gap 10 mmol/L; Blood Urea Nitrogen 29 mg/dL (9-20); Calcium 9.7 mg/dL (8.4-10.2); Carbon Dioxide 31 mmol/L (22-30); Chloride 96 mmol/L (98-107); Glucose 88 mg/dL (74-99); Non-African American GFR(CKD) 11 (>60 ml/min/1.73 sqM); Potassium 4.2 mmol/L (3.5-5.1); Sodium 137 mmol/L (137-145)
[2023-07-13] MEDS ORDERED: fentaNYL (PF) 50 MCG/ML 2 ML AMP IVP ONE (13:19)
[2023-07-13] MEDS: LIDOCAINE 1% INJ 10MG/ML (20 ML MDV) SQ ONE ×2 (13:20→13:28)
[2023-07-13] MEDS ORDERED: IOPAMIDOL-370 100ML BTL INJ ONE (13:42)
[2023-07-13] MEDS ORDERED: RX INFO: IV CONTRAST WAS GIVEN 1 EACH MISC MISCELLANE PRN (13:53)
[2023-07-13] MEDS ORDERED: SODIUM CHLORIDE 0.9% 1,000 ML IV SCH (14:00)
--- NOTE | 2023-07-13 14:03 | P.CARDCATH ---
Date of Procedure: 07/13/23 Description of Procedure: Cardiac Catheterization: The patient is a 43-year-old male with end-stage renal disease, on hemodialysis, being evaluated for transplant who had an abnormal MPI. Recommendations were made regarding cardiac catheterization, the risks and the complications were discussed with the patient who is in full understanding and agreement. Procedure Description: Patient was brought to clinical genetics laboratory chief in fasting semi-sedated state after receiving Fentanyl and Benadryl achieiving moderate conscious sedated state. Attempt to cannulate the right radial artery was unsuccessful. Using Xylocaine Anesthesia and modified Seldinger technique, with a microcatheter approach a 6-[place] sheath was introduced in the right femoral artery . Subsequently, selective coronary angiography was performed using a 6-[place] 4 bend Rafael catheter. Multiple views of the coronary artery including hemiaxial views were obtained. The and 6-[place] pigtail catheter was used to cross the aortic valve and LVEDP was calculated. Following that, catheter and sheath were removed. Hemostasis was obtained with deployment of Angio-Seal . There was no immediate complication. Patient was returned to room in stable condition. Findings: Left main: This is a large-size vessel, bifurcating into LAD and left circumfl ex, left main has no obstructive disease LAD: This is a large size vessel, reaching to the apex with a wraparound apex segment giving rise to 2 diagonal branch, the LAD and branches have no high-grade stenosis. There was mild intimal plaque in the mid LAD of 10-20% Left circumflex: This is a nondominant vessel large caliber giving rise to 2 obtuse marginal branch the first one is very proximal. The first obtuse marginal branch has a 10-20% plaque RCA: This is a large dominant vessel bifurcating distally to PDA and PLV the right coronary artery has 10-20% plaque in the proximal and midsegment with no evidence of high-grade stenosis Left Ventriculogram: Not performed Hemodynamics: There was no gradient across the aortic valve , LVEDP was 6-8 mmHg Conclusion: 1. Mild triple-vessel disease 2. Right dominance 3. Low LVEDP Recommendations: I would recommend to continue medical therapy, I see no contraindication to his upcoming transplant evaluation. The findings and the recommendations were discussed with the patient he was in full understanding and agreement. Duration of sedation is 27 minutes.
[2023-07-13 17:38] VITALS: BP 127/69; PULSE 68
[2023-07-13] MEDS ORDERED: hydrALAZINE HCL 50 MG TAB PO SCH (21:00)
[2023-07-13] MEDS ORDERED: METOPROLOL SUCCINATE (ER) 50 MG TAB.ER.24H PO SCH (21:00)
[2023-07-14] MEDS ORDERED: METOPROLOL SUCCINATE (ER) 25 MG TAB.ER.24H PO SCH (09:00)
[2023-07-14] MEDS ORDERED: amLODIPine 5 MG TAB PO SCH (09:00)
== END 2023-07-13 18:03 | disposition home or self-care (01) ==
LOC: CATHCVL 11:23 → 6NMEDSUR 13:46 → CATHCVL 13:46
PROVIDERS: ATTEND Internal Medicine Interventional Cardiology
DX: I25.10 Atherosclerotic heart disease of native coronary artery without angina pectoris (principal); N18.6 End stage renal disease; Z99.2 Dependence on renal dialysis
CPT/HCPCS: 93458; 80048; 85025; 99152; 99153; C1760; C1769 ×2; C1894 ×2; J2001; J3010; Q9967

== ENCOUNTER → 2023-08-02 | Outpatient (CLI) | payer MEDICARE ==
[2023-08-02 15:58] LABS: ALT 15 U/L (10-49); AST 12 U/L (14-35); Chol/HDL Ratio 4.87 Ratio; LDL Cholesterol,Calculated 113.5 mg/dL (0.0-131.0)
== END | disposition home or self-care (01) ==
LOC: LABWHC1 09:38
PROVIDERS: ATTEND Internal Medicine Interventional Cardiology
DX: E78.2 Mixed hyperlipidemia (principal)
CPT/HCPCS: 36415; 80061; 84450; 84460

== ENCOUNTER 2023-10-25 20:44 | Emergency (ER) | payer MEDICARE ==
--- NOTE | 2023-10-25 20:58 | ED ---
General Adult HPI - General Stated complaint: R Side Pain Time Seen by Provider: 10/25/23 20:57 Source: patient, family, RN notes reviewed Mode of arrival: ambulatory Limitations: no limitations - History of Present Illness Initial comments: 43-year-old male presenting to the ER with a chief complaint of weakness and fatigue. Patient states for the past 2 days he has been having an increase in fatigue and weakness. He does have kidney disease and is on dialysis. His last treatment was yesterday. His next treatment is tomorrow. He also is reporting right lower quadrant abdominal pain. He states it feels like there is a "nail" in his abdomen. He states he has been having diarrhea and chills as well. Denies any chest pain, shortness of breath, fevers, urinary complaints or peripheral edema. - Related Data Home Medications Medication Instructions Recorded Confirmed Furosemide [Lasix] 80 mg PO DAILY 05/10/19 10/24/23 amLODIPine [Norvasc] 5 mg PO DAILY 07/02/21 10/24/23 Magnebind 300 2 tab PO TID-W/MEALS 07/21/21 10/24/23 Metoprolol Succinate (ER) [Toprol 50 mg PO HS 04/12/22 10/24/23 XL] Fish Oil/Dha/Epa [Fish Oil 1,200 1 cap PO HS 05/20/23 10/24/23 mg Fish Oil] Metoprolol Succinate (ER) [Toprol 25 mg PO DAILY 07/12/23 10/24/23 Xl] Pantoprazole [Protonix] 40 mg PO DAILY 07/12/23 10/24/23 Atorvastatin [Lipitor] 40 mg PO HS 10/24/23 10/24/23 Allergies Allergy/AdvReac Type Severity Reaction Status Date / Time cranberry Allergy Anaphylaxis Verified 10/25/23 21:22 pollen extracts Allergy Dyspnea, Verified 10/25/23 21:22 Sneezing, Itching Review of Systems ROS Statement: Those systems with pertinent positive or pertinent negative responses have been documented in the HPI. ROS Other: All systems not noted in ROS Statement are negative. Past Medical History Past Medical History: Atrial Fibrillation, Asthma, GERD/Reflux, Hyperlipidemia, Hypertension, Renal Disease Additional Past Medical History / Comment(s): Hemo-dialysis Mon-Tue-Tue x 7 yrs, fistula left arm, currently preparing for kidney transplant at [facility]. Pt states he is illiterate-he is able to read a little. History of Any Multi-Drug Resistant Organisms: None Reported Past Surgical History: Heart Catheterization, Tonsillectomy Additional Past Surgical History / Comment(s): fistula to left upper arm Past Anesthesia/Blood Transfusion Reactions: No Reported Reaction Additional Past Anesthesia/Blood Transfusion Reaction / Comment(s): BLOOD TRANSFUSION, NO ISSUES. Smoking Status: Never smoker - Past Family History Mother Additional Family Medical History / Comment(s): liver and kidney transplant Father Additional Family Medical History / Comment(s): pt states father of heart attack in his 50's General Exam - General Exam Comments Initial Comments: Visual Physical Exam Vital signs reviewed General: Ill-appearing and fatigued Head: Normocephalic, atraumatic Eyes: PERRLA, EOMI ENT: Airway patent Chest: Nonlabored breathing Skin: No visual rash, normal skin tone Neuro: Alert and oriented 3 Musculoskeletal: No gross abnormalities General appearance: alert, in no apparent distress Head exam: Present: atraumatic, normocephalic, normal inspection Eye exam: Present: normal appearance, PERRL, EOMI. Absent: scleral icterus, conjunctival injection, periorbital swelling Pupils: Present: normal accommodation Respiratory exam: Present: normal lung sounds bilaterally. Absent: respiratory distress, wheezes, rales, rhonchi, stridor Cardiovascular Exam: Present: regular rate, normal rhythm, normal heart sounds. Absent: systolic murmur, diastolic murmur, rubs, gallop, clicks GI/Abdominal exam: Present: soft, tenderness (RLQ), normal bowel sounds Skin exam: Present: other (Fistula in left upper arm) Course Vital Signs 10/25/23 10/26/23 21:17 01:43 Temperature 98.3 F Pulse Rate 92 77 Respiratory 18 12 Rate Blood Pressure 115/78 116/76 O2 Sat by Pulse 98 98 Oximetry Medical Decision Making - Medical Decision Making I performed the quick note portion of this chart. Electronically signed by Steve Diaz PA-C Was pt. sent in by a medical professional or institution (SAMIR Scott, NETWORK SYSTEMS ANALYST, urgent care, hospital, or [facility]...) When possible be specific @ -No Did you speak to anyone other than the patient for history (EMS, parent, family, police, friend...)? What history was obtained from this source @ -No Did you review nursing and triage notes (agree or disagree)? Why? @ -I reviewed and agree with nursing and triage notes Were old charts reviewed (outside hosp., previous admission, EMS record, old EKG, old radiological studies, urgent care reports/EKG's, [facility] records)? Report findings @ -No old charts were reviewed Differential Diagnosis (chest pain, altered mental status, abdominal pain women, abdominal pain men, vaginal bleeding, weakness, fever, dyspnea, syncope, headache, dizziness, GI bleed, back pain, seizure, CVA, palpatations, mental health, musculoskeletal)? @ -Differential Abdominal Pain Men:Appendicitis, cholecystitis, diverticulosis, ischemic bowel, pancreatitis, hepatitis, UTI, gastroenteritis, AAA, incarcerated hernia, bowel obstruction, constipation, inflammatory bowel, hepatitis, peptic ulcer disease, splenic infarction, perforated viscus, testicular torsion, this is not meant to be an all-inclusive list EKG interpreted by me (3pts min.). @ -As above X-rays interpreted by me (1pt min.). @ -Chest x-ray interpreted by me negative for acute cardiopulmonary process. CT interpreted by me (1pt min.). @ -ET abdomen pelvis significant for atrophic kidneys with a new rounded lesion on left kidney. U/S interpreted by me (1pt. min.). @ -None done What testing was considered but not performed or refused? (CT, X-rays, U/S, labs)? Why? @ -None What meds were considered but not given or refused? Why? @ -None Did you discuss the management of the patient with other professionals (professionals i.e. , PA, NETWORK SYSTEMS ANALYST, lab, RT, psych nurse, protective services social worker, memory care director, teacher, energy control officer, casework specialist)? Give summary @ -No Was smoking cessation discussed for >3mins.? @ -No Was critical care preformed (if so, how long)? @ -No Were there social determinants of health that impacted care today? How? (Homelessness, low income, unemployed, alcoholism, drug addiction, transportation, low edu. Level, literacy, decrease access to med. care, [facility] [facility], rehab)? @ -No Was there de-escalation of care discussed even if they declined (Discuss DNR or withdrawal of care, Hospice)? DNR status @ -No What co-morbidities impacted this encounter? (DM, HTN, Smoking, COPD, CAD, Cancer, CVA, ARF, Chemo, Hep., AIDS, mental health diagnosis, sleep apnea, morbid obesity)? @ -Renal failure Was patient admitted / discharged? Hospital course, mention meds given and route, prescriptions, significant lab abnormalities, going to OR and other pertinent info. @ -Discharge. 43-year-old male presented to the ER with chief complaint of fatigue and weakness. History and physical exam completed. Vitals stable. No signs of acute distress and nontoxic-appearing. Right lower quadrant abdominal pain to palpation. Normal bowel sounds. Laboratory studies obtained significant for BUN of 68, creatinine 13.82. Patient is on dialysis and is due for dialysis tomorrow. His last treatment was on 10-24-2023. Serology negative. Patient unable to provide urine sample. Chest x-ray interpreted by me negative for acute cardiopulmonary process. CT abdomen pelvis significant for atrophic kidneys with a new rounded lesion on the left kidney. This may represent a simple cyst further workup may be needed. Upon reevaluation, patient sleeping in exam room in no signs of acute distress. Patient received by mouth meclizine for symptom control. EKG without acute evidence of infarct or ischemia. Results discussed with patient, all questions answered. I advised follow-up with PCP. Return parameters discussed. Patient discharged stable condition with follow-up to PCP. I advised him to attend dialysis tomorrow. Patient verbally expressed understanding and agreement with care plan. Case discussed with ED attending, Dr. Jackson. Undiagnosed new problem with uncertain prognosis? @ -No Drug Therapy requiring intensive monitoring for toxicity (Heparin, Nitro, Insulin, Cardizem)? @ -No Were any procedures done? @ -No Diagnosis/symptom? @ -Renal failure/abdominal pain Acute, or Chronic, or Acute on Chronic? @ -Acute Uncomplicated (without systemic symptoms) or Complicated (systemic symptoms)? @ -Uncomplicated Side effects of treatment? @ -No Exacerbation, Progression, or Severe Exacerbation? @ -No Poses a threat to life or bodily function? How? (Chest pain, USA, IA, pneumonia, PE, COPD, DKA, ARF, appy, cholecystitis, CVA, Diverticulitis, Homicidal, Suicidal, threat to staff... and all critical care pts) @ -Yes, renal failure is life-threatening. - Lab Data Result diagrams: 10/25/23 21:41 10/25/23 21:41 Lab Results 10/25/23 10/25/23 10/25/23 Range/Units 21:41 21:41 21:41 WBC 5.6 (3.8-10.6) k/uL RBC 4.42 (4.30-5.90) m/uL Hgb 13.9 (13.0-17.5) gm/dL Hct 43.9 (39.0-53.0) % MCV 99.2 (80.0-100.0) fL MCH 31.5 (25.0-35.0) pg MCHC 31.8 (31.0-37.0) g/dL RDW 15.3 (11.5-15.5) % Plt Count 156 (150-450) k/uL MPV 7.1 Neutrophils % 88 % Lymphocytes % 5 % Monocytes % 4 % Eosinophils % 1 % Basophils % 0 % Neutrophils # 5.0 (1.3-7.7) k/uL Lymphocytes # 0.3 L (1.0-4.8) k/uL Monocytes # 0.2 (0-1.0) k/uL Eosinophils # 0.1 (0-0.7) k/uL Basophils # 0.0 (0-0.2) k/uL Macrocytosis Slight PT 10.8 (10.0-12.5) sec INR 1.0 (<1.2) APTT 26.5 (22.0-30.0) sec Sodium 139 (137-145) mmol/L Potassium 4.7 (3.5-5.1) mmol/L Chloride 99 (98-107) mmol/L Carbon Dioxide 18 L (22-30) mmol/L Anion Gap 22 mmol/L BUN 68 H (9-20) mg/dL Creatinine 13.82 H* (0.66-1.25) mg/dL Est GFR (CKD-EPI)AfAm 4 (>60 ml/min/1.73 sqM) Est GFR (CKD-EPI)NonAf 4 (>60 ml/min/1.73 sqM) Glucose 94 (74-99) mg/dL Plasma Lactic Acid Hola (0.7-2.0) mmol/L Calcium 10.0 (8.4-10.2) mg/dL Phosphorus 5.3 H (2.5-4.5) mg/dL Magnesium 1.9 (1.6-2.3) mg/dL Total Bilirubin 0.9 (0.2-1.3) mg/dL AST 16 L (17-59) U/L ALT 13 (4-49) U/L Alkaline Phosphatase 66 (38-126) U/L Total Protein 8.7 H (6.3-8.2) g/dL Albumin 5.2 H (3.5-5.0) g/dL Influenza Type A (PCR) (Not Detectd) Influenza Type B (PCR) (Not Detectd) RSV (PCR) (Not Detectd) SARS-CoV-2 (PCR) (Not Detectd) 10/25/23 10/25/23 Range/Units 21:52 21:52 WBC (3.8-10.6) k/uL RBC (4.30-5.90) m/uL Hgb (13.0-17.5) gm/dL Hct (39.0-53.0) % MCV (80.0-100.0) fL MCH (25.0-35.0) pg MCHC (31.0-37.0) g/dL RDW (11.5-15.5) % Plt Count (150-450) k/uL MPV Neutrophils % % Lymphocytes % % Monocytes % % Eosinophils % % Basophils % % Neutrophils # (1.3-7.7) k/uL Lymphocytes # (1.0-4.8) k/uL Monocytes # (0-1.0) k/uL Eosinophils # (0-0.7) k/uL Basophils # (0-0.2) k/uL Macrocytosis PT (10.0-12.5) sec INR (<1.2) APTT (22.0-30.0) sec Sodium (137-145) mmol/L Potassium (3.5-5.1) mmol/L Chloride (98-107) mmol/L Carbon Dioxide (22-30) mmol/L Anion Gap mmol/L BUN (9-20) mg/dL Creatinine (0.66-1.25) mg/dL Est GFR (CKD-EPI)AfAm (>60 ml/min/1.73 sqM) Est GFR (CKD-EPI)NonAf (>60 ml/min/1.73 sqM) Glucose (74-99) mg/dL Plasma Lactic Acid Hola 1.1 (0.7-2.0) mmol/L Calcium (8.4-10.2) mg/dL Phosphorus (2.5-4.5) mg/dL Magnesium (1.6-2.3) mg/dL Total Bilirubin (0.2-1.3) mg/dL AST (17-59) U/L ALT (4-49) U/L Alkaline Phosphatase (38-126) U/L Total Protein (6.3-8.2) g/dL Albumin (3.5-5.0) g/dL Influenza Type A (PCR) Not Detected (Not Detectd) Influenza Type B (PCR) Not Detected (Not Detectd) RSV (PCR) Not Detected (Not Detectd) SARS-CoV-2 (PCR) Not Detected (Not Detectd) - EKG Data -: EKG Interpreted by Me EKG Comments: EKG taken at 1: 45 showing a sinus rhythm with no acute ST segment or T wave abnormalities. Ventricular rate 71, MT interval 179, QRS duration 110, QT/QTc 425/448. - Radiology Data Radiology results: report reviewed, image reviewed Disposition Clinical Impression: Renal failure, Abdominal pain Disposition: HOME SELF-CARE Condition: Stable Additional Instructions: Follow-up with PCP and dialysis tomorrow. Return to the ER for any new or worsening concerns. Is patient prescribed a controlled substance at d/c from ED?: No Referrals: Reji Rodriguez Jr, DO [Primary Care Provider] - 1-2 days Time of Disposition: 02:22
[2023-10-25 21:57] VITALS: TEMP 98.3
[2023-10-25 22:00] LABS: Basophils % (A) 0 %; Eosinophils # (A) 0.1 k/uL (0-0.7); Eosinophils % (A) 1 %; HCT 43.9 % (39.0-53.0); HGB 13.9 gm/dL (13.0-17.5); Lymphocytes # (A) 0.3 k/uL (1.0-4.8); Lymphocytes % (A) 5 %; MCH 31.5 pg (25.0-35.0); MCHC 31.8 g/dL (31.0-37.0); MCV 99.2 fL (80.0-100.0); Macrocytosis Slight; Mean Platelet Volume 7.1; Monocytes # (A) 0.2 k/uL (0-1.0); Monocytes % (A) 4 %; Neutrophils % (A) 88 %; Platelet Count 156 k/uL (150-450); RBC 4.42 m/uL (4.30-5.90); RDW 15.3 % (11.5-15.5); WBC 5.6 k/uL (3.8-10.6)
[2023-10-25 22:08] LABS: Partial Thromboplastin Time 26.5 sec (22.0-30.0); Prothrombin Time 10.8 sec (10.0-12.5)
[2023-10-25 22:27] LABS: ALT 13 U/L (4-49); AST 16 U/L (17-59); Albumin 5.2 g/dL (3.5-5.0); Alkaline Phosphatase 66 U/L (38-126); Anion Gap 22 mmol/L; Blood Urea Nitrogen 68 mg/dL (9-20); Carbon Dioxide 18 mmol/L (22-30); Chloride 99 mmol/L (98-107); Glucose 94 mg/dL (74-99); Magnesium 1.9 mg/dL (1.6-2.3); Phosphorus 5.3 mg/dL (2.5-4.5); Potassium 4.7 mmol/L (3.5-5.1); Sodium 139 mmol/L (137-145); Total Bilirubin 0.9 mg/dL (0.2-1.3); Total Protein 8.7 g/dL (6.3-8.2)
[2023-10-25 22:32] LABS: African American GFR (CKD) 4 (>60 ml/min/1.73 sqM); Non-African American GFR(CKD) 4 (>60 ml/min/1.73 sqM)
--- NOTE | 2023-10-25 23:45 | XR ---
EXAM: XR Chest, 2 Views CLINICAL HISTORY: Weakness TECHNIQUE: Frontal and lateral views of the chest. COMPARISON: May 17, 2023. FINDINGS: Lungs: Unremarkable. No infiltration, atelectasis or mass density. Pleural space: Unremarkable. No pneumothorax. No pleural fluid. Heart: The heart is mildly enlarged. Mediastinum: Unremarkable. Normal mediastinal contour. Bones/joints: Unremarkable. No acute abnormalities. IMPRESSION: No acute findings in the chest.
--- NOTE | 2023-10-26 00:30 | CT ---
EXAM: CT Abdomen and Pelvis Without Intravenous Contrast CLINICAL HISTORY: abd pain TECHNIQUE: Axial computed tomography images of the abdomen and pelvis without intravenous contrast. CTDI is 16.1 mGy and DLP is 842.7 mGy-cm. This CT exam was performed using one or more of the following dose reduction techniques: automated exposure control, adjustment of the mA and/or kV according to patient size, and/or use of iterative reconstruction technique. COMPARISON: April 12, 2022. FINDINGS: ABDOMEN: Liver: Unremarkable. Gallbladder and bile ducts: Unremarkable. No calcified stones. No ductal dilation. Pancreas: Unremarkable. No ductal dilation. Spleen: Unremarkable. No splenomegaly. Adrenals: Unremarkable. No mass. Kidneys and ureters: Atrophic kidneys bilaterally. No hydronephrosis. No urinary tract calculus. There are multiple rounded areas in the left kidney which were not clearly present on the prior study. The largest measures 2.8 cm in diameter. The density is mildly elevated from simple fluid. Stomach and bowel: Diverticulosis without diverticulitis. No bowel obstruction. PELVIS: Appendix: Normal appendix. Bladder: Unremarkable. No stones. ABDOMEN and PELVIS: Intraperitoneal space: Unremarkable. No free air. No significant fluid collection. Bones/joints: No acute findings. Soft tissues: Unremarkable. Vasculature: Unremarkable. No abdominal aortic aneurysm. Lymph nodes: Unremarkable. No enlarged lymph nodes. IMPRESSION: No acute findings in the abdomen or pelvis. Atrophic kidneys. New rounded lesions in the left kidney. The largest of these shows density measurements too high to clearly represent a simple cyst. Consider further evaluation with CT or MRI without and with contrast. If the patient cannot receive contrast, consider sonographic evaluation. The
[2023-10-26] MEDS: MECLIZINE 12.5 MG TAB PO STA (01:45)
[2023-10-26 02:19] VITALS: BP 116/76; PULSE 77; RESP 12
== END 2023-10-26 02:28 | disposition home or self-care (01) ==
LOC: EC 20:44
DX: N19 Unspecified kidney failure (principal); Z99.2 Dependence on renal dialysis; Z88.8 Allergy status to other drugs, medicaments and biological substances; Z11.52 Encounter for screening for COVID-19
CPT/HCPCS: 36415; 71046; 74176; 80053; 83605; 83735; 84100; 85025; 85610; 85730; 87636; 93005; 99285

== ENCOUNTER 2023-12-21 07:50 | Day surgery (SDC) | payer MEDICARE ==
[2023-12-19 11:55] VITALS: BMI 30.4
[~2023-12-21 07:50] MED LIST changes: -ALPRAZolam 0.25 MG TAB PO PRN; -ALPRAZolam 0.5 MG TAB PO PRN; -ASPIRIN 325 MG TAB PO ONE; -HEPARIN SODIUM,PORCINE (1 ML) 2,500 UNIT in SODIUM CHLORIDE 0.9% 250 ML IRRIGATION PRN; -HEPARIN SODIUM,PORCINE 10,000 UNIT in SODIUM CHLORIDE 0.9% 1,000 ML IRRIGATION PRN; +LACTATED RINGERS 1,000 ML IV SCH; +LIDOCAINE 1% (10MG/ML) FOR IV START INTRADERMA PRN; -NITROGLYCERIN SL TABS 0.4 MG TAB SUBLINGUAL PRN; -SODIUM CHLORIDE 0.9% 1,000 ML in EMPTY BAG 1 BAG IV SCH
[2023-12-21] MEDS: IV FLUID CONTINUATION 1,000 ML IV ONE (08:43)
[2023-12-21 08:58] VITALS: RESP 16; TEMP 97.7
[2023-12-21] MEDS: SODIUM CHLORIDE 0.9% 500 ML DEHP FREE BAG IV STA (08:58)
[2023-12-21] MEDS ORDERED: PROPOFOL 10 MG/ML 20 ML VIAL IV ONE (09:16)
--- NOTE | 2023-12-21 09:32 | P.PCN ---
Date of Procedure: 12/21/23 Procedure(s) Performed: BRIEF HISTORY: Patient is a 43-year-old pleasant white male scheduled for an elective colonoscopy as a part of evaluation by history of colon polyps. Last colonoscopy was 3 years ago. He was noted to have a 4 cm broad-based rectosigmoid polyp and biopsies revealed adenoma he is scheduled for a surveillance colonoscopy today. PROCEDURE PERFORMED: Colonoscopy with snare polypectomy. PREOPERATIVE DIAGNOSIS: History of colon polyps. IV sedation per Anesthesia. PROCEDURE: After informed consent was obtained, the patient, was brought into the endoscopy unit. IV sedation was administered by Anesthesia under continuous monitoring. Digital rectal examination was normal. Initially the Olympus CF-160 flexible video colonoscope was then inserted in the rectum, gradually advanced into the cecum without any difficulty. Careful examination was performed as the scope was gradually being withdrawn. Ileocecal valve and the appendiceal orifice were visualized and appeared normal. Prep was excellent. Mucosa of the cecum, ascending colon, transverse colon, descending colon, sigmoid colon, and rectum appeared normal. In the proximal rectum at 15 cm from the anal verge there was a 1 cm residual polyp was removed by snare polypectomy. Retroflexion was performed in the rectum and no lesions were seen. The patient tolerated the procedure well. IMPRESSION: 1 cm residual polyp in the proximal rectum s/p snare polypectomy Rest of the colon appeared normal RECOMMENDATIONS: Findings of this examination were discussed with the patient as well as his family. He was advised to follow-up with the biopsy results. If the biopsy reveals adenoma, recommend repeat colonoscopy in 3 years..
[2023-12-21 09:56] VITALS: BP 119/74; PULSE 75
== END 2023-12-21 10:40 | disposition home or self-care (01) ==
LOC: ORWHC2ENDO 07:50
PROVIDERS: ATTEND Internal Medicine Gastroenterology
DX: Z12.11 Encounter for screening for malignant neoplasm of colon (principal); D12.8 Benign neoplasm of rectum; I10 Essential (primary) hypertension; E78.5 Hyperlipidemia, unspecified; I48.91 Unspecified atrial fibrillation; J45.909 Unspecified asthma, uncomplicated; N18.9 Chronic kidney disease, unspecified; G47.33 Obstructive sleep apnea (adult) (pediatric); Z99.2 Dependence on renal dialysis; Z86.010 Personal history of colon polyps; Z79.899 Other long term (current) drug therapy
CPT/HCPCS: 84132; 45385; J2704; 88305

== ENCOUNTER 2023-12-22 11:50 | Observation (INO) | payer MEDICARE ==
--- NOTE | 2023-12-22 13:09 | ED ---
General Adult HPI - General Chief complaint: Syncope Stated complaint: syncope Time Seen by Provider: 12/22/23 11:59 Source: patient, EMS Mode of arrival: EMS Limitations: no limitations - History of Present Illness Initial comments: Dictation was produced using [employer]YLI[employer] dictation software. please excuse any grammatical, word or spelling errors. Chief Complaint: 43-year-old male presents to the emergency department for syncopal episode History of Present Illness: Patient is a 43-year-old male with past medical history of A-fib, ESRD. Patient was at dialysis today. 7 minutes from completing his dialysis patient had a syncopal episode. There was no convulsion noted by dialysis staff. Patient has had syncope during dialysis before that was allegedly related to A-fib with RVR. Patient Nuys any specific complaints at the bedside. Denies any fever, chills or night sweats. The ROS documented in this emergency department record has been reviewed and confirmed by me. Those systems with pertinent positive or negative responses have been documented in the HPI. All other systems are other negative and/or noncontributory. - Related Data Home Medications Medication Instructions Recorded Confirmed Furosemide [Lasix] 80 mg PO BID 05/10/19 12/22/23 amLODIPine [Norvasc] 5 mg PO BID 07/02/21 12/22/23 Metoprolol Succinate (ER) [Toprol 50 mg PO HS 04/12/22 12/22/23 XL] Metoprolol Succinate (ER) [Toprol 25 mg PO DAILY 07/12/23 12/22/23 Xl] Atorvastatin [Lipitor] 40 mg PO HS 10/24/23 12/22/23 Calcium Acetate 667 Tab 2,001 mg PO TID-W/MEALS 12/22/23 12/22/23 Calcium Acetate 667 Tab 667 - 1,334 mg PO DIRECTED PRN 12/22/23 12/22/23 Omeprazole [PriLOSEC] 20 mg PO DAILY 12/22/23 12/22/23 Sildenafil Citrate [Viagra] 100 mg PO DAILY PRN 12/22/23 12/22/23 hydrALAZINE HCL [Apresoline] 50 mg PO BID 12/22/23 12/22/23 Allergies Allergy/AdvReac Type Severity Reaction Status Date / Time cranberry Allergy Anaphylaxis Verified 12/22/23 14:16 pollen extracts Allergy Dyspnea, Verified 12/22/23 14:16 Sneezing, Itching Review of Systems ROS Statement: Those systems with pertinent positive or pertinent negative responses have been documented in the HPI. ROS Other: All systems not noted in ROS Statement are negative. Past Medical History Past Medical History: Atrial Fibrillation, Asthma, GERD/Reflux, Hyperlipidemia, Hypertension, Renal Disease Additional Past Medical History / Comment(s): Hemo-dialysis Tue-Tue-Tue x 7 yrs, fistula left arm, currently preparing for kidney transplant at [facility]. Pt states he is illiterate-he is able to read a little. History of Any Multi-Drug Resistant Organisms: None Reported Past Surgical History: Heart Catheterization, Tonsillectomy Additional Past Surgical History / Comment(s): fistula to left upper arm Past Anesthesia/Blood Transfusion Reactions: No Reported Reaction Additional Past Anesthesia/Blood Transfusion Reaction / Comment(s): BLOOD TRANSFUSION, NO ISSUES. Past Psychological History: No Psychological Hx Reported Smoking Status: Never smoker Past Alcohol Use History: None Reported Past Drug Use History: None Reported - Past Family History Mother Additional Family Medical History / Comment(s): liver and kidney transplant Father Additional Family Medical History / Comment(s): pt states father of heart a ttack in his 50's General Exam - General Exam Comments Initial Comments: PHYSICAL EXAM: General Impression: Alert and oriented x3, not in acute distress HEENT: Normocephalic atraumatic, extra-ocular movements intact, pupils equal and reactive to light bilaterally, mucous membranes moist. Cardiovascular: Heart regular rate and rhythm Chest: Able to complete full sentences, no retractions, no tachypnea Abdomen: abdomen soft, non-tender, non-distended, no organomegaly Musculoskeletal: Pulses present and equal in all extremities, no peripheral edema Motor: no focal deficits noted Neurological: CN II-XII grossly intact, no focal motor or sensory deficits noted Skin: Intact with no visualized rashes Psych: Normal affect and mood Limitations: no limitations Course Vital Signs 12/22/23 12/22/23 12/22/23 11:54 13:35 15:24 Temperature 96.9 F L Pulse Rate 96 105 H 86 Respiratory 18 16 16 Rate Blood Pressure 140/96 142/102 148/105 O2 Sat by Pulse 99 96 96 Oximetry Medical Decision Making - Medical Decision Making Was pt. sent in by a medical professional or institution (, PA, DIRECTOR OF CONSUMER AFFAIRS, urgent care, hospital, or correction...) When possible be specific @ -[No] Did you speak to anyone other than the patient for history (EMS, parent, family, police, friend...)? What history was obtained from this source @ -Some history obtained from EMS Did you review nursing and triage notes (agree or disagree)? Why? @ -[I reviewed and agree with nursing and triage notes] Were old charts reviewed (outside hosp., previous admission, EMS record, old EKG, old radiological studies, urgent care reports/EKG's, correction records)? Report findings @ -[No old charts were reviewed] Differential Diagnosis (chest pain, altered mental status, abdominal pain women, abdominal pain men, vaginal bleeding, musculoskeletal, weakness, fever, dyspnea, syncope, headache, dizziness, GI bleed, back pain, seizure, CVA, palpatations, mental health)? @ -Differential Syncope: Valvular disease, hypertrophic cardiomyopathy, pulmonary embolism, tamponade, tachycardia, bradycardia, ME, hypovolemia, hemorrhage, dissection, anemia, intracranial hemorrhage, seizure, hypoglycemia, carbon monoxide poisoning, this is not meant to be an all-inclusive list. EKG interpreted by me (3pts min.). @ -See above X-rays interpreted by me (1pt min.). @ -[None done] CT interpreted by me (1pt min.). @ -[None done] U/S interpreted by me (1pt. min.). @ -[None done] What testing was considered but not performed or refused? (CT, X-rays, U/S, labs)? Why? @ -[None] What meds were considered but not given or refused? Why? @ -[None] Was smoking cessation discussed for >3mins.? @ -[No] Were there social determinants of health that impacted care today? How? (Homelessness, low income, unemployed, alcoholism, drug addiction, transportation, low edu. Level, literacy, decrease access to med. care, [facility], rehab)? @ -[No] Was there de-escalation of care discussed even if they declined (Discuss DNR or withdrawal of care, Hospice)? DNR status @ -[No] What co-morbidities impacted this encounter? (DM, HTN, Smoking, COPD, CAD, Cancer, CVA, ARF, Chemo, Hep., AIDS, mental health diagnosis, sleep apnea, m orbid obesity)? @ -ESRD Was patient admitted / discharged? Hospital course, mention meds given and route, prescriptions, significant lab abnormalities, going to OR and other pertinent info. @ -43-year-old male with syncopal episode while at dialysis. He allegedly received most of his dialysis. Vital signs upon arrival are within acceptable limits. Patient well-appearing at the bedside. Laboratory evaluation obtained. Labs are within acceptable limits. Except for some hyperglycemia with level of 60. Patient given diet. Patient will be admitted to observation unit for monitoring. Did you discuss the management of the patient with other professionals (professionals i.e. , PA, DIRECTOR OF CONSUMER AFFAIRS, lab, RT, psych nurse, social work associate, experience specialist, teacher, employment security officer, spring encaser)? Give summary @ -Case discussed with hospitalist for admission Was critical care preformed (if so, how long)? @ -[No] Undiagnosed new problem with uncertain prognosis? @ -[No] Drug Therapy requiring intensive monitoring for toxicity (Heparin, Nitro, Insulin, Cardizem)? @ -[No] Were any procedures done? @ -[No] Diagnosis/symptom? Acute, or Chronic, or Acute on Chronic? Uncomplicated (without systemic symptoms) or Complicated (systemic symptoms)? @ -Syncope Side effects of treatment? @ -[No] Exacerbation, Progression, or Severe Exacerbation? @ -[No] Poses a threat to life or bodily function? How? (Chest pain, USA, ME, pneumonia, PE, COPD, DKA, ARF, appy, cholecystitis, CVA, Diverticulitis, Homicidal, Suicidal, threat to staff... and all critical care pts) @ -yes - Lab Data Result diagrams: 12/22/23 12:36 12/22/23 12:36 Lab Results 12/22/23 12/22/23 12/22/23 Range/Units 12:36 12:36 12:36 WBC 3.4 L (3.8-10.6) k/uL RBC 3.35 L (4.30-5.90) m/uL Hgb 10.8 L D (13.0-17.5) gm/dL Hct 32.3 L (39.0-53.0) % MCV 96.3 (80.0-100.0) fL MCH 32.1 (25.0-35.0) pg MCHC 33.4 (31.0-37.0) g/dL RDW 14.8 (11.5-15.5) % Plt Count 115 L (150-450) k/uL MPV 8.6 Neutrophils % 73 % Lymphocytes % 12 % Monocytes % 8 % Eosinophils % 3 % Basophils % 1 % Neutrophils # 2.5 (1.3-7.7) k/uL Lymphocytes # 0.4 L (1.0-4.8) k/uL Monocytes # 0.3 (0-1.0) k/uL Eosinophils # 0.1 (0-0.7) k/uL Basophils # 0.0 (0-0.2) k/uL Sodium 136 L (137-145) mmol/L Potassium 3.5 (3.5-5.1) mmol/L Chloride 95 L (98-107) mmol/L Carbon Dioxide 27 (22-30) mmol/L Anion Gap 14 mmol/L BUN 29 H (9-20) mg/dL Creatinine 6.86 H (0.66-1.25) mg/dL Est GFR (CKD-EPI)AfAm 10 (>60 ml/min/1.73 sqM) Est GFR (CKD-EPI)NonAf 9 (>60 ml/min/1.73 sqM) Glucose 60 L (74-99) mg/dL Plasma Lactic Acid Hola 0.9 (0.7-2.0) mmol/L Calcium 9.2 (8.4-10.2) mg/dL Magnesium 1.9 (1.6-2.3) mg/dL Total Bilirubin 1.1 (0.2-1.3) mg/dL AST 28 (17-59) U/L ALT 30 (4-49) U/L Alkaline Phosphatase 66 (38-126) U/L Total Protein 7.5 (6.3-8.2) g/dL Albumin 4.6 (3.5-5.0) g/dL Disposition Clinical Impression: Syncope Disposition: ADMITTED IP TO THIS [facility] Condition: Fair Referrals: Reji Rodriguez Jr, [Primary Care Provider] - 1-2 days Decision Time: 15:31
[2023-12-22] MEDS: SODIUM CHLORIDE 0.9% 500 ML 500 ML IV STA (13:32)
[2023-12-22 13:44] LABS: Basophils % (A) 1 %; Eosinophils # (A) 0.1 k/uL (0-0.7); Eosinophils % (A) 3 %; HCT 32.3 % (39.0-53.0); Lymphocytes # (A) 0.4 k/uL (1.0-4.8); Lymphocytes % (A) 12 %; MCH 32.1 pg (25.0-35.0); MCHC 33.4 g/dL (31.0-37.0); MCV 96.3 fL (80.0-100.0); Mean Platelet Volume 8.6; Monocytes # (A) 0.3 k/uL (0-1.0); Monocytes % (A) 8 %; Neutrophils # (A) 2.5 k/uL (1.3-7.7); Neutrophils % (A) 73 %; Platelet Count 115 k/uL (150-450); RBC 3.35 m/uL (4.30-5.90); RDW 14.8 % (11.5-15.5); WBC 3.4 k/uL (3.8-10.6)
[2023-12-22 13:45] LABS: HGB 10.8 gm/dL (13.0-17.5)
[2023-12-22 14:03] LABS: ALT 30 U/L (4-49); AST 28 U/L (17-59); African American GFR (CKD) 10 (>60 ml/min/1.73 sqM); Albumin 4.6 g/dL (3.5-5.0); Alkaline Phosphatase 66 U/L (38-126); Anion Gap 14 mmol/L; Blood Urea Nitrogen 29 mg/dL (9-20); Calcium 9.2 mg/dL (8.4-10.2); Carbon Dioxide 27 mmol/L (22-30); Chloride 95 mmol/L (98-107); Glucose 60 mg/dL (74-99); Magnesium 1.9 mg/dL (1.6-2.3); Non-African American GFR(CKD) 9 (>60 ml/min/1.73 sqM); Potassium 3.5 mmol/L (3.5-5.1); Sodium 136 mmol/L (137-145); Total Bilirubin 1.1 mg/dL (0.2-1.3); Total Protein 7.5 g/dL (6.3-8.2)
[2023-12-22] MEDS ORDERED: NALOXONE 0.4 MG/ML 1 ML VIAL IV PRN (15:24)
[2023-12-22] MEDS ORDERED: CALCIUM ACETATE 667 MG TAB PO PRN (15:25)
[2023-12-22] MEDS: CALCIUM ACETATE 667 MG TAB PO SCH (18:00)
[2023-12-22] MEDS: hydrALAZINE HCL 50 MG TAB PO SCH (20:12)
[2023-12-22] MEDS: ATORVASTATIN 40 MG TAB PO SCH (20:12)
[2023-12-22] MEDS: METOPROLOL SUCCINATE (ER) 50 MG TAB.ER.24H PO SCH (20:12)
[2023-12-22] MEDS: amLODIPine 5 MG TAB PO SCH (20:12)
[2023-12-23] MEDS: METOPROLOL SUCCINATE (ER) 25 MG TAB.ER.24H PO SCH (09:02)
[2023-12-23] MEDS: PANTOPRAZOLE 40 MG TABLET PO SCH (09:02)
--- NOTE | 2023-12-23 11:11 | P.NPCON ---
History of Present Illness - Reason for Consult end stage renal disease - History of Present Illness patient is a 43-year-old male with end-stage renal disease maintained on hemodialysis on a Tuesday to Tuesday schedule. Patient was at the dialysis unit yesterday as he was making up for a missed treatments. He had about 2.3 L of fluid removed and towards the end patient was noted to be tachycardic and in A. fib. He also had a syncopal episode which lasted for a few seconds. Patient remained in A. fib with heart rate in the 140s and was therefore transferred to the hospital. Patient converted back to sinus rhythm. He is currently comfortable and denies any complaints of chest pain shortness of breath or palpitations. No history of fever chills nausea vomiting or abdominal pain. Review of Systems as per HPI Past Medical History Past Medical History: Atrial Fibrillation, Asthma, GERD/Reflux, Hyperlipidemia, Hypertension, Renal Disease Additional Past Medical History / Comment(s): Hemo-dialysis Tue-Tue-Tue x 7 yrs, fistula left arm, currently preparing for kidney transplant at [facility]. Pt states he is illiterate-he is able to read a little. History of Any Multi-Drug Resistant Organisms: None Reported Past Surgical History: Heart Catheterization, Tonsillectomy Additional Past Surgical History / Comment(s): fistula to left upper arm Past Anesthesia/Blood Transfusion Reactions: No Reported Reaction Additional Past Anesthesia/Blood Transfusion Reaction / Comment(s): BLOOD TRANSFUSION, NO ISSUES. Past Psychological History: No Psychological Hx Reported Additional Psychological History / Comment(s): . Smoking Status: Never smoker Past Alcohol Use History: None Reported Additional Past Alcohol Use History / Comment(s): USE TO DRINK - quit drinking alcohol 2022 Past Drug Use History: None Reported - Past Family History Mother Additional Family Medical History / Comment(s): liver and kidney transplant Father Additional Family Medical History / Comment(s): pt states father of heart attack in his 50's Medications and Allergies Home Medications Medication Instructions Recorded Confirmed Type Furosemide [Lasix] 80 mg PO BID 05/10/19 12/22/23 History amLODIPine [Norvasc] 5 mg PO BID 07/02/21 12/22/23 History Metoprolol Succinate (ER) [Toprol 50 mg PO HS 04/12/22 12/22/23 History XL] Metoprolol Succinate (ER) [Toprol 25 mg PO DAILY 07/12/23 12/22/23 History Xl] Atorvastatin [Lipitor] 40 mg PO HS 10/24/23 12/22/23 History Calcium Acetate 667 Tab 2,001 mg PO TID-W/MEALS 12/22/23 12/22/23 History Calcium Acetate 667 Tab 667 - 1,334 mg PO DIRECTED PRN 12/22/23 12/22/23 History Omeprazole [PriLOSEC] 20 mg PO DAILY 12/22/23 12/22/23 History Sildenafil Citrate [Viagra] 100 mg PO DAILY PRN 12/22/23 12/22/23 History hydrALAZINE HCL [Apresoline] 50 mg PO BID 12/22/23 12/22/23 History Allergies Allergy/AdvReac Type Severity Reaction Status Date / Time cranberry Allergy Anaphylaxis Verified 12/22/23 14:16 pollen extracts Allergy Dyspnea, Verified 12/22/23 14:16 Sneezing, Itching Physical Exam Vitals: Vital Signs Temp Pulse Pulse Resp BP BP Pulse Ox 12/23/23 08:59 55 L 16 128/75 98 12/22/23 21:47 98.1 F 60 18 165/86 97 12/22/23 20:51 56 L 18 142/96 99 12/22/23 20:10 90 16 152/103 98 12/22/23 18:03 101 H 16 139/98 99 12/22/23 15:24 86 16 148/105 96 12/22/23 13:35 105 H 16 142/102 96 12/22/23 11:54 96.9 F L 96 18 140/96 99 Intake and Output 12/22/23 12/23/23 12/23/23 22:59 06:59 14:59 Intake Total 240 110 Balance 240 110 Intake: Oral 240 110 Other: Weight 91 kg 91.4 kg patient is awake, comfortable, no acute distress. Examination of the heart S1 and S2 Examination of the lungs bilateral breath sounds are heard Abdomen is soft nontender Examination of lower extremities shows no significant edema [employer] [place] exam grossly intact Results - Lab Results Most recent lab results Calcium 9.2 mg/dL (8.4-10.2) 12/22/23 12:36 Magnesium 1.9 mg/dL (1.6-2.3) 12/22/23 12:36 12/22/23 12:36 12/22/23 12:36 Assessment and Plan Assessment: 1. End-stage renal disease on hemodialysis on Tuesday schedule. Patient has a right arm AV fistula 2. Syncope most likely related to A. fib with RVR and hypotension although low blood pressure was not documented at the dialysis unit. Patient did receive about 500-800 mL of fluid that was given back at the end of treatment yesterday. 3. A. fib with RVR currently back into sinus rhythm 4. CK D mineral bone disorder Plan: hemodialysis today with no significant UF. If patient is stable and cleared from cardiology he could be discharged and follow-up as outpatient for his next treatment on Tuesday.
--- NOTE | 2023-12-23 15:11 | P.CRDCN ---
History of Present Illness History of present illness: HISTORY OF PRESENT ILLNESS: This is a 43-year-old male with a past medical history significant for end-stage renal disease on hemodialysis, hypertension, nicotine dependence (chews tobacc o), CAD, Afib and frequent alcohol use. Patient does intermittently follow with Dr. Maya. He was at dialysis and noted become tachycardic and patient cannot really recall episode and does not appear overly concerned with episode however did reportedly passed out. Apparently he was sitting towards the end of dialysis and heart started racing which he felt. He does have these episodes occur fairly randomly. He usually does not feel lightheaded however. Had loss of consciousness and therefore transferred to the emergency department. He was noted to be in A. fib with heart rates in the 110-120 range. He converted to normal sinus rhythm. Currently he states he feels well. He has missed a few rounds of dialysis. He had heart catheterization 06/2023 which showed mild multivessel CAD. REVIEW OF SYSTEMS: At the time of my exam: CONSTITUTIONAL: Denies fever or chills. HEENT: Denies blurred vision, vision changes, or eye pain. Denies hemoptysis CARDIOVASCULAR: Denies chest pain. Denies orthopnea. Denies PND. Denies palpitations RESPIRATORY: + shortness of breath. GASTROINTESTINAL: Denies abdominal pain. Denies nausea or vomiting. HEMATOLOGIC: Denies bleeding disorders. GENITOURINARY: Denies any blood in urine. SKIN: Denies pruitis. Denies rash. PHYSICAL EXAM: VITAL SIGNS: Reviewed. GENERAL: Well-developed in no acute distress. HEENT: Head is normocephalic. Pupils are equal, round. Sclerae anicteric. Mucous membranes of the mouth are moist. Neck supple. No JVD or thyromegaly LUNGS: Respirations even and unlabored. Lungs diminished with bibasilar rales HEART: Regular rate and rhythm. S1 and S2 heard. ABDOMEN: Soft. Nondistended. Nontender. EXTREMITIES: Normal range of motion. No clubbing or cyanosis. Peripheral pulses intact. Minimal lower extremity edema NEUROLOGIC: Awake and alert. Oriented x 3. ASSESSMENT: Syncope with intermittent episodes of Afib, rule out cardiogenic Paroxysmal Afib Mild multivessel CAD Hypertension End stage renal dialysis, on hemodialysis Fluid overload/acute on chronic chronic diastolic HF Abnormal troponin, secondary to ESRD, not suggestive of ACS Acute on chronic anemia Nicotine dependence Frequent alcohol use PLAN: continue with current regimen. Recommend 30 day event monitor to evaluate for any tachycardia or bradycardia causing his syncope. Additionally evaluate A. fib burden. Would avoid antiarrhythmics at this point however if having more significant symptoms may consider or ideally ablation. Given elevated CHADSVASC score recommend anticoagulation however unclear how good of a candidate he will be with chronic anemia. Monitor for 24 hrs and if stable likely DC home tomorrow. Past Medical History Past Medical History: Atrial Fibrillation, Asthma, GERD/Reflux, Hyperlipidemia, Hypertension, Renal Disease Additional Past Medical History / Comment(s): Hemo-dialysis Tue-Tue-Tue x 7 yrs, fistula left arm, currently preparing for kidney transplant at [facility]. Pt states he is illiterate-he is able to read a little. History of Any Multi-Drug Resistant Organisms: None Reported Past Surgical History: Heart Catheterization, Tonsillectomy Additional Past Surgical History / Comment(s): fistula to left upper arm Past Anesthesia/Blood Transfusion Reactions: No Reported Reaction Additional Past Anesthesia/Blood Transfusion Reaction / Comment(s): BLOOD TRANSFUSION, NO ISSUES. Past Psychological History: No Psychological Hx Reported Additional Psychological History / Comment(s): . Smoking Status: Never smoker Past Alcohol Use History: None Reported Additional Past Alcohol Use History / Comment(s): USE TO DRINK - quit drinking alcohol 2022 Past Drug Use History: None Reported - Past Family History Mother Additional Family Medical History / Comment(s): liver and kidney transplant Father Additional Family Medical History / Comment(s): pt states father of heart attack in his 50's Medications and Allergies Home Medications Medication Instructions Recorded Confirmed Type Furosemide [Lasix] 80 mg PO BID 05/10/19 12/22/23 History amLODIPine [Norvasc] 5 mg PO BID 07/02/21 12/22/23 History Metoprolol Succinate (ER) [Toprol 50 mg PO HS 04/12/22 12/22/23 History XL] Metoprolol Succinate (ER) [Toprol 25 mg PO DAILY 07/12/23 12/22/23 History Xl] Atorvastatin [Lipitor] 40 mg PO HS 10/24/23 12/22/23 History Calcium Acetate 667 Tab 2,001 mg PO TID-W/MEALS 12/22/23 12/22/23 History Calcium Acetate 667 Tab 667 - 1,334 mg PO DIRECTED PRN 12/22/23 12/22/23 History Omeprazole [PriLOSEC] 20 mg PO DAILY 12/22/23 12/22/23 History Sildenafil Citrate [Viagra] 100 mg PO DAILY PRN 12/22/23 12/22/23 History hydrALAZINE HCL [Apresoline] 50 mg PO BID 12/22/23 12/22/23 History Allergies Allergy/AdvReac Type Severity Reaction Status Date / Time cranberry Allergy Anaphylaxis Verified 12/22/23 14:16 pollen extracts Allergy Dyspnea, Verified 12/22/23 14:16 Sneezing, Itching Physical Exam Vitals: Vital Signs Temp Pulse Pulse Resp BP BP Pulse Ox 12/23/23 11:08 58 L 16 146/81 98 12/23/23 08:59 55 L 16 128/75 98 12/22/23 21:47 98.1 F 60 18 165/86 97 12/22/23 20:51 56 L 18 142/96 99 12/22/23 20:10 90 16 152/103 98 12/22/23 18:03 101 H 16 139/98 99 12/22/23 15:24 86 16 148/105 96 Intake and Output 12/23/23 12/23/23 12/23/23 06:59 14:59 22:59 Intake Total 340 Balance 340 Intake: Oral 340 Other: Weight 91.4 kg Results 12/22/23 12:36 12/22/23 12:36 Current Medications Generic Name Dose Route Start Last Admin Trade Name Freq PRN Reason Stop Dose Admin Amlodipine Besylate 5 mg 12/22/23 21:00 12/23/23 09:02 Amlodipine 5 Mg Tab PO 5 mg BID PETER Administration Atorvastatin Calcium 40 mg 12/22/23 21:00 12/22/23 20:12 Atorvastatin 40 Mg Tab PO 40 mg HS PETER Administration Calcium Acetate 667 - 1,334 mg 12/22/23 15:25 Calcium Acetate 667 Mg Tab PO QID PRN SNACKS Calcium Acetate 2,001 mg 12/22/23 17:30 12/23/23 11:07 Calcium Acetate 667 Mg Tab PO 2,001 mg TID-W/MEALS PETER Administration Hydralazine HCl 50 mg 12/22/23 21:00 12/23/23 09:02 Hydralazine Hcl 50 Mg Tab PO 50 mg BID PETER Administration Metoprolol Succinate 25 mg 12/23/23 09:00 12/23/23 09:02 Metoprolol Succinate (Er) 25 Mg Tab.Er.24h PO 25 mg DAILY PETER Administration Metoprolol Succinate 50 mg 12/22/23 21:00 12/22/23 20:12 Metoprolol Succinate (Er) 50 Mg Tab.Er.24h PO 50 mg HS PETER Administration Naloxone HCl 0.2 mg 12/22/23 15:24 Naloxone 0.4 Mg/Ml 1 Ml Vial IV Q2M PRN Opioid Reversal Pantoprazole Sodium 40 mg 12/23/23 09:00 12/23/23 09:02 Pantoprazole 40 Mg Tablet PO 40 mg DAILY PETER Administration Intake and Output 12/23/23 12/23/23 12/23/23 06:59 14:59 22:59 Intake Total 340 Balance 340 Intake: Oral 340 Other: Weight 91.4 kg 12/22/23 12:36 12/22/23 12:36
[2023-12-23] MEDS: NICOTINE 14MG/24HR PATCH TRANSDERM SCH (15:47)
--- NOTE | 2023-12-23 18:36 | P.HPIM ---
History of Present Illness H&P Date: 12/23/23 Chief Complaint: Syncope, A-fib with RVR This is a 43-year-old gentleman with past medical history significant for end- stage renal disease on hemodialysis Tuesday, CAD, A-fib, hypertension and multiple other medical issues transferred to the ER from the dialysis center yesterday. Patient had undergone prep for his colonoscopy this week, completed his surveillance colonoscopy yesterday on Tuesday, therefore rescheduled his hemodialysis from Tuesday to , after his endoscopy. Patient reports he was almost 7 minutes out from finishing his dialysis, became tachycardic and passed out for a few seconds. Dialysis center reported A-fib with heart rate in the 140s. upon arrival to the ER, patient noted to be in atrial fibrillation with heart rates up into the 120s, spontaneously converted to normal sinus rhythm. Denies chest pain, palpitations or shortness of breath. Review of Systems ROS Statement: Those systems with pertinent positive or pertinent negative responses have been documented in the HPI. ROS Other: All systems not noted in ROS Statement are negative. Past Medical History Past Medical History: Atrial Fibrillation, Asthma, GERD/Reflux, Hyperlipidemia, Hypertension, Renal Disease Additional Past Medical History / Comment(s): Hemo-dialysis Tue-Tue-Tue x 7 yrs, fistula left arm, currently preparing for kidney transplant at [facility]. Pt states he is illiterate-he is able to read a little. History of Any Multi-Drug Resistant Organisms: None Reported Past Surgical History: Heart Catheterization, Tonsillectomy Additional Past Surgical History / Comment(s): fistula to left upper arm Past Anesthesia/Blood Transfusion Reactions: No Reported Reaction Additional Past Anesthesia/Blood Transfusion Reaction / Comment(s): BLOOD TRANSFUSION, NO ISSUES. Past Psychological History: No Psychological Hx Reported Additional Psychological History / Comment(s): . Smoking Status: Never smoker Past Alcohol Use History: None Reported Additional Past Alcohol Use History / Comment(s): USE TO DRINK - quit drinking alcohol 2022 Past Drug Use History: None Reported - Past Family History Mother Additional Family Medical History / Comment(s): liver and kidney transplant Father Additional Family Medical History / Comment(s): pt states father of heart attack in his 50's Medications and Allergies Home Medications Medication Instructions Recorded Confirmed Type Furosemide [Lasix] 80 mg PO BID 05/10/19 12/22/23 History amLODIPine [Norvasc] 5 mg PO BID 07/02/21 12/22/23 History Metoprolol Succinate (ER) [Toprol 50 mg PO HS 04/12/22 12/22/23 History XL] Metoprolol Succinate (ER) [Toprol 25 mg PO DAILY 07/12/23 12/22/23 History Xl] Atorvastatin [Lipitor] 40 mg PO HS 10/24/23 12/22/23 History Calcium Acetate 667 Tab 2,001 mg PO TID-W/MEALS 12/22/23 12/22/23 History Calcium Acetate 667 Tab 667 - 1,334 mg PO DIRECTED PRN 12/22/23 12/22/23 History Omeprazole [PriLOSEC] 20 mg PO DAILY 12/22/23 12/22/23 History Sildenafil Citrate [Viagra] 100 mg PO DAILY PRN 12/22/23 12/22/23 History hydrALAZINE HCL [Apresoline] 50 mg PO BID 12/22/23 12/22/23 History Allergies Allergy/AdvReac Type Severity Reaction Status Date / Time cranberry Allergy Anaphylaxis Verified 12/22/23 14:16 pollen extracts Allergy Dyspnea, Verified 12/22/23 14:16 Sneezing, Itching Physical Exam Vitals: Vital Signs Temp Pulse Pulse Resp BP BP Pulse Ox 12/23/23 11:08 58 L 16 146/81 98 12/23/23 08:59 55 L 16 128/75 98 12/22/23 21:47 98.1 F 60 18 165/86 97 12/22/23 20:51 56 L 18 142/96 99 12/22/23 20:10 90 16 152/103 98 12/22/23 18:03 101 H 16 139/98 99 12/22/23 15:24 86 16 148/105 96 12/22/23 13:35 105 H 16 142/102 96 Intake and Output 12/22/23 12/23/23 12/23/23 22:59 06:59 14:59 Intake Total 240 110 Balance 240 110 Intake: Oral 240 110 Other: Weight 91 kg 91.4 kg GENERAL: Well-appearing, well-nourished and in no acute distress. HEAD: Atraumatic, normocephalic. EYES: Pupils equal round and reactive to light, extraocular movements intact, sclera anicteric, conjunctiva are normal. ENT:nares patent, oropharynx clear without exudates. Moist mucous membranes. NECK: supple without lymphadenopathy or JVD, no thyromegaly LUNGS: Unlabored, equal air entry with fine bibasilar crackles, no wheezing. HEART: Regular rate and rhythm without murmurs, rubs or gallops.S1S2 Normal ABDOMEN: Soft, right upper quadrant and right flank tenderness, normoactive bowel sounds. No guarding, no rebound. No masses appreciated. EXTREMITIES: Normal range of motion, positive edema. No clubbing or cyanosis. NEUROLOGICAL: Cranial nerves II through XII grossly intact. Normal speech. PSYCH: Normal mood, normal affect. SKIN: Warm, Dry, normal turgor, no rashes noted. Results CBC & Chem 7: 12/22/23 12:36 12/22/23 12:36 Labs: Abnormal Lab Results - Last 24 Hours (Table) 12/22/23 12/22/23 Range/Units 12:36 12:36 WBC 3.4 L (3.8-10.6) k/uL RBC 3.35 L (4.30-5.90) m/uL Hgb 10.8 L D (13.0-17.5) gm/dL Hct 32.3 L (39.0-53.0) % Plt Count 115 L (150-450) k/uL Lymphocytes # 0.4 L (1.0-4.8) k/uL Sodium 136 L (137-145) mmol/L Chloride 95 L (98-107) mmol/L BUN 29 H (9-20) mg/dL Creatinine 6.86 H (0.66-1.25) mg/dL Glucose 60 L (74-99) mg/dL Thrombosis Risk Factor Assmnt - Choose All That Apply Any of the Below Risk Factors Present?: Yes Each Factor Represents 1 point: Age 41-60 years Other Risk Factors: No Other congenital or acquired thrombophilia - If yes, enter type in comment: No Thrombosis Risk Factor Assessment Total Risk Factor Score: 1 Thrombosis Risk Factor Assessment Level: Low Risk Assessment and Plan Assessment: Syncope, atrial fibrillation with RVR, during hemodialysis History of Paroximal atrial fibrillation, not on anticoagulation, currently sinus rhythm CAD End-stage renal disease on hemodialysis Tuesday, Tuesday, Tuesday. Patient had colonoscopy prep on Tuesday, surveillance colonoscopy on Tuesday with hemodialysis delayed untill . Chronic anemia Plan: Continue on current medication resume ,monitoring and symptomatic treatment. Nephrology consulted for HD. Cardiology consult in place, possibly discharge home later today after hemodialysis, pending clearance and final DC recommendations from both nephrology and cardiology. The impression and plan of care has been dictated as directed. : I performed a history and examination of this patient, discussed the same with the dictator. I agree with the dictator's note ,documented as a scribe. Any additional findings or plans will be noted.
[2023-12-23 20:50] VITALS: RESP 16
[2023-12-24 09:08] VITALS: BP 147/76; PULSE 62; TEMP 97.7
--- NOTE | 2023-12-24 09:49 | P.PN ---
Subjective Patient is seen in follow-up for end-stage renal disease. He is maintained on hemodialysis on Tuesday schedule. No problems with dialysis yesterday. Denies chest pain or shortness of breath. Vital signs are stable. General: No acute distress. HEENT: Head exam is unremarkable. LUNGS: No audible rhonchi or wheezes. HEART: Rate and Rhythm are regular. ABDOMEN: Nontender. EXTREMITITES: No edema. Objective - Vital Signs Vital signs: Vital Signs Temp 97.7 F 12/24/23 07:00 Pulse 62 12/24/23 07:00 Resp 16 12/24/23 07:00 BP 147/76 12/24/23 07:00 Pulse Ox 99 12/24/23 07:00 FiO2 Intake & Output 12/23/23 12/24/23 12/24/23 18:59 06:59 18:59 Intake Total 840 180 Output Total 1500 Balance -660 180 Weight 90.9 kg Intake: Oral 340 180 Hemodialysis 500 Output: Hemodialysis 1500 - Labs CBC & Chem 7: 12/22/23 12:36 12/22/23 12:36 Assessment and Plan Plan: Assessment: 1. End-stage renal disease maintained on hemodialysis on Tuesday schedule. 2. Syncope related to A-fib. Cardiology following. 3. Coronary artery disease. 4. Hypertension with chronic kidney disease. 5. Anemia of chronic kidney disease. Hemoglobin at goal. 6. Chronic kidney disease mineral bone disease. On PhosLo. Plan: Hemodialysis Tuesday.
[2023-12-24] MEDS: DEXTROSE 50% SYRINGE 50 ML IVP ONE (11:53)
[2023-12-24 11:55] LABS: Glucose,Whole Blood 50 mg/dL (70-110)
[2023-12-24 12:10] LABS: Glucose,Whole Blood 125 mg/dL (70-110)
--- NOTE | 2023-12-24 12:26 | P.DS ---
Providers Date of admission: 12/22/23 15:25 Expected date of discharge: 12/24/23 Attending physician: Reji Rodriguez Consults: 12/23/23 09:34 Consult Physician Urgent Consulting Provider: Maite Ladd Consult Reason/Comments: HD Do you want consulting provider notified?: Yes 12/23/23 09:36 Consult Physician Routine Consulting Provider: Ronny Gomez Consult Reason/Comments: syncope Do you want consulting provider notified?: Already Contacted Primary care physician: [facility] Course: admitted with afib with RVR after hemodialysis pt rehydrated, spontaneously converted to sinus rythm Health Concerns: pt had episode low blood sugar given amp of d50 and lunch doing much better Patient Condition at Discharge: Good Plan - Discharge Summary Discharge Rx Participant: No New Discharge Prescriptions: No Action Furosemide [Lasix] 80 mg PO BID Metoprolol Succinate (ER) [Toprol XL] 50 mg PO HS Metoprolol Succinate (ER) [Toprol Xl] 25 mg PO DAILY Atorvastatin [Lipitor] 40 mg PO HS Calcium Acetate 667 Tab 2,001 mg PO TID-W/MEALS Sildenafil Citrate [Viagra] 100 mg PO DAILY PRN PRN Reason: erectile dysfunction amLODIPine [Norvasc] 5 mg PO BID Calcium Acetate 667 Tab 667 - 1,334 mg PO DIRECTED PRN PRN Reason: snacks hydrALAZINE HCL [Apresoline] 50 mg PO BID Omeprazole [PriLOSEC] 20 mg PO DAILY Discharge Medication List Furosemide [Lasix] 80 mg PO BID 05/10/19 [History] amLODIPine [Norvasc] 5 mg PO BID 07/02/21 [History] Metoprolol Succinate (ER) [Toprol XL] 50 mg PO HS 04/12/22 [History] Metoprolol Succinate (ER) [Toprol Xl] 25 mg PO DAILY 07/12/23 [History] Atorvastatin [Lipitor] 40 mg PO HS 10/24/23 [History] Calcium Acetate 667 Tab 2,001 mg PO TID-W/MEALS 12/22/23 [History] Calcium Acetate 667 Tab 667 - 1,334 mg PO DIRECTED PRN 12/22/23 [History] Omeprazole [PriLOSEC] 20 mg PO DAILY 12/22/23 [History] Sildenafil Citrate [Viagra] 100 mg PO DAILY PRN 12/22/23 [History] hydrALAZINE HCL [Apresoline] 50 mg PO BID 12/22/23 [History] Follow up Appointment(s)/Referral(s): Reji Rodriguez Jr, DO [Primary Care Provider] - 1-2 days Activity/Diet/Wound Care/Special Instructions: follow up 1:oopm tuedecember 27 Discharge Disposition: HOME SELF-CARE
[2023-12-24 13:17] LABS: Glucose,Whole Blood 127 mg/dL (70-110)
== END 2023-12-24 13:15 | disposition home or self-care (01) ==
LOC: EC 11:50 → 6NMEDSUR 15:25 → 3SCARD 18:58
PROVIDERS: ADMIT Family Medicine; ATTEND Family Medicine
DX: I48.0 Paroxysmal atrial fibrillation (principal); I13.2 Hypertensive heart and chronic kidney disease with heart failure and with stage 5 chronic kidney disease, or end stage renal disease; N18.6 End stage renal disease; I50.33 Acute on chronic diastolic (congestive) heart failure; D63.1 Anemia in chronic kidney disease; I25.10 Atherosclerotic heart disease of native coronary artery without angina pectoris; E16.2 Hypoglycemia, unspecified; I95.9 Hypotension, unspecified; M89.8X9 Other specified disorders of bone, unspecified site; Z99.2 Dependence on renal dialysis; F17.200 Nicotine dependence, unspecified, uncomplicated; F10.90 Alcohol use, unspecified, uncomplicated; Z79.899 Other long term (current) drug therapy; Z91.018 Allergy to other foods; Z91.048 Other nonmedicinal substance allergy status
CPT/HCPCS: 96374; 96361; 99285; 36415; 93005; 80053; 83605; 83735; 85025; G0257; G0378 ×4; S4990 ×2; 90935

== ENCOUNTER → 2024-01-12 | Outpatient (CLI) | payer MEDICARE ==
--- NOTE | 2024-01-12 11:51 | XR ---
EXAMINATION TYPE: XR chest 2V DATE OF EXAM: 01/12/2024 COMPARISON: 10/25/2023 INDICATION: Cough TECHNIQUE: Frontal and lateral views of the chest are obtained. FINDINGS: The heart size is enlarged. The pulmonary vasculature is normal. The lungs are clear. IMPRESSION: 1. Cardiomegaly
== END | disposition home or self-care (01) ==
LOC: RADXRMAIN 10:34
PROVIDERS: ATTEND Family Medicine
DX: I51.7 Cardiomegaly (principal); R06.02 Shortness of breath; R05.9 Cough, unspecified
CPT/HCPCS: 71046

== ENCOUNTER → 2024-03-22 | Outpatient (CLI) | payer MEDICARE | END | disposition home or self-care (01) | LOC: RADECHMAIN 06:37 | PROVIDERS: ATTEND Family Medicine | DX: I48.92 Unspecified atrial flutter | CPT/HCPCS: 93270 ==

== ENCOUNTER 2024-07-11 09:30 | Observation (INO) | payer MEDICARE ==
--- NOTE | 2024-07-11 09:49 | ED ---
General Adult HPI - General Chief complaint: Syncope Stated complaint: syncope Time Seen by Provider: 07/11/24 09:31 Source: patient, EMS, RN notes reviewed Mode of arrival: EMS Limitations: no limitations - History of Present Illness Initial comments: Patient is a 44-year-old male present to the emergency department with syncopal episode. Episode occurred prior to arrival at dialysis. Patient was doing fine when he became unresponsive. Patient states when he woke up he had palpitations that felt like his heart was racing and pounding. Patient states symptoms have improved since this time and have now resolved. Patient does have history of pr evious syncopal episode. Patient does have history of atrial fibrillation however is not on any anticoagulation for this. Patient currently symptom-free. EMS reports heart rate was as high as 170 in route to the emergency department. - Related Data Home Medications Medication Instructions Recorded Confirmed Furosemide [Lasix] 80 mg PO BID 05/10/19 07/11/24 amLODIPine [Norvasc] 5 mg PO BID 07/02/21 07/11/24 Metoprolol Succinate (ER) [Toprol 50 mg PO HS 04/12/22 07/11/24 XL] Metoprolol Succinate (ER) [Toprol 25 mg PO DAILY 07/12/23 07/11/24 Xl] Atorvastatin [Lipitor] 40 mg PO HS 10/24/23 07/11/24 Omeprazole [PriLOSEC] 20 mg PO [id number] 12/22/23 07/11/24 hydrALAZINE HCL [Apresoline] 50 - 100 mg PO BID 12/22/23 07/11/24 Calcium Acetate Capsule 667mg 2,668 mg PO TID-W/MEALS 07/11/24 07/11/24 Calcium Acetate Capsule 667mg 667 - 1,334 mg PO DIRECTED PRN 07/11/24 07/11/24 Fish Oil/Dha/Epa [Fish Oil 1,200 1 cap PO DAILY 07/11/24 07/11/24 mg Fish Oil] Folic Acid/Vit B Complex and C 0.8 mg PO HS 07/11/24 07/11/24 [Camila-Marsha Tablet] Allergies Allergy/AdvReac Type Severity Reaction Status Date / Time cranberry Allergy Anaphylaxis Verified 07/11/24 11:14 pollen extracts Allergy Dyspnea, Verified 07/11/24 11:14 Sneezing, Itching Review of Systems ROS Statement: Those systems with pertinent positive or pertinent negative responses have been documented in the HPI. ROS Other: All systems not noted in ROS Statement are negative. Constitutional: Denies: fever Eyes: Denies: eye pain ENT: Denies: ear pain Respiratory: Denies: cough Cardiovascular: Reports: as per HPI, palpitations Genitourinary: Denies: dysuria Past Medical History Past Medical History: Atrial Fibrillation, Asthma, GERD/Reflux, Hyperlipidemia, Hypertension, Renal Disease Additional Past Medical History / Comment(s): Hemo-dialysis Tue-Tue-Tue x 7 yrs, fistula left arm, currently preparing for kidney transplant at [facility]. Pt states he is illiterate-he is able to read a little. History of Any Multi-Drug Resistant Organisms: None Reported Past Surgical History: Heart Catheterization, Tonsillectomy Additional Past Surgical History / Comment(s): fistula to left upper arm Past Anesthesia/Blood Transfusion Reactions: No Reported Reaction Additional Past Anesthesia/Blood Transfusion Reaction / Comment(s): BLOOD TRANSFUSION, NO ISSUES. Past Psychological History: No Psychological Hx Reported Smoking Status: Never smoker Past Alcohol Use History: None Reported Past Drug Use History: None Reported - Past Family History Mother Additional Family Medical History / Comment(s): liver and kidney transplant Father Additional Family Medical History / Comment(s): pt states father of heart attack in his 50's General Exam Limitations: no limitations General appearance: alert, in no apparent distress Head exam: Present: normocephalic Eye exam: Present: normal appearance Neck exam: Present: normal inspection Respiratory exam: Present: normal lung sounds bilaterally Cardiovascular Exam: Present: regular rate, normal rhythm, normal heart sounds Expanded Peripheral pulses: 2+: Radial (R), Radial (L), Posterior Tibialis (R), Posterior Tibialis (L) GI/Abdominal exam: Present: soft. Absent: tenderness Extremities exam: Present: normal inspection. 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 Left axis. LVH criteria. Lateral ST depression.) EKG shows: atrial fibrillation Medical Decision Making - Medical Decision Making Repeat EKG interpreted by myself shows sinus rhythm with a rate of 98. Left axis. LVH. No acute ST change. Was pt. sent in by a medical professional or institution (, PA, BEATER ENGINEER HELPER, urgent care, hospital, or residential...) When possible be specific @ -Patient was sent in by dialysis Did you speak to anyone other than the patient for history (EMS, parent, family, police, friend...)? What history was obtained from this source @ -No Did you review nursing and triage notes (agree or disagree)? Why? @ -I reviewed and agree with nursing and triage notes Were old charts reviewed (outside hosp., previous admission, EMS record, old EKG, old radiological studies, urgent care reports/EKG's, residential records)? Report findings @ -No old charts were reviewed Differential Diagnosis (chest pain, altered mental status, abdominal pain women, abdominal pain men, vaginal bleeding, weakness, fever, dyspnea, syncope, headache, dizziness, GI bleed, back pain, seizure, CVA, palpatations, mental health, musculoskeletal)? @ -Differential Syncope: Valvular disease, hypertrophic cardiomyopathy, pulmonary embolism, tamponade, tachycardia, bradycardia, AL, hypovolemia, hemorrhage, dissection, anemia, intracranial hemorrhage, seizure, hypoglycemia, carbon monoxide poisoning, this is not meant to be an all-inclusive list. EKG interpreted by me (3pts min.). @ -As above X-rays interpreted by me (1pt min.). @ -Chest x-ray reveals no acute abnormality CT interpreted by me (1pt min.). @ -None done U/S interpreted by me (1pt. min.). @ -None done What testing was considered but not performed or refused? (CT, X-rays, U/S, labs)? Why? @ -None What meds were considered but not given or refused? Why? @ -Considered antiarrhythmic however patient converted on his own Did you discuss the management of the patient with other professionals (professionals i.e. , PA, BEATER ENGINEER HELPER, lab, RT, psych nurse, social services aide, lead android developer, teacher, staff readiness officer, manager of case)? Give summary @ -Case discussed with Dr. Corrales who will admit covering hospital call Was smoking cessation discussed for >3mins.? @ -No Was critical care preformed (if so, how long)? @ -No Were there social determinants of health that impacted care today? How? (Homelessness, low income, unemployed, alcoholism, drug addiction, transportation, low edu. Level, literacy, decrease access to med. care, residential, rehab)? @ -No Was there de-escalation of care discussed even if they declined (Discuss DNR or withdrawal of care, Hospice)? DNR status @ -No What co-morbidities impacted this encounter? (DM, HTN, Smoking, COPD, CAD, Can cer, CVA, ARF, Chemo, Hep., AIDS, mental health diagnosis, sleep apnea, morbid obesity)? @ -History of A-fib Was patient admitted / discharged? Hospital course, mention meds given and route, prescriptions, significant lab abnormalities, going to OR and other pertinent info. @ -Patient presents with syncopal episode during dialysis. Patient did have A- fib RVR, as high as 170 per EMS. Patient symptom-free on arrival. A-fib resolved just after arrival to emergency department. Patient reevaluated and updated. Patient to be admitted, admission orders written. Undiagnosed new problem with uncertain prognosis? @ -No Drug Therapy requiring intensive monitoring for toxicity (Heparin, Nitro, I nsulin, Cardizem)? @ -No Were any procedures done? @ -No Diagnosis/symptom? @ -Syncope Acute, or Chronic, or Acute on Chronic? @ -Acute Uncomplicated (without systemic symptoms) or Complicated (systemic symptoms)? @ -Complicated with A-fib and RVR Side effects of treatment? @ -No Exacerbation, Progression, or Severe Exacerbation? @ -No Poses a threat to life or bodily function? How? (Chest pain, USA, AL, pneumonia, PE, COPD, DKA, ARF, appy, cholecystitis, CVA, Diverticulitis, Homicidal, S uicidal, threat to staff... and all critical care pts) @ -Threat to cardiac function - Lab Data Result diagrams: 07/11/24 09:56 07/11/24 09:56 Lab Results 07/11/24 07/11/24 07/11/24 Range/Units 09:56 09:56 09:56 WBC 3.4 L (3.8-10.6) k/uL RBC 3.04 L (4.30-5.90) m/uL Hgb 9.9 L (13.0-17.5) gm/dL Hct 29.2 L (39.0-53.0) % MCV 96.0 (80.0-100.0) fL MCH 32.5 (25.0-35.0) pg MCHC 33.8 (31.0-37.0) g/dL RDW 16.5 H (11.5-15.5) % Plt Count 130 L (150-450) k/uL MPV 6.8 Neutrophils % 75 % Lymphocytes % 14 % Monocytes % 6 % Eosinophils % 3 % Basophils % 0 % Neutrophils # 2.5 (1.3-7.7) k/uL Lymphocytes # 0.5 L (1.0-4.8) k/uL Monocytes # 0.2 (0-1.0) k/uL Eosinophils # 0.1 (0-0.7) k/uL Basophils # 0.0 (0-0.2) k/uL Anisocytosis Slight PT 10.4 (10.0-12.5) sec INR 0.9 (<1.2) APTT 24.3 (22.0-30.0) sec Sodium 136 L (137-145) mmol/L Potassium 3.8 (3.5-5.1) mmol/L Chloride 95 L (98-107) mmol/L Carbon Dioxide 29 (22-30) mmol/L Anion Gap 12 mmol/L BUN 40 H (9-20) mg/dL Creatinine 6.62 H (0.66-1.25) mg/dL Est GFR (CKD-EPI)AfAm 11 (>60 ml/min/1.73 sqM) Est GFR (CKD-EPI)NonAf 9 (>60 ml/min/1.73 sqM) Glucose 114 H (74-99) mg/dL Calcium 9.1 (8.4-10.2) mg/dL Magnesium 1.7 (1.6-2.3) mg/dL Total Bilirubin 0.9 (0.2-1.3) mg/dL AST 32 (17-59) U/L ALT 30 (4-49) U/L Alkaline Phosphatase 77 (38-126) U/L Troponin I (0.000-0.034) ng/mL Total Protein 7.0 (6.3-8.2) g/dL Albumin 4.2 (3.5-5.0) g/dL 07/11/24 Range/Units 09:56 WBC (3.8-10.6) k/uL RBC (4.30-5.90) m/uL Hgb (13.0-17.5) gm/dL Hct (39.0-53.0) % MCV (80.0-100.0) fL MCH (25.0-35.0) pg MCHC (31.0-37.0) g/dL RDW (11.5-15.5) % Plt Count (150-450) k/uL MPV Neutrophils % % Lymphocytes % % Monocytes % % Eosinophils % % Basophils % % Neutrophils # (1.3-7.7) k/uL Lymphocytes # (1.0-4.8) k/uL Monocytes # (0-1.0) k/uL Eosinophils # (0-0.7) k/uL Basophils # (0-0.2) k/uL Anisocytosis PT (10.0-12.5) sec INR (<1.2) APTT (22.0-30.0) sec Sodium (137-145) mmol/L Potassium (3.5-5.1) mmol/L Chloride (98-107) mmol/L Carbon Dioxide (22-30) mmol/L Anion Gap mmol/L BUN (9-20) mg/dL Creatinine (0.66-1.25) mg/dL Est GFR (CKD-EPI)AfAm (>60 ml/min/1.73 sqM) Est GFR (CKD-EPI)NonAf (>60 ml/min/1.73 sqM) Glucose (74-99) mg/dL Calcium (8.4-10.2) mg/dL Magnesium (1.6-2.3) mg/dL Total Bilirubin (0.2-1.3) mg/dL AST (17-59) U/L ALT (4-49) U/L Alkaline Phosphatase (38-126) U/L Troponin I 0.032 (0.000-0.034) ng/mL Total Protein (6.3-8.2) g/dL Albumin (3.5-5.0) g/dL Disposition Clinical Impression: Syncope Disposition: ADMITTED IP TO THIS HOSP Is patient prescribed a controlled substance at d/c from ED?: No Referrals: None,Stated [Primary Care Provider] - 1-2 days Time of Disposition: 12:13
[2024-07-11 10:05] LABS: Anisocytosis Slight; Basophils % (A) 0 %; Eosinophils # (A) 0.1 k/uL (0-0.7); Eosinophils % (A) 3 %; HCT 29.2 % (39.0-53.0); HGB 9.9 gm/dL (13.0-17.5); Lymphocytes # (A) 0.5 k/uL (1.0-4.8); Lymphocytes % (A) 14 %; MCH 32.5 pg (25.0-35.0); MCHC 33.8 g/dL (31.0-37.0); Mean Platelet Volume 6.8; Monocytes # (A) 0.2 k/uL (0-1.0); Monocytes % (A) 6 %; Neutrophils # (A) 2.5 k/uL (1.3-7.7); Neutrophils % (A) 75 %; Platelet Count 130 k/uL (150-450); RBC 3.04 m/uL (4.30-5.90); RDW 16.5 % (11.5-15.5); WBC 3.4 k/uL (3.8-10.6)
--- NOTE | 2024-07-11 10:08 | XR ---
EXAMINATION TYPE: XR chest 2V DATE OF EXAM: 07/11/2024 10:02 AM COMPARISON: 01/12/2024 CLINICAL INDICATION: Male, 44 years old with history of syncope, TECHNIQUE: XR chest 2V view(s) obtained. FINDINGS: The heart size is normal. The pulmonary vasculature is normal. The lungs are clear. IMPRESSION: 1. No acute pulmonary process. [facility], , 07/11/2024 10:05 AM
[2024-07-11 10:16] LABS: INR 0.9 (<1.2); Partial Thromboplastin Time 24.3 sec (22.0-30.0); Prothrombin Time 10.4 sec (10.0-12.5)
[2024-07-11 10:24] LABS: ALT 30 U/L (4-49); AST 32 U/L (17-59); African American GFR (CKD) 11 (>60 ml/min/1.73 sqM); Albumin 4.2 g/dL (3.5-5.0); Alkaline Phosphatase 77 U/L (38-126); Anion Gap 12 mmol/L; Blood Urea Nitrogen 40 mg/dL (9-20); Calcium 9.1 mg/dL (8.4-10.2); Carbon Dioxide 29 mmol/L (22-30); Chloride 95 mmol/L (98-107); Glucose 114 mg/dL (74-99); Magnesium 1.7 mg/dL (1.6-2.3); Non-African American GFR(CKD) 9 (>60 ml/min/1.73 sqM); Potassium 3.8 mmol/L (3.5-5.1); Sodium 136 mmol/L (137-145); Total Bilirubin 0.9 mg/dL (0.2-1.3)
[2024-07-11] MEDS ORDERED: NALOXONE 0.4 MG/ML 1 ML VIAL IV PRN (12:13)
[2024-07-11 13:23] LABS: T4, Free (Free Thyroxine) 1.4 ng/dL (0.78-2.19)
--- NOTE | 2024-07-11 13:43 | P.CRDCN ---
History of Present Illness History of present illness: HISTORY OF PRESENT ILLNESS: This is a 44-year-old male with a past medical history significant for paroxysmal atrial fibrillation, chronic anemia, end-stage renal disease on hemodialysis, mild triple-vessel coronary artery disease, severe pulmonary hypertension, hypertension, and hyperlipidemia. Patient follows in the office with Dr. Maya. We have been asked to see the patient in consultation for syncope and atrial fibrillation. Patient examined at the bedside in the emergency room. Patient states he was at dialysis today when he began to have palpitations. He also reports feeling dizzy. He states that he passed out for 1 or 2 seconds. Patient was brought to the hospital for further evaluation. The patient was found to be in atrial fibrillation with RVR. He since converted to sinus mechanism and is maintaining sinus mechanism at the time of examination. The patient reports he has been without his metoprolol for approximately 1 week. He currently denies any chest pain or pressure. He denies any shortness of breath. Denies any palpitations at this time. DIAGNOSTICS: - EKG reveals A-fib with RVR. Repeat EKG reveals sinus mechanism. - Chest xray negative for acute process - Laboratory data: WBC 3.4. Hemoglobin 9.9. Platelet count 130. Sodium 136. Potassium 3.8. BUN 40. Creatinine 6.62. Troponin 0.032. TSH 2.470. Free T41.40. - Current home cardiac medications include hydralazine 50 mg-100 mg twice daily, Lasix 80 mg twice a day, Lipitor 40 mg at night, amlodipine 5 mg twice a day, metoprolol succinate 50 mg at night and 25 mg in the morning. - Most recent echocardiogram obtained in May 2023 ejection fraction 55%, mild pulmonic regurgitation, mild mitral regurgitation, moderately dilated left atrium. RVSP 25. Severely increased left ventricular wall thickness. - Cardiac catheterization history: June 2023 revealing mild triple-vessel disease - 7-day event monitor worn in March 2024 revealed sinus mechanism with no evidence of atrial fibrillation or flutter noted. Evidence of one 7-8 beat run of wide QRS tachycardia. REVIEW OF SYSTEMS: At the time of my exam: CONSTITUTIONAL: Denies fever or chills. HEENT: Denies blurred vision, vision changes, or eye pain. Denies hemoptysis CARDIOVASCULAR: Denies chest pain. Denies orthopnea. Denies PND. Denies palpitations RESPIRATORY: Denies shortness of breath. GASTROINTESTINAL: Denies abdominal pain. Denies nausea or vomiting. HEMATOLOGIC: Denies bleeding disorders. GENITOURINARY: Denies any blood in urine. SKIN: Denies pruitis. Denies rash. PHYSICAL EXAM: VITAL SIGNS: Reviewed. GENERAL: Well-developed in no acute distress. HEENT: Head is normocephalic. Pupils are equal, round. Sclerae anicteric. Mucous membranes of the mouth are moist. Neck supple. No JVD or thyromegaly LUNGS: Respirations even and unlabored. Lungs essentially clear to auscultation bilaterally. HEART: Regular rate and rhythm. S1 and S2 heard. Systolic murmur noted ABDOMEN: Soft. Nondistended. Nontender. EXTREMITIES: Normal range of motion. No clubbing or cyanosis. Peripheral pulses intact. No lower extremity edema NEUROLOGIC: Awake and alert. Oriented x 3. ASSESSMENT: Syncope Paroxysmal atrial fibrillation with RVR, currently maintaining sinus mechanism End-stage renal disease on hemodialysis Mild triple-vessel CAD, per cath 06/2023 Hypertension Hyperlipidemia Chronic anemia Nicotine dependence, patient chews tobacco PLAN: Obtain 2D echo to assess cardiac structure and function Resume home cardiac medications Continue telemetry monitoring Patient has been on anticoagulation in the past and unable to tolerate due to anemia. Recommend outpatient evaluation for left atrial appendage closure/Watchman device Further recommendations pending patient course Nurse practitioner note has been reviewed by physician. Signing provider agrees with the documented findings, assessment, and plan of care documented by SOCIAL WORK THERAPIST as a scribe. Past Medical History Past Medical History: Atrial Fibrillation, Asthma, GERD/Reflux, Hyperlipidemia, Hypertension, Renal Disease Additional Past Medical History / Comment(s): Hemo-dialysis Mon-Tue-Tue x 7 yrs, fistula left arm, currently preparing for kidney transplant at [facility]. Pt states he is illiterate-he is able to read a little. History of Any Multi-Drug Resistant Organisms: None Reported Past Surgical History: Heart Catheterization, Tonsillectomy Additional Past Surgical History / Comment(s): fistula to left upper arm Past Anesthesia/Blood Transfusion Reactions: No Reported Reaction Additional Past Anesthesia/Blood Transfusion Reaction / Comment(s): BLOOD TRANSFUSION, NO ISSUES. Past Psychological History: No Psychological Hx Reported Smoking Status: Never smoker Past Alcohol Use History: None Reported Past Drug Use History: None Reported - Past Family History Mother Additional Family Medical History / Comment(s): liver and kidney transplant Father Additional Family Medical History / Comment(s): pt states father of heart attack in his 50's Medications and Allergies Home Medications Medication Instructions Recorded Confirmed Type Furosemide [Lasix] 80 mg PO BID 05/10/19 07/11/24 History amLODIPine [Norvasc] 5 mg PO BID 07/02/21 07/11/24 History Metoprolol Succinate (ER) [Toprol 50 mg PO HS 04/12/22 07/11/24 History XL] Metoprolol Succinate (ER) [Toprol 25 mg PO DAILY 07/12/23 07/11/24 History Xl] Atorvastatin [Lipitor] 40 mg PO HS 10/24/23 07/11/24 History Omeprazole [PriLOSEC] 20 mg PO AC-BRKFST 12/22/23 07/11/24 History hydrALAZINE HCL [Apresoline] 50 - 100 mg PO BID 12/22/23 07/11/24 History Calcium Acetate Capsule 667mg 2,668 mg PO TID-W/MEALS 07/11/24 07/11/24 History Calcium Acetate Capsule 667mg 667 - 1,334 mg PO DIRECTED PRN 07/11/24 History Fish Oil/Dha/Epa [Fish Oil 1,200 1 cap PO DAILY 07/11/24 07/11/24 History mg Fish Oil] Folic Acid/Vit B Complex and C 0.8 mg PO HS 07/11/24 07/11/24 History [Camila-Marsha Tablet] Allergies Allergy/AdvReac Type Severity Reaction Status Date / Time cranberry Allergy Anaphylaxis Verified 07/11/24 11:14 pollen extracts Allergy Dyspnea, Verified 07/11/24 11:14 Sneezing, Itching Physical Exam Vitals: Vital Signs Temp Pulse Pulse Resp BP Pulse Ox 07/11/24 12:10 97.6 F 75 16 123/82 96 07/11/24 10:30 89 18 117/78 95 07/11/24 09:42 98 07/11/24 09:40 97.7 F 98 16 123/81 96 Intake and Output 07/10/24 07/11/24 07/11/24 22:59 06:59 14:59 Other: Weight 94.801 kg Results 07/11/24 09:56 07/11/24 09:56 Cardiac Enzymes 07/11/24 07/11/24 Range/Units 09:56 09:56 AST 32 (17-59) U/L Troponin I 0.032 (0.000-0.034) ng/mL Coagulation 07/11/24 Range/Units 09:56 PT 10.4 (10.0-12.5) sec APTT 24.3 (22.0-30.0) sec CBC 07/11/24 Range/Units 09:56 WBC 3.4 L (3.8-10.6) k/uL RBC 3.04 L (4.30-5.90) m/uL Hgb 9.9 L (13.0-17.5) gm/dL Hct 29.2 L (39.0-53.0) % Plt Count 130 L (150-450) k/uL Comprehensive Metabolic Panel 07/11/24 Range/Units 09:56 Sodium 136 L (137-145) mmol/L Potassium 3.8 (3.5-5.1) mmol/L Chloride 95 L (98-107) mmol/L Carbon Dioxide 29 (22-30) mmol/L BUN 40 H (9-20) mg/dL Creatinine 6.62 H (0.66-1.25) mg/dL Glucose 114 H (74-99) mg/dL Calcium 9.1 (8.4-10.2) mg/dL AST 32 (17-59) U/L ALT 30 (4-49) U/L Alkaline Phosphatase 77 (38-126) U/L Total Protein 7.0 (6.3-8.2) g/dL Albumin 4.2 (3.5-5.0) g/dL Current Medications Generic Name Dose Route Start Last Admin Trade Name Freq PRN Reason Stop Dose Admin Naloxone HCl 0.2 mg 07/11/24 12:13 Naloxone 0.4 Mg/Ml 1 Ml Vial IV Q2M PRN Opioid Reversal Intake and Output 07/10/24 07/11/24 07/11/24 22:59 06:59 14:59 Other: Weight 94.801 kg Patient Weight 07/12/24 06:59 Weight 94.801 kg 07/11/24 09:56 07/11/24 09:56
[2024-07-11] MEDS: FUROSEMIDE 80 MG TAB PO SCH (15:05)
[2024-07-11] MEDS ORDERED: CALCIUM ACETATE 667 MG TAB PO PRN (17:23)
[2024-07-11] MEDS: CALCIUM ACETATE 667 MG TAB PO SCH (18:15)
[2024-07-11] MEDS: METOPROLOL SUCCINATE (ER) 50 MG TAB.ER.24H PO SCH (20:26)
[2024-07-11] MEDS: ATORVASTATIN 40 MG TAB PO SCH (20:26)
[2024-07-11] MEDS: hydrALAZINE HCL 50 MG TAB PO SCH (20:26)
[2024-07-11] MEDS: amLODIPine 5 MG TAB PO SCH (20:26)
[2024-07-12] MEDS: ASPIRIN 81 MG PO SCH (08:37)
[2024-07-12] MEDS: METOPROLOL SUCCINATE (ER) 25 MG TAB.ER.24H PO SCH (08:38)
[2024-07-12] MEDS: PANTOPRAZOLE 40 MG TABLET PO SCH (08:38)
--- NOTE | 2024-07-12 10:25 | P.PN ---
Subjective HISTORY OF PRESENT ILLNESS: This is a 44-year-old male with a past medical history significant for paroxysmal atrial fibrillation, chronic anemia, end-stage renal disease on hemodialysis, mild triple-vessel coronary artery disease, severe pulmonary hypertension, hypertension, and hyperlipidemia. Patient follows in the office with Dr. Maya. We have been asked to see the patient in consultation for syncope and atrial fibrillation. Patient examined at the bedside in the emergency room. Patient states he was at dialysis today when he began to have palpitations. He also reports feeling dizzy. He states that he passed out for 1 or 2 seconds. Patient was brought to the hospital for further evaluation. The patient was found to be in atrial fibrillation with RVR. He since converted to sinus mechanism and is maintaining sinus mechanism at the time of examination. The patient reports he has been without his metoprolol for approximately 1 week. He currently denies any chest pain or pressure. He denies any shortness of breath. Denies any palpitations at this time. DIAGNOSTICS: - EKG reveals A-fib with RVR. Repeat EKG reveals sinus mechanism. - Chest xray negative for acute process - Laboratory data: WBC 3.4. Hemoglobin 9.9. Platelet count 130. Sodium 136. Potassium 3.8. BUN 40. Creatinine 6.62. Troponin 0.032. TSH 2.470. Free T41.40. - Current home cardiac medications include hydralazine 50 mg-100 mg twice daily, Lasix 80 mg twice a day, Lipitor 40 mg at night, amlodipine 5 mg twice a day, metoprolol succinate 50 mg at night and 25 mg in the morning. - Most recent echocardiogram obtained in May 2023 ejection fraction 55%, mild pulmonic regurgitation, mild mitral regurgitation, moderately dilated left atrium. RVSP 25. Severely increased left ventricular wall thickness. - Cardiac catheterization history: June 2023 revealing mild triple-vessel disease - 7-day event monitor worn in March 2024 revealed sinus mechanism with no evidence of atrial fibrillation or flutter noted. Evidence of one 7-8 beat run of wide QRS tachycardia. 07/12/2024 Patient examined this morning at the bedside. Patient currently denies any chest pain or pressure. She denies any shortness of breath. Telemetry reveals sinus mechanism with a heart rate in the 50s. Blood pressure 118/72. Troponin 0.032. 0.036. 0.062. 2D echo remains pending. PHYSICAL EXAM: VITAL SIGNS: Reviewed. GENERAL: Well-developed in no acute distress. HEENT: Head is normocephalic. Pupils are equal, round. Sclerae anicteric. Mucous membranes of the mouth are moist. Neck supple. No JVD or thyromegaly LUNGS: Respirations even and unlabored. Lungs essentially clear to auscultation bilaterally. HEART: Regular rate and rhythm. S1 and S2 heard. Systolic murmur noted ABDOMEN: Soft. Nondistended. Nontender. EXTREMITIES: Normal range of motion. No clubbing or cyanosis. Peripheral pulses intact. No lower extremity edema NEUROLOGIC: Awake and alert. Oriented x 3. ASSESSMENT: Syncope Paroxysmal atrial fibrillation with RVR, currently maintaining sinus mechanism End-stage renal disease on hemodialysis Minimally elevated troponins, type II OR, no evidence of acute coronary syndrome Mild triple-vessel CAD, per cath 06/2023 Hypertension Hyperlipidemia Chronic anemia Nicotine dependence, patient chews tobacco PLAN: 2D echo pending. Await results. Continue current cardiac medications Continue telemetry monitoring Patient has been on anticoagulation in the past and unable to tolerate due to anemia. Recommend outpatient evaluation for left atrial appendage closure/Watchman device Patient is stable for discharge home today from a cardiac standpoint Further recommendations pending patient course Nurse practitioner note has been reviewed by physician. Signing provider agrees with the documented findings, assessment, and plan of care documented by BRINE TANK SEPARATOR OPERATOR as a scribe. Objective - Vital Signs Vital signs: Vital Signs Temp 98 F 07/12/24 07:00 Pulse 57 L 07/12/24 07:00 Resp 17 07/12/24 07:00 BP 118/72 07/12/24 07:00 Pulse Ox 98 07/12/24 07:00 FiO2 Intake & Output 07/11/24 07/12/24 07/12/24 18:59 06:59 18:59 Intake Total 118 118 Balance 118 118 Weight 94.801 kg Intake: Oral 118 118 Other: # Voids 1 - Labs CBC & Chem 7: 07/11/24 09:56 07/11/24 09:56 Labs: Abnormal Lab Results - Last 24 Hours (Table) 07/11/24 07/11/24 07/11/24 Range/Units 09:56 12:33 16:10 Sodium 136 L (137-145) mmol/L Chloride 95 L (98-107) mmol/L BUN 40 H (9-20) mg/dL Creatinine 6.62 H (0.66-1.25) mg/dL Glucose 114 H (74-99) mg/dL Troponin I 0.036 H* 0.062 H* (0.000-0.034) ng/mL
[2024-07-12 10:35] LABS: BUN/Creat Ratio 5.09 Ratio (12.00-20.00); Blood Urea Nitrogen 51.4 mg/dL (9.0-27.0); Carbon Dioxide 29.5 mmol/L (21.6-31.8); Chloride 97 mmol/L (96-109); Glucose 79 mg/dL (70-110); Potassium 5.1 mmol/L (3.5-5.5); Sodium 139 mmol/L (135-145)
[2024-07-12 10:36] LABS: ALT 27 U/L (10-49); AST 23 U/L (14-35); Albumin 3.8 g/dL (3.8-4.9); Albumin/Globulin Ratio 1.58 Ratio (1.60-3.17); Alkaline Phosphatase 64 U/L (41-126); Calcium 9.2 mg/dL (8.7-10.3); Globulin 2.4 g/dL (1.6-3.3); Total Bilirubin 0.4 mg/dL (0.3-1.2); Total Protein 6.2 g/dL (6.2-8.2)
[2024-07-12 10:48] LABS: Basophils # (A) 0.02 X 10*3/uL (0.00-0.10); Basophils % (A) 0.5 %; Eosinophils # (A) 0.12 X 10*3/uL (0.04-0.35); Eosinophils % (A) 2.8 %; HGB 8.4 g/dL (13.0-17.0); Lymphocytes # (A) 0.51 X 10*3/uL (0.90-5.00); Lymphocytes % (A) 11.7 %; MCH 31.6 pg (27.0-32.0); MCHC 32.3 g/dL (32.0-37.0); MCV 97.7 FL (80.0-97.0); Mean Platelet Volume 9.3 FL (9.5-12.2); Monocytes # (A) 0.45 X 10*3/uL (0.20-1.00); Monocytes % (A) 10.3 %; NRBC Per 100 WBC 0 X 10*3/uL (0.00-0.01); Neutrophils # (A) 3.23 X 10*3/uL (1.80-7.70); Platelet Count 134 X 10*3/uL (140-440); RBC 2.66 X 10*6/uL (4.40-5.60); RDW 15.9 % (11.5-14.5); WBC 4.36 X 10*3/uL (4.50-10.00)
--- NOTE | 2024-07-12 10:52 | P.NPCON ---
History of Present Illness - Reason for Consult end stage renal disease - History of Present Illness Reason for consultation: End-stage renal disease History of present illness: Patient is a 44-year-old male seen in renal consultation for end-stage renal disease. He is maintained on hemodialysis on Tuesday schedule. Patient came to the hospital due to palpitations. Patient states during dialysis yesterday he developed chest palpitations and also felt dizzy. Patient is unsure if he lost consciousness or not. EMS was called and he was brought to the hospital. Patient states he does have history of A-fib and is maintained on metoprolol outpatient but ran out of the medication about a week ago. He denies chest pain or shortness of breath at this time. He is awake and alert. Denies history of diabetes. Makes little urine. Vital signs are stable. General: No acute distress. HEENT: Head exam is unremarkable. LUNGS: No audible rhonchi or wheezes. HEART: Rate and Rhythm are regular. ABDOMEN: Nontender. EXTREMITITES: No edema. Past Medical History Past Medical History: Atrial Fibrillation, Asthma, GERD/Reflux, Hyperlipidemia, Hypertension, Renal Disease Additional Past Medical History / Comment(s): Hemo-dialysis Tue-Tue-Tue x 7 yrs, fistula left arm, currently preparing for kidney transplant at [facility]. Pt states he is illiterate-he is able to read a little. History of Any Multi-Drug Resistant Organisms: None Reported Past Surgical History: Heart Catheterization, Tonsillectomy Additional Past Surgical History / Comment(s): fistula to left upper arm Past Anesthesia/Blood Transfusion Reactions: No Reported Reaction Additional Past Anesthesia/Blood Transfusion Reaction / Comment(s): BLOOD TRANSFUSION, NO ISSUES. Past Psychological History: No Psychological Hx Reported Smoking Status: Never smoker Past Alcohol Use History: None Reported Past Drug Use History: None Reported - Past Family History Mother Additional Family Medical History / Comment(s): liver and kidney transplant Father Additional Family Medical History / Comment(s): pt states father of heart attack in his 50's Medications and Allergies Home Medications Medication Instructions Recorded Confirmed Type Furosemide [Lasix] 80 mg PO BID 05/10/19 07/11/24 History amLODIPine [Norvasc] 5 mg PO BID 07/02/21 07/11/24 History Metoprolol Succinate (ER) [Toprol 50 mg PO HS 04/12/22 07/11/24 History XL] Metoprolol Succinate (ER) [Toprol 25 mg PO DAILY 07/12/23 07/11/24 History Xl] Atorvastatin [Lipitor] 40 mg PO HS 10/24/23 07/11/24 History Omeprazole [PriLOSEC] 20 mg PO AC-BRKFST 12/22/23 07/11/24 History hydrALAZINE HCL [Apresoline] 50 - 100 mg PO BID 12/22/23 07/11/24 History Calcium Acetate Capsule 667mg 2,668 mg PO TID-W/MEALS 07/11/24 07/11/24 History Calcium Acetate Capsule 667mg 667 - 1,334 mg PO DIRECTED PRN 07/11/24 07/11/24 History Fish Oil/Dha/Epa [Fish Oil 1,200 1 cap PO DAILY 07/11/24 07/11/24 History mg Fish Oil] Folic Acid/Vit B Complex and C 0.8 mg PO HS 07/11/24 07/11/24 History [Camila-Marsha Tablet] Allergies Allergy/AdvReac Type Severity Reaction Status Date / Time cranberry Allergy Anaphylaxis Verified 07/11/24 11:14 pollen extracts Allergy Dyspnea, Verified 07/11/24 11:14 Sneezing, Itching Physical Exam Vitals: Vital Signs Temp Pulse Pulse Pulse Resp BP BP 07/12/24 07:00 98 F 57 L 17 118/72 07/11/24 19:22 97.7 F 76 18 07/11/24 16:16 97.4 F L 67 16 07/11/24 15:05 97.6 F 67 16 124/86 07/11/24 14:02 61 20 117/75 07/11/24 12:10 97.6 F 75 16 123/82 BP Pulse Ox 07/12/24 07:00 98 07/11/24 19:22 116/69 99 07/11/24 16:16 129/82 100 07/11/24 15:05 96 07/11/24 14:02 90 L 07/11/24 12:10 96 Intake and Output 07/11/24 07/12/24 07/12/24 22:59 06:59 14:59 Intake Total 118 118 Balance 118 118 Intake: Oral 118 118 Other: # Voids 0 1 Results - Lab Results Most recent lab results Calcium 9.2 mg/dL (8.7-10.3) 07/12/24 06:28 Magnesium 1.7 mg/dL (1.6-2.3) 07/11/24 09:56 07/11/24 09:56 07/12/24 06:28 Assessment and Plan Plan: Assessment: 1. End-stage renal disease maintained on hemodialysis on Tuesday schedule. 2. Paroxysmal A-fib with RVR. Cardiology following. On metoprolol. 3. Hypertension with chronic kidney disease. Controlled. 4. Anemia of chronic kidney disease. 5. Chronic kidney disease mineral bone disease maintained on PhosLo. Plan: Hemodialysis tomorrow. Check iron studies. Thank you for the consultation. I will continue to follow the patient with you during his hospital stay.
[2024-07-12 15:26] VITALS: BP 131/70; PULSE 59; RESP 18; TEMP 97.9
--- NOTE | 2024-07-12 18:30 | CA ---
Transthoracic Echo Report Name: [place] Age: 44 Gender: M : 1980 Exam Date: 07/12/2024 15:11 Exam Location: [facility] Ht (in): 68 Wt (lb): 209 Ordering Physician: Opal Michael Attending/Referring Phys: [id number], Alec Photogrammetric Compilation Specialist Tari Glass, LENA Procedure CPT: Indications: LV Function, afib Cardiac Hx: Technical Quality: Fair Contrast 1: Total Dose (mL): Contrast 2: Total Dose (mL): MEASUREMENTS (Male / Female) Normal Values 2D ECHO LV Diastolic Diameter PLAX 4.6 cm 4.2 - 5.9 / 3.9 - 5.3 cm LV Systolic Diameter PLAX 2.9 cm IVS Diastolic Thickness 1.9 cm 0.6 - 1.0 / 0.6 - 0.9 cm LVPW Diastolic Thickness 1.9 cm 0.6 - 1.0 / 0.6 - 0.9 cm LV Relative Wall Thickness 0.8 RV Internal Dim ED PLAX 4.5 cm LA Systolic Diameter LX 5.6 cm 3.0 - 4.0 / 2.7 - 3.8 cm LV Diastolic Volume MOD BP 158.8 cm??? 67 - 155 / 56 - 104 cm??? LV Systolic Volume MOD BP 46.3 cm??? 22 - 58 / 19 - 49 cm??? LV Ejection Fraction MOD BP 70.8 % >= 55 % LV Diastolic Volume MOD 4C 104.6 cm??? LV Systolic Volume MOD 4C 48.3 cm??? LV Ejection Fraction MOD 4C 53.8 % LV Diastolic Length 4C 4.5 cm LV Systolic Length 4C 7.1 cm LV Diastolic Volume MOD 2C 127.3 cm??? LV Systolic Volume MOD 2C 41.1 cm??? LV Ejection Fraction MOD 2C 67.7 % LV Diastolic Length 2C 8.8 cm LV Systolic Length 2C 6.5 cm LA Volume 171.3 cm??? 18 - 58 / 22 - 52 cm??? LA Volume Index 79.2 cm???/m??? 16 - 28 cm???/m??? M-MODE Aortic Root Diameter MM 4.4 cm LA Systolic Diameter MM 5.8 cm LA Ao Ratio MM 1.3 AV Cusp Separation MM 2.7 cm DOPPLER AV Peak Velocity 176.0 cm/s AV Peak Gradient 12.4 mmHg MV Area PHT 2.7 cm??? Mitral E Point Velocity 104.9 cm/s Mitral A Point Velocity 87.9 cm/s Mitral E to A Ratio 1.2 MV Deceleration Time 281.9 ms TR Peak Velocity 278.5 cm/s TR Peak Gradient 31.0 mmHg Right Ventricular Systolic Press 35.4 mmHg FINDINGS Left Ventricle Left ventricular ejection fraction is estimated at 55-60%. Normal left ventricular systolic function with no obvious regional wall motion abnormalities. Left ventricular cavity size normal. Severely increased left ventricular wall thickness. Right Ventricle Moderate right ventricular dilatation. Mild pulmonary hypertension. Right Atrium Moderate right atrial dilatation. Left Atrium Severely increased left atrial diameter. Severely increased left atrial volume. Moderately increased left atrial area. Mitral Valve Structurally normal mitral valve. Mitral valve thickened. Mild mitral regurgitation. Aortic Valve Trileaflet aortic valve. No aortic stenosis. Trace aortic regurgitation. Tricuspid Valve Structurally normal tricuspid valve. Mild tricuspid regurgitation. No tricuspid stenosis. Pulmonic Valve Structurally normal pulmonic valve. No pulmonic stenosis. Mild pulmonic regurgitation. Pericardium No pericardial or pleural effusion. Aorta Mild aortic dilatation at the level of the sinuses of valsalva (root) 4.4cm CONCLUSIONS 1. Normal left ventricular size and systolic function with severe hypertrophy 2. Mild mitral and tricuspid regurgitation with mild pulmonary hypertension Previewed by: Dr. Eric Maya MD (Electronically Signed) Final Date: 12 July 2024 18:29
--- NOTE | 2024-07-12 18:55 | P.HPIM ---
History of Present Illness H&P Date: 07/12/24 Chief Complaint: Palpitation I would wonder if Dr. Bruno Corrales, who is unwell 44-year-old patient, used to follow-up with Dr. Rodriguez. Now between physicians. Chronic medical conditions include atrial fibrillation, asthma, GERD, hypertension, hyperlipidemia, on hemodialysis. Stop drinking alcohol May 2023. Prior to that level to his dialysis patient briefly lost consciousness. His heart was racing and pounding. When he woke up. When he presented to the ER his symptoms resolved. System is lasted less than an hour. He has a prior history of an atrial fibrillation but not on any blood thinners. Per EMS his heart rate was up to 170s. In the ER heart rate was 135. Per EKG. Per cardiac catheterization June last year showed mild triple-vessel disease. Patient was unable to tolerate anticoagulation the past because of anemia. Today feeling well. No symptoms. Remains in sinus rhythm. Review of systems: GEN.: None EYES: None HEENT: None NECK: None RESPIRATORY: None CARDIOVASCULAR: As above GASTROINTESTINAL: None GENITOURINARY: None MUSCULOSKELETAL: None LYMPHATICS: None HEMATOLOGICAL: None PSYCHIATRY: None NEUROLOGICAL: None Social history: Lives with a friend. Chews tobacco. History of alcoholism up till May 2023. Works part-time at the [employer] Physical examination: VITAL SIGNS: 98, 57, 17, 118/72, 98% room air GENERAL: BMI 31.8, sitting up comfortable. EYES: Pupils equal. Conjunctiva kasia l. HEENT: External appearance of nose and ears normal, oral cavity grossly normal. NECK: JVD not raised; masses not palpable. HEART: First and second heart sounds are normal; no edema. LUNGS: Respiratory rate normal; clear to auscultation. ABDOMEN: Soft, nontender, liver spleen not palpable, no masses palpable. PSYCH: Alert and oriented x3; mood and affect kasia l. MUSCULOSKELETAL:No Clubbing/cyanosis;muscles-grossly intact NEUROLOGICAL: Cranial nerves grossly intact; no facial asymmetry, power and sensation grossly intact. LYMPHATICS: No lymph nodes palpable in the axilla and neck INVESTIGATIONS, reviewed in the clinical context: July 12: White count 4.3 hemoglobin 8.4 platelets 134 sodium 139 potassium 5.1 BUN 51.4 creatinine 10.1 Troponin I 0.032, 0.036, 0.062 TSH 2.4 EKG tracing personally reviewed by me-atrial fibrillation rate in the 130s. Chest x-ray film personally reviewed by me-borderline cardiomegaly Assessment plan: -Paroxysmal atrial fibrillation with a rapid ventricular rate. Causing syncope. Went back into sinus rhythm. Patient is on Lopressor. Anticoagulation not taking because of anemia. Including the past -Normocytic anemia of chronic kidney disease -End-stage kidney disease on hemodialysis, left arm AV fistula Next dialysis due tomorrow -Essential hypertension Toprol-XL. Amlodipine. Hydralazine. -GERD Prilosec 2D echo was ordered. Otherwise patient doing well. Seen by cardiology. Next due for dialysis tomorrow. Outpatient consideration for watchman's procedure. Because of anemia problem with anticoagulation. Past Medical History Past Medical History: Atrial Fibrillation, Asthma, GERD/Reflux, Hyperlipidemia, Hypertension, Renal Disease Additional Past Medical History / Comment(s): Hemo-dialysis Tue-Tue-Tue x 7 yrs, fistula left arm, currently preparing for kidney transplant at [facility]. Pt states he is illiterate-he is able to read a little. History of Any Multi-Drug Resistant Organisms: None Reported Past Surgical History: Heart Catheterization, Tonsillectomy Additional Past Surgical History / Comment(s): fistula to left upper arm Past Anesthesia/Blood Transfusion Reactions: No Reported Reaction Additional Past Anesthesia/Blood Transfusion Reaction / Comment(s): BLOOD TRANSFUSION, NO ISSUES. Past Psychological History: No Psychological Hx Reported Smoking Status: Never smoker Past Alcohol Use History: None Reported Past Drug Use History: None Reported - Past Family History Mother Additional Family Medical History / Comment(s): liver and kidney transplant Father Additional Family Medical History / Comment(s): pt states father of heart attack in his 50's Medications and Allergies Home Medications Medication Instructions Recorded Confirmed Type Furosemide [Lasix] 80 mg PO BID 05/10/19 07/11/24 History amLODIPine [Norvasc] 5 mg PO BID 07/02/21 07/11/24 History Metoprolol Succinate (ER) [Toprol 50 mg PO HS 04/12/22 07/11/24 History XL] Metoprolol Succinate (ER) [Toprol 25 mg PO DAILY 07/12/23 07/11/24 History XL] Atorvastatin [Lipitor] 40 mg PO HS 10/24/23 07/11/24 History Omeprazole [PriLOSEC] 20 mg PO AC-BRKFST 12/22/23 07/11/24 History Calcium Acetate Capsule 667mg 2,668 mg PO TID-W/MEALS 07/11/24 07/11/24 History Calcium Acetate Capsule 667mg 667 - 1,334 mg PO DIRECTED PRN 07/11/24 07/11/24 History Fish Oil/Dha/Epa [Fish Oil 1,200 1 cap PO DAILY 07/11/24 07/11/24 History mg Fish Oil] Folic Acid/Vit B Complex and C 0.8 mg PO HS 07/11/24 07/11/24 History [Camila-Marsha Tablet] Aspirin 81 mg PO DAILY tab 07/12/24 Rx hydrALAZINE HCL [Apresoline] 50 mg PO BID #0 07/12/24 07/11/24 Rx Allergies Allergy/AdvReac Type Severity Reaction Status Date / Time cranberry Allergy Anaphylaxis Verified 07/11/24 11:14 pollen extracts Allergy Dyspnea, Verified 07/11/24 11:14 Sneezing, Itching Physical Exam Vitals: Vital Signs Temp Pulse Pulse Pulse Resp BP BP 07/12/24 07:00 98 F 57 L 17 118/72 07/11/24 19:22 97.7 F 76 18 07/11/24 16:16 97.4 F L 67 16 07/11/24 15:05 97.6 F 67 16 124/86 07/11/24 14:02 61 20 117/75 07/11/24 12:10 97.6 F 75 16 123/82 BP Pulse Ox 07/12/24 07:00 98 07/11/24 19:22 116/69 99 07/11/24 16:16 129/82 100 07/11/24 15:05 96 07/11/24 14:02 90 L 07/11/24 12:10 96 Intake and Output 07/11/24 07/12/24 07/12/24 22:59 06:59 14:59 Intake Total 118 118 Balance 118 118 Intake: Oral 118 118 Other: # Voids 0 1 Results CBC & Chem 7: 07/12/24 06:28 07/12/24 06:28 Labs: Abnormal Lab Results - Last 24 Hours (Table) 07/11/24 07/11/24 07/12/24 Range/Units 12:33 16:10 06:28 WBC 4.36 L (4.50-10.00) X 10*3/uL RBC 2.66 L (4.40-5.60) X 10*6/uL Hgb 8.4 L (13.0-17.0) g/dL Hct 26.0 L (39.6-50.0) % MCV 97.7 H (80.0-97.0) FL RDW 15.9 H (11.5-14.5) % Plt Count 134 L (140-440) X 10*3/uL MPV 9.3 L (9.5-12.2) FL Lymphocytes # 0.51 L (0.90-5.00) X 10*3/uL Anion Gap (4.00-12.00) mmol/L BUN (9.0-27.0) mg/dL Creatinine (0.6-1.5) mg/dL Est GFR (CKD-EPI) (>=60) BUN/Creatinine Ratio (12.00-20.00) Ratio Troponin I 0.036 H* 0.062 H* (0.000-0.034) ng/mL Albumin/Globulin Ratio (1.60-3.17) Ratio 07/12/24 Range/Units 06:28 WBC (4.50-10.00) X 10*3/uL RBC (4.40-5.60) X 10*6/uL Hgb (13.0-17.0) g/dL Hct (39.6-50.0) % MCV (80.0-97.0) FL RDW (11.5-14.5) % Plt Count (140-440) X 10*3/uL MPV (9.5-12.2) FL Lymphocytes # (0.90-5.00) X 10*3/uL Anion Gap 12.50 H (4.00-12.00) mmol/L BUN 51.4 H (9.0-27.0) mg/dL Creatinine 10.1 H (0.6-1.5) mg/dL Est GFR (CKD-EPI) 6 L (>=60) BUN/Creatinine Ratio 5.09 L (12.00-20.00) Ratio Troponin I (0.000-0.034) ng/mL Albumin/Globulin Ratio 1.58 L (1.60-3.17) Ratio Thrombosis Risk Factor Assmnt - Choose All That Apply Each Factor Represents 1 point: Age 41-60 years, Obesity (BMI >25) Thrombosis Risk Factor Assessment Total Risk Factor Score: 2 Thrombosis Risk Factor Assessment Level: Low Risk
--- NOTE | 2024-07-12 18:57 | P.DS ---
Providers Date of admission: 07/11/24 12:13 Expected date of discharge: 07/12/24 Attending physician: Bruno Corrales Consults: 07/11/24 12:13 Consult Physician Routine Consulting Provider: Anderson Avila Consult Reason/Comments: esrf on hd Do you want consulting provider notified?: Yes Consult Physician Routine Consulting Provider: Latasha Marques Consult Reason/Comments: syncope, a fib Do you want consulting provider notified?: Yes Primary care physician: Stated None Hospital Course: Chief Complaint: Palpitation I would wonder if Dr. Bruno Corrales, who is unwell 44-year-old patient, used to follow-up with Dr. Rodriguez. Now between physicians. Chronic medical conditions include atrial fibrillation, asthma, GERD, hypertension, hyperlipidemia, on hemodialysis. Stop drinking alcohol May 2023. Prior to that level to his dialysis patient briefly lost consciousness. His heart was racing and pounding. When he woke up. When he presented to the ER his symptoms resolved. System is lasted less than an hour. He has a prior history of an atrial fibrillation but not on any blood thinners. Per EMS his heart rate was up to 170s. In the ER heart rate was 135. Per EKG. Per cardiac catheterization June last year showed mild triple-vessel disease. Patient was unable to tolerate anticoagulation the past because of anemia. Today feeling well. No symptoms. Remains in sinus rhythm. Patient is currently doing well. Remains in sinus rhythm. Follow-up outpatient with cardiology Dr. Maya to be considered for watchman's procedure. Next dialysis tomorrow. Patient was admitted under Dr. Corrales, have patient follow-up with him in the office. Social history: Lives with a friend. Chews tobacco. History of alcoholism up till May 2023. Works part-time at the [employer] Physical examination: VITAL SIGNS: 97.9, 59, 18, 131 x 70, 97% room air GENERAL: BMI 31.8, sitting up comfortable. EYES: Pupils equal. Conjunctiva kasia l. HEENT: External appearance of nose and ears normal, oral cavity grossly normal. NECK: JVD not raised; masses not palpable. HEART: First and second heart sounds are normal; no edema. LUNGS: Respiratory rate normal; clear to auscultation. ABDOMEN: Soft, nontender, liver spleen not palpable, no masses palpable. PSYCH: Alert and oriented x3; mood and affect kasia l. MUSCULOSKELETAL:No Clubbing/cyanosis;muscles-grossly intact NEUROLOGICAL: Cranial nerves grossly intact; no facial asymmetry, power and sensation grossly intact. LYMPHATICS: No lymph nodes palpable in the axilla and neck INVESTIGATIONS, reviewed in the clinical context: 2D echo: EF 55 to 60%. Moderately increased left atrium area. July 12: White count 4.3 hemoglobin 8.4 platelets 134 sodium 139 potassium 5.1 BUN 51.4 creatinine 10.1 Troponin I 0.032, 0.036, 0.062 TSH 2.4 EKG tracing personally reviewed by me-atrial fibrillation rate in the 130s. Chest x-ray film personally reviewed by me-borderline cardiomegaly Assessment plan: -Paroxysmal atrial fibrillation with a rapid ventricular rate. Causing syncope. Went back into sinus rhythm. Patient is on Lopressor. Anticoagulation not taking because of anemia. Including the past Follow-up with Dr. Maya outpatient. Consideration of watchman's procedure. -Normocytic anemia of chronic kidney disease -End-stage kidney disease on hemodialysis, left arm AV fistula Next dialysis due tomorrow -Essential hypertension Toprol-XL. Amlodipine. Hydralazine. -GERD Prilosec Disposition: Home Past Medical History Past Medical History: Atrial Fibrillation, Asthma, GERD/Reflux, Hyperlipidemia, Hypertension, Renal Disease Additional Past Medical History / Comment(s): Hemo-dialysis Mon-Tue-Tue x 7 yrs, fistula left arm, currently preparing for kidney transplant at [facility]. Pt states he is illiterate-he is able to read a little. History of Any Multi-Drug Resistant Organisms: None Reported Past Surgical History: Heart Catheterization, Tonsillectomy Additional Past Surgical History / Comment(s): fistula to left upper arm Past Anesthesia/Blood Transfusion Reactions: No Reported Reaction Additional Past Anesthesia/Blood Transfusion Reaction / Comment(s): BLOOD TRANSFUSION, NO ISSUES. Past Psychological History: No Psychological Hx Reported Smoking Status: Never smoker Past Alcohol Use History: None Reported Past Drug Use History: None Reported Plan - Discharge Summary Discharge Rx Participant: No New Discharge Prescriptions: New Aspirin 81 mg PO DAILY tab Continue Furosemide [Lasix] 80 mg PO BID Metoprolol Succinate (ER) [Toprol XL] 50 mg PO HS Metoprolol Succinate (ER) [Toprol XL] 25 mg PO DAILY Atorvastatin [Lipitor] 40 mg PO HS Calcium Acetate Capsule 667mg 667 - 1,334 mg PO DIRECTED PRN PRN Reason: SNACKS Fish Oil/Dha/Epa [Fish Oil 1,200 mg Fish Oil] 1 cap PO DAILY amLODIPine [Norvasc] 5 mg PO BID Omeprazole [PriLOSEC] 20 mg PO AC-BRKFST Calcium Acetate Capsule 667mg 2,668 mg PO TID-W/MEALS Changed hydrALAZINE HCL [Apresoline] 50 mg PO BID #0 No Action Folic Acid/Vit B Complex and C [Camila-Marsha Tablet] 0.8 mg PO HS Discharge Medication List Furosemide [Lasix] 80 mg PO BID 05/10/19 [History] amLODIPine [Norvasc] 5 mg PO BID 07/02/21 [History] Metoprolol Succinate (ER) [Toprol XL] 50 mg PO HS 04/12/22 [History] Metoprolol Succinate (ER) [Toprol XL] 25 mg PO DAILY 07/12/23 [History] Atorvastatin [Lipitor] 40 mg PO HS 10/24/23 [History] Omeprazole [PriLOSEC] 20 mg PO AC-BRKFST 12/22/23 [History] Calcium Acetate Capsule 667mg 2,668 mg PO TID-W/MEALS 07/11/24 [History] Calcium Acetate Capsule 667mg 667 - 1,334 mg PO DIRECTED PRN 07/11/24 [History] Fish Oil/Dha/Epa [Fish Oil 1,200 mg Fish Oil] 1 cap PO DAILY 07/11/24 [History] Folic Acid/Vit B Complex and C [Camila-Marsha Tablet] 0.8 mg PO HS 07/11/24 [History] Aspirin 81 mg PO DAILY tab 07/12/24 [Rx] hydrALAZINE HCL [Apresoline] 50 mg PO BID #0 07/12/24 [Rx] Follow up Appointment(s)/Referral(s): Eric Maya MD [STAFF PHYSICIAN] - 1 Week Bruno Corrales MD [STAFF PHYSICIAN] - 1 Week Discharge Disposition: HOME SELF-CARE
== END 2024-07-12 17:20 | disposition home or self-care (01) ==
LOC: EC 09:30 → 6NMEDSUR 12:13
PROVIDERS: ADMIT Family Medicine; ATTEND Family Medicine
DX: R55 Syncope and collapse (principal); I48.0 Paroxysmal atrial fibrillation; I21.A1 Myocardial infarction type 2; K21.9 Gastro-esophageal reflux disease without esophagitis; E78.5 Hyperlipidemia, unspecified; J45.909 Unspecified asthma, uncomplicated; I25.10 Atherosclerotic heart disease of native coronary artery without angina pectoris; I27.20 Pulmonary hypertension, unspecified; I12.0 Hypertensive chronic kidney disease with stage 5 chronic kidney disease or end stage renal disease; N18.6 End stage renal disease; D63.1 Anemia in chronic kidney disease; N25.0 Renal osteodystrophy; F17.220 Nicotine dependence, chewing tobacco, uncomplicated; Z99.2 Dependence on renal dialysis; Z79.82 Long term (current) use of aspirin; Z79.899 Other long term (current) drug therapy
CPT/HCPCS: 99285; 36415; 93005; 93306; 84439; 84481; 80053 ×2; 82728; 83540; 83550; 83735; 84443; 84484; 85025 ×2; 85610; 85730; 71046; G0378 ×2